=== PATIENT | female | born 1960 | race Caucasian/White ===

== ENCOUNTER 2016-11-16 11:22 | Emergency (ER) | payer BC ==
[~2016-11-16] VITALS: Ht 149.9 cm; Wt 87.2 kg
[~2016-11-16 11:22] MED LIST: ANT PO; EPP3/2 IM; LISI-461 PO; PRT40 PO
[2016-11-16 11:24] VITALS: TEMP 37; Ht 149.9 cm; Wt 87.2 kg
[2016-11-16] MEDS ORDERED: RANITIDINE HCL 150 MG TAB PO ONE (12:00)
--- NOTE | 2016-11-16 12:11 | EMERGENCY ROOM VISIT NOTE ---
ED Visit Note First contact with patient: 11:36 Chief Complaint: Rash History of Present Illness: Patient is a 56-year-old female who presents to the emergency department today for evaluation of diffuse rash. She reports that she developed mild swelling to the upper and lower lips 2 days ago. Yesterday, she noticed irritation and bumps between her fingers. She took one half of a 25 mg Benadryl last evening and then a second one half upon awakening at 2:30 when she noticed diffuse rash to her face, arms, and RIGHT hip area. She denies any significant itching. There is been no new environmental exposures. There is been no new detergents, colognes, perfumes, etc. She did make an appointment with her primary care provider this morning at 11 AM, however they contacted her and told her to come to the emergency department instead. She is taking no other [id number]-[id number] medications to this point. The patient reports his past medical history of multiple sclerosis. She reports that she cannot take steroids secondary to a previous reaction. She complains of some mild joint pain which is not new, but rates her discomfort as a 6/10. She denies any fevers, chills, recent illness, headaches, dizziness, lightheadedness , throat swelling, tongue swelling, shortness of breath, hemoptysis, nausea, vomiting, or abdominal pain. Medications: Reviewed and discussed with the patient. Allergies: Bee stings, naproxen, sulfa antibiotics PMH: MS MICHELx: Patient is a 56-year-old female who lives locally. ROS: All pertinent positive and negative review of systems are appropriately documented in the History of Present Illness. Physical Exam: VITAL SIGNS - Vital signs and nursing notes were reviewed. GENERAL - 56-year-old female appearing her stated age. Communicates well with provider and answers questions appropriately. SKIN - Gross examination of the entire body surface demonstrates a diffuse erythematous macular rash with several small urticaria noted throughout the face , neck, and upper extremity's. There is an isolated area to the RIGHT hip as well. Lesions are all blanchable. No petechiae or palpable purpura appreciated. Mild edema noted to the upper lip. HEAD - Normocephalic, Atraumatic. EYES - PERRL with EOMI bilaterally. Without periorbital edema. Without subconjunctival hemorrhage. Palpebral conjunctiva pink and moist with no injection. EARS - No deformities of external structures noted on gross examination bilaterally. No hemotympanum present. No tympanic perforation noted. Handle of malleus, umbo, cone of light, pars tensa/flaccid all easily visualized. NOSE - Midline and without cyanosis. No epistaxis or clear watery discharge noted. Septum midline without deviation. No septal hematoma noted. No overlying ecchymosis noted. MOUTH/OROPHARYNX - Without perioral cyanosis. Tongue midline with equal elevation of palate bilaterally. No blood noted in the oropharynx. No tonsillar hypertrophy, erythema, or exudates noted. Good dentition noted. NECK - Supple to palpation. LUNGS - Chest wall symmetric without accessory muscle use, intercostals retractions, or central cyanosis. Without stridor. No active wheezes. Normal vesicular breath sounds CTA B/L. No rales or rhonchi appreciated. CARDIAC - RRR with S1/S2. No murmur, rubs, or gallops appreciated. ABDOMEN - Abdominal contour obese without pulsations or visible masses. BS normoactive all four quadrants. No rebound tenderness or guarding noted. No tenderness, palpable masses, hepatosplenomegaly, or ascites noted. EXTREMITIES - No gross deformities noted of the extremities. NEUROLOGIC - Cranial nerves II through XII grossly intact. Sensory intact to light touch throughout. PSYCH - A&Ox3 and cooperates fully with examiner. Pt is very pleasant and interacts well with examiner. ED Course: Patient was seen and evaluate by myself. I had a lengthy discussion with patient regarding symptoms and management. I did offer intravenous medications for rapid result of symptoms, but the patient adamantly declines blood work at this point. She was offered oral medication, especially steroids. She declined steroids at this time secondary to extreme reaction. The patient admits that the only reason she is here is because the nurses refused to see her in office today based on her symptoms over the phone. They did not physically see the patient. The patient reports that her primary care provider is out of office at this point or she would have contacted him directly. I did suggest that intravenous medications would provide quicker relief of symptoms, yet she still declines. She was provided oral Benadryl as well as Zantac in the emergency department. She was encouraged to utilize these medications around the clock. She was educated if her symptoms were to worsen she should utilize her epinephrine injection and presented to the emergency Department immediately. Patient and her are comfortable with this plan and feel this is most appropriate at this point. They're educated on worrisome symptoms for return visit to the emergency department. Patient discharged home in good condition. In the evaluation and treatment of this patient, the following differential diagnoses were considered: Anaphylaxis, cellulitis, dermatitis, vasculitis, medication reaction, autoimmune disorder, amongst others. Impression: Urticarial Rash Discharge Instructions: You have been treated in the Emergency Department for an Urticarial Rash. You should take Benadryl (diphenhydramine) 25-50 mg orally every 4-6 hours for the next 5-7 days. This medication is [id number] and you will NOT need a prescription to purchase this at your local pharmacy. You should continue taking the Benadryl for the COMPLETION of the 5-7 days. This is to prevent a rebound allergic reaction in the event that allergens are still present in your system. You should take Zantac (ranitidine) 150 mg orally twice daily for the next 7 days. This medication is njig-cuy-hdechpx and you will NOT need a prescription to purchase this at your local pharmacy. You should continue taking the Zantac for the COMPLETION of the 7 days. This is to prevent a rebound allergic reaction in the event that allergens are still present in your system. Use your EpiPen if symptoms worsen. If you begin to experience the symptoms that brought you to the Emergency Department today, you should give yourself the injection and then report IMMEDIATELY to the Emergency Department for further evaluation and treatment. Follow-up with your primary care provider in 24-48 hours for recheck. Return to the Emergency Department if your current symptoms worsen despite treatment course outlined above, or if you develop any of the following symptoms : wheezing, tongue or face swelling, tightness in your throat, shortness of breath, or fainting. Current/Historical Medications Scheduled Epinephrine (Epipen), 0.3 MG IM UD Lisinopril (Lisinopril), 10 MG PO QAM Pantoprazole (Pantoprazole Sodium), 40 MG PO BID Scheduled PRN Antacid (Antacid), 2 TABS PO for Heartburn Allergies Coded Allergies: BEE STING (Verified Allergy, Severe, SHORTNESS OF BREATH, swelling, ) severity depends on area of sting Naproxen (Verified Allergy, Intermediate, HIVES, 07/23/16) Sulfa Antibiotics (Verified Allergy, Intermediate, HIVES, 07/23/16) Vital Signs Date Time Temp Pulse Resp B/P Pulse Ox O2 Delivery O2 Flow Rate FiO2 11/16/16 12:21 89 17 161/118 97 11/16/16 12:18 89 17 161/118 97 Room Air 11/16/16 11:24 37.0 96 18 162/107 96 Room Air Medications Administered Medications (Trade) Dose Ordered Sig/Orville Route Start Time Stop Time Status Last Admin Dose Admin Diphenhydramine HCl (Benadryl Cap) 25 mg NOW ONCE PO 11/16/16 12:00 11/16/16 12:02 DC 11/16/16 12:06 25 MG Ranitidine HCl (zANTac TAB) 150 mg NOW ONCE PO 11/16/16 12:00 11/16/16 12:02 DC 11/16/16 12:06 150 MG Departure Information Impression Primary Impression: Urticarial rash Dispostion Home / Self-Care Condition GOOD Referrals Shon Page M.D. (PCP) Patient Instructions [facility] Additional Instructions You have been treated in the Emergency Department for an Urticarial Rash. You should take Benadryl (diphenhydramine) 25-50 mg orally every 4-6 hours for the next 5-7 days. This medication is [id number]-uijdjqa and you will NOT need a prescription to purchase this at your local pharmacy. You should continue taking the Benadryl for the COMPLETION of the 5-7 days. This is to prevent a rebound allergic reaction in the event that allergens are still present in your system. You should take Zantac (ranitidine) 150 mg orally twice daily for the next 7 days. This medication is [id number] and you will NOT need a prescription to purchase this at your local pharmacy. You should continue taking the Zantac for the COMPLETION of the 7 days. This is to prevent a rebound allergic reaction in the event that allergens are still present in your system. Use your EpiPen if symptoms worsen. If you begin to experience the symptoms that brought you to the Emergency Department today, you should give yourself the injection and then report IMMEDIATELY to the Emergency Department for further evaluation and treatment. Follow-up with your primary care provider in 24-48 hours for recheck. Return to the Emergency Department if your current symptoms worsen despite treatment course outlined above, or if you develop any of the following symptoms : wheezing, tongue or face swelling, tightness in your throat, shortness of breath, or fainting.
[2016-11-16 12:21] VITALS: BP 161/118; PULSE 89; O2SAT 97
== END 2016-11-16 12:22 | disposition home or self-care (01) ==
LOC: C.EDB 11:25
DX: L50.9 Urticaria, unspecified (principal); G35 Multiple sclerosis

== ENCOUNTER 2020-07-15 | Inpatient (IN) ==
--- OUTSIDE RECORDS SUMMARY | 2020-07-15 00:03 | External Medical Summary | Continuity of Care Document ---
:1960 Author Name Laya Wood Address Unavailable Unavailable , Care Team Providers Name Role Phone Aiden MCMILLAN Unavailable [email or web address] Kavin CAMACHO Unavailable Unavailable Unavailable Unavailable Unavailable Assessments Assessed Problems:Cough Problems Polyarthritis (716.50) (M13.0) Polycythemia (238.4) (D75.1) Cough (786.2) (R05) Allergies and Adverse Reactions Gabapentin CAPS (Allergy) Naproxen TABS (Allergy) Bee sting (Allergy) Medications Pantoprazole Sodium 40 MG Oral Tablet Delayed Release Refills: 0 Fluticasone Propionate 50 MCG/ACT Nasal Suspension Refills: 0 Vitamin D3 125 MCG (5000 UT) Oral Tablet Refills: 0 Super B Complex TABS Refills: 0 Furosemide 20 MG Oral Tablet Refills: 0 Potassium Chloride ER 20 MEQ Oral Tablet Extended Release Refills: 0 LORazepam 1 MG Oral Tablet Refills: 0 Lisinopril-hydroCHLOROthiazide 10-12.5 MG Oral Tablet Refills: 0 raNITIdine HCl 150 MG CAPS Refills: 0 Desonide 0.05 % External Ointment Refills: 0 diphenhydrAMINE HCl - 25 MG Oral Capsule Refills: 0 Fluocinonide 0.05 % External Cream Refills: 0 prednisoLONE Acetate 1 % Ophthalmic Suspension Refills: 0 Procedures History of ear surgery Status: Completed Immunizations Immunizations not documented Social History - Smoking Status Never smoked tobacco Plan of Treatment Planned Observations Planned Goals not documented Results No Known Results Results not documented Encounters Appointment; Debra Wolfe PA-C 26-Aug-2017 11:30 Encounter Diagnosis: Problem not documented
--- OUTSIDE RECORDS SUMMARY | 2020-07-15 00:03 | External Medical Summary | Continuity of Care Document ---
:1960 Author Name Laya Wood Address Unavailable Unavailable , Care Team Providers Name Role Phone Aiden MCMILLAN Unavailable [email or web address] Kavin CAMACHO Unavailable Unavailable Unavailable Unavailable Unavailable Assessments Assessed Problems:Cough Problems Cough (786.2) (R05) Polycythemia (238.4) (D75.1) Polyarthritis (716.50) (M13.0) Allergies and Adverse Reactions Gabapentin CAPS (Allergy) Naproxen TABS (Allergy) Bee sting (Allergy) Medications prednisoLONE Acetate 1 % Ophthalmic Suspension Refills: 0 Fluocinonide 0.05 % External Cream Refills: 0 diphenhydrAMINE HCl - 25 MG Oral Capsule Refills: 0 Desonide 0.05 % External Ointment Refills: 0 LORazepam 1 MG Oral Tablet Refills: 0 Furosemide 20 MG Oral Tablet Refills: 0 Super B Complex TABS Refills: 0 raNITIdine HCl 150 MG CAPS Refills: 0 Lisinopril-hydroCHLOROthiazide 10-12.5 MG Oral Tablet Refills: 0 Potassium Chloride ER 20 MEQ Oral Tablet Extended Release Refills: 0 Vitamin D3 125 MCG (5000 UT) Oral Tablet Refills: 0 Fluticasone Propionate 50 MCG/ACT Nasal Suspension Refills: 0 Pantoprazole Sodium 40 MG Oral Tablet Delayed Release Refills: 0 Procedures History of ear surgery Status: Completed Immunizations Immunizations not documented Social History - Smoking Status Never smoked tobacco Plan of Treatment Planned Observations Planned Goals not documented Results No Known Results Results not documented Encounters Appointment; Debra Wolfe PA-C 26-Aug-2017 11:30 Encounter Diagnosis: Problem not documented
[2020-07-15] MEDS ORDERED: ONDANSETRON INJ 2 MG/ML 2 ML VIAL IV STA (00:19)
[2020-07-15 00:42] LABS: Appearance Urine Clear (Clear); Blood Urine Negative (Negative); Color Urine Dark Yellow; Glucose Urine UA Negative (Negative); Ketones Urine Negative (Negative); Leukocyte Esterase Urine 1+ (Negative); Nitrite Urine Positive (Negative); Protein Urine Negative (Negative); Specific Gravity Urine 1.005 (1.000-1.030); Urobilinogen Urine Negative (Negative)
[2020-07-15 00:58] LABS: Basophils # (auto) 0.01 K/uL (0-0.2); Basophils % (auto) 0.1 %; Eosinophils # (auto) 0.02 K/uL (0-0.5); Eosinophils % (auto) 0.2 %; Hematocrit (blood only) 39.4 % (37-47); Hemoglobin 13.7 g/dL (12.0-16.0); Immature Granulocytes # (auto) 0.04 K/uL (0.00-0.02); Immature Granulocytes % (auto) 0.4 %; Lymphocytes # (auto) 1.39 K/uL (1.2-3.4); Lymphocytes % (auto) 13.6 %; Mean Corpuscular Hgb Conc 34.8 g/dL (32-36); Mean Corpuscular Volume 106.5 fL (80-100); Mean Platelet Volume 10.1 fL (7.4-10.4); Monocytes % (auto) 13.7 %; Neutrophils # (auto) 7.33 K/uL (1.4-6.5); Platelet Count 134 K/uL (130-400); RDW Coefficient of Variation 14.5 % (11.5-14.5); RDW Standard Deviation 56.1 fL (36.4-46.3); White Blood Count 10.19 K/uL (4.8-10.8)
[2020-07-15 01:11] LABS: Bilirubin Urine Negative (Negative); Ictotest Urine Negative (Negative)
[2020-07-15 01:14] LABS: INR 1.3 (0.9-1.1); Partial Thromboplastin Time 27.1 Seconds (21.0-31.0); Prothrombin Time 13.1 Seconds (9.0-12.0)
[2020-07-15 01:14] LABS: Bacteria Urine Automated Negative (Negative); Cast Urine Automated 0 /lpf (0-5); Epithelial Cell Urine Auto 0-5 /lpf (0-5); RBC Urine Automated 0-4 /hpf (0-4); Renal Epithelial Cells Urine 0-5 /lpf (0-5)
[2020-07-15 01:26] LABS: Alanine Aminotransferase 129 U/L (12-78); Albumin Globulin Ratio 0.6 (0.9-2); Albumin Level 2.7 gm/dl (3.4-5.0); Aspartate Aminotransferase 294 U/L (15-37); BUN Creatinine Ratio 12.5 (10-20); Bilirubin,Total 6.2 mg/dl (0.2-1); Blood Urea Nitrogen 7 mg/dl (7-18); C Reactive Protein 7.07 mg/dl (0-0.29); Calcium 8.8 mg/dl (8.5-10.1); Carbon Dioxide 31 mmol/L (21-32); Chloride 92 mmol/L (98-107); Creatinine Clr Calc Pharmacy 97.7 ml/min; Est GFR (African American) 120.6; Globulin 4.3 gm/dl (2.5-4.0); Glucose 129 mg/dl (70-99); Lipase 158 U/L (73-393); Magnesium 1.6 mg/dl (1.8-2.4); Potassium 2.8 mmol/L (3.5-5.1); Sodium 132 mmol/L (136-145)
[2020-07-15 01:33] LABS: Alkaline Phosphatase 195 U/L (45-117); Troponin I < 0.015 ng/ml (0-0.045)
[2020-07-15] MEDS: POTASSIUM CHLORIDE / WTR 10 MEQ/100 ML PLCT IV SCH ×2 (01:41→02:39)
[2020-07-15 02:00] LABS: Lyme Ab IgG w/WB Rflx Negative (Negative)
[2020-07-15 02:01] LABS: Lyme Ab IgM w/WB Rflx Equivocal (Negative)
[2020-07-15 02:56] LABS: Hepatitis B Surface Antigen Neg (Neg); Hepatitis C IgG 13Yrs+Old_Rflx Neg (Neg)
[2020-07-15] MEDS ORDERED: IOVERSOL 100ml IV ONE (03:57)
[2020-07-15] MEDS ORDERED: POTASSIUM CHLORIDE 10 MEQ TABCR PO STA (04:52)
--- NOTE | 2020-07-15 05:11 | Emergency Department Note ---
History of Present Illness General Chief complaint: Abnormal Labs/Diagnostic Testing Stated complaint: ABNORMAL LABS Time Seen by Provider: 07/15/20 00:07 History of Present Illness Maximum Pain Intensity: 7 This is a 60-year-old female presenting to the emergency department for evaluation of abnormal outpatient labs. The patient history is somewhat disjointed. She evidently had a colonoscopy about 1 month ago and following the procedure had a period of persistent nausea and vomiting. She has had some generalized weakness as well. The patient followed up today with her primary are physician where blood work was drawn and urine was collected. The patient was felt to have a urinary tract infection and started on Cipro, and has only taken 1 dose of the antibiotic thus far. The patient was getting ready for bed and was laying in bed around 10:30 PM, when the on-call [facility] contacted her and informed her that her lab results had come back, and she had elevated LFTs. They recommend that she go straight to the emergency department for evaluation. On arrival the patient is without significant acute complaints. She has not had recent fever or chills. She had negative Covid testing before her colonoscopy and has not had any recent travel history. She is not having chest pain, chest tightness, or shortness of breath. She has had some intermittent abdominal discomfort since the colonoscopy but nothing new. 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 Her liver was measured at 20.4 cm on that image and was with steatosis. The patient rates her current discomfort a 7/10. She has not taken anything [id number] for her symptoms and feels like she has been eating and drinking as normal. Other than the 1 dose of Cipro she has not had any new medication changes. She does take vitamins but denies any herbal supplements. Home Medications Home Medications Medication Instructions Recorded Confirmed Type ciprofloxacin HCl 250 mg PO BID 07/15/20 07/15/20 History ergocalciferol (vitamin D2) 1,250 mcg PO MONTHLY 07/15/20 07/15/20 History ipratropium bromide 2 spray INTRANASAL Q12 07/15/20 07/15/20 History lisinopril-hydrochlorothiazide 1 tab PO DAILY 07/15/20 07/15/20 History tramadol 50 mg PO Q6 PRN 07/15/20 07/15/20 History Allergies Allergy/AdvReac Type Severity Reaction Status Date / Time bee venom protein (honey bee) Allergy Severe SHORTNESS Verified 07/15/20 01:43 OF BREATH, swelling naproxen Allergy Intermediate HIVES Verified 07/15/20 01:43 Sulfa (Sulfonamide Allergy Intermediate HIVES Verified 07/15/20 01:43 Antibiotics) Past Med/Surg History Medical History (Updated 07/15/20 @ 05:04 by Bc Deleon PA-C) HTN (hypertension) (07/12/14) Surgical History (Updated 07/15/20 @ 05:04 by Bc Deleon PA-C) H/O tubal ligation Social History Smoking Status: Never smoker Feels Safe at Home: Yes Review of Systems A total of 10 systems reviewed and were otherwise negative Physical Exam Vital Signs Vital Signs - 24 hr 07/15/20 00:04 07/15/20 00:30 07/15/20 00:32 Temperature 37.1 C Temperature Source Oral Pulse Rate 106 H 104 H Pulse Rate from SpO2 Sensor 105 H Respiratory Rate 18 24 Respiratory Effort / Characteristics Non-Labored Spontaneous Respiratory Depth Normal Blood Pressure 134/81 172/99 H Blood Pressure Mean 98 119 Pulse Oximetry 98 95 Oxygen Delivery Method Room Air Room Air Room Air Sepsis Recent Fever Within 48 Hours No Sepsis New/Unexplained Change in Mental Status N/A Sepsis Action Taken by Nursing No Action Required 07/15/20 01:18 07/15/20 01:30 07/15/20 02:00 Temperature Temperature Source Pulse Rate 97 H 93 H 92 H Pulse Rate from SpO2 Sensor 97 H 93 H 93 H Respiratory Rate 22 17 20 Respiratory Effort / Characteristics Respiratory Depth Blood Pressure 125/74 131/92 146/85 H Blood Pressure Mean 84 101 109 Pulse Oximetry 96 95 96 Oxygen Delivery Method Room Air Room Air Room Air Sepsis Recent Fever Within 48 Hours Sepsis New/Unexplained Change in Mental Status Sepsis Action Taken by Nursing 07/15/20 02:30 07/15/20 03:00 07/15/20 03:30 Temperature Temperature Source Pulse Rate 98 H 98 H 94 H Pulse Rate from SpO2 Sensor 98 H 98 H 94 H Respiratory Rate 18 22 18 Respiratory Effort / Characteristics Respiratory Depth Blood Pressure 118/68 127/82 116/73 Blood Pressure Mean 82 108 84 Pulse Oximetry 93 95 93 Oxygen Delivery Method Room Air Room Air Room Air Sepsis Recent Fever Within 48 Hours Sepsis New/Unexplained Change in Mental Status Sepsis Action Taken by Nursing 07/15/20 04:00 07/15/20 04:30 Temperature Temperature Source Pulse Rate 96 H 88 Pulse Rate from SpO2 Sensor 95 H 87 Respiratory Rate 24 13 Respiratory Effort / Characteristics Respiratory Depth Blood Pressure 118/74 113/71 Blood Pressure Mean 86 80 Pulse Oximetry 93 95 Oxygen Delivery Method Room Air Room Air Sepsis Recent Fever Within 48 Hours Sepsis New/Unexplained Change in Mental Status Sepsis Action Taken by Nursing VITALS: Vitals are noted on the nurse's note and reviewed by myself. Vital signs stable. GENERAL: White female who appears moderately ill on exam. She is jaundiced. HEAD: Normocephalic atraumatic. EYES: Pupils equal round and reactive to light and accommodation. Conjunctivae yellow. EOMI. NOSE: Patent, turbinates without inflammation or discharge. MOUTH: Mucous membranes moist. Tonsils are not enlarged. Pharynx without erythema, blood, or exudate. Uvula midline. Airway patent. NECK: Supple without nuchal rigidity. No lymphadenopathy. No thyromegaly. Cervical spine is nontender. HEART: Regular rate and rhythm without murmurs gallops or rubs. LUNGS: Clear to auscultation bilaterally without wheezes, rales or rhonchi. No retractions or accessory muscle use. ABDOMEN: Positive normal bowel sounds x 4. Soft with firmness across the upper abdomen concerning for hepatomegaly. No significant tenderness throughout. MUSCULOSKELETAL: No muscle atrophy, erythema, or edema noted. Full range of motion in all extremities. NEURO: Patient was alert and oriented to person place and time. CN II through XII grossly intact. Course Administered Medications Discontinued Medications Potassium Chloride (K Tony / Wtr) 10 meq in 100 mls @ 100 mls/hr IV Q1H AUGIE Stop: 07/15/20 03:29 Last Infusion: 07/15/20 03:37 Dose: 0 mls/hr Documented by: [id number] Admin: 07/15/20 02:39 Dose: 100 mls/hr Documented by: [id number] Infusion: 07/15/20 02:39 Dose: 0 mls/hr Documented by: [id number] Admin: 07/15/20 01:41 Dose: 100 mls/hr Documented by: [id number] Ioversol (Ioversol 100ml) 100 ml IV ONCE ONE Stop: 07/15/20 03:58 Last Admin: 07/15/20 03:57 Dose: 92 ml Documented by: [id number] Ondansetron HCl (Ondansetron Inj 2 Mg/Ml 2 Ml Vial) 4 mg IV NOW STA Stop: 07/15/20 00:20 Last Admin: 07/15/20 00:47 Dose: 4 mg Documented by: [id number] Medical Decision Making Differential Diagnosis Differential diagnosis: Etiologies such as biliary colic, cholecystitis, hepatitis, pancreatitis, cardiac disease, pancreatitis, gastritis, peptic ulcer disease, appendicitis, cystitis, diverticulitis, mesenteric ischemia, inflammatory bowel disease, ileus, bowel obstruction, testicular/adnexal torsion, aortic pathology, shingles, as well as others were considered Laboratory Data Result diagrams: 07/15/20 00:35 07/15/20 00:35 Lab Results 07/15/20 07/15/20 07/15/20 Range/Units 00:32 00:35 00:35 WBC 10.19 (4.8-10.8) K/uL RBC 3.70 L (4.2-5.4) M/uL Hgb 13.7 (12.0-16.0) g/dL Hct 39.4 (37-47) % MCV 106.5 H (80-100) fL MCH 37.0 H (25-34) pg MCHC 34.8 (32-36) g/dL RDW Std Deviation 56.1 H (36.4-46.3) fL RDW Coeff of Merna 14.5 (11.5-14.5) % Plt Count 134 (130-400) K/uL MPV 10.1 (7.4-10.4) fL Immature Gran % (Auto) 0.4 % Neut % (Auto) 72.0 % Lymph % (Auto) 13.6 % [place] % (Auto) 13.7 % Eos % (Auto) 0.2 % Baso % (Auto) 0.1 % Neut # (Auto) 7.33 H (1.4-6.5) K/uL Lymph # (Auto) 1.39 (1.2-3.4) K/uL [place] # (Auto) 1.40 H (0.11-0.59) K/uL Eos # (Auto) 0.02 (0-0.5) K/uL Baso # (Auto) 0.01 (0-0.2) K/uL Immature Gran # (Auto) 0.04 H (0.00-0.02) K/uL ESR (0-21) mm/hr PT (9.0-12.0) Seconds INR (0.9-1.1) APTT (21.0-31.0) Seconds PTT Ratio Sodium 132 L (136-145) mmol/L Potassium 2.8 L (3.5-5.1) mmol/L Chloride 92 L (98-107) mmol/L Carbon Dioxide 31 (21-32) mmol/L Anion Gap 9.0 (3-11) BUN 7 (7-18) mg/dl Creatinine 0.54 L (0.6-1.2) mg/dl Est Cr Clr Drug Dosing 97.7 ml/min Est GFR ( Amer) 120.6 Est GFR (Non-Af Amer) 104.0 BUN/Creatinine Ratio 12.5 (10-20) Glucose 129 H (70-99) mg/dl Lactate (0.4-2.0) mmol/L Calcium 8.8 (8.5-10.1) mg/dl Magnesium 1.6 L (1.8-2.4) mg/dl Total Bilirubin 6.2 H (0.2-1) mg/dl Direct Bilirubin 5.0 H (0-0.2) mg/dl AST 294 H (15-37) U/L ALT 129 H (12-78) U/L Alkaline Phosphatase 195 H (45-117) U/L Ammonia (11-32) umol/L Troponin I < 0.015 (0-0.045) ng/ml C-Reactive Protein 7.07 H (0-0.29) mg/dl Total Protein 7.0 (6.4-8.2) gm/dl Albumin 2.7 L (3.4-5.0) gm/dl Globulin 4.3 H (2.5-4.0) gm/dl Albumin/Globulin Ratio 0.6 L (0.9-2) Lipase 158 (73-393) U/L TSH 3.450 (0.300-4.500) uIu/ml Urine Color Dark Yellow Urine Appearance Clear (Clear) Urine pH 7.0 (4.5-7.5) Ur Specific [place] 1.005 (1.000-1.030) Urine Protein Negative (Negative) Urine Glucose (UA) Negative (Negative) Urine Ketones Negative (Negative) Urine Blood Negative (Negative) Urine Nitrite Positive A (Negative) Urine Bilirubin Negative (Negative) Urine Urobilinogen Negative (Negative) Ur Leukocyte Esterase 1+ H (Negative) Urine WBC (Auto) 1-5 (0-5) /hpf Urine RBC (Auto) 0-4 (0-4) /hpf U Hyaline Cast (Auto) 0 (0-5) /lpf U Epithel Cells (Auto) 0-5 (0-5) /lpf Urine Bacteria (Auto) Negative (Negative) Ur Renal Epithelial Cell 0-5 (0-5) /lpf Ethyl Alcohol mg/dL (0-3) mg/dl Lyme Disease IgG Ab (Negative) Lyme Disease IgM Ab (Negative) Hep Bs Antigen (Neg) Hepatitis C Antibody (Neg) 07/15/20 07/15/20 07/15/20 Range/Units 00:35 00:35 00:35 WBC (4.8-10.8) K/uL RBC (4.2-5.4) M/uL Hgb (12.0-16.0) g/dL Hct (37-47) % MCV (80-100) fL MCH (25-34) pg MCHC (32-36) g/dL RDW Std Deviation (36.4-46.3) fL RDW Coeff of Merna (11.5-14.5) % Plt Count (130-400) K/uL MPV (7.4-10.4) fL Immature Gran % (Auto) % Neut % (Auto) % Lymph % (Auto) % [place] % (Auto) % Eos % (Auto) % Baso % (Auto) % Neut # (Auto) (1.4-6.5) K/uL Lymph # (Auto) (1.2-3.4) K/uL [place] # (Auto) (0.11-0.59) K/uL Eos # (Auto) (0-0.5) K/uL Baso # (Auto) (0-0.2) K/uL Immature Gran # (Auto) (0.00-0.02) K/uL ESR (0-21) mm/hr PT 13.1 H (9.0-12.0) Seconds INR 1.3 H (0.9-1.1) APTT 27.1 (21.0-31.0) Seconds PTT Ratio 1.0 Sodium (136-145) mmol/L Potassium (3.5-5.1) mmol/L Chloride (98-107) mmol/L Carbon Dioxide (21-32) mmol/L Anion Gap (3-11) BUN (7-18) mg/dl Creatinine (0.6-1.2) mg/dl Est Cr Clr Drug Dosing ml/min Est GFR ( Amer) Est GFR (Non-Af Amer) BUN/Creatinine Ratio (10-20) Glucose (70-99) mg/dl Lactate (0.4-2.0) mmol/L Calcium (8.5-10.1) mg/dl Magnesium (1.8-2.4) mg/dl Total Bilirubin (0.2-1) mg/dl Direct Bilirubin (0-0.2) mg/dl AST (15-37) U/L ALT (12-78) U/L Alkaline Phosphatase (45-117) U/L Ammonia 31.0 (11-32) umol/L Troponin I (0-0.045) ng/ml C-Reactive Protein (0-0.29) mg/dl Total Protein (6.4-8.2) gm/dl Albumin (3.4-5.0) gm/dl Globulin (2.5-4.0) gm/dl Albumin/Globulin Ratio (0.9-2) Lipase (73-393) U/L TSH (0.300-4.500) uIu/ml Urine Color Urine Appearance (Clear) Urine pH (4.5-7.5) Ur Specific Basin (1.000-1.030) Urine Protein (Negative) Urine Glucose (UA) (Negative) Urine Ketones (Negative) Urine Blood (Negative) Urine Nitrite (Negative) Urine Bilirubin (Negative) Urine Urobilinogen (Negative) Ur Leukocyte Esterase (Negative) Urine WBC (Auto) (0-5) /hpf Urine RBC (Auto) (0-4) /hpf U Hyaline Cast (Auto) (0-5) /lpf U Epithel Cells (Auto) (0-5) /lpf Urine Bacteria (Auto) (Negative) Ur Renal Epithelial Cell (0-5) /lpf Ethyl Alcohol mg/dL (0-3) mg/dl Lyme Disease IgG Ab Negative (Negative) Lyme Disease IgM Ab Equivocal A (Negative) Hep Bs Antigen (Neg) Hepatitis C Antibody (Neg) 07/15/20 07/15/20 07/15/20 Range/Units 00:35 00:45 00:45 WBC (4.8-10.8) K/uL RBC (4.2-5.4) M/uL Hgb (12.0-16.0) g/dL Hct (37-47) % MCV (80-100) fL MCH (25-34) pg MCHC (32-36) g/dL RDW Std Deviation (36.4-46.3) fL RDW Coeff of Merna (11.5-14.5) % Plt Count (130-400) K/uL MPV (7.4-10.4) fL Immature Gran % (Auto) % Neut % (Auto) % Lymph % (Auto) % [place] % (Auto) % Eos % (Auto) % Baso % (Auto) % Neut # (Auto) (1.4-6.5) K/uL Lymph # (Auto) (1.2-3.4) K/uL [place] # (Auto) (0.11-0.59) K/uL Eos # (Auto) (0-0.5) K/uL Baso # (Auto) (0-0.2) K/uL Immature Gran # (Auto) (0.00-0.02) K/uL ESR 17 (0-21) mm/hr PT (9.0-12.0) Seconds INR (0.9-1.1) APTT (21.0-31.0) Seconds PTT Ratio Sodium (136-145) mmol/L Potassium (3.5-5.1) mmol/L Chloride (98-107) mmol/L Carbon Dioxide (21-32) mmol/L Anion Gap (3-11) BUN (7-18) mg/dl Creatinine (0.6-1.2) mg/dl Est Cr Clr Drug Dosing ml/min Est GFR ( Amer) Est GFR (Non-Af Amer) BUN/Creatinine Ratio (10-20) Glucose (70-99) mg/dl Lactate 1.7 (0.4-2.0) mmol/L Calcium (8.5-10.1) mg/dl Magnesium (1.8-2.4) mg/dl Total Bilirubin (0.2-1) mg/dl Direct Bilirubin (0-0.2) mg/dl AST (15-37) U/L ALT (12-78) U/L Alkaline Phosphatase (45-117) U/L Ammonia (11-32) umol/L Troponin I (0-0.045) ng/ml C-Reactive Protein (0-0.29) mg/dl Total Protein (6.4-8.2) gm/dl Albumin (3.4-5.0) gm/dl Globulin (2.5-4.0) gm/dl Albumin/Globulin Ratio (0.9-2) Lipase (73-393) U/L TSH (0.300-4.500) uIu/ml Urine Color Urine Appearance (Clear) Urine pH (4.5-7.5) Ur Specific [place] (1.000-1.030) Urine Protein (Negative) Urine Glucose (UA) (Negative) Urine Ketones (Negative) Urine Blood (Negative) Urine Nitrite (Negative) Urine Bilirubin (Negative) Urine Urobilinogen (Negative) Ur Leukocyte Esterase (Negative) Urine WBC (Auto) (0-5) /hpf Urine RBC (Auto) (0-4) /hpf U Hyaline Cast (Auto) (0-5) /lpf U Epithel Cells (Auto) (0-5) /lpf Urine Bacteria (Auto) (Negative) Ur Renal Epithelial Cell (0-5) /lpf Ethyl Alcohol mg/dL (0-3) mg/dl Lyme Disease IgG Ab (Negative) Lyme Disease IgM Ab (Negative) Hep Bs Antigen Neg (Neg) Hepatitis C Antibody Neg (Neg) 07/15/20 Range/Units 00:45 WBC (4.8-10.8) K/uL RBC (4.2-5.4) M/uL Hgb (12.0-16.0) g/dL Hct (37-47) % MCV (80-100) fL MCH (25-34) pg MCHC (32-36) g/dL RDW Std Deviation (36.4-46.3) fL RDW Coeff of Merna (11.5-14.5) % Plt Count (130-400) K/uL MPV (7.4-10.4) fL Immature Gran % (Auto) % Neut % (Auto) % Lymph % (Auto) % [place] % (Auto) % Eos % (Auto) % Baso % (Auto) % Neut # (Auto) (1.4-6.5) K/uL Lymph # (Auto) (1.2-3.4) K/uL [place] # (Auto) (0.11-0.59) K/uL Eos # (Auto) (0-0.5) K/uL Baso # (Auto) (0-0.2) K/uL Immature Gran # (Auto) (0.00-0.02) K/uL ESR (0-21) mm/hr PT (9.0-12.0) Seconds INR (0.9-1.1) APTT (21.0-31.0) Seconds PTT Ratio Sodium (136-145) mmol/L Potassium (3.5-5.1) mmol/L Chloride (98-107) mmol/L Carbon Dioxide (21-32) mmol/L Anion Gap (3-11) BUN (7-18) mg/dl Creatinine (0.6-1.2) mg/dl Est Cr Clr Drug Dosing ml/min Est GFR ( Amer) Est GFR (Non-Af Amer) BUN/Creatinine Ratio (10-20) Glucose (70-99) mg/dl Lactate (0.4-2.0) mmol/L Calcium (8.5-10.1) mg/dl Magnesium (1.8-2.4) mg/dl Total Bilirubin (0.2-1) mg/dl Direct Bilirubin (0-0.2) mg/dl AST (15-37) U/L ALT (12-78) U/L Alkaline Phosphatase (45-117) U/L Ammonia (11-32) umol/L Troponin I (0-0.045) ng/ml C-Reactive Protein (0-0.29) mg/dl Total Protein (6.4-8.2) gm/dl Albumin (3.4-5.0) gm/dl Globulin (2.5-4.0) gm/dl Albumin/Globulin Ratio (0.9-2) Lipase (73-393) U/L TSH (0.300-4.500) uIu/ml Urine Color Urine Appearance (Clear) Urine pH (4.5-7.5) Ur Specific [place] (1.000-1.030) Urine Protein (Negative) Urine Glucose (UA) (Negative) Urine Ketones (Negative) Urine Blood (Negative) Urine Nitrite (Negative) Urine Bilirubin (Negative) Urine Urobilinogen (Negative) Ur Leukocyte Esterase (Negative) Urine WBC (Auto) (0-5) /hpf Urine RBC (Auto) (0-4) /hpf U Hyaline Cast (Auto) (0-5) /lpf U Epithel Cells (Auto) (0-5) /lpf Urine Bacteria (Auto) (Negative) Ur Renal Epithelial Cell (0-5) /lpf Ethyl Alcohol mg/dL < 3.0 (0-3) mg/dl Lyme Disease IgG Ab (Negative) Lyme Disease IgM Ab (Negative) Hep Bs Antigen (Neg) Hepatitis C Antibody (Neg) Imaging Data Radiologist's Impression: Preliminary Findings Only See Final Report For Complete Findings US RUQ: Liver is echogenic and mildly enlarged measuring 21.4 cm in length. Gallbladder is mildly distended. There is gallbladder sludge and stones. Common bile duct is 5 mm which is within normal limits. Gallbladder wall measures 4 mm which is thickened. The photo technologist indicates the absence of a Avlia's sign. Impression: Cholelithiasis and gallbladder sludge with gallbladder wall thickening. Gallbladder wall thickening is nonspecific and may be related to cholecystitis, or edema. Fatty liver with hepatomegaly Preliminary Findings Only See Final Report For Complete Findings CT ABDOMEN & PELVIS With Contrast: Liver is heterogeneous with enlargement of the left liver and the caudate lobe of the liver. Findings suggest cirrhosis. Spleen is not enlarged. Pancreas appears normal. There is cholelithiasis. The gallbladder is mildly distended. Common bile duct appears normal. Stomach, small bowel, and colon appear normal. The appendix partially visualized and does not appear inflamed There is a 1.7 cm indeterminate left adrenal mass. There is no hydronephrosis or renal stone. The bladder appears normal. Uterus appears normal. Retroperitoneal vascular structures appear normal. There is pelvic fluid. Impression: Cholelithiasis with gallbladder distention. Hepatomegaly with heterogeneity and enlargement of the left liver possibly reflecting cirrhosis. Pelvic fluid is nonspecific possibly related to cholecystitis, or hepatic dysfunction or hepatic inflammation MDM Narrative Physical exam and history were performed. Nursing notes, EMR, and Medication List were personally reviewed. Patient appears to have elevated LFTs as an outpatient. On examination she is jaundiced and exam is consistent with hepatomegaly. She does not have significant tenderness and is not febrile. She is slightly tachycardic at 106. The patient was evidently at home in bed when she was contacted with results and otherwise would not be in the ER this evening. IV access was established and labs were obtained. She was hydrated with normal saline and was given IV Zofran for comfort. Right upper quadrant ultrasound as well as CT of the abdomen and pelvis was performed. Blood cultures were gathered. An order was placed for continuous cardiac monitoring. The monitor shows a rate of 88 with normal sinus rhythm. The patient's blood work is as above and was reviewed. She does not have a significantly elevated white blood cell count or gross anemia. Her sed rate is normal at 17, however her CRP is markedly elevated at greater than 7. INR is 1.3. Sodium is 132 and potassium is 2.8. Potassium was repleted through the IV. BUN is 7 and creatinine is 0.54. Lactic is negative with cultures pending. Her AST is 294, ALT 129, and alk phos is 195. Ammonia is normal at 31. Troponin x1 is negative. Lipase and TSH are normal. Her urine does show positive nitrates and esterase with culture pending. Alcohol is negative. Lyme screen is equivocal. Hepatitis panel is pending. Her bilirubin is notably elevated with a total bili of 6.2 and a direct bili of 5.0. Patient's ultrasound was reviewed by myself and radiology. She does have gallstones with mild thickening, however sonographic Avila sign is negative, a nd the patient has not received pain medication here. CT scan was also performed with IV and oral contrast, and was reviewed. CT scan is concerning for liver cirrhosis, and again reveals cholelithiasis. Common bile duct on both CT and ultrasound appears patent and normal. On reevaluation the patient was sleeping comfortably in her ER bed. I have considerable concern for the patient as she is with elevated LFTs and clinical jaundice. She does not have significant pain, and thankfully pancreatic imaging did not reveal evidence of pancreatic cancer. The patient certainly could have a biliary etiology for her symptoms, however if her symptoms are cirrhotic in nature her calculated meld score would be 20, and thus will be quite concerning. Overall she does not appear well for discharge home. The case was discussed with the on-call hospitalist who agreed to evaluate the patient here in the ER. Please see their dictation for further patient course, plan, and disposition. The chart was completed utilizing [employer] Voice Recognition Software. Grammatical errors, random word insertions, pronoun errors, and incomplete sentences are an occasional consequence of this system due to software limitations, ambient noise, and hardware issues. Any formal questions or concerns about the content, text, or information contained within the body of this dictation should be directly addressed to the provider for clarification. . Impression & Plan Elevated LFTs, Cholelithiases, Jaundice, Low blood potassium Discharge Plan Visit Data Chief Complaint: Abnormal Labs/Diagnostic Testing Stated Complaint: ABNORMAL LABS ED Provider: Janina Lemos ED Midlevel Provider: Bc Deleon Discharge Problem: Elevated LFTs, Cholelithiases, Jaundice, Low blood potassium Forms Stand Alone Forms: My [facility] Prescriptions Prescriptions: No Action ciprofloxacin HCl 250 mg tablet 250 mg PO BID RF: 0 ergocalciferol (vitamin D2) 1,250 mcg (50,000 unit) capsule 1,250 mcg PO MONTHLY RF: 0 lisinopril-hydrochlorothiazide 10-12.5 mg tablet 1 tab PO DAILY RF: 0 ipratropium bromide 0.03 % spray,non-aerosol 2 spray INTRANASAL Q12 RF: 0 tramadol 50 mg tablet 50 mg PO Q6 PRN (Reason: Pain) RF: 0 Referrals Referrals: Shon Page MD [Primary Care Provider] - Discharge Problem: Cholelithiases Qualifiers: Cholelithiasis location: gallbladder Cholecystitis presence: without cholecystitis Biliary obstruction: without biliary obstruction Qualified Code(s): K80.20 - Calculus of gallbladder without cholecystitis without obstruction
--- NOTE | 2020-07-15 05:39 | History & Physical Report ---
Date of Service July 15, 2020 Assessment & Plan (1) Abdominal pain: Multifactorial: Cholelithiasis, no sepsis for now Cystitis ongoing Cipro Rx Cirrhosis, new diagnosis, possible NAFLD hypertension, stable Hypokalemia secondary to emesis symptoms, home diuretic Rx prediabetes OHS on CPAP fibromyalgia as per records Loose stools rule out C. difficile given recent Cipro Rx OBS [facility] GI consult RE abnormal LFTs, abdominal pain, cirrhosis work-up N.p.o. until seen by GI in anticipation of procedure Replace potassium, hold home diuretic for now until patient euvolemic Complete Cipro course for cystitis Update hemoglobin A1c Stool C. difficile DVT prophylaxis. SCDs RE possible procedure Full code Patient's requesting updates for providers. Mr. Erickson Clifton, contact #[phone]. Text document was generated using [employer] voice recognition software. It may contain grammatical or spelling errors. Kindly contact undersigned for clarification of any documentation item in question. History of Present Illness Chief Complaint: Abnormal blood work Primary Care Provider: Shon Page MD History obtained from patient, family, and records. Medical history significant for hypertension, fatty liver as per records, prediabetes, OHS on CPAP, fibromyalgia as per records. Last confinement July 2014 for chest pain. ACS ruled out with negative exercise stress test. Patient had outpatient surveillance colonoscopy last week of May 2020. External and internal hemorrhoids found on examination. 5 mm polyp resected. Since procedure, patient noted bloating symptoms with episodic emesis. OTC medications taken for indigestion with minimal relief. Patient's eyes noted to be yellow last week by . 2 days ago patient noted achy upper abdominal discomfort going down with nausea and emesis. No diarrhea. Patient noted dysuria symptoms without fever, chills. 1 tablet of Tylenol taken made her very sick as per patient. No chest pain, no S OB. Poor appetite. Patient seen at PCPs office yesterday. 3-day Cipro course prescribed for cystitis. Outpatient LFTs noted to be abnormal. Albumin 3.5, AST 322, ALT 127, alk phos 194, total bilirubin 6.4, direct bilirubin 4.9. Acute hepatitis panel was negative. Patient sent to the ER for evaluation. Loose stools noted at the ER after oral contrast ingestion. Medical History as above Surgical History : Breast lesion excision, BTL, right shoulder surgery Family History : Breast cancer, heart disease Personal/Social history : Non-smoker, no EtOH intake, disabled Allergies Allergy/AdvReac Type Severity Reaction Status Date / Time bee venom protein (honey bee) Allergy Severe SHORTNESS Verified 07/15/20 01:43 OF BREATH, swelling naproxen Allergy Intermediate HIVES Verified 07/15/20 01:43 Sulfa (Sulfonamide Allergy Intermediate HIVES Verified 07/15/20 01:43 Antibiotics) Home Medications Home Medications Medication Instructions Recorded Confirmed Type ciprofloxacin HCl 250 mg PO BID 07/15/20 07/15/20 History ergocalciferol (vitamin D2) 1,250 mcg PO MONTHLY 07/15/20 07/15/20 History ipratropium bromide 2 spray INTRANASAL Q12 07/15/20 07/15/20 History lisinopril-hydrochlorothiazide 1 tab PO DAILY 07/15/20 07/15/20 History tramadol 50 mg PO Q6 PRN 07/15/20 07/15/20 History Past Med/Surg History Medical History (Updated 07/15/20 @ 10:45 by MITCHELL Schafer) HTN (hypertension) (07/12/14) Surgical History (Updated 07/15/20 @ 05:04 by Bc Deleon PA-C) H/O tubal ligation Social History Smoking Status: Never smoker Second Hand Exposure: No; Do You Dip or Chew Tobacco: No; Tobacco Cessation Education Requested by Patient: No Hx Alcohol Use: No Hx Substance Use: No Preferred Language: Occitan Communication Ability: Effective Beam Machine Operator Required: No Beliefs That Will Affect Care: None Current Living Situation: Spouse Other Information That Helps Us Care for You: No Feels Safe at Home: Yes Safety Concerns: Feels Safe At This Time Assistive Devices: None Review of Systems Review of Systems: As per HPI, all 10 systems reviewed, all other ROS negative Physical Exam Physical Exam: GENERAL: Slightly anxious, obese, looks younger than stated age, no respiratory distress SKIN: Normal color, warm HEENT: [place] palpebral conjunctivae, no ptosis, dry buccal mucosa NECK : Supple, short neck, no tenderness CHEST : CTA, no tenderness HEART : RRR, no obvious murmurs ABDOMEN: Some distention, minimal epigastric tenderness EXTREMITIES : No LE swelling/tenderness, no other conspicuous deformities noted NEUROLOGIC : Coherent, no facial asymmetry, no other gross focality Results & Data Results & Data ([facility]) Vital Signs (Past 12 Hours) Vital Signs Temp Pulse Resp BP Pulse Ox 07/15/20 04:30 88 13 113/71 95 07/15/20 04:00 96 H 24 118/74 93 07/15/20 03:30 94 H 18 116/73 93 07/15/20 03:00 98 H 22 127/82 95 07/15/20 02:30 98 H 18 118/68 93 07/15/20 02:00 92 H 20 146/85 H 96 07/15/20 01:30 93 H 17 131/92 95 07/15/20 01:18 97 H 22 125/74 96 07/15/20 00:30 104 H 24 172/99 H 95 07/15/20 00:04 37.1 C 106 H 18 134/81 98 Laboratory Results Laboratory Results WBC 10.19 K/uL (4.8-10.8) 07/15/20 00:35 RBC 3.70 M/uL (4.2-5.4) L 07/15/20 00:35 Hgb 13.7 g/dL (12.0-16.0) 07/15/20 00:35 Hct 39.4 % (37-47) 07/15/20 00:35 MCV 106.5 fL (80-100) H 07/15/20 00:35 MCH 37.0 pg (25-34) H 07/15/20 00:35 MCHC 34.8 g/dL (32-36) 07/15/20 00:35 RDW Std Deviation 56.1 fL (36.4-46.3) H 07/15/20 00:35 RDW Coeff of Merna 14.5 % (11.5-14.5) 07/15/20 00:35 Plt Count 134 K/uL (130-400) 07/15/20 00:35 MPV 10.1 fL (7.4-10.4) 07/15/20 00:35 Immature Gran % (Auto) 0.4 % 07/15/20 00:35 Neut % (Auto) 72.0 % 07/15/20 00:35 Lymph % (Auto) 13.6 % 07/15/20 00:35 Cole % (Auto) 13.7 % 07/15/20 00:35 Eos % (Auto) 0.2 % 07/15/20 00:35 Baso % (Auto) 0.1 % 07/15/20 00:35 Neut # (Auto) 7.33 K/uL (1.4-6.5) H 07/15/20 00:35 Lymph # (Auto) 1.39 K/uL (1.2-3.4) 07/15/20 00:35 Cole # (Auto) 1.40 K/uL (0.11-0.59) H 07/15/20 00:35 Eos # (Auto) 0.02 K/uL (0-0.5) 07/15/20 00:35 Baso # (Auto) 0.01 K/uL (0-0.2) 07/15/20 00:35 Immature Gran # (Auto) 0.04 K/uL (0.00-0.02) H 07/15/20 00:35 ESR 17 mm/hr (0-21) 07/15/20 00:35 PT 13.1 Seconds (9.0-12.0) H 07/15/20 00:35 INR 1.3 (0.9-1.1) H 07/15/20 00:35 APTT 27.1 Seconds (21.0-31.0) 07/15/20 00:35 PTT Ratio 1.0 07/15/20 00:35 Sodium 132 mmol/L (136-145) L 07/15/20 00:35 Potassium 2.8 mmol/L (3.5-5.1) L 07/15/20 00:35 Chloride 92 mmol/L (98-107) L 07/15/20 00:35 Carbon Dioxide 31 mmol/L (21-32) 07/15/20 00:35 Anion Gap 9.0 (3-11) 07/15/20 00:35 BUN 7 mg/dl (7-18) 07/15/20 00:35 Creatinine 0.54 mg/dl (0.6-1.2) L 07/15/20 00:35 Est Cr Clr Drug Dosing 97.7 ml/min 07/15/20 00:35 Est GFR ( Amer) 120.6 07/15/20 00:35 Est GFR (Non-Af Amer) 104.0 07/15/20 00:35 BUN/Creatinine Ratio 12.5 (10-20) 07/15/20 00:35 Glucose 129 mg/dl (70-99) H 07/15/20 00:35 Lactate 1.7 mmol/L (0.4-2.0) 07/15/20 00:45 Calcium 8.8 mg/dl (8.5-10.1) 07/15/20 00:35 Magnesium 1.6 mg/dl (1.8-2.4) L 07/15/20 00:35 Total Bilirubin 6.2 mg/dl (0.2-1) H 07/15/20 00:35 Direct Bilirubin 5.0 mg/dl (0-0.2) H 07/15/20 00:35 AST 294 U/L (15-37) H 07/15/20 00:35 ALT 129 U/L (12-78) H 07/15/20 00:35 Alkaline Phosphatase 195 U/L (45-117) H 07/15/20 00:35 Ammonia 31.0 umol/L (11-32) 07/15/20 00:35 Troponin I < 0.015 ng/ml (0-0.045) 07/15/20 00:35 C-Reactive Protein 7.07 mg/dl (0-0.29) H 07/15/20 00:35 Total Protein 7.0 gm/dl (6.4-8.2) 07/15/20 00:35 Albumin 2.7 gm/dl (3.4-5.0) L 07/15/20 00:35 Globulin 4.3 gm/dl (2.5-4.0) H 07/15/20 00:35 Albumin/Globulin Ratio 0.6 (0.9-2) L 07/15/20 00:35 Lipase 158 U/L (73-393) 07/15/20 00:35 TSH 3.450 uIu/ml (0.300-4.500) 07/15/20 00:35 Urine Color Dark Yellow 07/15/20 00:32 Urine Appearance Clear (Clear) 07/15/20 00:32 Urine pH 7.0 (4.5-7.5) 07/15/20 00:32 Ur Specific [place] 1.005 (1.000-1.030) 07/15/20 00:32 Urine Protein Negative (Negative) 07/15/20 00:32 Urine Glucose (UA) Negative (Negative) 07/15/20 00:32 Urine Ketones Negative (Negative) 07/15/20 00:32 Urine Blood Negative (Negative) 07/15/20 00:32 Urine Nitrite Positive (Negative) A 07/15/20 00:32 Urine Bilirubin Negative (Negative) 07/15/20 00:32 Urine Urobilinogen Negative (Negative) 07/15/20 00:32 Ur Leukocyte Esterase 1+ (Negative) H 07/15/20 00:32 Urine WBC (Auto) 1-5 /hpf (0-5) 07/15/20 00:32 Urine RBC (Auto) 0-4 /hpf (0-4) 07/15/20 00:32 U Hyaline Cast (Auto) 0 /lpf (0-5) 07/15/20 00:32 U Epithel Cells (Auto) 0-5 /lpf (0-5) 07/15/20 00:32 Urine Bacteria (Auto) Negative (Negative) 07/15/20 00:32 Ur Renal Epithelial Cell 0-5 /lpf (0-5) 07/15/20 00:32 Ethyl Alcohol mg/dL < 3.0 mg/dl (0-3) 07/15/20 00:45 Lyme Disease IgG Ab Negative (Negative) 07/15/20 00:35 Lyme Disease IgM Ab Equivocal (Negative) A 07/15/20 00:35 Hep Bs Antigen Neg (Neg) 07/15/20 00:45 Hepatitis C Antibody Neg (Neg) 07/15/20 00:45 Diagnostic Findings Ultrasound right upper quadrant initial read: Gallbladder is mildly distended. Cholelithiasis with gallbladder sludge with gallbladder wall thickening. Gallbladder wall thickening is nonspecific and may be related to cholecystitis or edema. Fatty liver with hepatomegaly. CT abdomen pelvis initial read: Cholelithiasis with gallbladder distention. Hepatomegaly with heterogeneity and enlargement of left liver possibly reflecting cirrhosis. Pelvic fluid is nonspecific.
[2020-07-15] MEDS ORDERED: POTASSIUM CHLORIDE 40 MEQ in SODIUM CHLORIDE 0.9% 1000ML 1,000 ML IV ONE (05:43)
[2020-07-15] MEDS ORDERED: POTASSIUM CHLORIDE PWD 20 MEQ PACK PO STA (06:08)
[2020-07-15 06:20] LABS: Estimated Average Glucose 88 mg/dl; Hemoglobin A1C 4.7 % (4.5-5.6)
[2020-07-15] MEDS ORDERED: ACETAMINOPHEN 325 MG TAB PO PRN (07:09)
[2020-07-15] MEDS ORDERED: PROMETHAZINE HCL 12.5 MG in SODIUM CHLORIDE 0.9% 50 ML IV PRN (07:09)
[2020-07-15] MEDS ORDERED: traMADol HCL 50 MG TABLET PO PRN (07:09)
--- NOTE | 2020-07-15 07:53 | CT Scan Report ---
CT SCAN OF THE ABDOMEN AND PELVIS WITH IV CONTRAST CLINICAL HISTORY: Pelvic pain. Jaundice. Elevated hepatic transaminases. COMPARISON STUDY: Abdominal ultrasound dated 07/15/2020. TECHNIQUE: Following the IV administration of 9 2 cc of Optiray 320, CT scan of the abdomen and pelv is is performed from the lung bases to the proximal femora. Images are reviewed in the axial, sagitta l, and coronal planes. IV contrast was administered without complication. Oral contrast was utilized. A dose lowering technique was utilized adhering to the principles of ALARA. CT DOSE: 585.35 mGy.cm FINDINGS: Lung bases: The heart is top normal in size and without pericardial effusion. The coronary arteries a re calcified. There is a small fat-containing Bochdalek hernia at the right lung base. The lung bases are otherwise clear noting bibasilar scarring/atelectasis. There is a small hiatal hernia. Liver: The contrast-enhanced liver is enlarged, measuring 22 cm in length. Hepatic attenuation is het erogeneously diminished consistent with severe hepatic steatosis. Nodularity of the hepatic surface c ontour suggests early change of cirrhosis. There is no intrahepatic biliary ductal dilatation. The he patic veins and portal veins are patent. Gallbladder: There are calcified gallstones with no CT evidence of acute cholecystitis. Mild gallblad elsy wall thickening is nonspecific and likely related to adjacent hepatocellular disease. Spleen: The spleen is mildly enlarged measuring 14.2 cm in length. Pancreas: Unremarkable. Adrenal glands: A 2 cm left adrenal nodule appears to contain macroscopic fat and likely represents a myelolipoma. The right adrenal gland is normal in appearance. Kidneys: The contrast enhanced kidneys are normal in size and without hydronephrosis. The kidneys enh ance symmetrically. Abdominal vasculature: The abdominal aorta is normal in course and caliber noting mild atheroscleroti c calcification. Bowel: There is no bowel obstruction. Enteric contrast reaches the left colon. Mild fecal retention i s noted. The appendix is well-visualized and normal. Peritoneum: There is a small volume of abdominopelvic ascites. No intraperitoneal free air is seen. Lymphadenopathy: None. Pelvic viscera: The bladder wall appears thickened and hyperemic, with pericystic inflammation. The e ndometrium appears thickened for age measuring up to 11 mm in diameter. No adnexal lesion is seen. Skeletal structures: The skeletal structures are osteopenic. Mild lumbosacral spondylosis is observed . No lytic or blastic lesions are seen. IMPRESSION: 1. The liver is enlarged, severely steatotic, and shows early changes of cirrhosis. 2. A small volume of abdominopelvic ascites and splenomegaly suggest portal hypertension. 3. Findings suggest cystitis. Correlation with clinical findings and urinalysis will be required. 4. Cholelithiasis without CT evidence of acute cholecystitis. 5. The endometrium appears thickened for age measuring up to 11 mm. This is not well evaluated by CT, and nonemergent follow-up with gynecology and pelvic ultrasound is recommended. 6. Additional findings as above. ACT 112: Negative or not required by law. Electronically signed by: Quinn Lopes M.D. 07/15/2020 7:51 AM
--- NOTE | 2020-07-15 07:55 | Ultrasound Report ---
Biliary ultrasound CLINICAL HISTORY: Abnormal liver function tests jaundice, right upper quadrant abdominal pain COMPARISON STUDY: July 2014 FINDINGS: Pancreas appears normal as visualized. The gallbladder contains calculi and sludge. There is mild gallbladder wall thickening measuring 4 mm . The technologist reports a negative sonographic Avila's sign. The liver is of increased echogenicity with a coarse and echotexture. The liver is mildly enlarged me asuring 21 cm. The serosal surface is nodular suggesting underlying cirrhosis. There is a small amoun t of perihepatic fluid present. The common bile duct is of normal caliber measuring 5 mm. There is no evidence of right-sided hydronephrosis IMPRESSION: 1. Cirrhotic hepatic morphology. Hepatomegaly. Perihepatic fluid. 2. Gallbladder calculi and sludge. Mild gallbladder wall thickening 3. No ductal dilatation. ACT 112: Negative or not required by law. Electronically signed by: Eddie Barrios M.D. 07/15/2020 7:54 AM
[2020-07-15] MEDS ORDERED: MAGNESIUM SULFATE / D5W 1 GM/100 ML BAG IV ONE (08:00)
[2020-07-15] MEDS: MoRPHine SULFATE 4 MG/ML 1 ML CARP\\VIAL IV PRN ×2 (08:03→19:42)
[2020-07-15] MEDS: lisinopril 10 MG TAB PO SCH (08:03)
--- NOTE | 2020-07-15 08:14 | Gastrointestinal Consultation ---
Date of Consultation July 15, 2020 Assessment & Plan (1) Elevated LFTs: Ms. Clifton has experienced biliary colic, hyperbilirubinemia and an acute increase in her chronically minimally elevated transaminases. Imaging is suggestive of small stones in the gallbladder and mild gallbladder wall thickening. Her presentation is very suggestive of microlithiasis in the bile duct. Plan for EUS +/- ERCP today in the OR by Dr. Jack. The procedures were described in detail to the pt and her as well as possible complications including pancreatitis and bile duct perforation. The pt and would like to go forward with the procedure. Present on Admission?: Yes (2) Cholelithiases: (3) Cirrhosis: Unsure if cirrhosis is present, but it is suggested as a new problem on CT today. I reviewed prior OP records and CT in 2019 did not mention though fatty liver has been present for years. Her normal platelet count and Hb argue against cirrhosis. Most recent EGD was 5 yrs and at that time there was no evidence of sequela of cirrhosis such as GAVE, PHG or EV. She denies heavy alcohol intake but is a pre-diabetic and has been overweight so is likely to have NAFLD. Will evaluate need for OP f/u for fatty liver and/or cirrhosis after EUS as that will give us another image of the liver. Present on Admission?: Yes Supervising Physician Co-Signing Physician Notes I saw and evaluated the patient. She presented yesterday evening with a history of nausea and abdominal pain. She was found to have a significant elevation of her liver associated enzymes in this and to her bilirubin. Imaging seems to show evidence of cholelithiasis although the bile duct is not well seen. Does not appear to be any evidence of a pancreatic head mass on imaging studies thus far. Physical examination Scleral icterus noted Mild right upper quadrant tenderness to palpation Impression: Patient presenting with elevated liver enzymes and cholelithiasis on imaging. Given the history I suspect the patient may have choledocholithiasis as the etiology to her presentation. We would recommend further evaluation with upper endoscopy and endoscopic ultrasound followed by ERCP treatment. We have discussed the risks and benefits of the procedures to include bleeding, infection, perforation, failed biliary cannulation, pancreatitis and infections. History of Present Illness Reason for Consultation: abd pain, abn lfts Requesting Physician: Dr. Santiago Attending Physician: Reji Santiago MD History of Present Illness Ms. Adela Clifton is a 60 yr old female pt of Dr. Lutz with a hx of HTN, fibromyalgia, depression, obesity, fatty liver, prediabetes who presented to the ED yesterday with various symptoms including a report of previously yellow eyes. She was placed on Cipro for a presumed UTI as she also had UTI symptoms. Labs were ordered and she was found to have a significant bump in all LFTs (prior to first Cipro dose): T Bili 6.4, D Bili 4.9, AST 322 (up from 44 in January), ALT 322, up from 61 in June and 44 in January), Alk Phos 194, previously normal. Bec ause of these labs, she was directed to present to the ED which she did early this morning. CT of the abd pelvis with IV contrast only suggested several issues including gallstones, possible cystitis, enlarged fatty liver, possibly with cirrhosis and suggestion of portal HTN. There was also a thickened endometrium. The pt is seen and examined while she is resting in bed, at the bedside. She is awake, alert, oriented. She tells me that she currently has a diffuse, burning abdominal pain and that, for the past 2 months, she has had intermittent abd pain typically after meals, nausea/vomiting (about once weekly) and suspected a gallbladder problem. Both of her parents have undergone cholecystectomy. On this Saturday morning, her eyes were noted to be yellow (3 days ago). She has felt a little warm but has checked her temp and has not had fevers. She denies any acholic stools. She had dark urine but had taken Azostat. Allergies Allergy/AdvReac Type Severity Reaction Status Date / Time bee venom protein (honey bee) Allergy Severe SHORTNESS Verified 07/15/20 01:43 OF BREATH, swelling naproxen Allergy Intermediate HIVES Verified 07/15/20 01:43 Sulfa (Sulfonamide Allergy Intermediate HIVES Verified 07/15/20 01:43 Antibiotics) Home Medications Home Medications Medication Instructions Recorded Confirmed Type ciprofloxacin HCl 250 mg PO BID 07/15/20 07/15/20 History ergocalciferol (vitamin D2) 1,250 mcg PO MONTHLY 07/15/20 07/15/20 History ipratropium bromide 2 spray INTRANASAL Q12 07/15/20 07/15/20 History lisinopril-hydrochlorothiazide 1 tab PO DAILY 07/15/20 07/15/20 History tramadol 50 mg PO Q6 PRN 07/15/20 07/15/20 History Patient History Medical History HTN (hypertension) (07/12/14) Surgical History H/O tubal ligation Social History Smoking Status: Never smoker Second Hand Exposure: No; Do You Dip or Chew Tobacco: No; Tobacco Cessation Education Requested by Patient: No Hx Alcohol Use: No Hx Substance Use: No Preferred Language: Icelandic Communication Ability: Effective Lumber Straightener Required: No Beliefs That Will Affect Care: None Current Living Situation: Spouse Other Information That Helps Us Care for You: No Feels Safe at Home: Yes Safety Concerns: Feels Safe At This Time Assistive Devices: None Review of Systems Review of Systems: ROS: Gen: Generalized weakness and "not feeling well" for a few months. No fevers or weight loss Eyes: + icterus; No eye redness, or pain, no recent vision changes Resp: No SOB, no cough Cardio: No palpitations/irregular beats, no chest pain GI: No abdominal pain, no nausea/vomiting : Denies pain on urination Skin: No jaundice, itching or new rashes Physical Exam Constitutional: WD/WN, vitals as above Eyes: PERRL mild bilat icterus ENMT: external ear and nose normal, oropharynx normal Neck: trachea midline, no thyromegaly Respiratory: normal respiratory effort, lungs clear to auscultation Cardiovascular: RRR, no murmur, no edema Gastrointestinal (Abdomen): Inspection/Auscultation: normal bowel sounds; abdomen not distended Percussion/Palpation: + abdomen tender (over entire upper and lower abdomen) and abdomen soft Skin: no rashes, warm and dry + jaundice (no noticible jaundice) Neurologic: PERRL, EOMI, accommodation nl, no face palsy, no dysarthria Psychiatric: A+Ox3, euthymic affect Lymphatic: no cervical or axillary lymphadenopathy Results & Data ([facility]) Vital Signs (Past 12 Hours) Vital Signs Temp Pulse Pulse Resp BP BP Pulse Ox 07/15/20 06:34 107 H 20 107/88 96 07/15/20 05:30 98 H 21 132/85 93 07/15/20 04:43 37.3 C 88 16 114/74 93 07/15/20 04:30 88 13 113/71 95 07/15/20 04:00 96 H 24 118/74 93 07/15/20 03:30 94 H 18 116/73 93 07/15/20 03:00 98 H 22 127/82 95 07/15/20 02:30 98 H 18 118/68 93 07/15/20 02:00 92 H 20 146/85 H 96 07/15/20 01:30 93 H 17 131/92 95 07/15/20 01:18 97 H 22 125/74 96 07/15/20 00:30 104 H 24 172/99 H 95 07/15/20 00:04 37.1 C 106 H 18 134/[address] abd/pelvis with IV, and oral contrast: 1. The liver is enlarged, severely steatotic, and shows early changes of cirrhosis. 2. A small volume of abdominopelvic ascites and splenomegaly suggest portal hypertension. 3. Findings suggest cystitis. Correlation with clinical findings and urinalysis will be required. 4. Cholelithiasis without CT evidence of acute cholecystitis. 5. The endometrium appears thickened for age measuring up to 11 mm. This is not well evaluated by CT, and nonemergent follow-up with gynecology and pelvic ultrasound is recommended. 6. Additional findings as above. Liver US 07/15/20: 1. Cirrhotic hepatic morphology. Hepatomegaly. Perihepatic fluid. 2. Gallbladder calculi and sludge. Mild gallbladder wall thickening 3. No ductal dilatation (1) Cholelithiases Biliary obstruction: without biliary obstruction Cholecystitis presence: without cholecystitis Cholelithiasis location: gallbladder Qualified Code(s): K80.20 - Calculus of gallbladder without cholecystitis without obstruction
[2020-07-15 08:32] LABS: Hematocrit (blood only) 38.5 % (37-47); Hemoglobin 13.1 g/dL (12.0-16.0); Mean Corpuscular Hemoglobin 36.6 pg (25-34); Mean Corpuscular Volume 107.5 fL (80-100); Mean Platelet Volume 9.6 fL (7.4-10.4); Platelet Count 120 K/uL (130-400); RDW Coefficient of Variation 14.7 % (11.5-14.5); Red Blood Count 3.58 M/uL (4.2-5.4); White Blood Count 7.33 K/uL (4.8-10.8)
[2020-07-15 08:55] LABS: Albumin Globulin Ratio 0.6 (0.9-2); Albumin Level 2.4 gm/dl (3.4-5.0); BUN Creatinine Ratio 9.9 (10-20); Bilirubin,Total 6.2 mg/dl (0.2-1); Calcium 8.8 mg/dl (8.5-10.1); Creatinine Clr Calc Pharmacy 92.5 ml/min; Est GFR (African American) 118.4; Est GFR (Non-African American) 102.2; Globulin 4.3 gm/dl (2.5-4.0); Total Protein 6.7 gm/dl (6.4-8.2)
[2020-07-15] MEDS ORDERED: CIPROFLOXACIN / D5W 400 MG/200 ML BAG IV SCH (09:00)
[2020-07-15] MEDS: metroNIDAZOLE 500 MG/100 ML BAG IV SCH ×2 (10:12→17:41)
[2020-07-15] MEDS ORDERED: CIPROFLOXACIN / D5W 200 MG/100 ML BAG IV ONE (11:30)
[2020-07-15] MEDS ORDERED: PROPOFOL IV EMULSION 10 MG/ML 20 ML VIAL IV ONE (12:24)
[2020-07-15] MEDS ORDERED: LIDOCAINE HCL 2% 2 ML VIAL/AMP(20MG/ML) INFIL ONE (12:24)
[2020-07-15] MEDS ORDERED: DEXAMETHASONE SOD INJ 4 MG/ML VIAL ONE (12:24)
[2020-07-15] MEDS ORDERED: ONDANSETRON INJ 2 MG/ML 2 ML VIAL ONE (12:24)
[2020-07-15] MEDS ORDERED: fentaNYL citrate 100 MCG/2 ML VIAL ONE ×2 (12:24→13:16)
--- NOTE | 2020-07-15 12:40 | Anesthesiology Consultation ---
Date of Service July 15, 2020 Covid 19 negative today. Assessment & Plan (1) Encounter for pre-operative examination: Chart Review Chart Review: Acceptable Risk for Surgery and Patient NOT seen in Pre Admission Testing Consults Requested none History Surgery Operation Date: 07/15/20 08:20 Proposed Procedures p Endoscopic Retrograde Cholangiopancreatogram - Jean-Pierre Jack DO s Upper Endoscopic Ultrasonography - Jean-Pierre Jack DO Height/Weight Height: 4 ft 11 in Weight: 71.4 kg Allergies Allergy/AdvReac Type Severity Reaction Status Date / Time bee venom protein (honey bee) Allergy Severe SHORTNESS Verified 07/15/20 01:43 OF BREATH, swelling naproxen Allergy Intermediate HIVES Verified 07/15/20 01:43 Sulfa (Sulfonamide Allergy Intermediate HIVES Verified 07/15/20 01:43 Antibiotics) Medications Home Medications Medication Instructions Recorded Confirmed Last Taken ciprofloxacin HCl 250 mg PO BID 07/15/20 07/15/20 Unknown ergocalciferol (vitamin D2) 1,250 mcg PO MONTHLY 07/15/20 07/15/20 Unknown ipratropium bromide 2 spray INTRANASAL Q12 07/15/20 07/15/20 Unknown lisinopril-hydrochlorothiazide 1 tab PO DAILY 07/15/20 07/15/20 Unknown tramadol 50 mg PO Q6 PRN 07/15/20 07/15/20 Unknown Active Medications Generic Name Dose Route Start Last Admin Trade Name Freq PRN Reason Stop Dose Admin Potassium Chloride 40 meq/ 1,020 mls @ 50 mls/hr 07/15/20 05:43 07/15/20 08:03 Sodium Chloride IV 07/16/20 02:06 50 mls/hr .[id number] ONE Administration Metronidazole 500 mg in 100 mls @ 100 mls/hr 07/15/20 09:00 07/15/20 11:24 Flagyl IV 07/25/20 08:59 Infused Q8H AUGIE Infusion Protocol Lisinopril 10 mg 07/15/20 09:00 07/15/20 08:03 Lisinopril 10 Mg Tab PO 08/14/20 08:59 Not Given QAM AUGIE Miscellaneous 1 ea 07/15/20 08:00 07/15/20 12:30 Atrovent 0.03% Nasal [place]: Order Awaiting Action N/A 08/14/20 07:59 Not Given QS AUGIE Morphine Sulfate 4 mg 07/15/20 07:09 07/15/20 08:03 Morphine Sulfate 4 Mg/Ml 1 Ml Carp\Vial IV 07/29/20 07:08 4 mg Q4H PRN Administration Pain Past Medical History Medical History HTN (hypertension) (07/12/14) Past Surgical History Surgical History H/O tubal ligation Social History Smoking Status: Never smoker Do You Dip or Chew Tobacco: No Hx Alcohol Use: No Hx Substance Use: No substance use type: does not use Physical Exam Vital Signs Last Vital Signs Temp 37.3 C 07/15/20 04:43 Pulse 107 H 07/15/20 06:34 Resp 20 07/15/20 06:34 BP 107/88 07/15/20 06:34 Pulse Ox 96 07/15/20 06:34 Testing Laboratory Results 07/15/20 08:19 07/15/20 08:19 PT 13.1 Seconds (9.0-12.0) H 07/15/20 00:35 INR 1.3 (0.9-1.1) H 07/15/20 00:35 APTT 27.1 Seconds (21.0-31.0) 07/15/20 00:35 Hemoglobin A1c 4.7 % (4.5-5.6) 07/15/20 00:35 Urine Color Dark Yellow 07/15/20 00:32 Urine Appearance Clear (Clear) 07/15/20 00:32 Urine pH 7.0 (4.5-7.5) 07/15/20 00:32 Ur Specific [place] 1.005 (1.000-1.030) 07/15/20 00:32 Urine Protein Negative (Negative) 07/15/20 00:32 Urine Glucose (UA) Negative (Negative) 07/15/20 00:32 Urine Ketones Negative (Negative) 07/15/20 00:32 Urine Nitrite Positive (Negative) A 07/15/20 00:32 Ur Leukocyte Esterase 1+ (Negative) H 07/15/20 00:32 Urine WBC (Auto) 1-5 /hpf (0-5) 07/15/20 00:32 Urine RBC (Auto) 0-4 /hpf (0-4) 07/15/20 00:32 U Hyaline Cast (Auto) 0 /lpf (0-5) 07/15/20 00:32 U Epithel Cells (Auto) 0-5 /lpf (0-5) 07/15/20 00:32 Urine Bacteria (Auto) Negative (Negative) 07/15/20 00:32 Electrocardiogram Date: 07/15/20 Findings: + ST @ (104) anterolateral infarct - old
[2020-07-15] MEDS ORDERED: IOVERSOL 50ml IV ONE (12:49)
[2020-07-15] MEDS ORDERED: ATROPINE SULFATE 0.1 MG/ML 10ML SYR IV PRN (12:50)
[2020-07-15] MEDS ORDERED: ePHEDrine sulfate 50 MG/ML AMP IV PRN (12:50)
[2020-07-15] MEDS ORDERED: ONDANSETRON INJ 2 MG/ML 2 ML VIAL IV PRN (12:50)
[2020-07-15] MEDS ORDERED: LABETALOL HCL IV 5 MG/ML 20ML IV PRN (12:50)
[2020-07-15] MEDS ORDERED: fentaNYL citrate 100 MCG/2 ML VIAL IV PRN (12:50)
[2020-07-15] MEDS ORDERED: PHENYLEPHRINE 100MCG/ML 5ML SYR IV PRN (12:50)
--- NOTE | 2020-07-15 12:50 | History & Physical Bridge Note ---
Date of Service July 15, 2020 History & Physical Bridge Note I have examined the patient, reviewed the History & Physical and in the interval since the performance of the History & Physical I have noted the following changes of clinical significance: no changes noted
[2020-07-15] MEDS ORDERED: INDOMETHACIN 50 MG SUPP PR ONE (13:00)
--- NOTE | 2020-07-15 13:10 | GI REPORT ---
Patient Name: Adela Clifton Procedure Date: 07/15/2020 1:02 PM Date of : 1960 Admit Type: Inpatient Age: 60 Gender: Female Attending MD: Jean-Pierre Jack DO Procedure: Upper GI endoscopy Providers: Jean-Pierre Jack DO Referring MD: Reji Willis Md Indications: Epigastric abdominal pain Medicines: General Anesthesia Complications: No immediate complications. Estimated blood loss: Minimal. Estimated Blood Loss: Estimated blood loss was minimal. Procedure: Pre-Anesthesia Assessment: - Prior to the procedure, a History and Physical was performed, and patient medications, allergies and sensitivities were reviewed. The patient's tolerance of previous anesthesia was reviewed. - The risks and benefits of the procedure and the sedation options and risks were discussed with the patient. All questions were answered and informed consent was obtained. - Patient identification and proposed procedure were verified prior to the procedure by the physician, the nurse and the network project manager. The procedure was verified in the procedure room. - Pre-procedure physical examination revealed no contraindications to sedation. - ASA Grade Assessment: III - A patient with severe systemic disease. - After reviewing the risks and benefits, the patient was deemed in satisfactory condition to undergo the procedure. - The anesthesia plan was to use general anesthesia. - Immediately prior to administration of medications, the patient was re-assessed for adequacy to receive sedatives. - The heart rate, respiratory rate, oxygen saturations, blood pressure, adequacy of pulmonary ventilation, and response to care were monitored throughout the procedure. - The physical status of the patient was re-assessed after the procedure. After obtaining informed consent, the endoscope was passed under direct vision. Throughout the procedure, the patient's blood pressure, pulse, and oxygen saturations were monitored continuously. The Endoscope was introduced through the mouth, and advanced to the third part of duodenum. The upper GI endoscopy was accomplished without difficulty. The patient tolerated the procedure well. Findings: The examined esophagus was normal. The Z-line was regular and was found 36 cm from the incisors. Diffuse mild inflammation characterized by congestion (edema), erythema and granularity was found in the entire examined stomach. Biopsies were taken with a cold forceps for histology. The pathology specimen was placed into Bottle B. Estimated blood loss was minimal. Diffuse mild inflammation characterized by erosions, erythema and granularity was found in the entire duodenum. Biopsies were taken with a cold forceps for histology. The pathology specimen was placed into Bottle A. Estimated blood loss was minimal. Impression: - Normal esophagus. - Z-line regular, 36 cm from the incisors. - Gastritis. Biopsied. - Duodenitis. Biopsied. Recommendation: - Perform an upper endoscopic ultrasound (UEUS) today. - Await pathology results. Jean-Pierre Jack D.O. Jean-Pierre Jack, 07/15/2020 1:09:32 PM This report has been signed electronically. Note Initiated On: 07/15/2020 1:02 PM Number of Addenda: 0 I attest to the content of the Intraoperative Record and orders documented therein, exceptions below {[id number]}
[2020-07-15] MEDS ORDERED: SUCCINYLCHOLINE CHLORIDE 20 MG/ML 10 ML VIAL IV ONE (13:12)
[2020-07-15] MEDS ORDERED: ROCURONIUM BROMIDE 10 MG/ML 5 ML VIAL IV ONE (13:12)
[2020-07-15] MEDS ORDERED: LARYING-O-JET KIT (LTA) ONE (13:12)
--- NOTE | 2020-07-15 13:58 | GI REPORT ---
Patient Name: Adela Clifton Procedure Date: 07/15/2020 1:09 PM Date of : 1960 Admit Type: Inpatient Age: 60 Gender: Female Attending MD: Jean-Pierre Jack DO Procedure: Upper EUS Providers: Jean-Pierre Jack DO Referring MD: Reji Willis Md Indications: Elevated liver enzymes, Suspected choledocholithiasis, Epigastric abdominal pain Medicines: General Anesthesia Complications: No immediate complications. Estimated blood loss: Minimal. Estimated Blood Loss: Estimated blood loss was minimal. Procedure: Pre-Anesthesia Assessment: - Prior to the procedure, a History and Physical was performed, and patient medications, allergies and sensitivities were reviewed. The patient's tolerance of previous anesthesia was reviewed. - The risks and benefits of the procedure and the sedation options and risks were discussed with the patient. All questions were answered and informed consent was obtained. - Patient identification and proposed procedure were verified prior to the procedure by the physician, the nurse and the copy messenger. The procedure was verified in the procedure room. - Pre-procedure physical examination revealed no contraindications to sedation. - ASA Grade Assessment: III - A patient with severe systemic disease. - After reviewing the risks and benefits, the patient was deemed in satisfactory condition to undergo the procedure. - The anesthesia plan was to use general anesthesia. - Immediately prior to administration of medications, the patient was re-assessed for adequacy to receive sedatives. - The heart rate, respiratory rate, oxygen saturations, blood pressure, adequacy of pulmonary ventilation, and response to care were monitored throughout the procedure. - The physical status of the patient was re-assessed after the procedure. After obtaining informed consent, the endoscope was passed under direct vision. Throughout the procedure, the patient's blood pressure, pulse, and oxygen saturations were monitored continuously. The Endosonoscope was introduced through the mouth, and advanced to the second part of duodenum. The upper EUS was accomplished without difficulty. The patient tolerated the procedure well. Findings: ENDOSONOGRAPHIC FINDING: : There was no sign of significant endosonographic abnormality in the ampulla. No masses were identified. Moderate hyperechoic material consistent with sludge was visualized endosonographically in the common bile duct. The CBD was 6 mm in diameter. Extensive hyperechoic material consistent with sludge and small stones was visualized endosonographically in the gallbladder. There was abnormal echogenicity in the visualized portion of the liver. This area was hyperechoic. No lymphadenopathy seen. There was no sign of significant endosonographic abnormality in the left adrenal gland. No adrenal gland enlargement was identified. There was no sign of significant endosonographic abnormality in the entire pancreas. The pancreatic duct measured up to 2 mm in diameter. No masses, no cysts, the pancreatic duct was thin in caliber. Impression: - Normal ampulla. - Hyperechoic material consistent with sludge was visualized endosonographically in the common bile duct. - Extensive hyperechoic material consistent with sludge and stone material was visualized endosonographically in the gallbladder. - There was abnormal echogenicity in the visualized portion of the liver. This was hyperechoic. Tissue has not been obtained. However, the endosonographic appearance is suggestive of fatty infiltration. - Endosonographic images of the left adrenal gland were unremarkable. - There was no sign of significant pathology in the entire pancreas. - No specimens collected. Recommendation: - Perform an ERCP today. Jean-Pierre Jack D.O. Jean-Pierre Jack, 07/15/2020 1:58:05 PM This report has been signed electronically. Note Initiated On: 07/15/2020 1:09 PM Number of Addenda: 0 I attest to the content of the Intraoperative Record and orders documented therein, exceptions below {[id number]}
--- NOTE | 2020-07-15 14:05 | Post Operative Brief Note ---
Immediate Post Op Note v1 Date of Surgery July 15, 2020 Pre & Post Diagnosis Operation Date: 07/15/20 08:20 Pre-Op Diagnosis: Jaundice Post-Op Diagnosis: Bile duct sludge, extensive sludge and gallstones within gallbladder I identified the patient and participated in the time-out.: Yes Procedure Operation Date: 07/15/20 08:20 Actual Procedures p Endoscopic Retrograde Cholangiopancreatogram(Not Applicable) - Jean-Pierre Jack DO s Upper Endoscopic Ultrasonography - Jean-Pierre Jack DO Surgeon Jean-Pierre Jack DO Concrete Analyst none Estimated Blood Loss 0 Findings Consistent with Post-Op Diagnosis
--- NOTE | 2020-07-15 14:05 | GI REPORT ---
Patient Name: Adela Clifton Procedure Date: 07/15/2020 1:22 PM Date of : 1960 Admit Type: Inpatient Age: 60 Gender: Female Attending MD: Jean-Pierre Jack DO Procedure: ERCP Providers: Jean-Pierre Jack DO Referring MD: Reji Willis Md Indications: Abdominal pain of suspected biliary origin, Jaundice, Elevated liver enzymes Medicines: General Anesthesia Complications: No immediate complications. Estimated blood loss: Minimal. Estimated Blood Loss: Estimated blood loss was minimal. Procedure: Pre-Anesthesia Assessment: - Prior to the procedure, a History and Physical was performed, and patient medications, allergies and sensitivities were reviewed. The patient's tolerance of previous anesthesia was reviewed. - The risks and benefits of the procedure and the sedation options and risks were discussed with the patient. All questions were answered and informed consent was obtained. - Patient identification and proposed procedure were verified prior to the procedure by the physician, the nurse and the manager primary care. The procedure was verified in the pre-procedure area in the procedure room. - Pre-procedure physical examination revealed no contraindications to sedation. - ASA Grade Assessment: III - A patient with severe systemic disease. - After reviewing the risks and benefits, the patient was deemed in satisfactory condition to undergo the procedure. - The anesthesia plan was to use general anesthesia. - Immediately prior to administration of medications, the patient was re-assessed for adequacy to receive sedatives. - The heart rate, respiratory rate, oxygen saturations, blood pressure, adequacy of pulmonary ventilation, and response to care were monitored throughout the procedure. - The physical status of the patient was re-assessed after the procedure. After obtaining informed consent, the scope was passed under direct vision. Throughout the procedure, the patient's blood pressure, pulse, and oxygen saturations were monitored continuously. The Scope was introduced through the mouth, and advanced to the duodenum and used to inject contrast into the bile duct and ventral pancreatic duct. The ERCP was accomplished without difficulty. The patient tolerated the procedure well. Findings: The heating and ventilating drafter film was normal. The esophagus was successfully intubated under direct vision. The scope was advanced to a normal major papilla in the descending duodenum without detailed examination of the pharynx, larynx and associated structures, and upper GI tract. The upper GI tract was grossly normal. The ventral pancreatic duct was inadvertently cannulated with the short-nosed traction sphincterotome and 0.035 in guidewire without any complications. The wire was left in place to aid in biliary cannulation with a double wire technique and later place a prophylactic pancreatic stent. The bile duct was deeply cannulated with the short-nosed traction sphincterotome and angled 0.035 in Acrobat 2 guidewire. Contrast was injected. I personally interpreted the bile duct images. Contrast extended to the entire biliary tree. The biliary orifice was stenotic. This appeared benign. The lower third of the main bile duct contained filling defect(s) thought to be sludge. Biliary sphincterotomy was made with a monofilament Fusion OMNI sphincterotome using ERBE electrocautery. There was no post-sphincterotomy bleeding. The biliary tree was swept with a 12 mm balloon starting at the bifurcation. Sludge was swept from the duct. One 10 Fr by 8 cm biliary stent with a single external flap and a single internal flap was placed 8 cm into the common bile duct. Bile flowed through the stent. The stent was in good position. One 5 Fr by 7 cm pancreatic stent with a full external pigtail and no internal flaps was placed 7 cm into the ventral pancreatic duct. Clear fluid flowed through the stent. The stent was in good position. The total fluoroscopy exposure time was 48 seconds. The endoscope was withdrawn from the patient. Indomethacin 100 mg was given via suppository to decrease the risk of post-ERCP pancreatitis (PEP). Impression: - Biliary papillary stenosis, benign. - The biliary tree was swept and sludge was found. - One biliary stent was placed into the common bile duct. - One prophylactic pancreatic stent was placed into the ventral pancreatic duct. - Indomethacin given to decrease risk of post-ERCP pancreatitis. Recommendation: - Avoid aspirin and nonsteroidal anti-inflammatory medicines for 1 week. - Clear liquid diet today. - Refer to a surgeon to discuss cholecystectomy. - Repeat ERCP in 6 weeks to remove stent. Jean-Pierre Jack D.O. Jean-Pierre Jack, 07/15/2020 2:04:25 PM This report has been signed electronically. Note Initiated On: 07/15/2020 1:22 PM Number of Addenda: 0 I attest to the content of the Intraoperative Record and orders documented therein, exceptions below {[id number]}
--- NOTE | 2020-07-15 14:08 | Fluoroscopy Report ---
[place] ERCP biliary ductal CLINICAL HISTORY: EXPLORE DUCTS COMPARISON STUDY: Abdomen and pelvis CT 07/15/2020. FLUOROSCOPY TIME: 47 seconds. FINDINGS: 15 fluoroscopic spot images of the right upper quadrant demonstrate cannulation of the ampu lla with contrast injected into the common bile duct. A balloon sweep was performed. This was followe d by placement of a common bile duct stent which appears in good position. IMPRESSION: Fluoroscopy provided for ERCP. ACT 112: Negative or not required by law. Electronically signed by: Rahat Barajas M.D. 07/15/2020 2:07 PM
--- NOTE | 2020-07-15 14:10 | Communication Note ---
Date of Service: July 15, 2020 The patient underwent upper endoscopy, endoscopic ultrasound and ERCP this afternoon Findings Mild gastritis Sludge within common bile duct Extensive sludge and stone material in gallbladder Sphincterotomy performed, common bile duct stent placed, prophylactic pancreatic stent placed Recommendations Continue with IV hydration Patient may have clear liquids today Continue with antibiotic coverage for total of 7 days General surgery consultation for cholecystectomy Repeat ERCP in 6 to 8 weeks for stent removal
--- NOTE | 2020-07-15 14:28 | Anesthesiology Progress Note ---
Date of Service July 15, 2020 Anesthesia Post Procedure Vital Signs Vital Signs: Temp Pulse Pulse Pulse Resp BP BP 07/15/20 14:23 80 14 07/15/20 14:15 81 14 07/15/20 14:05 76 14 07/15/20 13:56 36.1 C L 87 20 07/15/20 12:42 36.7 C 92 H 18 130/78 07/15/20 06:34 107 H 20 107/88 07/15/20 05:30 98 H 21 132/85 07/15/20 04:43 37.3 C 88 16 114/74 07/15/20 04:30 88 13 113/71 07/15/20 04:00 96 H 24 118/74 07/15/20 03:30 94 H 18 116/73 07/15/20 03:00 98 H 22 127/82 07/15/20 02:30 98 H 18 118/68 07/15/20 02:00 92 H 20 146/85 H 07/15/20 01:30 93 H 17 131/92 07/15/20 01:18 97 H 22 125/74 07/15/20 00:30 104 H 24 172/99 H 07/15/20 00:04 37.1 C 106 H 18 134/81 BP Pulse Ox 07/15/20 14:23 138/78 96 07/15/20 14:15 136/83 97 07/15/20 14:05 118/73 96 07/15/20 13:56 123/79 95 07/15/20 12:42 97 07/15/20 06:34 96 07/15/20 05:30 93 07/15/20 04:43 93 07/15/20 04:30 95 07/15/20 04:00 93 07/15/20 03:30 93 07/15/20 03:00 95 07/15/20 02:30 93 07/15/20 02:00 96 07/15/20 01:30 95 07/15/20 01:18 96 07/15/20 00:30 95 07/15/20 00:04 98 Pain Intensity Abdomen: Pain Intensity: 1 Transfer of Care Handoff Completed per policy Notes Mental Status: alert / awake / arousable Patient Amnestic to Procedure: Yes Nausea / Vomiting: adequately controlled Pain: adequately controlled Airway Patency, RR, SpO2: stable & adequate BP & HR: stable & adequate Hydration State: stable & adequate Anesthetic Complications: no major complications apparent and Pt Satisfied with anesthetic care
[2020-07-15 17:30] LABS: BUN Creatinine Ratio 10.8 (10-20); Calcium 8.4 mg/dl (8.5-10.1); Creatinine Clr Calc Pharmacy 94.2 ml/min; Est GFR (African American) 119.1; Est GFR (Non-African American) 102.8; Magnesium 1.8 mg/dl (1.8-2.4); Phosphorus 2.9 mg/dl (2.5-4.9); Potassium 3.6 mmol/L (3.5-5.1)
--- NOTE | 2020-07-15 18:13 | Electrocardiogram Report ---
Test Reason : Blood Pressure : / mmHG Vent. Rate : 104 BPM Atrial Rate : 104 BPM P-R Int : 150 ms QRS Dur : 088 ms QT Int : 360 ms P-R-T Axes : 010 -21 032 degrees QTc Int : 473 ms Sinus tachycardia Anterolateral infarct (cited on or before 12-JUL-2014) Abnormal ECG When compared with ECG of 13-JUL-2014 06:45, Nonspecific T wave abnormality now evident in Anterolateral leads Confirmed by Brian Lazaro ([id number]) on 07/15/2020 6:13:31 PM Referred By: Shon Page Confirmed By:Mark Lazaro
--- NOTE | 2020-07-15 19:05 | Hospitalist Progress Note ---
Date of Service July 15, 2020 Assessment & Plan Admission and Anticipated Discharge Date Admission Date: July 15, 2020 Subjective Patient seen examined in the room this morning. Patient is alert and oriented, answers appropriately, complaining of abdominal suprapubic discomfort. Seen by GI, due to elevated LFTs, plan for EGD, EUS, possible ERCP. She did undergo all these procedures above, sludge and stones found, stent placed. Recommended antibiotics for 7 days. And general surgery consult. Patient was significantly hypokalemic on admission. Potassium repleted and labs repeated. We will continue to closely monitor. MD Jack Results & Data Results & Data ([facility]) Vital Signs (Past 12 Hours) Vital Signs Temp Pulse Pulse Resp BP BP Pulse Ox 07/15/20 15:30 36.7 C 75 16 126/78 92 07/15/20 15:25 36.9 C 75 18 136/83 94 07/15/20 14:35 37.1 C 78 17 127/78 96 07/15/20 14:25 80 14 138/78 96 07/15/20 14:15 81 14 136/83 97 07/15/20 14:05 76 14 118/73 96 07/15/20 13:56 36.1 C L 87 20 123/79 95 07/15/20 12:42 36.7 C 92 H 18 130/78 97
[2020-07-15] MEDS: CIPROFLOXACIN / D5W 400 MG/200 ML BAG IV SCH (19:42)
[2020-07-15] MEDS ORDERED: CIPROFLOXACIN 250 MG TAB PO SCH (21:00)
[2020-07-16] MEDS: LORazepam 0.5 MG/1 ML VIAL IV PRN ×3 (00:53→22:42)
[2020-07-16] MEDS: metroNIDAZOLE 500 MG/100 ML BAG IV SCH ×3 (00:59→17:58)
[2020-07-16] MEDS: POTASSIUM CHLORIDE 40 MEQ in SODIUM CHLORIDE 0.9% 1000ML 1,000 ML IV SCH (03:04)
[2020-07-16] MEDS: LOPERAMIDE HCL 2 MG CAP PO PRN ×2 (05:47→09:15)
[2020-07-16 07:18] LABS: Hematocrit (blood only) 36.4 % (37-47); Hemoglobin 12.1 g/dL (12.0-16.0); Mean Corpuscular Hemoglobin 36.1 pg (25-34); Mean Corpuscular Hgb Conc 33.2 g/dL (32-36); Mean Corpuscular Volume 108.7 fL (80-100); Mean Platelet Volume 9.8 fL (7.4-10.4); Platelet Count 127 K/uL (130-400); RDW Coefficient of Variation 14.7 % (11.5-14.5); RDW Standard Deviation 58.2 fL (36.4-46.3); Red Blood Count 3.35 M/uL (4.2-5.4); White Blood Count 7.35 K/uL (4.8-10.8)
[2020-07-16 07:51] LABS: Albumin Globulin Ratio 0.6 (0.9-2); Albumin Level 2.3 gm/dl (3.4-5.0); BUN Creatinine Ratio 14.3 (10-20); Bilirubin,Total 5.7 mg/dl (0.2-1); Creatinine Clr Calc Pharmacy 94.2 ml/min; Est GFR (African American) 119.1; Est GFR (Non-African American) 102.8; Phosphorus 2.2 mg/dl (2.5-4.9); Potassium 3.7 mmol/L (3.5-5.1); Total Protein 6.3 gm/dl (6.4-8.2)
[2020-07-16] MEDS: CIPROFLOXACIN / D5W 400 MG/200 ML BAG IV SCH ×2 (09:10→21:39)
[2020-07-16] MEDS: lisinopril 10 MG TAB PO SCH (09:10)
--- NOTE | 2020-07-16 09:30 | Surgery Consultation ---
Date of Consultation July 16, 2020 Assessment & Plan (1) Cholelithiases: 60-year-old female presented with jaundice found to have cirrhosis and cholelithiasis. ERCP yesterday showed some sludge and debris in the bile ducts. Her bilirubin and LFTs have not shown significant improvement since the procedure. At this point, I would like to allow the LFTs to improve and determine whether this is truly related to choledocholithiasis prior to cholecystectomy. Continue to monitor LFTs and rule out other sources of jaundice N.p.o. after midnight, may continue diet today as tolerated Possible laparoscopic cholecystectomy if LFTs improve significantly over the next 24 to 48 hours Discussed the risk of surgery to include but not limited to bleeding, infection, retained stone, bile leak, damage to surrounding structures including common bile duct, conversion open, need for future more extensive surgery, failure to treat symptoms, and the risk of anesthesia She understands that she is at increased risk for abdominal surgery given her cirrhosis Appreciate medicine and GI input Surgery will follow, call questions or concerns (2) Jaundice: (3) Cirrhosis: (4) HTN (hypertension): History of Present Illness Attending Physician: Reji Santiago MD History of Present Illness 60-year-old female admitted with jaundice. She had a colonoscopy back in May for surveillance and a few days afterwards started having bloating and upper abdominal discomfort. She has had a decreased appetite along with dry heaves. Last week her noticed that her eyes were yellow. Outpatient labs showed elevated bilirubin and AST and ALT. CT scan showed cholelithiasis. She underwent ERCP yesterday with EUS and stent placements. Some sludge and debris were removed from the bile duct. No prior abdominal surgery. She is feeling better this morning, but still not much of an appetite. Allergies Allergy/AdvReac Type Severity Reaction Status Date / Time bee venom protein (honey bee) Allergy Severe SHORTNESS Verified 07/15/20 01:43 OF BREATH, swelling naproxen Allergy Intermediate HIVES Verified 07/15/20 01:43 Sulfa (Sulfonamide Allergy Intermediate HIVES Verified 07/15/20 01:43 Antibiotics) Home Medications Home Medications Medication Instructions Recorded Confirmed Type ciprofloxacin HCl 250 mg PO BID 07/15/20 07/15/20 History ergocalciferol (vitamin D2) 1,250 mcg PO MONTHLY 07/15/20 07/15/20 History ipratropium bromide 2 spray INTRANASAL Q12 07/15/20 07/15/20 History lisinopril-hydrochlorothiazide 1 tab PO DAILY 07/15/20 07/15/20 History tramadol 50 mg PO Q6 PRN 07/15/20 07/15/20 History Patient History Medical History HTN (hypertension) (07/12/14) Surgical History H/O tubal ligation Social History Smoking Status: Never smoker Second Hand Exposure: No; Do You Dip or Chew Tobacco: No; Tobacco Cessation Education Requested by Patient: No Hx Alcohol Use: No Hx Substance Use: No Preferred Language: Wolof Communication Ability: Effective Artificial Breeding Technician Required: No Beliefs That Will Affect Care: None Current Living Situation: Spouse Other Information That Helps Us Care for You: No Feels Safe at Home: Yes Safety Concerns: Feels Safe At This Time Assistive Devices: None Review of Systems Review of Systems: All systems reviewed & are unremarkable except as noted in HPI & below Physical Exam Constitutional: WD/WN, vitals as above Eyes: PERRL, conjunctivae normal, anicteric sclerae ENMT: external ear and nose normal, oropharynx normal Neck: trachea midline, no thyromegaly Respiratory: normal respiratory effort, lungs clear to auscultation Cardiovascular: RRR, no murmur, no edema Gastrointestinal (Abdomen): normal bowel sounds, soft, nontender, no hepatosplenomegaly Musculoskeletal: no cyanosis or clubbing, extremities motor strength 5/5 Skin: no rashes, warm and dry + jaundice Neurologic: PERRL, EOMI, accommodation nl, no face palsy, no dysarthria Psychiatric: A+Ox3, euthymic affect Lymphatic: no cervical or axillary lymphadenopathy Results & Data ([facility]) Vital Signs (Past 12 Hours) Vital Signs Temp Pulse Resp BP Pulse Ox 07/16/20 07:54 36.7 C 85 18 126/73 91 07/16/20 03:17 36.5 C 77 16 117/70 98 07/15/20 23:30 36.5 C 80 16 160/89 H 98 Laboratory Results Laboratory Results - last 24 hr 07/15/20 07/15/20 07/15/20 16:51 23:23 Unknown WBC RBC Hgb Hct MCV MCH MCHC RDW Std Deviation RDW Coeff of Merna Plt Count MPV Sodium 136 Potassium 3.6 D Chloride 96 L Carbon Dioxide 29 Anion Gap 10.0 BUN 6 L Creatinine 0.56 L Est Cr Clr Drug Dosing 94.2 Est GFR ( Amer) 119.1 Est GFR (Non-Af Amer) 102.8 BUN/Creatinine Ratio 10.8 Glucose 183 H Calcium 8.4 L Phosphorus 2.9 Magnesium 1.8 Total Bilirubin AST ALT Alkaline Phosphatase Total Protein Albumin Globulin Albumin/Globulin Ratio Specimen Hemolysis Stl C. diff Tox B Gene Negative Cdiff Gene COVID-19 Eval Order Covid19 IDNow [facility] SARS-CoV-2, RNA, NAAT 07/15/20 07/16/20 07/16/20 Unknown 06:26 06:26 WBC 7.35 RBC 3.35 L Hgb 12.1 Hct 36.4 L MCV 108.7 H MCH 36.1 H MCHC 33.2 RDW Std Deviation 58.2 H RDW Coeff of Merna 14.7 H Plt Count 127 L MPV 9.8 Sodium 136 Potassium 3.7 Chloride 100 Carbon Dioxide 30 Anion Gap 6.0 BUN 8 Creatinine 0.56 L Est Cr Clr Drug Dosing 94.2 Est GFR ( Amer) 119.1 Est GFR (Non-Af Amer) 102.8 BUN/Creatinine Ratio 14.3 Glucose 145 H Calcium 8.0 L Phosphorus 2.2 L Magnesium 2.0 Total Bilirubin 5.7 H AST 228 H ALT 132 H Alkaline Phosphatase 159 H Total Protein 6.3 L Albumin 2.3 L Globulin 4.0 Albumin/Globulin Ratio 0.6 L Specimen Hemolysis Stl C. diff Tox B Gene COVID-19 Eval Order SARS-CoV-2, RNA, NAAT NEGATIVE Diagnostic Findings [facility], [phone] Ultrasound Report Patient: Jose Martin PEACE Date: 07/15/20MR#: [id number]: Ilene Robersont ID:[id number]: [facility] Zip: [place], [place] [address]Cov: 60Location: 3WSex: FRoom/Bed: [address] Phy: Reji Santiago, MDDiagnosis: ABD PAINPri Phy: Shon Page MDService Date: 07/15/20Fa Phy:Interpreting Phy: Eddie Barrios [facility] Phy: Wiley Rock MD Ordering Phy: Bc Deleon PA-C cc: ~ Biliary ultrasound CLINICAL HISTORY: Abnormal liver function tests jaundice, right upper quadrant abdominal pain COMPARISON STUDY: July 2014 FINDINGS: Pancreas appears normal as visualized. The gallbladder contains calculi and sludge. There is mild gallbladder wall thickening measuring 4 mm. The technologist reports a negative sonographic Avila's sign. The liver is of increased echogenicity with a coarse and echotexture. The liver is mildly enlarged measuring 21 cm. The serosal surface is nodular suggesting underlying cirrhosis. There is a small amount of perihepatic fluid present. The common bile duct is of normal caliber measuring 5 mm. There is no evidence of right-sided hydronephrosis IMPRESSION: 1. Cirrhotic hepatic morphology. Hepatomegaly. Perihepatic fluid. 2. Gallbladder calculi and sludge. Mild gallbladder wall thickening 3. No ductal dilatation. CT SCAN OF THE ABDOMEN AND PELVIS WITH IV CONTRAST CLINICAL HISTORY: Pelvic pain. Jaundice. Elevated hepatic transaminases. COMPARISON STUDY: Abdominal ultrasound dated 07/15/2020. TECHNIQUE: Following the IV administration of 9 2 cc of Optiray 320, CT scan of the abdomen and pelvis is performed from the lung bases to the proximal femora. Images are reviewed in the axial, sagittal, and coronal planes. IV contrast was administered without complication. Oral contrast was utilized. A dose lowering technique was utilized adhering to the principles of ALARA. CT DOSE: 585.35 mGy.cm FINDINGS: Lung bases: The heart is top normal in size and without pericardial effusion. The coronary arteries are calcified. There is a small fat-containing Bochdalek hernia at the right lung base. The lung bases are otherwise clear noting bibasilar scarring/atelectasis. There is a small hiatal hernia. Liver: The contrast-enhanced liver is enlarged, measuring 22 cm in length. Hepatic attenuation is heterogeneously diminished consistent with severe hepatic steatosis. Nodularity of the hepatic surface contour suggests early change of cirrhosis. There is no intrahepatic biliary ductal dilatation. The hepatic veins and portal veins are patent. Gallbladder: There are calcified gallstones with no CT evidence of acute cholecystitis. Mild gallbladder wall thickening is nonspecific and likely related to adjacent hepatocellular disease. Spleen: The spleen is mildly enlarged measuring 14.2 cm in length. Pancreas: Unremarkable. Adrenal glands: A 2 cm left adrenal nodule appears to contain macroscopic fat and likely represents a myelolipoma. The right adrenal gland is normal in appearance. Kidneys: The contrast enhanced kidneys are normal in size and without hydronephrosis. The kidneys enhance symmetrically. Abdominal vasculature: The abdominal aorta is normal in course and caliber noting mild atherosclerotic calcification. Bowel: There is no bowel obstruction. Enteric contrast reaches the left colon. Mild fecal retention is noted. The appendix is well-visualized and normal. Peritoneum: There is a small volume of abdominopelvic ascites. No intraperitoneal free air is seen. Lymphadenopathy: None. Pelvic viscera: The bladder wall appears thickened and hyperemic, with pericystic inflammation. The endometrium appears thickened for age measuring up to 11 mm in diameter. No adnexal lesion is seen. Skeletal structures: The skeletal structures are osteopenic. Mild lumbosacral spondylosis is observed. No lytic or blastic lesions are seen. IMPRESSION: 1. The liver is enlarged, severely steatotic, and shows early changes of cirrhosis. 2. A small volume of abdominopelvic ascites and splenomegaly suggest portal hypertension. 3. Findings suggest cystitis. Correlation with clinical findings and urinalysis will be required. 4. Cholelithiasis without CT evidence of acute cholecystitis. 5. The endometrium appears thickened for age measuring up to 11 mm. This is not well evaluated by CT, and nonemergent follow-up with gynecology and pelvic ultrasound is recommended. 6. Additional findings as above. PG Care Time/CCT Total # of Minutes Spent Total Time Spent with Patient: Total time spent is greater than 50% in coor dination of care (as documented) at patient's floor/unit and/or counseling patient: Coding Level of Care Code 15559 Initial Inpt Care Lvl 2 Diagnoses Cholelithiases K80.20 Biliary obstruction: without biliary obstruction Cholecystitis presence: without cholecystitis Cholelithiasis location: gallbladder Jaundice R17 Cirrhosis K74.60 HTN (hypertension) I10 (1) Cholelithiases Biliary obstruction: without biliary obstruction Cholecystitis presence: without cholecystitis Cholelithiasis location: gallbladder Qualified Code(s): K80.20 - Calculus of gallbladder without cholecystitis without obstruction
[2020-07-16 10:36] LABS: Hepatitis A Antibody IgM NON-REACTIVE (NON-REACTIVE); Hepatitis B Core Antibody IgM NON-REACTIVE (NON-REACTIVE)
--- NOTE | 2020-07-16 10:36 | Hospitalist Progress Note ---
Date of Service July 16, 2020 Assessment & Plan (1) Abdominal pain: Multifactorial: Cholelithiasis, choledocholithiasis no sepsis for now Cystitis ongoing Cipro Rx Cirrhosis, new diagnosis, possible NAFLD GI consult RE abnormal LFTs, abdominal pain, cirrhosis work-up Patient underwent EGD, EUS, ERCP with GI on July 15, Dr. Jack Sludge and choledocholithiasis found, recommend antibiotics for 7 days, surgical consult recommended for cholecystectomy Mild gastritis Sludge within common bile duct Extensive sludge and stone material in gallbladder Sphincterotomy performed, common bile duct stent placed, prophylactic pancreatic stent placed Repeat ERCP in 6 to 8 weeks for stent removal Gen surg.consulted Patient seen by general surgery today, July 16, possible cholecystectomy if LFTs improve If LFTs do not improve, recommend further work-up for elevated LFTs Cystitis -Patient is already on ciprofloxacin, will finish Loose stools -Possibly to oral contrast patient had an 80 rule out C. difficile given recent Cipro Rx Stool C. difficile - negative Hypokalemia - secondary to emesis symptoms, home diuretic Rx Replace potassium, hold home diuretic for now until patient euvolemic Chest/epigastric discomfort -Likely related to problem 1 -To rule out any cardiac etiology, will obtain EKG and troponin -EKG normal sinus rhythm, unremarkable, troponin negative Prediabetes Update hemoglobin A1c OHS on CPAP fibromyalgia as per records hypertension, stable DVT prophylaxis. SCDs RE possible procedure Full code Patient's , Mr. Erickson Clifton, can be contacted at #[phone]. Admission and Anticipated Discharge Date Admission Date: July 15, 2020 Subjective Patient states overnight she was quite anxious, and so her came to see her at night. Currently she feels better however she also says that she still has epigastric/chest discomfort. Denies any shortness of breath. Continued to have loose stools overnight, C. difficile is negative. Denies fever chills. Review of Systems Review of Systems: All systems reviewed & are unremarkable except as noted in HPI & below Constitutional: no fever and no chills Respiratory: no cough and no dyspnea Cardiovascular: + chest pain (reports epigastric/ chest discomfort) Gastrointestinal: + abdominal pain (epigastric/chest discomfort) and + diarrhea/loose stools Physical Exam Physical Exam: GENERAL: Slightly anxious,obese female, in no respiratory distress HEENT: NC/AT, [place] palpebral conjunctivae, no ptosis, dry buccal mucosa NECK : Supple, short neck, no tenderness CHEST : CTA, no tenderness HEART : RRR, no obvious murmurs ABDOMEN: Some distention, +epigastric/chest tenderness, abdomen soft, + suprapubic tenderness EXTREMITIES : No LE swelling/tenderness, moves extremities spontaneously SKIN: Normal color, warm NEUROLOGIC : alert and oriented x3, no facial asymmetry, no other gross focality, moves extremities spontaneously Results & Data Results & Data ([facility]) Vital Signs (Past 12 Hours) Vital Signs Temp Pulse Resp BP Pulse Ox 07/16/20 07:54 36.7 C 85 18 126/73 91 07/16/20 03:17 36.5 C 77 16 117/70 98 07/15/20 23:30 36.5 C 80 16 160/89 H 98 Laboratory Results 07/16/20 07/16/20 07/15/20 Range/Units 06:26 06:26 Unknown WBC 7.35 (4.8-10.8) K/uL RBC 3.35 L (4.2-5.4) M/uL Hgb 12.1 (12.0-16.0) g/dL Hct 36.4 L (37-47) % MCV 108.7 H (80-100) fL MCH 36.1 H (25-34) pg MCHC 33.2 (32-36) g/dL RDW Std Deviation 58.2 H (36.4-46.3) fL RDW Coeff of Merna 14.7 H (11.5-14.5) % Plt Count 127 L (130-400) K/uL MPV 9.8 (7.4-10.4) fL Sodium 136 (136-145) mmol/L Potassium 3.7 (3.5-5.1) mmol/L Chloride 100 (98-107) mmol/L Carbon Dioxide 30 (21-32) mmol/L Anion Gap 6.0 (3-11) BUN 8 (7-18) mg/dl Creatinine 0.56 L (0.6-1.2) mg/dl Est Cr Clr Drug Dosing 94.2 ml/min Est GFR ( Amer) 119.1 Est GFR (Non-Af Amer) 102.8 BUN/Creatinine Ratio 14.3 (10-20) Glucose 145 H (70-99) mg/dl Calcium 8.0 L (8.5-10.1) mg/dl Phosphorus 2.2 L (2.5-4.9) mg/dl Magnesium 2.0 (1.8-2.4) mg/dl Total Bilirubin 5.7 H (0.2-1) mg/dl AST 228 H (15-37) U/L ALT 132 H (12-78) U/L Alkaline Phosphatase 159 H (45-117) U/L Total Protein 6.3 L (6.4-8.2) gm/dl Albumin 2.3 L (3.4-5.0) gm/dl Globulin 4.0 (2.5-4.0) gm/dl Albumin/Globulin Ratio 0.6 L (0.9-2) Specimen Hemolysis Stl C. diff Tox B Gene (Neg) COVID-19 Eval Order SARS-CoV-2, RNA, NAAT NEGATIVE (NEGATIVE) 07/15/20 07/15/20 07/15/20 Range/Units Unknown 23:23 16:51 WBC (4.8-10.8) K/uL RBC (4.2-5.4) M/uL Hgb (12.0-16.0) g/dL Hct (37-47) % MCV (80-100) fL MCH (25-34) pg MCHC (32-36) g/dL RDW Std Deviation (36.4-46.3) fL RDW Coeff of Merna (11.5-14.5) % Plt Count (130-400) K/uL MPV (7.4-10.4) fL Sodium 136 (136-145) mmol/L Potassium 3.6 D (3.5-5.1) mmol/L Chloride 96 L (98-107) mmol/L Carbon Dioxide 29 (21-32) mmol/L Anion Gap 10.0 (3-11) BUN 6 L (7-18) mg/dl Creatinine 0.56 L (0.6-1.2) mg/dl Est Cr Clr Drug Dosing 94.2 ml/min Est GFR ( Amer) 119.1 Est GFR (Non-Af Amer) 102.8 BUN/Creatinine Ratio 10.8 (10-20) Glucose 183 H (70-99) mg/dl Calcium 8.4 L (8.5-10.1) mg/dl Phosphorus 2.9 (2.5-4.9) mg/dl Magnesium 1.8 (1.8-2.4) mg/dl Total Bilirubin (0.2-1) mg/dl AST (15-37) U/L ALT (12-78) U/L Alkaline Phosphatase (45-117) U/L Total Protein (6.4-8.2) gm/dl Albumin (3.4-5.0) gm/dl Globulin (2.5-4.0) gm/dl Albumin/Globulin Ratio (0.9-2) Specimen Hemolysis Stl C. diff Tox B Gene Negative Cdiff Gene (Neg) COVID-19 [facility] SARS-CoV-2, RNA, NAAT (NEGATIVE) Medications Administered Current Inpatient Medications Acetaminophen (Acetaminophen 325 Mg Tab) 325 mg PO Q6H PRN PRN Reason: Mild Pain Stop: 08/14/20 07:08 Promethazine HCl 12.5 mg/ (Sodium Chloride) 50.5 mls @ 202 mls/hr IV Q6H PRN PRN Reason: Nausea And Vomiting Stop: 08/14/20 07:08 Lorazepam (Ativan) 0.5 mg in 1 mls @ 1 mls/min IV Q4H PRN PRN Reason: Anxiety/Agitation Stop: 08/14/20 07:08 Last Admin: 07/16/20 00:53 Dose: 1 mls/min Documented by: Potassium Chloride 40 meq/ (Sodium Chloride) 1,020 mls @ 40 mls/hr IV .Q24H AUGIE Stop: 08/15/20 02:29 Last Infusion: 07/16/20 05:53 Dose: 40 mls/hr Documented by: Metronidazole (Flagyl) 500 mg in 100 mls @ 100 mls/hr IV Q8H AUGIE; Protocol Stop: 07/25/20 08:59 Last Infusion: 07/16/20 08:48 Dose: Infused Documented by: Ciprofloxacin (Cipro / D5w) 400 mg in 200 mls @ 100 mls/hr IV Q12H AUGIE; Protocol Stop: 07/24/20 22:59 Last Admin: 07/16/20 09:10 Dose: 100 mls/hr Documented by: Lisinopril (Lisinopril 10 Mg Tab) 10 mg PO QAM [facility] Stop: 08/14/20 08:59 Last Admin: 07/16/20 09:10 Dose: 10 mg Documented by: Loperamide HCl (Loperamide Hcl 2 Mg Cap) 2 mg PO UD PRN PRN Reason: Diarrhea Stop: 08/15/20 05:13 Last Admin: 07/16/20 09:15 Dose: 2 mg Documented by: Miscellaneous (Atrovent 0.03% Nasal Etlan: Order Awaiting Action) 1 ea N/A QS [facility] Stop: 08/14/20 07:59 Last Admin: 07/16/20 07:50 Dose: Not Given Documented by: Morphine Sulfate (Morphine Sulfate 4 Mg/Ml 1 Ml Carp\Vial) 4 mg IV Q4H PRN PRN Reason: Pain Stop: 07/29/20 07:08 Last Admin: 07/15/20 19:42 Dose: 4 mg Documented by: Tramadol HCl (Tramadol Hcl 50 Mg Tablet) 50 mg PO Q6 PRN PRN Reason: Pain Stop: 08/14/20 07:08
--- NOTE | 2020-07-16 12:50 | Gastroenterology Progress Note ---
Date of Service July 16, 2020 Assessment & Plan (1) Cholelithiases: Patient is status post ERCP for complications related to biliary sludge and choledocholithiasis. She appears to be improving today with a mild drop in her liver enzymes and bilirubin. Note her gallbladder is filled with stones and sludge material and I suspect she will benefit from a cholecystectomy in the near future. Recommendations Antibiotic coverage for 7 days Appreciate general surgery input Repeat ERCP in 6 to 8 weeks Please call with any questions or concerns, GI to sign off Admission and Anticipated Discharge Date Admission Date: July 15, 2020 Subjective Patient notes that she does have some epigastric discomfort still but appears to be improving today. Was seen by general surgery who is considering doing a cholecystectomy during this admission. Review of Systems Eyes: no diplopia scleral icterus Respiratory: no change in sputum and no hemoptysis Cardiovascular: no chest pain with activity Gastrointestinal: + bloating; no nausea and no vomiting Physical Exam Constitutional: well developed and well nourished; no acute distress Neck: trachea midline, no thyromegaly Respiratory: normal respiratory effort Cardiovascular: Rate/Rhythm: regular rate Gastrointestinal (Abdomen): Percussion/Palpation: + abdomen tender and abdomen soft; no guarding Results & Data ([facility]) Vital Signs (Past 12 Hours) Vital Signs Temp Pulse Resp BP Pulse Ox 07/16/20 07:54 36.7 C 85 18 126/73 91 07/16/20 03:17 36.5 C 77 16 117/70 98 Laboratory Results Laboratory Results - last 24 hr 07/15/20 07/15/20 07/15/20 00:45 16:51 23:23 WBC RBC Hgb Hct MCV MCH MCHC RDW Std Deviation RDW Coeff of Merna Plt Count MPV Sodium 136 Potassium 3.6 D Chloride 96 L Carbon Dioxide 29 Anion Gap 10.0 BUN 6 L Creatinine 0.56 L Est Cr Clr Drug Dosing 94.2 Est GFR ( Amer) 119.1 Est GFR (Non-Af Amer) 102.8 BUN/Creatinine Ratio 10.8 Glucose 183 H Calcium 8.4 L Phosphorus 2.9 Magnesium 1.8 Total Bilirubin AST ALT Alkaline Phosphatase Troponin I Total Protein Albumin Globulin Albumin/Globulin Ratio Specimen Hemolysis Stl C. diff Tox B Gene Negative Cdiff Gene Hepatitis A IgM Ab NON-REACTIVE Hep B Core IgM Ab NON-REACTIVE 07/16/20 07/16/20 07/16/20 06:26 06:26 12:25 WBC 7.35 RBC 3.35 L Hgb 12.1 Hct 36.4 L MCV 108.7 H MCH 36.1 H MCHC 33.2 RDW Std Deviation 58.2 H RDW Coeff of Merna 14.7 H Plt Count 127 L MPV 9.8 Sodium 136 Pending Potassium 3.7 Pending Chloride 100 Pending Carbon Dioxide 30 Pending Anion Gap 6.0 Pending BUN 8 Pending Creatinine 0.56 L Pending Est Cr Clr Drug Dosing 94.2 Pending Est GFR ( Amer) 119.1 Pending Est GFR (Non-Af Amer) 102.8 Pending BUN/Creatinine Ratio 14.3 Pending Glucose 145 H Pending Calcium 8.0 L Pending Phosphorus 2.2 L Pending Magnesium 2.0 Pending Total Bilirubin 5.7 H AST 228 H ALT 132 H Alkaline Phosphatase 159 H Troponin I Pending Total Protein 6.3 L Albumin 2.3 L Globulin 4.0 Albumin/Globulin Ratio 0.6 L Specimen Hemolysis Stl C. diff Tox B Gene Hepatitis A IgM Ab Hep B Core IgM Ab 07/16/20 12:25 WBC RBC Hgb Hct MCV MCH MCHC RDW Std Deviation RDW Coeff of Merna Plt Count MPV Sodium Potassium Chloride Carbon Dioxide Anion Gap BUN Creatinine Est Cr Clr Drug Dosing Est GFR ( Amer) Est GFR (Non-Af Amer) BUN/Creatinine Ratio Glucose Calcium Phosphorus Magnesium Total Bilirubin AST ALT Alkaline Phosphatase Troponin I Cancelled Total Protein Albumin Globulin Albumin/Globulin Ratio Specimen Hemolysis Stl C. diff Tox B Gene Hepatitis A IgM Ab Hep B Core IgM Ab (1) Cholelithiases Biliary obstruction: without biliary obstruction Cholecystitis presence: without cholecystitis Cholelithiasis location: gallbladder Qualified Code(s): K80.20 - Calculus of gallbladder without cholecystitis without obstruction
[2020-07-16 13:26] LABS: BUN Creatinine Ratio 8.8 (10-20); Blood Urea Nitrogen 8 mg/dl (7-18); Calcium 8.2 mg/dl (8.5-10.1); Carbon Dioxide 27 mmol/L (21-32); Chloride 100 mmol/L (98-107); Creatinine Clr Calc Pharmacy 58.6 ml/min; Est GFR (African American) 81.7; Est GFR (Non-African American) 70.5; Glucose 131 mg/dl (70-99); Magnesium 1.9 mg/dl (1.8-2.4); Sodium 139 mmol/L (136-145)
[2020-07-16 13:30] LABS: Phosphorus 1.7 mg/dl (2.5-4.9); Troponin I < 0.015 ng/ml (0-0.045)
[2020-07-16] MEDS ORDERED: POTASSIUM CHLORIDE CRTAB 20 MEQ TABCR PO STA (14:19)
[2020-07-16] MEDS ORDERED: POTASSIUM PHOS 3 MMOL/1 ML INFUSION IV STA (14:19)
[2020-07-16] MEDS ORDERED: POTASSIUM PHOSPHATE 15 MMOL in SODIUM CHLORIDE 0.9% 250 ML IV ONE (14:45)
[2020-07-16] MEDS ORDERED: LOPERAMIDE HCL 2 MG CAP PO STA (21:28)
[2020-07-16] MEDS ORDERED: IOVERSOL 100ml IV ONE (22:03)
[2020-07-16 23:17] LABS: Albumin Globulin Ratio 0.5 (0.9-2); Albumin Level 2.3 gm/dl (3.4-5.0); BUN Creatinine Ratio 12.4 (10-20); Bilirubin,Total 5.4 mg/dl (0.2-1); Calcium 7.6 mg/dl (8.5-10.1); Creatinine Clr Calc Pharmacy 85.1 ml/min; Est GFR (African American) 115.2; Est GFR (Non-African American) 99.4; Globulin 4.2 gm/dl (2.5-4.0); Magnesium 1.8 mg/dl (1.8-2.4); Potassium 3.5 mmol/L (3.5-5.1); Total Protein 6.5 gm/dl (6.4-8.2)
[2020-07-16] MEDS ORDERED: MAGNESIUM SULFATE / D5W 1 GM/100 ML BAG IV ONE (23:58)
--- NOTE | 2020-07-16 23:59 | Communication Note ---
Date of Service: July 16, 2020 Patient and requesting to talk to hospitalist air quality consultant with following concerns. Bothersome diarrhea as per patient, Dark stools since afternoon. Worsening achy abdominal pain Stool Hemoccult noted to be negative. Stool C. difficile negative CT abdomen pelvis initial read: Heterogeneous hypodense and nodular liver. Cholelithiasis. New contrast in the gallbladder lumen presumably related to stent placement. Mildly dilated and fluid-filled small bowel with scattered air-fluid levels which may reflect ileus or enteritis though early or partial obstruction cannot be completely excluded. Unremarkable appendix. Scattered air-fluid levels in the colon which may also reflect ileus or diarrheal illness. Mild ascites. AP Antibiotic associated diarrhea Rule out partial obstruction as per initial CT abdomen pelvis report Imodium as needed Bowel rest Follow official CT results in a.m. Patient informed that she could ask for Imodium after every bowel movement (maximum of 8 tablets/day.) We relay to AM provider.
[2020-07-17] MEDS: metroNIDAZOLE 500 MG/100 ML BAG IV SCH (01:15)
[2020-07-17 06:33] LABS: Hematocrit (blood only) 37.6 % (37-47); Hemoglobin 12.2 g/dL (12.0-16.0); Mean Corpuscular Hemoglobin 36.1 pg (25-34); Mean Corpuscular Hgb Conc 32.4 g/dL (32-36); Mean Corpuscular Volume 111.2 fL (80-100); Mean Platelet Volume 9.4 fL (7.4-10.4); Platelet Count 172 K/uL (130-400); RDW Coefficient of Variation 15.6 % (11.5-14.5); Red Blood Count 3.38 M/uL (4.2-5.4); White Blood Count 8.74 K/uL (4.8-10.8)
[2020-07-17] MEDS: LORazepam 0.5 MG/1 ML VIAL IV PRN ×3 (06:52→22:37)
[2020-07-17 07:06] LABS: Albumin Level 2.2 gm/dl (3.4-5.0); BUN Creatinine Ratio 11.1 (10-20); Bilirubin Direct 3.8 mg/dl (0-0.2); Calcium 7.9 mg/dl (8.5-10.1); Creatinine Clr Calc Pharmacy 86.5 ml/min; Est GFR (African American) 115.8; Est GFR (Non-African American) 99.9; Potassium 3.7 mmol/L (3.5-5.1)
[2020-07-17 07:09] LABS: Bilirubin,Total 4.9 mg/dl (0.2-1)
--- NOTE | 2020-07-17 07:37 | CT Scan Report ---
CT abd pelvis IV con only CLINICAL HISTORY: worsening abd pain COMPARISON STUDY: 07/15/2020 TECHNIQUE: The patient was scanned in a dynamic helical fashion during intravenous administration of 94 cc of Optiray 320 A dose lowering technique was utilized adhering to the principles of ALARA. CT DOSE: 555.18 mGy.cm FINDINGS: Lower chest: There are subtle groundglass opacities within the left lower lobe, atelectatic versus in fectious/inflammatory. Liver: There is hepatic steatosis. The liver enhances in a heterogeneous fashion. The liver capsule a ppears somewhat nodular. Cirrhosis is suspected. There is trace perihepatic fluid. The liver is enlar ged. Gallbladder: Cholelithiasis. There is an indwelling biliary enteric stent. There is an indwelling dobson creatic stent. Spleen: No splenic masses identified. There is a stable splenic cleft. There is a small amount of per isplenic fluid. Pancreas: Unremarkable. Adrenal glands: There is mild nodular thickening of the left adrenal gland Kidneys: There is symmetric renal cortical enhancement. The kidneys are normal in size without hydron ephrosis. Bowel: There are no transition zones to indicate bowel obstruction. There is no evidence of acute div erticulitis. There is no evidence of acute appendicitis. There are fluid-filled small bowel 2 scatter ed air-fluid levels. These are not significantly distended, and may represent an ileus or enteritis. Peritoneum: There is low volume ascites. Vasculature: The abdominal aorta is normal in course and caliber. Adenopathy: None. Pelvic viscera: The bladder, and pelvic viscera are unremarkable. Skeletal structures: No destructive osseous lesions are seen. IMPRESSION: 1. No evidence of bowel obstruction. No evidence of free air 2. Suspected cirrhosis. Hepatic steatosis. Inhomogeneous hepatic enhancement without focal mass 3. Cholelithiasis. Indwelling biliary and pancreatic stents 4. Low volume ascites 5. Fluid-filled small bowel loops which could represent an ileus or mild enteritis ACT 112: Negative or not required by law. Electronically signed by: Eddie Barrios M.D. 07/17/2020 7:35 AM
--- NOTE | 2020-07-17 08:00 | Hospitalist Progress Note ---
Date of Service July 17, 2020 Assessment & Plan (1) Abdominal pain: Multifactorial: Cholelithiasis, choledocholithiasis no sepsis for now Cystitis ongoing Cipro Rx Cirrhosis, new diagnosis, possible NAFLD GI consult RE abnormal LFTs, abdominal pain, cirrhosis work-up Patient underwent EGD, EUS, ERCP with GI on July 15, Dr. Jack Sludge and choledocholithiasis found, recommend antibiotics for 7 days, surgical consult recommended for cholecystectomy Mild gastritis Sludge within common bile duct Extensive sludge and stone material in gallbladder Sphincterotomy performed, common bile duct stent placed, prophylactic pancreatic stent placed Repeat ERCP in 6 to 8 weeks for stent removal Gen surg.consulted Patient seen by general surgery -plan for cholecystectomy tomorrow, July 18 Cystitis -Patient is already on ciprofloxacin, will finish course Loose stools -Possibly to oral contrast patient had an 80 rule out C. difficile given recent Cipro Rx Stool C. difficile - negative Hypokalemia - secondary to emesis symptoms, home diuretic Rx Replace potassium, hold home diuretic for now until patient euvolemic Chest/epigastric discomfort -Likely related to problem 1 -To rule out any cardiac etiology, will obtain EKG and troponin -EKG normal sinus rhythm, unremarkable, troponin negative Prediabetes Update hemoglobin A1c OHS on CPAP fibromyalgia as per records hypertension, stable DVT prophylaxis. SCDs RE possible procedure Full code Patient's , Mr. Erickson Clifton, can be contacted at #[phone]. Admission and Anticipated Discharge Date Admission Date: July 15, 2020 Subjective Patient is laying in bed, in no acute distress. She continues to have some epigastric pain, but overall feeling better. No fevers or chills. She continues to have poor appetite. No shortness of breath. Review of Systems Review of Systems: All systems reviewed & are unremarkable except as noted in HPI & below Constitutional: no fever and no chills Respiratory: no cough and no dyspnea Cardiovascular: no chest pain Gastrointestinal: + abdominal pain (epigastric discomfort) and + diarrhea/loose stools Physical Exam Physical Exam: GENERAL: Slightly anxious,obese female, in no respiratory distress HEENT: NC/AT, [employer] palpebral conjunctivae, no ptosis NECK : Supple, short neck, no tenderness CHEST : CTA, no tenderness HEART : RRR, no obvious murmurs ABDOMEN: Some distention, +epigastric tenderness, abdomen soft, - no suprapubic tenderness (resolved) EXTREMITIES : No LE swelling/tenderness, moves extremities spontaneously SKIN: Normal color, warm NEUROLOGIC : alert and oriented x3, no facial asymmetry, no dysarthria, moves extremities spontaneously Results & Data Results & Data ([facility]) Vital Signs (Past 12 Hours) Vital Signs Temp Pulse Resp BP Pulse Ox 07/17/20 00:00 36.8 C 81 16 103/71 98 Laboratory Results 07/17/20 07/17/20 07/16/20 Range/Units 06:15 06:15 22:44 WBC 8.74 (4.8-10.8) K/uL RBC 3.38 L (4.2-5.4) M/uL Hgb 12.2 (12.0-16.0) g/dL Hct 37.6 (37-47) % MCV 111.2 H (80-100) fL MCH 36.1 H (25-34) pg MCHC 32.4 (32-36) g/dL RDW Std Deviation 63.0 H (36.4-46.3) fL RDW Coeff of Merna 15.6 H (11.5-14.5) % Plt Count 172 (130-400) K/uL MPV 9.4 (7.4-10.4) fL Sodium 139 (136-145) mmol/L Potassium 3.7 (3.5-5.1) mmol/L Chloride 106 (98-107) mmol/L Carbon Dioxide 27 (21-32) mmol/L Anion Gap 6.0 (3-11) BUN 7 (7-18) mg/dl Creatinine 0.61 (0.6-1.2) mg/dl Est Cr Clr Drug Dosing 86.5 ml/min Est GFR ( Amer) 115.8 Est GFR (Non-Af Amer) 99.9 BUN/Creatinine Ratio 11.1 (10-20) Glucose 105 H (70-99) mg/dl Lactate 1.9 (0.4-2.0) mmol/L Calcium 7.9 L (8.5-10.1) mg/dl Phosphorus (2.5-4.9) mg/dl Magnesium (1.8-2.4) mg/dl Total Bilirubin 4.9 H (0.2-1) mg/dl Direct Bilirubin 3.8 H (0-0.2) mg/dl AST 218 H (15-37) U/L ALT 137 H (12-78) U/L Alkaline Phosphatase 165 H (45-117) U/L Troponin I (0-0.045) ng/ml Total Protein 6.0 L (6.4-8.2) gm/dl Albumin 2.2 L (3.4-5.0) gm/dl Globulin (2.5-4.0) gm/dl Albumin/Globulin Ratio (0.9-2) Lipase (73-393) U/L Hepatitis A IgM Ab (NON-REACTIVE) Hep B Core IgM Ab (NON-REACTIVE) 07/16/20 07/16/20 07/16/20 Range/Units 22:44 12:25 12:25 WBC (4.8-10.8) K/uL RBC (4.2-5.4) M/uL Hgb (12.0-16.0) g/dL Hct (37-47) % MCV (80-100) fL MCH (25-34) pg MCHC (32-36) g/dL RDW Std Deviation (36.4-46.3) fL RDW Coeff of Merna (11.5-14.5) % Plt Count (130-400) K/uL MPV (7.4-10.4) fL Sodium 138 139 (136-145) mmol/L Potassium 3.5 D 3.0 L D (3.5-5.1) mmol/L Chloride 103 100 (98-107) mmol/L Carbon Dioxide 29 27 (21-32) mmol/L Anion Gap 6.0 12.0 H (3-11) BUN 8 8 (7-18) mg/dl Creatinine 0.62 0.90 D (0.6-1.2) mg/dl Est Cr Clr Drug Dosing 85.1 58.6 ml/min Est GFR ( Amer) 115.2 81.7 Est GFR (Non-Af Amer) 99.4 70.5 BUN/Creatinine Ratio 12.4 8.8 L (10-20) Glucose 119 H 131 H (70-99) mg/dl Lactate (0.4-2.0) mmol/L Calcium 7.6 L 8.2 L (8.5-10.1) mg/dl Phosphorus 1.7 L (2.5-4.9) mg/dl Magnesium 1.8 1.9 (1.8-2.4) mg/dl Total Bilirubin 5.4 H (0.2-1) mg/dl Direct Bilirubin (0-0.2) mg/dl AST 229 H (15-37) U/L ALT 148 H (12-78) U/L Alkaline Phosphatase 172 H (45-117) U/L Troponin I Cancelled < 0.015 (0-0.045) ng/ml Total Protein 6.5 (6.4-8.2) gm/dl Albumin 2.3 L (3.4-5.0) gm/dl Globulin 4.2 H (2.5-4.0) gm/dl Albumin/Globulin Ratio 0.5 L (0.9-2) Lipase 300 (73-393) U/L Hepatitis A IgM Ab (NON-REACTIVE) Hep B Core IgM Ab (NON-REACTIVE) 07/15/20 Range/Units 00:45 WBC (4.8-10.8) K/uL RBC (4.2-5.4) M/uL Hgb (12.0-16.0) g/dL Hct (37-47) % MCV (80-100) fL MCH (25-34) pg MCHC (32-36) g/dL RDW Std Deviation (36.4-46.3) fL RDW Coeff of Merna (11.5-14.5) % Plt Count (130-400) K/uL MPV (7.4-10.4) fL Sodium (136-145) mmol/L Potassium (3.5-5.1) mmol/L Chloride (98-107) mmol/L Carbon Dioxide (21-32) mmol/L Anion Gap (3-11) BUN (7-18) mg/dl Creatinine (0.6-1.2) mg/dl Est Cr Clr Drug Dosing ml/min Est GFR ( Amer) Est GFR (Non-Af Amer) BUN/Creatinine Ratio (10-20) Glucose (70-99) mg/dl Lactate (0.4-2.0) mmol/L Calcium (8.5-10.1) mg/dl Phosphorus (2.5-4.9) mg/dl Magnesium (1.8-2.4) mg/dl Total Bilirubin (0.2-1) mg/dl Direct Bilirubin (0-0.2) mg/dl AST (15-37) U/L ALT (12-78) U/L Alkaline Phosphatase (45-117) U/L Troponin I (0-0.045) ng/ml Total Protein (6.4-8.2) gm/dl Albumin (3.4-5.0) gm/dl Globulin (2.5-4.0) gm/dl Albumin/Globulin Ratio (0.9-2) Lipase (73-393) U/L Hepatitis A IgM Ab NON-REACTIVE (NON-REACTIVE) Hep B Core IgM Ab NON-REACTIVE (NON-REACTIVE) Medications Administered Current Inpatient Medications Acetaminophen (Acetaminophen 325 Mg Tab) 325 mg PO Q6H PRN PRN Reason: Mild Pain Stop: 08/14/20 07:08 Clotrimazole (Clotrimazole 10 Mg Sanchez) 10 mg BUCCAL [id number] AUGIE Stop: 07/27/20 06:59 Promethazine HCl 12.5 mg/ (Sodium Chloride) 50.5 mls @ 202 mls/hr IV Q6H PRN PRN Reason: Nausea And Vomiting Stop: 08/14/20 07:08 Lorazepam (Ativan) 0.5 mg in 1 mls @ 1 mls/min IV Q4H PRN PRN Reason: Anxiety/Agitation Stop: 08/14/20 07:08 Last Admin: 07/17/20 06:52 Dose: 1 mls/min Documented by: Potassium Chloride 40 meq/ (Sodium Chloride) 1,020 mls @ 40 mls/hr IV .Q24H AUGIE Stop: 08/15/20 02:29 Last Infusion: 07/16/20 05:53 Dose: 40 mls/hr Documented by: Metronidazole (Flagyl) 500 mg in 100 mls @ 100 mls/hr IV Q8H AUGIE; Protocol Stop: 07/25/20 08:59 Last Infusion: 07/17/20 02:17 Dose: Infused Documented by: Ciprofloxacin (Cipro / D5w) 400 mg in 200 mls @ 100 mls/hr IV Q12H AUGIE; Protocol Stop: 07/24/20 22:59 Last Infusion: 07/16/20 23:40 Dose: Infused Documented by: Lisinopril (Lisinopril 10 Mg Tab) 10 mg PO QAM [facility] Stop: 08/14/20 08:59 Last Admin: 07/16/20 09:10 Dose: 10 mg Documented by: Loperamide HCl (Loperamide Hcl 2 Mg Cap) 2 mg PO UD PRN PRN Reason: Diarrhea Stop: 08/15/20 05:13 Last Admin: 07/16/20 09:15 Dose: 2 mg Documented by: Miscellaneous (Atrovent 0.03% Nasal [place]: Order Awaiting Action) 1 ea N/A QS [facility] Stop: 08/14/20 07:59 Last Admin: 07/17/20 01:21 Dose: Not Given Documented by: Morphine Sulfate (Morphine Sulfate 4 Mg/Ml 1 Ml Carp\Vial) 4 mg IV Q4H PRN PRN Reason: Pain Stop: 07/29/20 07:08 Last Admin: 07/15/20 19:42 Dose: 4 mg Documented by: Tramadol HCl (Tramadol Hcl 50 Mg Tablet) 50 mg PO Q6 PRN PRN Reason: Pain Stop: 08/14/20 07:08
--- NOTE | 2020-07-17 08:06 | Gastroenterology Progress Note ---
Date of Service July 17, 2020 Assessment & Plan (1) Cholelithiases: Patient status post ERCP for choledocholithiasis. She does have persistent discomfort with a negative lipase and negative CT scan. Her symptoms could be related to one of her medications, perhaps Flagyl or perhaps related to the sludge-filled gallbladder. Her bilirubin is slowly improving, this likely really lacks the fact that she may have underlying liver disease. Recommendations Continue Cipro, discontinue metronidazole Patient will need outpatient work-up for suspected underlying liver disease Await surgical input with regard to cholecystectomy timing (2) Cirrhosis: (3) Abdominal pain: Admission and Anticipated Discharge Date Admission Date: July 15, 2020 Subjective The patient reports having persistent epigastric discomfort this morning. She underwent a CT scan yesterday evening in addition to having labs which included a lipase. The lipase was only 300 and not suggestive of post ERCP pancreatitis Review of Systems Constitutional: + malaise; no fever and no sweats Respiratory: no change in sputum and no hemoptysis Cardiovascular: no chest pain with activity and no dyspnea at rest Gastrointestinal: + abdominal pain; no early satiety and no nausea Physical Exam Constitutional: WD/WN, vitals as above Eyes: Scleral icterus still present Neck: trachea midline, no thyromegaly Cardiovascular: Rate/Rhythm: regular rate Gastrointestinal (Abdomen): Inspection/Auscultation: abdomen not distended Percussion/Palpation: + abdomen tender and abdomen soft Results & Data ([facility]) Vital Signs (Past 12 Hours) Vital Signs Temp Pulse Resp BP Pulse Ox 07/17/20 00:00 36.8 C 81 16 103/71 98 Laboratory Results Laboratory Results - last 24 hr 07/15/20 07/16/20 07/16/20 00:45 12:25 12:25 WBC RBC Hgb Hct MCV MCH MCHC RDW Std Deviation RDW Coeff of Merna Plt Count MPV Sodium 139 Potassium 3.0 L D Chloride 100 Carbon Dioxide 27 Anion Gap 12.0 H BUN 8 Creatinine 0.90 D Est Cr Clr Drug Dosing 58.6 Est GFR ( Amer) 81.7 Est GFR (Non-Af Amer) 70.5 BUN/Creatinine Ratio 8.8 L Glucose 131 H Lactate Calcium 8.2 L Phosphorus 1.7 L Magnesium 1.9 Total Bilirubin Direct Bilirubin AST ALT Alkaline Phosphatase Troponin I < 0.015 Cancelled Total Protein Albumin Globulin Albumin/Globulin Ratio Lipase Hepatitis A IgM Ab NON-REACTIVE Hep B Core IgM Ab NON-REACTIVE 07/16/20 07/16/20 07/17/20 22:44 22:44 06:15 WBC 8.74 RBC 3.38 L Hgb 12.2 Hct 37.6 MCV 111.2 H MCH 36.1 H MCHC 32.4 RDW Std Deviation 63.0 H RDW Coeff of Merna 15.6 H Plt Count 172 MPV 9.4 Sodium 138 Potassium 3.5 D Chloride 103 Carbon Dioxide 29 Anion Gap 6.0 BUN 8 Creatinine 0.62 Est Cr Clr Drug Dosing 85.1 Est GFR ( Amer) 115.2 Est GFR (Non-Af Amer) 99.4 BUN/Creatinine Ratio 12.4 Glucose 119 H Lactate 1.9 Calcium 7.6 L Phosphorus Magnesium 1.8 Total Bilirubin 5.4 H Direct Bilirubin AST 229 H ALT 148 H Alkaline Phosphatase 172 H Troponin I Total Protein 6.5 Albumin 2.3 L Globulin 4.2 H Albumin/Globulin Ratio 0.5 L Lipase 300 Hepatitis A IgM Ab Hep B Core IgM Ab 07/17/20 06:15 WBC RBC Hgb Hct MCV MCH MCHC RDW Std Deviation RDW Coeff of Merna Plt Count MPV Sodium 139 Potassium 3.7 Chloride 106 Carbon Dioxide 27 Anion Gap 6.0 BUN 7 Creatinine 0.61 Est Cr Clr Drug Dosing 86.5 Est GFR ( Amer) 115.8 Est GFR (Non-Af Amer) 99.9 BUN/Creatinine Ratio 11.1 Glucose 105 H Lactate Calcium 7.9 L Phosphorus Magnesium Total Bilirubin 4.9 H Direct Bilirubin 3.8 H AST 218 H ALT 137 H Alkaline Phosphatase 165 H Troponin I Total Protein 6.0 L Albumin 2.2 L Globulin Albumin/Globulin Ratio Lipase Hepatitis A IgM Ab Hep B Core IgM Ab Diagnostic Findings CT abd pelvis IV con only CLINICAL HISTORY: worsening abd pain COMPARISON STUDY: 07/15/2020 TECHNIQUE: The patient was scanned in a dynamic helical fashion during intravenous administration of 94 cc of Optiray 320 A dose lowering technique was utilized adhering to the principles of ALARA. CT DOSE: 555.18 mGy.cm FINDINGS: Lower chest: There are subtle groundglass opacities within the left lower lobe, atelectatic versus infectious/inflammatory. Liver: There is hepatic steatosis. The liver enhances in a heterogeneous fashion. The liver capsule appears somewhat nodular. Cirrhosis is suspected. There is trace perihepatic fluid. The liver is enlarged. Gallbladder: Cholelithiasis. There is an indwelling biliary enteric stent. There is an indwelling pancreatic stent. Spleen: No splenic masses identified. There is a stable splenic cleft. There is a small amount of perisplenic fluid. Pancreas: Unremarkable. Adrenal glands: There is mild nodular thickening of the left adrenal gland Kidneys: There is symmetric renal cortical enhancement. The kidneys are normal in size without hydronephrosis. Bowel: There are no transition zones to indicate bowel obstruction. There is no evidence of acute diverticulitis. There is no evidence of acute appendicitis. There are fluid-filled small bowel 2 scattered air-fluid levels. These are not significantly distended, and may represent an ileus or enteritis. Peritoneum: There is low volume ascites. Vasculature: The abdominal aorta is normal in course and caliber. Adenopathy: None. Pelvic viscera: The bladder, and pelvic viscera are unremarkable. Skeletal structures: No destructive osseous lesions are seen. IMPRESSION: 1. No evidence of bowel obstruction. No evidence of free air 2. Suspected cirrhosis. Hepatic steatosis. Inhomogeneous hepatic enhancement without focal mass 3. Cholelithiasis. Indwelling biliary and pancreatic stents 4. Low volume ascites 5. Fluid-filled small bowel loops which could represent an ileus or mild enteritis (1) Cholelithiases Biliary obstruction: without biliary obstruction Cholecystitis presence: without cholecystitis Cholelithiasis location: gallbladder Qualified Code(s): K80.20 - Calculus of gallbladder without cholecystitis without obstruction
[2020-07-17] MEDS: POTASSIUM CHLORIDE 40 MEQ in SODIUM CHLORIDE 0.9% 1000ML 1,000 ML IV SCH (08:47)
[2020-07-17] MEDS: CIPROFLOXACIN / D5W 400 MG/200 ML BAG IV SCH ×2 (08:48→20:28)
[2020-07-17] MEDS: lisinopril 10 MG TAB PO SCH ×2 (08:48→08:50)
[2020-07-17] MEDS: CLOTRIMAZOLE 10 MG TROCHE BUCCAL SCH ×5 (09:00→22:37)
[2020-07-17 09:01] LABS: Magnesium 2.4 mg/dl (1.8-2.4); Phosphorus 2.2 mg/dl (2.5-4.9)
--- NOTE | 2020-07-17 10:04 | Surgery Progress Note ---
Date of Service July 17, 2020 Assessment & Plan (1) Cholelithiases: Patient s/p ERCP on 07/15/20; biliary sludge/debris found Pt continues with abdominal/epigastric pain, although improving LFT's remain elevated but are downtrending, Tbili: 4.9 (5.4), AST: 218 (229), ALT: 137 (148), AlkP: 165 (172) Discussed operative management with laparoscopic cholecystectomy with patient, pt wishes to proceed. We will add her on to the OR schedule for tomorrow. Okay for diet as tolerates today and make NPO at midnight Pt seen and examined with Dr. Berrios Admission and Anticipated Discharge Date Admission Date: July 15, 2020 Supervising Physician Co-Signing Physician Notes Patient seen and examined, agree with above. Patient admitted with jaundice and noted to have signs of cirrhosis as well as cholelithiasis and choledocholithiasis. Underwent ERCP. Feeling a little bit better, still not much of an appetite. On exam she is afebrile stable vitals, abdomen is soft, slightly tender to palpation epigastrium. Still jaundiced. Bilirubin and LFTs slowly downtrending. Due to multiple OR cases today, will plan for laparoscopic cholecystectomy tomorrow. N.p.o. after midnight. Again the risks were reviewed, and patient agrees to proceed with surgery as planned. Subjective Patient continues with some epigastric pain, but overall feeling better. Physical Exam Physical Exam: awake/alert Results & Data ([facility]) Vital Signs (Past 12 Hours) Vital Signs Temp Pulse Resp BP BP Pulse Ox 07/17/20 08:50 98/54 L 07/17/20 00:00 36.8 C 81 16 103/71 98 PG Care Time/CCT Total # of Minutes Spent Total Time Spent with Patient: Total time spent is greater than 50% in coordination of care (as documented) at patient's floor/unit and/or counseling patient: Coding Level of Care Code 71093 Subseq Hosp Care Lvl 1 Diagnoses Cholelithiases K80.20 Biliary obstruction: without biliary obstruction Cholecystitis presence: without cholecystitis Cholelithiasis location: gallbladder (1) Cholelithiases Biliary obstruction: without biliary obstruction Cholecystitis presence: without cholecystitis Cholelithiasis location: gallbladder Qualified Code(s): K80.20 - Calculus of gallbladder without cholecystitis without obstruction
--- NOTE | 2020-07-17 12:25 | Electrocardiogram Report ---
Test Reason : Blood Pressure : / mmHG Vent. Rate : 094 BPM Atrial Rate : 094 BPM P-R Int : 148 ms QRS Dur : 084 ms QT Int : 394 ms P-R-T Axes : 018 -19 010 degrees QTc Int : 492 ms Normal sinus rhythm Nonspecific T wave abnormality When compared with ECG of 15-JUL-2020 00:28, Criteria for Anterolateral infarct are no longer Present Confirmed by Jb Chaudhari ([id number] on 07/17/2020 12:25:22 PM Referred By: Shon Page Confirmed By:Jb Chaudhari
[2020-07-17] MEDS: HYDROmorphone INJ 0.5 MG/0.5 ML SYR IV PRN ×2 (15:44→22:21)
[2020-07-18] MEDS: LORazepam 0.5 MG/1 ML VIAL IV PRN (03:46)
[2020-07-18] MEDS: POTASSIUM CHLORIDE 40 MEQ in SODIUM CHLORIDE 0.9% 1000ML 1,000 ML IV SCH (04:04)
[2020-07-18] MEDS: CLOTRIMAZOLE 10 MG TROCHE BUCCAL SCH ×6 (05:32→22:23)
[2020-07-18 07:45] LABS: Hematocrit (blood only) 36.7 % (37-47); Mean Corpuscular Hemoglobin 36.5 pg (25-34); Mean Corpuscular Hgb Conc 32.7 g/dL (32-36); Mean Corpuscular Volume 111.6 fL (80-100); Mean Platelet Volume 9.4 fL (7.4-10.4); Platelet Count 168 K/uL (130-400); RDW Coefficient of Variation 15.3 % (11.5-14.5); RDW Standard Deviation 62.5 fL (36.4-46.3); Red Blood Count 3.29 M/uL (4.2-5.4)
--- NOTE | 2020-07-18 07:48 | Hospitalist Progress Note ---
Date of Service July 18, 2020 Assessment & Plan (1) Abdominal pain: Multifactorial: Cholelithiasis, choledocholithiasis no sepsis for now Cystitis ongoing Cipro Rx Cirrhosis, new diagnosis, possible NAFLD GI consult RE abnormal LFTs, abdominal pain, cirrhosis work-up Patient underwent EGD, EUS, ERCP with GI on July 15, Dr. Jack Sludge and choledocholithiasis found, recommend antibiotics for 7 days, surgical consult recommended for cholecystectomy Mild gastritis Sludge within common bile duct Extensive sludge and stone material in gallbladder Sphincterotomy performed, common bile duct stent placed, prophylactic pancreatic stent placed Repeat ERCP in 6 to 8 weeks for stent removal Gen surg.consulted Patient seen by general surgery -now s/p cholecystectomy and liver biopsy, July 18 Tolerated procedure well Cystitis -Patient is already on ciprofloxacin, will finish course Loose stools -Possibly to oral contrast patient had rule out C. difficile given recent Cipro Rx Stool C. difficile - negative Hypokalemia - secondary to emesis symptoms, home diuretic Rx Replace potassium, hold home diuretic for now until patient euvolemic Chest/epigastric discomfort -Likely related to problem 1 -To rule out any cardiac etiology, will obtain EKG and troponin -EKG normal sinus rhythm, unremarkable, troponin negative Prediabetes Current hemoglobin A1c 4.7% OHS on CPAP fibromyalgia as per records hypertension, stable DVT prophylaxis. SCDs RE possible procedure Full code Patient's , Mr. Erickson Clifton, can be contacted at #[phone]. Admission and Anticipated Discharge Date Admission Date: July 15, 2020 Subjective Patient is lying in bed, in no acute distress. She underwent cholecystectomy and liver biopsy today. Has some abdominal discomfort, and poor appetite. Denies any fevers or chills, shortness of breath. Review of Systems Review of Systems: All systems reviewed & are unremarkable except as noted in HPI & below Constitutional: no fever and no chills Respiratory: no cough and no dyspnea Cardiovascular: no chest pain Gastrointestinal: + abdominal pain (epigastric discomfort) and + diarrhea/loose stools Genitourinary: no dysuria Physical Exam Physical Exam: GENERAL: Slightly anxious,obese female, in no respiratory distress HEENT: NC/AT, [place] palpebral conjunctivae, no ptosis NECK : Supple, short neck, no tenderness CHEST : CTA, no tenderness HEART : RRR, no obvious murmurs ABDOMEN: Some distention, +epigastric tenderness, abdomen soft, - no suprapubic tenderness (resolved) EXTREMITIES : No LE swelling/tenderness, moves extremities spontaneously SKIN: Normal color, warm NEUROLOGIC : alert and oriented x3, no facial asymmetry, no dysarthria, moves extremities spontaneously Results & Data Results & Data ([facility]) Vital Signs (Past 12 Hours) Vital Signs Temp Pulse Resp BP Pulse Ox 07/17/20 23:06 37.1 C 90 18 112/71 94 Laboratory Results 07/18/20 07/18/20 Range/Units 06:55 06:55 WBC 8.10 (4.8-10.8) K/uL RBC 3.29 L (4.2-5.4) M/uL Hgb 12.0 (12.0-16.0) g/dL Hct 36.7 L (37-47) % MCV 111.6 H (80-100) fL MCH 36.5 H (25-34) pg MCHC 32.7 (32-36) g/dL RDW Std Deviation 62.5 H (36.4-46.3) fL RDW Coeff of Merna 15.3 H (11.5-14.5) % Plt Count 168 (130-400) K/uL MPV 9.4 (7.4-10.4) fL Sodium 134 L (136-145) mmol/L Potassium 4.1 (3.5-5.1) mmol/L Chloride 103 (98-107) mmol/L Carbon Dioxide 26 (21-32) mmol/L Anion Gap 5.0 (3-11) BUN 6 L (7-18) mg/dl Creatinine 0.51 L (0.6-1.2) mg/dl Est Cr Clr Drug Dosing 103.4 ml/min Est GFR ( Amer) 122.8 Est GFR (Non-Af Amer) 106.0 BUN/Creatinine Ratio 11.3 (10-20) Glucose 106 H (70-99) mg/dl Calcium 7.9 L (8.5-10.1) mg/dl Phosphorus 2.1 L (2.5-4.9) mg/dl Magnesium 2.0 (1.8-2.4) mg/dl Total Bilirubin 5.6 H (0.2-1) mg/dl AST 217 H (15-37) U/L ALT 136 H (12-78) U/L Alkaline Phosphatase 165 H (45-117) U/L Total Protein 5.5 L (6.4-8.2) gm/dl Albumin 2.0 L (3.4-5.0) gm/dl Globulin 3.5 (2.5-4.0) gm/dl Albumin/Globulin Ratio 0.6 L (0.9-2) Medications Administered Current Inpatient Medications Acetaminophen (Acetaminophen 325 Mg Tab) 325 mg PO Q6H PRN PRN Reason: Mild Pain Stop: 08/14/20 07:08 Clotrimazole (Clotrimazole 10 Mg Sanchez) 10 mg BUCCAL [id number] AUGIE Stop: 07/27/20 06:59 Last Admin: 07/18/20 06:03 Dose: 10 mg Documented by: Hydromorphone HCl (Hydromorphone Inj 0.5 Mg/0.5 Ml Syr) 0.25 mg IV Q2H PRN PRN Reason: Pain Stop: 07/31/20 15:23 Last Admin: 07/17/20 22:21 Dose: 0.25 mg Documented by: Promethazine HCl 12.5 mg/ (Sodium Chloride) 50.5 mls @ 202 mls/hr IV Q6H PRN PRN Reason: Nausea And Vomiting Stop: 08/14/20 07:08 Lorazepam (Ativan) 0.5 mg in 1 mls @ 1 mls/min IV Q4H PRN PRN Reason: Anxiety/Agitation Stop: 08/14/20 07:08 Last Admin: 07/18/20 03:46 Dose: 1 mls/min Documented by: Potassium Chloride 40 meq/ (Sodium Chloride) 1,020 mls @ 40 mls/hr IV .Q24H [facility] Stop: 08/15/20 02:29 Last Admin: 07/18/20 04:04 Dose: Not Given Documented by: Ciprofloxacin (Cipro / D5w) 400 mg in 200 mls @ 100 mls/hr IV Q12H [facility]; Protocol Stop: 07/24/20 22:59 Last Infusion: 07/17/20 23:11 Dose: Infused Documented by: Lisinopril (Lisinopril 10 Mg Tab) 10 mg PO QAM [facility] Stop: 08/14/20 08:59 Last Admin: 07/17/20 08:50 Dose: Not Given Documented by: Loperamide HCl (Loperamide Hcl 2 Mg Cap) 2 mg PO UD PRN PRN Reason: Diarrhea Stop: 08/15/20 05:13 Last Admin: 07/16/20 09:15 Dose: 2 mg Documented by: Miscellaneous (Atrovent 0.03% Nasal [place]: Order Awaiting Action) 1 ea N/A QS AUGIE Stop: 08/14/20 07:59 Last Admin: 07/18/20 07:23 Dose: Not Given Documented by: Morphine Sulfate (Morphine Sulfate 4 Mg/Ml 1 Ml Carp\Vial) 4 mg IV Q4H PRN PRN Reason: Pain Stop: 07/29/20 07:08 Last Admin: 07/15/20 19:42 Dose: 4 mg Documented by: Tramadol HCl (Tramadol Hcl 50 Mg Tablet) 50 mg PO Q6 PRN PRN Reason: Pain Stop: 08/14/20 07:08
[2020-07-18] MEDS: HYDROmorphone INJ 0.5 MG/0.5 ML SYR IV PRN ×3 (08:17→18:59)
[2020-07-18 08:25] LABS: Albumin Globulin Ratio 0.6 (0.9-2); BUN Creatinine Ratio 11.3 (10-20); Bilirubin,Total 5.6 mg/dl (0.2-1); Calcium 7.9 mg/dl (8.5-10.1); Creatinine Clr Calc Pharmacy 103.4 ml/min; Est GFR (African American) 122.8; Globulin 3.5 gm/dl (2.5-4.0); Phosphorus 2.1 mg/dl (2.5-4.9); Potassium 4.1 mmol/L (3.5-5.1); Total Protein 5.5 gm/dl (6.4-8.2)
[2020-07-18] MEDS: lisinopril 10 MG TAB PO SCH (09:36)
[2020-07-18] MEDS: CIPROFLOXACIN / D5W 400 MG/200 ML BAG IV SCH ×2 (09:36→21:24)
--- NOTE | 2020-07-18 09:39 | Gastroenterology Progress Note ---
Date of Service July 18, 2020 Assessment & Plan (1) Elevated LFTs: Pt is a 60 y/o female followed for abd pain, elevated LFTs. CT abd/pelvis w findings suggestive for fatty liver ? cirrhosis. Gallbladder stones, sludge. She underwent EGD/EUS/ERCP on 07/15 - benign biliary papillary stenosis note, sludge swept , sphincterectomy done. Stents x 2 (biliary and pancreatic) placed - NPO for possible lap pierre per Surgery today - Trend LFTs - Will help set up f/u in GI clinic upon DC for cirrhosis workup and management - Recall GI prn Attg add: I reviewed chart and labs. Agree with plans as above. Admission and Anticipated Discharge Date Admission Date: July 15, 2020 Subjective Pt reports having nausea, persistent generalized abd pain but mainly across upp er abd areas. NPO currently, surgery planning for possible cholecystectomy this AM LFTs showed mild increase in Tbili to 5, transaminases similar to yesterday Review of Systems Review of Systems: All systems reviewed & are unremarkable except as noted in HPI & below Physical Exam Constitutional: WD/WN, vitals as above well groomed, cooperative and comfortable Eyes: + scleral abnormality (icteric) and EOM intact bilaterally ENMT: external ear and nose normal, oropharynx normal Respiratory: normal respiratory effort, lungs clear to auscultation Cardiovascular: RRR, no murmur, no edema Gastrointestinal (Abdomen): Inspection/Auscultation: + hypoactive bowel sounds Percussion/Palpation: + abdomen tender (generalized) and abdomen soft Skin: no rashes, warm and dry + jaundice Psychiatric: A+Ox3, euthymic affect Lymphatic: no lymphedema Results & Data ([facility]) Vital Signs (Past 12 Hours) Vital Signs Temp Pulse Resp BP Pulse Ox 07/18/20 08:06 36.9 C 91 H 18 107/71 92 07/17/20 23:06 37.1 C 90 18 112/71 94
[2020-07-18] MEDS ORDERED: ePHEDrine sulfate 50 MG/ML AMP ONE (10:07)
[2020-07-18] MEDS ORDERED: SUCCINYLCHOLINE CHLORIDE 20 MG/ML 10 ML VIAL IV ONE (10:07)
[2020-07-18] MEDS ORDERED: GLYCOPYRROLATE 0.2 MG/ML VIAL ONE (10:07)
[2020-07-18] MEDS ORDERED: PHENYLEPHRINE HCL 10 MG/ML VIAL ONE (10:07)
[2020-07-18] MEDS ORDERED: ONDANSETRON INJ 2 MG/ML 2 ML VIAL ONE (10:07)
[2020-07-18] MEDS ORDERED: NEOSTIGMINE METHYLSULFATE 5 MG/5 ML SYR ONE (10:07)
[2020-07-18] MEDS ORDERED: LIDOCAINE HCL 2% 2 ML VIAL/AMP(20MG/ML) INFIL ONE (10:07)
[2020-07-18] MEDS ORDERED: PROPOFOL IV EMULSION 10 MG/ML 20 ML VIAL IV ONE (10:07)
[2020-07-18] MEDS ORDERED: DEXAMETHASONE SOD INJ 4 MG/ML VIAL ONE (10:07)
[2020-07-18] MEDS ORDERED: MIDAZOLAM HCL 1 MG/ML 2ML VIAL ONE (10:08)
[2020-07-18] MEDS ORDERED: fentaNYL citrate 100 MCG/2 ML VIAL ONE (10:08)
--- NOTE | 2020-07-18 11:07 | Surgery Progress Note ---
Date of Service July 18, 2020 Assessment & Plan (1) Cholelithiases: 60-year-old female with cholelithiasis, choledocholithiasis status post ERCP and stent placement, new diagnosis of cirrhosis, and jaundice. Her bilirubin is slightly up from yesterday but otherwise LFTs are stable. We d iscussed the case with GI and they are recommending to proceed with cholecystectomy as well as possible cholangiogram, and possible liver biopsy. Plan for laparoscopic cholecystectomy, possible cholangiogram, possible liver biopsy The risk the procedure were again reviewed to include but not limited to bleeding, infection, retained stone, bile leak, damage surrounding structures including common bile duct, conversion open, failure to treat symptoms, need for future more extensive surgery, and the risk of anesthesia The diagnosis, details of the procedure and recovery, and plan of care discussed with the patient, all questions were answered, the patient expressed understanding agrees with plan of care as stated (2) Jaundice: (3) Cirrhosis: Admission and Anticipated Discharge Date Admission Date: July 15, 2020 Subjective 60-year-old female here for jaundice found to have cholelithiasis and choledocholithiasis. No changes since yesterday. Physical Exam Constitutional: WD/WN, vitals as above Eyes: Jaundice sclera Gastrointestinal (Abdomen): normal bowel sounds, soft, nontender, no hepatosplenomegaly Skin: + jaundice Results & Data ([facility]) Vital Signs (Past 12 Hours) Vital Signs Temp Pulse Resp BP BP Pulse Ox 07/18/20 10:18 36.9 C 93 H 18 120/77 95 07/18/20 08:06 36.9 C 91 H 18 107/71 92 07/17/20 23:06 37.1 C 90 18 112/71 94 Laboratory Results Laboratory Results - last 24 hr 07/18/20 07/18/20 06:55 06:55 WBC 8.10 RBC 3.29 L Hgb 12.0 Hct 36.7 L MCV 111.6 H MCH 36.5 H MCHC 32.7 RDW Std Deviation 62.5 H RDW Coeff of Merna 15.3 H Plt Count 168 MPV 9.4 Sodium 134 L Potassium 4.1 Chloride 103 Carbon Dioxide 26 Anion Gap 5.0 BUN 6 L Creatinine 0.51 L Est Cr Clr Drug Dosing 103.4 Est GFR ( Amer) 122.8 Est GFR (Non-Af Amer) 106.0 BUN/Creatinine Ratio 11.3 Glucose 106 H Calcium 7.9 L Phosphorus 2.1 L Magnesium 2.0 Total Bilirubin 5.6 H AST 217 H ALT 136 H Alkaline Phosphatase 165 H Total Protein 5.5 L Albumin 2.0 L Globulin 3.5 Albumin/Globulin Ratio 0.6 L PG Care Time/CCT Total # of Minutes Spent Total Time Spent with Patient: Total time spent is greater than 50% in coordination of care (as documented) at patient's floor/unit and/or counseling patient: Coding Level of Care Code 88776 Inpt Consult Level 3 Diagnoses Cholelithiases K80.20 Biliary obstruction: without biliary obstruction Cholecystitis presence: without cholecystitis Cholelithiasis location: gallbladder Jaundice R17 Cirrhosis K74.60 (1) Cholelithiases Biliary obstruction: without biliary obstruction Cholecystitis presence: without cholecystitis Cholelithiasis location: gallbladder Qualified Code(s): K80.20 - Calculus of gallbladder without cholecystitis without obstruction
--- NOTE | 2020-07-18 11:25 | Anesthesiology Consultation ---
Date of Service July 18, 2020 Assessment & Plan Chart Review Chart Review: Acceptable Risk for Surgery and Patient NOT seen in Pre Admission Testing Consults Requested none ASA ASA3 Proposed Anesthesia Anesthesia Type: General Risk / Benefits Reviewed With: PT / POA / Parent / Guardian, Accepts Plan and Informed Consent Obtained Additional Comments: covid test negative History Surgery Operation Date: 07/15/20 08:20 Proposed Procedures p Endoscopic Retrograde Cholangiopancreatogram - Jean-Pierre Jack DO s Upper Endoscopic Ultrasonography - Jean-Pierre Jack DO Operation Date: 07/18/20 07:00 Proposed Procedures p Laparoscopic Cholecystectomy - Geronimo Berrios DO, FACS Height/Weight Height: 4 ft 11 in Weight: 71.4 kg Allergies Allergy/AdvReac Type Severity Reaction Status Date / Time bee venom protein (honey bee) Allergy Severe SHORTNESS Verified 07/15/20 01:43 OF BREATH, swelling naproxen Allergy Intermediate HIVES Verified 07/15/20 01:43 Sulfa (Sulfonamide Allergy Intermediate HIVES Verified 07/15/20 01:43 Antibiotics) Medications Home Medications Medication Instructions Recorded Confirmed Last Taken ciprofloxacin HCl 250 mg PO BID 07/15/20 07/15/20 Unknown ergocalciferol (vitamin D2) 1,250 mcg PO MONTHLY 07/15/20 07/15/20 Unknown ipratropium bromide 2 spray INTRANASAL Q12 07/15/20 07/15/20 Unknown lisinopril-hydrochlorothiazide 1 tab PO DAILY 07/15/20 07/15/20 Unknown tramadol 50 mg PO Q6 PRN 07/15/20 07/15/20 Unknown Active Medications Generic Name Dose Route Start Last Admin Trade Name Freq PRN Reason Stop Dose Admin Clotrimazole 10 mg 07/17/20 07:00 07/18/20 06:03 Clotrimazole 10 Mg Sanchez BUCCAL 07/27/20 06:59 10 mg [id number] AUGIE Administration Hydromorphone HCl 0.25 mg 07/17/20 15:24 07/18/20 08:17 Hydromorphone Inj 0.5 Mg/0.5 Ml Syr IV 07/31/20 15:23 0.25 mg Q2H PRN Administration Pain Lorazepam 0.5 mg in 1 mls @ 1 mls/min 07/15/20 07:09 07/18/20 03:46 Ativan IV 08/14/20 07:08 1 mls/min Q4H PRN Administration Anxiety/Agitation Potassium Chloride 40 meq/ 1,020 mls @ 40 mls/hr 07/16/20 02:30 07/18/20 04:04 Sodium Chloride IV 08/15/20 02:29 Not Given .Q24H AUGIE Ciprofloxacin 400 mg in 200 mls @ 100 mls/hr 07/15/20 21:00 07/18/20 09:36 Cipro / D5w IV 07/24/20 22:59 100 mls/hr Q12H AUGIE Administration Protocol Lisinopril 10 mg 07/15/20 09:00 07/18/20 09:36 Lisinopril 10 Mg Tab PO 08/14/20 08:59 Not Given QAM AUGIE Loperamide HCl 2 mg 07/16/20 05:14 07/16/20 09:15 Loperamide Hcl 2 Mg Cap PO 08/15/20 05:13 2 mg UD PRN Administration Diarrhea Miscellaneous 1 ea 07/15/20 08:00 07/18/20 07:23 Atrovent 0.03% Nasal [place]: Order Awaiting Action N/A 08/14/20 07:59 Not Given QS AUGIE Morphine Sulfate 4 mg 07/15/20 07:09 07/15/20 19:42 Morphine Sulfate 4 Mg/Ml 1 Ml Carp\Vial IV 07/29/20 07:08 4 mg Q4H PRN Administration Pain NPO Date Last Intake of Fluids: 07/17/20 Time Last Intake of Fluids: 23:30 Date Last Intake of Solids: 07/17/20 Time Last Intake of Solids: 17:00 Past Medical History Medical History HTN (hypertension) (07/12/14) Exercise / Class Metabolic Activity II 4-5 Yardwork/Stairs/Walk up hill Past Surgical History Surgical History H/O tubal ligation Past Anesthesia History No Hx of Anesthesia Complications and No Family Hx of Anesthesia Complications History of PONV No Hx of PONV and No Hx of Motion Sickness Social History Smoking Status: Never smoker Do You Dip or Chew Tobacco: No Hx Alcohol Use: No Hx Substance Use: No substance use type: does not use Physical Exam Vital Signs Last Vital Signs Temp 36.9 C 07/18/20 10:18 Pulse 93 H 07/18/20 10:18 Resp 18 07/18/20 10:18 BP 120/77 07/18/20 10:18 Pulse Ox 95 07/18/20 10:18 Constitutional not obese ENMT Mouth: no dentition abnormality Thyromental Distance: < 3.5 Finger Breadths Mallampati Class: II Neck normal visual inspection and trachea midline; neck extension not limited Respiratory normal respiratory effort Auscultation: lungs clear to auscultation bilaterally Cardiovascular Rate/Rhythm: regular rate and regular rhythm Heart Sounds: no murmur Vessels: no carotid bruit Musculoskeletal Spine: normal cervical ROM Extremities: extremities normal to inspection Neurologic moves all extremities Motor/Sensory: no sensory deficit Psychiatric Orientation: alert and oriented x 3 Testing Laboratory Results 07/18/20 06:55 07/18/20 06:55 PT 13.1 Seconds (9.0-12.0) H 07/15/20 00:35 INR 1.3 (0.9-1.1) H 07/15/20 00:35 APTT 27.1 Seconds (21.0-31.0) 07/15/20 00:35 Hemoglobin A1c 4.7 % (4.5-5.6) 07/15/20 00:35 Urine Color Dark Yellow 07/15/20 00:32 Urine Appearance Clear (Clear) 07/15/20 00:32 Urine pH 7.0 (4.5-7.5) 07/15/20 00:32 Ur Specific [place] 1.005 (1.000-1.030) 07/15/20 00:32 Urine Protein Negative (Negative) 07/15/20 00:32 Urine Glucose (UA) Negative (Negative) 07/15/20 00:32 Urine Ketones Negative (Negative) 07/15/20 00:32 Urine Nitrite Positive (Negative) A 07/15/20 00:32 Ur Leukocyte Esterase 1+ (Negative) H 07/15/20 00:32 Urine WBC (Auto) 1-5 /hpf (0-5) 07/15/20 00:32 Urine RBC (Auto) 0-4 /hpf (0-4) 07/15/20 00:32 U Hyaline Cast (Auto) 0 /lpf (0-5) 07/15/20 00:32 U Epithel Cells (Auto) 0-5 /lpf (0-5) 07/15/20 00:32 Urine Bacteria (Auto) Negative (Negative) 07/15/20 00:32 07/15/20 00:32 Urine Culture - Final Urine,Clean Catch No growth - less than 1,000 colonies/mL. 07/15/20 00:45 Aerobic Blood Culture - Preliminary Blood No growth in Aerobic bottle after 48 hours. Anaerobic Blood Culture - Preliminary No growth in Anaerobic bottle after 48 hours. 07/15/20 00:35 Aerobic Blood Culture - Preliminary Blood No growth in Aerobic bottle after 48 hours. Anaerobic Blood Culture - Preliminary No growth in Anaerobic bottle after 48 hours.
[2020-07-18] MEDS ORDERED: NALOXONE HCL 0.4 MG/1 ML VIAL/CARP IV PRN (11:27)
[2020-07-18] MEDS ORDERED: ePHEDrine sulfate 50 MG/ML AMP IV PRN (11:27)
[2020-07-18] MEDS ORDERED: fentaNYL citrate 100 MCG/2 ML VIAL IV PRN (11:27)
[2020-07-18] MEDS ORDERED: ATROPINE SULFATE 0.1 MG/ML 10ML SYR IV PRN (11:27)
[2020-07-18] MEDS ORDERED: LABETALOL HCL IV 5 MG/ML 20ML IV PRN (11:27)
[2020-07-18] MEDS ORDERED: PROMETHAZINE HCL 12.5 MG in SODIUM CHLORIDE 0.9% 50 ML IV PRN (11:27)
[2020-07-18] MEDS ORDERED: ONDANSETRON INJ 2 MG/ML 2 ML VIAL IV PRN (11:27)
[2020-07-18] MEDS ORDERED: FLUMAZENIL 0.1 MG/1 ML 10 ML VIAL IV PRN (11:27)
[2020-07-18 11:30] LABS: INR 1.4 (0.9-1.1); Partial Thromboplastin Time 28.4 Seconds (21.0-31.0); Prothrombin Time 14.1 Seconds (9.0-12.0)
[2020-07-18] MEDS ORDERED: BUPIVACAINE 0.5 % 5 MG/1 ML MPF 30ML VIAL ONE (11:34)
[2020-07-18] MEDS ORDERED: PHENYLEPHRINE 100MCG/ML 5ML SYR ONE (12:37)
--- NOTE | 2020-07-18 13:04 | Operative Report ---
PG Post Operative Report Pre & Post Diagnosis Operation Date: 07/18/20 07:00 Pre-Op Diagnosis: Cholelithiases Post-Op Diagnosis: Cholelithiases I identified the patient and participated in the time-out.: Yes Procedure Operation Date: 07/18/20 07:00 Actual Procedures p Laparoscopic Cholecystectomy with liver biopsy(Not Applicable) - Geronimo Berrios DO, JEY Surgeon Geronimo Berrios DO, JEY First Officer Urvashi Richard Estimated Blood Loss 30 Findings Consistent with Post-Op Diagnosis Ascites present. Cirrhotic appearance to the liver. Cystic duct and artery circumferentially dissected, critical view of safety obtained, duct and artery doubly clipped and divided. Wedge biopsy of the liver taken using harmonic scalpel. Good hemostasis, Surgicel placed in liver bed Specimens Gallbladder and contents Liver biopsy Anesthesia Type General Complications none Disposition Accompanied Patient To Recovery: No Disposition: Recovery Room Indications 60-year-old female presented with jaundice, imaging showed cholelithiasis and new appearance of cirrhosis of the liver. Patient underwent ERCP with GI and had some sludge and choledocholithiasis present, stents placed in common bile duct and pancreatic duct. After discussion with gastroenterology, plan for laparoscopic cholecystectomy with possible cholangiogram possible liver biopsy. The risks of the procedure were discussed, all questions were answered, and the patient agreed to proceed with surgery as planned. Description of Procedure The patient was properly identified, consented, and taken to the operating room where she was placed in the supine position. General endotracheal anesthesia was induced. SCDs and a safety belt were placed. Preoperative antibiotics were administered. The patient's abdomen was prepped and draped in the standard sterile fashion. A surgical timeout was performed and all parties were in agreement that this was the correct patient and procedure to be performed and we continued as planned. An incision was made superior and to the left of the umbilicus overlying the rectus muscle and the Veress needle was inserted. Saline drop test confirmed entry into the peritoneum. The abdomen was insufflated with carbon dioxide which the patient tolerated without incident. The abdomen was then entered using the Optiview technique and a 5 mm trocar. The laparoscope was inserted and no damage from initial trocar or Veress needle placement was noted. There was some bile tinged ascites overlying the liver. The liver appeared to be cirrhotic. The gallbladder showed some mild inflammation. There was also evidence of recannulation of the falciform ligament. An 11 mm port was placed in the subxiphoid position and two 5 mm ports were then placed in the right subcostal position. The patient was placed in reverse Trendelenburg position and rotated towards the left. The dome of the gallbladder was retracted towards the left upper quadrant and the infundibulum was retracted toward the right lower quadrant revealing Calot's triangle. Peritoneal attachments were taken down with electrocautery and blunt dissection. The cystic duct and artery were circumferentially dissected. A window of safety was obtained showing the cystic duct entering the gallbladder with no aberrant structures noted. The cystic duct and artery were doubly clipped and divided. The gallbladder was then lifted off the gallbladder fossa with electrocautery. There was some additional bleeding from the liver bed which was controlled with the harmonic scalpel. The harmonic scalpel was used to perform a wedge biopsy of the liver as discussed with GI. Hemostasis appeared excellent. The liver biopsy was removed and passed off the table sp ecimen. The gallbladder was placed in an Endo Catch bag and removed through the subxiphoid port site. The right upper quadrant was irrigated. Electrocautery was used to control bleeding from the liver bed. There was still slight amount of bleeding so a piece of Surgicel was placed in the gallbladder fossa. The area was again irrigated and hemostasis was found to be good. 5 mm trochars were removed under direct visualization and the abdomen was allowed to collapse. The subxiphoid port site fascia was closed with 0 Vicryl suture utilizing the Aleksandr-Loan closure device prior to removal of the other ports. The wound was irrigated, and the skin of all ports was closed with 4-0 Monocryl subcuticular sutures. Dermabond was placed over the wounds. The patient was extubated in the operating room and taken to the PACU where she recovered without apparent incident. All sponge, instrument and needle counts were correct at the conclusion of the procedure. The patient tolerated the procedure well. The physician's clinical lab assistant was present and scrubbed for the entirety of the case and was essential in positioning the patient, prepping and draping, retraction and exposure, driving the laparoscope, removal of the gallbladder, closure the incisions, and placement of the dressings. I attest to the content of the Intraoperative Record and any orders documented t herein. Any exceptions are noted below.
--- NOTE | 2020-07-18 13:57 | Anesthesiology Progress Note ---
Date of Service July 18, 2020 Anesthesia Post Procedure Vital Signs Vital Signs: Temp Pulse Pulse Resp BP BP Pulse Ox 07/18/20 13:45 36.4 C L 89 16 104/66 99 07/18/20 13:35 83 16 100/63 100 07/18/20 13:25 84 16 102/63 100 07/18/20 13:19 36.4 C L 88 18 101/61 100 07/18/20 10:18 36.9 C 93 H 18 120/77 95 07/18/20 08:06 36.9 C 91 H 18 107/71 92 07/17/20 23:06 37.1 C 90 18 112/71 94 07/17/20 16:07 37.4 C 95 H 18 104/66 94 Pain Intensity Abdomen: Pain Intensity: 7 Transfer of Care Handoff Completed per policy Notes Mental Status: alert / awake / arousable Patient Amnestic to Procedure: Yes Nausea / Vomiting: adequately controlled Pain: adequately controlled Airway Patency, RR, SpO2: stable & adequate BP & HR: stable & adequate Hydration State: stable & adequate Anesthetic Complications: no major complications apparent
[2020-07-18] MEDS ORDERED: oxyCODONE HCL IR 5 MG TAB (IMMEDIATE RELEASE) PO PRN (14:19)
[2020-07-18] MEDS: LACTATED RINGER'S 1,000 ML IV SCH (14:26)
[2020-07-19] MEDS: oxyCODONE HCL IR 5 MG TAB (IMMEDIATE RELEASE) PO PRN ×3 (00:59→23:09)
[2020-07-19 01:45] LABS: 18KDIGG Band NON-REACTIVE; 23KDIGG Band NON-REACTIVE; 23KDIGM Band NON-REACTIVE; 28KDIGG Band NON-REACTIVE; 30KDIGG Band NON-REACTIVE; 39KDIGG Band NON-REACTIVE; 39KDIGM Band NON-REACTIVE; 41KDIGG Band NON-REACTIVE; 41KDIGM Band NON-REACTIVE; 45KDIGG Band NON-REACTIVE; 58KDIGG Band NON-REACTIVE; 66KDIGG Band NON-REACTIVE; 93KDIGG Band NON-REACTIVE; Lyme Antibodies, WB IgG NEGATIVE (NEGATIVE); Lyme Antibodies, WB IgM NEGATIVE (NEGATIVE)
[2020-07-19] MEDS: MoRPHine SULFATE 2 MG/ML CARP IV PRN (04:18)
[2020-07-19] MEDS: LACTATED RINGER'S 1,000 ML IV SCH ×2 (04:40→18:50)
[2020-07-19] MEDS: CLOTRIMAZOLE 10 MG TROCHE BUCCAL SCH ×5 (06:39→23:10)
--- NOTE | 2020-07-19 08:28 | Hospitalist Progress Note ---
Date of Service July 19, 2020 Assessment & Plan (1) Abdominal pain: Multifactorial: Cholelithiasis, choledocholithiasis no sepsis for now Cystitis ongoing Cipro Rx Cirrhosis, new diagnosis, possible NAFLD GI consult RE abnormal LFTs, abdominal pain, cirrhosis work-up Patient underwent EGD, EUS, ERCP with GI on July 15, Dr. Jack Sludge and choledocholithiasis found, recommend antibiotics for 7 days, surgical consult recommended for cholecystectomy Mild gastritis Sludge within common bile duct Extensive sludge and stone material in gallbladder Sphincterotomy performed, common bile duct stent placed, prophylactic pancreatic stent placed Repeat ERCP in 6 to 8 weeks for stent removal Gen surg.consulted Patient seen by general surgery -now s/p cholecystectomy and liver biopsy, July 18 Tolerated procedure well LFTs and Tbili persistently elevated, outpt GI follow up discussed Cystitis -Patient is already on ciprofloxacin, will finish course Loose stools -Possibly to oral contrast patient had rule out C. difficile given recent Cipro Rx Stool C. difficile - negative Hypokalemia - secondary to emesis symptoms, home diuretic Rx Replace potassium, hold home diuretic for now until patient euvolemic Chest/epigastric discomfort -Likely related to problem 1 -To rule out any cardiac etiology, will obtain EKG and troponin -EKG normal sinus rhythm, unremarkable, troponin negative Prediabetes Current hemoglobin A1c 4.7% OHS on CPAP fibromyalgia as per records hypertension, stable DVT prophylaxis. SCDs RE possible procedure Full code Patient's , Mr. Erickson Clifton, can be contacted at #[phone]. Admission and Anticipated Discharge Date Admission Date: July 15, 2020 Subjective Patient is lying in bed, in no acute distress. She continues to have some epigastric discomfort. Tolerated surgery well however her LFTs are persistently elevated, T bili increased. Patient continues to have very poor appetite. Discussed with GI outpatient follow-up. Review of Systems Review of Systems: All systems reviewed & are unremarkable except as noted in HPI & below Constitutional: no fever and no chills Respiratory: no cough and no dyspnea Cardiovascular: no chest pain and no palpitations Gastrointestinal: no abdominal pain, no nausea and no vomiting Physical Exam Physical Exam: GENERAL: Slightly anxious,obese female, in no respiratory distress HEENT: NC/AT, [place] palpebral conjunctivae, no ptosis NECK : Supple, short neck, no tenderness CHEST : CTA, no tenderness HEART : RRR, no obvious murmurs ABDOMEN: Some distention, +epigastric tenderness, abdomen soft, - no suprapubic tenderness (resolved) EXTREMITIES : No LE swelling/tenderness, moves extremities spontaneously SKIN: Normal color, warm NEUROLOGIC : alert and oriented x3, no facial asymmetry, no dysarthria, moves extremities spontaneously Results & Data Results & Data ([facility]) Vital Signs (Past 12 Hours) Vital Signs Temp Pulse Resp BP Pulse Ox 07/19/20 07:47 36.8 C 88 18 124/79 90 07/19/20 03:55 36.6 C 92 H 18 111/73 96 07/18/20 23:10 36.6 C 87 18 109/73 92 Laboratory Results 07/19/20 07/19/20 07/15/20 Range/Units 07:56 07:56 00:35 WBC 17.51 H (4.8-10.8) K/uL RBC 3.55 L (4.2-5.4) M/uL Hgb 13.1 (12.0-16.0) g/dL Hct 39.3 (37-47) % MCV 110.7 H (80-100) fL MCH 36.9 H (25-34) pg MCHC 33.3 (32-36) g/dL RDW Std Deviation 59.0 H (36.4-46.3) fL RDW Coeff of Merna 14.6 H (11.5-14.5) % Plt Count 275 D (130-400) K/uL MPV 9.6 (7.4-10.4) fL Immature Gran % (Auto) 0.6 % Neut % (Auto) 84.4 % Lymph % (Auto) 8.7 % Lane % (Auto) 6.2 % Eos % (Auto) 0.1 % Baso % (Auto) 0.0 % Neut # (Auto) 14.78 H (1.4-6.5) K/uL Lymph # (Auto) 1.53 (1.2-3.4) K/uL Lane # (Auto) 1.08 H (0.11-0.59) K/uL Eos # (Auto) 0.01 (0-0.5) K/uL Baso # (Auto) 0.00 (0-0.2) K/uL Immature Gran # (Auto) 0.11 H (0.00-0.02) K/uL Macrocytosis Present Sodium 130 L (136-145) mmol/L Potassium 4.3 (3.5-5.1) mmol/L Chloride 99 (98-107) mmol/L Carbon Dioxide 25 (21-32) mmol/L Anion Gap 6.0 (3-11) BUN 7 (7-18) mg/dl Creatinine 0.63 (0.6-1.2) mg/dl Est Cr Clr Drug Dosing 83.7 ml/min Est GFR ( Amer) 114.6 Est GFR (Non-Af Amer) 98.9 BUN/Creatinine Ratio 11.7 (10-20) Glucose 130 H (70-99) mg/dl Calcium 8.1 L (8.5-10.1) mg/dl Phosphorus 2.5 (2.5-4.9) mg/dl Magnesium 2.0 (1.8-2.4) mg/dl Total Bilirubin 5.9 H (0.2-1) mg/dl AST 353 H (15-37) U/L ALT 189 H (12-78) U/L Alkaline Phosphatase 200 H (45-117) U/L Total Protein 6.4 (6.4-8.2) gm/dl Albumin 2.3 L (3.4-5.0) gm/dl Globulin 4.1 H (2.5-4.0) gm/dl Albumin/Globulin Ratio 0.6 L (0.9-2) Lyme IgG (Western Blot) NEGATIVE (NEGATIVE) Lyme IgG 18 kDa Band NON-REACTIVE Lyme IgG 23 kDa Band NON-REACTIVE Lyme IgG 28 kDa Band NON-REACTIVE Lyme IgG 30 kDa Band NON-REACTIVE Lyme IgG 39 kDa Band NON-REACTIVE Lyme IgG 41 kDa Band NON-REACTIVE Lyme IgG 45 kDa Band NON-REACTIVE Lyme IgG 58 kDa Band NON-REACTIVE Lyme IgG 66 kDa Band NON-REACTIVE Lyme IgG 93 kDa Band NON-REACTIVE Lyme IgM Ab (WB) NEGATIVE (NEGATIVE) Lyme IgM 23 kDa Band NON-REACTIVE Lyme IgM 39 kDa Band NON-REACTIVE Lyme IgM 41 kDa Band NON-REACTIVE Medications Administered Current Inpatient Medications Clotrimazole (Clotrimazole 10 Mg Sanchez) 10 mg BUCCAL 5XDQ4H [facility]UGIE Stop: 07/27/20 06:59 Last Admin: 07/19/20 06:39 Dose: 10 mg Documented by: Hydromorphone HCl (Hydromorphone Inj 0.5 Mg/0.5 Ml Syr) 0.25 mg IV Q2H PRN PRN Reason: Pain Stop: 08/01/20 15:49 Last Admin: 07/18/20 18:59 Dose: 0.25 mg Documented by: Promethazine HCl 12.5 mg/ (Sodium Chloride) 50.5 mls @ 202 mls/hr IV Q6H PRN PRN Reason: Nausea And Vomiting Stop: 08/14/20 07:08 Lorazepam (Ativan) 0.5 mg in 1 mls @ 1 mls/min IV Q4H PRN PRN Reason: Anxiety/Agitation Stop: 08/14/20 07:08 Last Admin: 07/18/20 03:46 Dose: 1 mls/min Documented by: Ciprofloxacin (Cipro / D5w) 400 mg in 200 mls @ 100 mls/hr IV Q12H AUGIE; Protocol Stop: 07/24/20 22:59 Last Infusion: 07/19/20 00:21 Dose: Infused Documented by: Lactated Ringer's (Lr) 1,000 mls @ 80 mls/hr IV .[id number] [facility] Stop: 08/17/20 14:59 Last Admin: 07/19/20 04:40 Dose: 80 mls/hr Documented by: Lisinopril (Lisinopril 10 Mg Tab) 10 mg PO QAM [facility] Stop: 08/14/20 08:59 Last Admin: 07/18/20 09:36 Dose: Not Given Documented by: Loperamide HCl (Loperamide Hcl 2 Mg Cap) 2 mg PO UD PRN PRN Reason: Diarrhea Stop: 08/15/20 05:13 Last Admin: 07/16/20 09:15 Dose: 2 mg Documented by: Miscellaneous (Atrovent 0.03% Nasal [place]: Order Awaiting Action) 1 ea N/A QS [facility] Stop: 08/14/20 07:59 Last Admin: 07/19/20 08:09 Dose: Not Given Documented by: Morphine Sulfate (Morphine Sulfate 4 Mg/Ml 1 Ml Carp\Vial) 4 mg IV Q4H PRN PRN Reason: Pain Stop: 07/29/20 07:08 Last Admin: 07/15/20 19:42 Dose: 4 mg Documented by: Morphine Sulfate (Morphine Sulfate 2 Mg/Ml Carp) 2 mg IV Q4H PRN PRN Reason: Pain Stop: 08/01/20 14:18 Last Admin: 07/19/20 04:18 Dose: 2 mg Documented by: Ondansetron HCl (Ondansetron Inj 2 Mg/Ml 2 Ml Vial) 2 mg IV Q4H PRN PRN Reason: Nausea Stop: 08/17/20 15:49 Oxycodone HCl (Oxycodone Hcl Ir 5 Mg Tab (Immediate Release)) 5 mg PO Q4H PRN PRN Reason: Pain Stop: 08/01/20 14:18 Oxycodone HCl (Oxycodone Hcl Ir 5 Mg Tab (Immediate Release)) 10 mg PO Q4H PRN PRN Reason: Pain Stop: 08/01/20 14:18 Last Admin: 07/19/20 06:44 Dose: 10 mg Documented by:
[2020-07-19 08:31] LABS: Hematocrit (blood only) 39.3 % (37-47); Hemoglobin 13.1 g/dL (12.0-16.0); Mean Corpuscular Hemoglobin 36.9 pg (25-34); Mean Corpuscular Hgb Conc 33.3 g/dL (32-36); Mean Corpuscular Volume 110.7 fL (80-100); Mean Platelet Volume 9.6 fL (7.4-10.4); Platelet Count 275 K/uL (130-400); RDW Coefficient of Variation 14.6 % (11.5-14.5); Red Blood Count 3.55 M/uL (4.2-5.4); White Blood Count 17.51 K/uL (4.8-10.8)
[2020-07-19 08:40] LABS: Eosinophils # (auto) 0.01 K/uL (0-0.5); Eosinophils % (auto) 0.1 %; Immature Granulocytes # (auto) 0.11 K/uL (0.00-0.02); Immature Granulocytes % (auto) 0.6 %; Lymphocytes # (auto) 1.53 K/uL (1.2-3.4); Lymphocytes % (auto) 8.7 %; Macrocytosis Present; Monocytes # (auto) 1.08 K/uL (0.11-0.59); Monocytes % (auto) 6.2 %; Neutrophils # (auto) 14.78 K/uL (1.4-6.5); Neutrophils % (auto) 84.4 %
[2020-07-19 08:49] LABS: Albumin Globulin Ratio 0.6 (0.9-2); Albumin Level 2.3 gm/dl (3.4-5.0); BUN Creatinine Ratio 11.7 (10-20); Bilirubin,Total 5.9 mg/dl (0.2-1); Calcium 8.1 mg/dl (8.5-10.1); Creatinine Clr Calc Pharmacy 83.7 ml/min; Est GFR (African American) 114.6; Est GFR (Non-African American) 98.9; Globulin 4.1 gm/dl (2.5-4.0); Phosphorus 2.5 mg/dl (2.5-4.9); Potassium 4.3 mmol/L (3.5-5.1); Total Protein 6.4 gm/dl (6.4-8.2)
[2020-07-19] MEDS: lisinopril 10 MG TAB PO SCH (09:18)
[2020-07-19] MEDS: CIPROFLOXACIN / D5W 400 MG/200 ML BAG IV SCH ×2 (09:18→20:52)
--- NOTE | 2020-07-19 09:21 | Surgery Progress Note ---
Date of Service July 19, 2020 Assessment & Plan (1) Elevated LFTs: POD 1 lap pierre/liver biopsy stable post op LFTs remain elevated Admission and Anticipated Discharge Date Admission Date: July 15, 2020 Supervising Physician Co-Signing Physician Notes Patient seen and examined, labs reviewed, agree with above. 60-year-old female admitted with jaundice and suspected choledocholithiasis status post ERCP with stent placement, now POD #1 laparoscopic cholecystectomy and liver biopsy for new diagnosis of cirrhosis. Overall d still not much of an appetite. Many of the symptoms she had prior to surgery are still present. Pain is well controlled. On exam she is jaundiced, afebrile with stable vitals. Incisions healing well with no evidence of infection. Labs show persistent hyperbilirubinemia and a increasing transaminitis. Also some hyponatremia and a persistent macrocytic anemia. POD #1 laparoscopic cholecystectomy, doing well from surgery standpoint. Of concern is her persistent hyperbilirubinemia and rising LFTs. Diet as tolerated, repeat labs in a.m., if still increasing will touch base with GI again. Overall from a surgical standpoint she would be ready for discharge when she is tolerating her diet a little better. Subjective no nausea but not much appetite, pain control good Physical Exam Gastrointestinal (Abdomen): Percussion/Palpation: abdomen soft Results & Data ([facility]) Vital Signs (Past 12 Hours) Vital Signs Temp Pulse Resp BP Pulse Ox 07/19/20 07:47 36.8 C 88 18 124/79 90 07/19/20 03:55 36.6 C 92 H 18 111/73 96 07/18/20 23:10 36.6 C 87 18 109/73 92 PG Care Time/CCT Total # of Minutes Spent Total Time Spent with Patient: Total time spent is greater than 50% in coordination of care (as documented) at patient's floor/unit and/or counseling patient: Coding Level of Care Code None Diagnoses Elevated LFTs R79.89
[2020-07-19] MEDS ORDERED: diphenhydrAMINE Capsule 25 MG CAP PO ONE (10:44)
[2020-07-19] MEDS: HYDROmorphone INJ 0.5 MG/0.5 ML SYR IV PRN (15:02)
[2020-07-20 07:42] LABS: Hematocrit (blood only) 35.9 % (37-47); Hemoglobin 12.2 g/dL (12.0-16.0); Mean Corpuscular Hemoglobin 37.4 pg (25-34); Mean Corpuscular Volume 110.1 fL (80-100); Mean Platelet Volume 9.3 fL (7.4-10.4); Platelet Count 225 K/uL (130-400); RDW Coefficient of Variation 14.8 % (11.5-14.5); RDW Standard Deviation 59.3 fL (36.4-46.3); Red Blood Count 3.26 M/uL (4.2-5.4); White Blood Count 16.16 K/uL (4.8-10.8)
[2020-07-20 08:12] LABS: Albumin Globulin Ratio 0.5 (0.9-2); BUN Creatinine Ratio 16.8 (10-20); Bilirubin,Total 5.8 mg/dl (0.2-1); Calcium 8.2 mg/dl (8.5-10.1); Creatinine Clr Calc Pharmacy 92.5 ml/min; Est GFR (African American) 118.4; Est GFR (Non-African American) 102.2; Globulin 3.9 gm/dl (2.5-4.0); Potassium 4.3 mmol/L (3.5-5.1); Total Protein 5.9 gm/dl (6.4-8.2)
[2020-07-20] MEDS: HYDROmorphone INJ 0.5 MG/0.5 ML SYR IV PRN ×3 (08:22→21:12)
[2020-07-20] MEDS: lisinopril 10 MG TAB PO SCH (08:23)
[2020-07-20] MEDS: CIPROFLOXACIN / D5W 400 MG/200 ML BAG IV SCH ×2 (08:23→21:34)
[2020-07-20] MEDS: CLOTRIMAZOLE 10 MG TROCHE BUCCAL SCH ×4 (08:23→21:09)
--- NOTE | 2020-07-20 10:33 | Surgery Progress Note ---
Date of Service July 20, 2020 Assessment & Plan (1) Cholelithiases: POD #2 laparoscopic cholecystectomy and liver biopsy, doing well. Her bilirubin is relatively stable but remains elevated over the past 48 hours, but AST and ALT are slightly down. Pathology showed cirrhosis secondary to steatohepatosis, and chronic cholelithiasis. Diet as tolerated Okay for discharge from general surgery standpoint, however given patient's labs may consider 1-2 more days in the hospital If persistent LFT elevation may consider reengaging GI for their opinion Follow-up with GI for outpatient care regarding cirrhosis Activity restrictions and wound care instructions reviewed Follow-up with general surgery in 2 weeks Surgery will follow while in house (2) Jaundice: (3) Cirrhosis: (4) Abdominal pain: Admission and Anticipated Discharge Date Admission Date: July 15, 2020 Subjective 60-year-old female admitted with jaundice and abdominal pain status post ERCP for suspected choledocholithiasis, now POD #2 laparoscopic cholecystectomy with liver biopsy. She feels a little better today, though however she is still sore in her upper abdomen. She did have a bowel movement yesterday afternoon. She tolerated more breakfast this morning. Physical Exam Constitutional: WD/WN, vitals as above Gastrointestinal (Abdomen): Inspection/Auscultation: + abdominal surgical incision (Incisions healing well) Percussion/Palpation: + abdomen tender (Appropriately tender to palpation) and abdomen soft; no guarding, abdomen not rigid and no hepatosplenomegaly Skin: + jaundice Results & Data ([facility]) Vital Signs (Past 12 Hours) Vital Signs Temp Pulse Resp BP Pulse Ox 07/20/20 07:29 37.2 C 93 H 16 104/66 93 07/20/20 02:00 37.1 C 07/19/20 23:15 36.7 C 94 H 16 101/66 95 Laboratory Results Laboratory Results - last 24 hr 07/20/20 07/20/20 07:17 07:17 WBC 16.16 H RBC 3.26 L Hgb 12.2 Hct 35.9 L MCV 110.1 H MCH 37.4 H MCHC 34.0 RDW Std Deviation 59.3 H RDW Coeff of Merna 14.8 H Plt Count 225 MPV 9.3 Sodium 127 L Potassium 4.3 Chloride 96 L Carbon Dioxide 26 Anion Gap 5.0 BUN 10 Creatinine 0.57 L Est Cr Clr Drug Dosing 92.5 Est GFR ( Amer) 118.4 Est GFR (Non-Af Amer) 102.2 BUN/Creatinine Ratio 16.8 Glucose 108 H Calcium 8.2 L Total Bilirubin 5.8 H AST 290 H ALT 164 H Alkaline Phosphatase 188 H Total Protein 5.9 L Albumin 2.0 L Globulin 3.9 Albumin/Globulin Ratio 0.5 L Diagnostic Findings FINAL DIAGNOSIS A. Gallbladder, cholecystectomy: - Chronic cholecystitis - Cholelithiasis - Negative for dysplasia and malignancy B. Liver, biopsy: - Steatohepatitis with cirrhosis Comment: The liver biopsy is adequate for interpretation and shows steatohepatitis with about 50% steatosis. There is frequent ballooned hepatocytes with intracytoplasmic Yina-hyaline. Virtually no lobular inflammation is seen. The trichrome stain shows advanced fibrosis with bridging and nodule formation consistent with cirrhosis. Iron staining shows some mild siderosis of periportal hepatocytes which might be suggestive of dysmetabolic iron overload syndrome, which can be seen in up to 1/3 of patients with NAFLD. The DARIA grade and stage are provided in the microscopic description. at 0993. Clinical History Cholelithiasis. Procedure performed: Laparoscopic cholecystectomy and liver biopsy. Gross Description A. GALLBLADDER The specimen is received in a container labeled gallbladder with the patient name. The specimen consists of a partially collapsed gallbladder which measures 6.5 cm in length and 3 x 2 cm at the fundus. The portion of cystic duct measures 0.6 cm in length and 0.2 cm in diameter. The serosal surface is pink to talley with abundant fatty infiltration. The lumen contains a thick, extremely viscous, dark green bile. Scattered calculi are noted and range up to 0.8 cm. The mucosal surface is hyperemic and edematous. The wall ranges from 0.2 to 0.7 cm in thickness. Securities Counselor sections are submitted in a single cassette as A. B. LIVER BIOPSY The specimen is received in a container labeled liver biopsy with the patient name. The specimen consists of a roughly wedge-shaped fragment of phillips and yellow, rubbery tissue which measures 1.8 x 1.8 x 0.8 cm. The capsular surface has a vague nodularity. Sectioning reveals a coronel to yellowish, rubbery cut surface, with a fine nodularity. The specimen is sectioned and entirely submitted in a single cassette as Amanda MICHEL Microscopic Description Special Stains on part B: Iron: mild siderosis of periportal hepatocytes PAS: positive in the hepatocytes (glycogen) PAS-D: highlights the bile duct basement membranes which are not significantly thickened; no evidence of [id number] globules Reticulin: focal increased reticulin fibrosis with mild disruption of the parenchymal architecture Trichrome: demonstrates cirrhosis with fibrosis surrounding multiple nodules Histological Scoring System for Nonalcoholic Fatty Liver Disease: Steatosis: 33-66% (score 2) Lobular inflammation: No foci (score 0) Hepatocyte ballooning: Many cells (score 2) TOTAL DARIA SCORE: 4 Fibrosis: Cirrhosis (stage 4) PG Care Time/CCT Total # of Minutes Spent Total Time Spent with Patient: Total time spent is greater than 50% in coordination of care (as documented) at patient's floor/unit and/or counseling patient: Coding Level of Care Code None Diagnoses Cholelithiases K80.20 Biliary obstruction: without biliary obstruction Cholecystitis presence: without cholecystitis Cholelithiasis location: gallbladder Jaundice R17 Cirrhosis K74.60 Abdominal pain R10.9 (1) Cholelithiases Biliary obstruction: without biliary obstruction Cholecystitis presence: without cholecystitis Cholelithiasis location: gallbladder Qualified Code(s): K80.20 - Calculus of gallbladder without cholecystitis without obstruction
[2020-07-20] MEDS: MoRPHine SULFATE 2 MG/ML CARP IV PRN (12:49)
[2020-07-20] MEDS ORDERED: CALCIUM CARBONATE 500 MG CHEWABLE TAB PO PRN (13:05)
--- NOTE | 2020-07-20 16:44 | Hospitalist Progress Note ---
Date of Service July 20, 2020 Assessment & Plan (1) Abdominal pain: Cholelithiasis, choledocholithiasis No sepsis at presentation Patient underwent EGD, EUS, ERCP with GI on 07/15/2020, Dr. Jack Sphincterotomy performed, common bile duct stent placed, prophylactic pancreatic stent placed Repeat ERCP in 6 to 8 weeks for stent removal Appreciate GI input and recommendation Status post laparoscopic cholecystectomy and liver biopsy, POD #2 on 07/20/2020 Appreciate surgery input and recommendation Has been on intravenous ciprofloxacin Clinically better and tolerating clears orally Cirrhosis, new diagnosis, possible NAFLD GI consult RE abnormal LFTs, abdominal pain, cirrhosis work-up Will need to have GI appointment as an outpatient Cystitis -Patient is already on ciprofloxacin, will finish course Loose stools -Possibly to oral contrast patient had rule out C. difficile given recent Cipro Rx Stool C. difficile - negative Hypokalemia - secondary to emesis symptoms, home diuretic Rx Replace potassium, hold home diuretic for now until patient euvolemic Prediabetes Current hemoglobin A1c 4.7% OHS on CPAP fibromyalgia as per records hypertension, stable DVT prophylaxis. SCDs RE possible procedure Full code Patient's , Mr. Erickson Clifton, can be contacted at #[phone]. Admission and Anticipated Discharge Date Admission Date: July 15, 2020 Subjective The patient was seen and examined in medical floor She has been feeling a little bit better today Has been tolerating clears orally and abdominal pain seems to be improving Denies any nausea and/or vomiting, no fever and/or chills Review of Systems Review of Systems: All systems reviewed and are unremarkable except as noted below Gastrointestinal: + abdominal pain; no bloating, no nausea and no vomiting Neurologic: + generalized weakness Physical Exam Physical Exam: Lying in bed comfortably Constitutional: well developed, well nourished and + ill appearing; no acute distress (No acute distress at rest) Eyes: PERRL, conjunctivae normal, anicteric sclerae ENMT: external ear and nose normal, oropharynx normal Neck: trachea midline, no thyromegaly Respiratory: no respiratory distress Auscultation: lungs clear to auscultation bilaterally Cardiovascular: Rate/Rhythm: regular rate and regular rhythm Heart Sounds: no murmur Gastrointestinal (Abdomen): Inspection/Auscultation: + abdomen distended; + abnormal bowel sounds (Sluggish bowel sounds) Percussion/Palpation: + abdomen tender and abdomen soft Musculoskeletal: No acute arthritis involving any joints Neurologic: Alert, awake and oriented x3. No focal sensory and motor deficit appreciated but generally very weak and lethargic Psychiatric: A+Ox3, euthymic affect Results & Data Results & Data ([facility]) Vital Signs (Past 12 Hours) Vital Signs Temp Pulse Resp BP Pulse Ox 07/20/20 15:15 36.8 C 91 H 16 100/67 91 07/20/20 07:29 37.2 C 93 H 16 104/66 93 Laboratory Results Short CBC 07/20/20 Range/Units 07:17 WBC 16.16 H (4.8-10.8) K/uL Hgb 12.2 (12.0-16.0) g/dL Hct 35.9 L (37-47) % Plt Count 225 (130-400) K/uL BMP 07/20/20 07:17 Sodium 127 L Potassium 4.3 Chloride 96 L Carbon Dioxide 26 BUN 10 Creatinine 0.57 L Glucose 108 H Calcium 8.2 L Liver Function 07/20/20 Range/Units 07:17 Total Bilirubin 5.8 H (0.2-1) mg/dl AST 290 H (15-37) U/L ALT 164 H (12-78) U/L Alkaline Phosphatase 188 H (45-117) U/L Albumin 2.0 L (3.4-5.0) gm/dl Medications Administered Current Inpatient Medications Calcium Carbonate (Calcium Carbonate 500 Mg Chewable Tab) 500 mg PO Q6 PRN PRN Reason: Indigestion Stop: 08/19/20 13:04 Last Admin: 07/20/20 13:25 Dose: 500 mg Documented by: Clotrimazole (Clotrimazole 10 Mg Sanchez) 10 mg BUCCAL 5XDQ4H [facility] Stop: 07/27/20 06:59 Last Admin: 07/20/20 15:26 Dose: 10 mg Documented by: Hydromorphone HCl (Hydromorphone Inj 0.5 Mg/0.5 Ml Syr) 0.25 mg IV Q2H PRN PRN Reason: Pain Stop: 08/01/20 15:49 Last Admin: 07/20/20 15:26 Dose: 0.25 mg Documented by: Promethazine HCl 12.5 mg/ (Sodium Chloride) 50.5 mls @ 202 mls/hr IV Q6H PRN PRN Reason: Nausea And Vomiting Stop: 08/14/20 07:08 Lorazepam (Ativan) 0.5 mg in 1 mls @ 1 mls/min IV Q4H PRN PRN Reason: Anxiety/Agitation Stop: 08/14/20 07:08 Last Admin: 07/18/20 03:46 Dose: 1 mls/min Documented by: Ciprofloxacin (Cipro / D5w) 400 mg in 200 mls @ 100 mls/hr IV Q12H [facility]; Protocol Stop: 07/24/20 22:59 Last Infusion: 07/20/20 10:35 Dose: Infused Documented by: Lisinopril (Lisinopril 10 Mg Tab) 10 mg PO QAM [facility] Stop: 08/14/20 08:59 Last Admin: 07/20/20 08:23 Dose: 10 mg Documented by: Loperamide HCl (Loperamide Hcl 2 Mg Cap) 2 mg PO UD PRN PRN Reason: Diarrhea Stop: 08/15/20 05:13 Last Admin: 07/16/20 09:15 Dose: 2 mg Documented by: Miscellaneous (Atrovent 0.03% Nasal [place]: Order Awaiting Action) 1 ea N/A QS [facility] Stop: 08/14/20 07:59 Last Admin: 07/20/20 16:33 Dose: Not Given Documented by: Morphine Sulfate (Morphine Sulfate 4 Mg/Ml 1 Ml Carp\Vial) 4 mg IV Q4H PRN PRN Reason: Pain Stop: 07/29/20 07:08 Last Admin: 07/15/20 19:42 Dose: 4 mg Documented by: Morphine Sulfate (Morphine Sulfate 2 Mg/Ml Carp) 2 mg IV Q4H PRN PRN Reason: Pain Stop: 08/01/20 14:18 Last Admin: 07/20/20 12:49 Dose: 2 mg Documented by: Ondansetron HCl (Ondansetron Inj 2 Mg/Ml 2 Ml Vial) 2 mg IV Q4H PRN PRN Reason: Nausea Stop: 08/17/20 15:49 Oxycodone HCl (Oxycodone Hcl Ir 5 Mg Tab (Immediate Release)) 5 mg PO Q4H PRN PRN Reason: Pain Stop: 08/01/20 14:18 Oxycodone HCl (Oxycodone Hcl Ir 5 Mg Tab (Immediate Release)) 10 mg PO Q4H PRN PRN Reason: Pain Stop: 08/01/20 14:18 Last Admin: 07/19/20 23:09 Dose: 10 mg Documented by:
[2020-07-20] MEDS: ONDANSETRON INJ 2 MG/ML 2 ML VIAL IV PRN (21:24)
[2020-07-20] MEDS: LORazepam 0.5 MG/1 ML VIAL IV PRN (23:46)
[2020-07-21] MEDS: CLOTRIMAZOLE 10 MG TROCHE BUCCAL SCH ×5 (01:41→20:16)
[2020-07-21] MEDS: HYDROmorphone INJ 0.5 MG/0.5 ML SYR IV PRN ×6 (01:48→22:25)
[2020-07-21] MEDS: LORazepam 0.5 MG/1 ML VIAL IV PRN ×2 (05:31→19:59)
[2020-07-21 08:15] LABS: Basophils # (auto) 0.01 K/uL (0-0.2); Basophils % (auto) 0.1 %; Eosinophils # (auto) 0.03 K/uL (0-0.5); Eosinophils % (auto) 0.2 %; Hematocrit (blood only) 33.7 % (37-47); Hemoglobin 11.3 g/dL (12.0-16.0); Immature Granulocytes # (auto) 0.08 K/uL (0.00-0.02); Immature Granulocytes % (auto) 0.5 %; Lymphocytes # (auto) 1.31 K/uL (1.2-3.4); Lymphocytes % (auto) 8.8 %; Mean Corpuscular Hemoglobin 36.5 pg (25-34); Mean Corpuscular Hgb Conc 33.5 g/dL (32-36); Mean Corpuscular Volume 108.7 fL (80-100); Mean Platelet Volume 9.4 fL (7.4-10.4); Monocytes # (auto) 1.27 K/uL (0.11-0.59); Monocytes % (auto) 8.5 %; Neutrophils % (auto) 81.9 %; Platelet Count 220 K/uL (130-400); RDW Coefficient of Variation 14.4 % (11.5-14.5)
[2020-07-21] MEDS: ONDANSETRON INJ 2 MG/ML 2 ML VIAL IV PRN ×2 (08:16→20:15)
[2020-07-21] MEDS: CIPROFLOXACIN / D5W 400 MG/200 ML BAG IV SCH ×2 (08:17→20:16)
[2020-07-21] MEDS: lisinopril 10 MG TAB PO SCH (08:17)
[2020-07-21 08:43] LABS: Albumin Level 1.8 gm/dl (3.4-5.0); BUN Creatinine Ratio 20.2 (10-20); Calcium 8.2 mg/dl (8.5-10.1); Creatinine Clr Calc Pharmacy 119.9 ml/min; Est GFR (Non-African American) 111.3; Magnesium 1.8 mg/dl (1.8-2.4); Potassium 4.1 mmol/L (3.5-5.1)
[2020-07-21 08:47] LABS: Albumin Globulin Ratio 0.5 (0.9-2); Bilirubin,Total 5.9 mg/dl (0.2-1); Globulin 3.5 gm/dl (2.5-4.0); Phosphorus 3.2 mg/dl (2.5-4.9); Total Protein 5.3 gm/dl (6.4-8.2)
[2020-07-21] MEDS: SODIUM CHLORIDE 0.9% 1000ML 1,000 ML IV SCH (10:22)
--- NOTE | 2020-07-21 13:15 | Surgery Progress Note ---
Date of Service July 21, 2020 Assessment & Plan (1) Cholelithiases: POD #3 laparoscopic cholecystectomy and liver biopsy, doing well. Her bilirubin remains elevated and her AST and ALT are slowly downtrending. WBC downtrending. Since none of her symptoms that were present prior to surgery have resolved, we will reengage GI. Pathology showed cirrhosis secondary to steatohepatosis, and chronic cholelithiasis. Diet as tolerated GIreconsult, appreciate their opinion Follow-up with GI for outpatient care regarding cirrhosis Activity restrictions and wound care instructions reviewed Follow-up with general surgery in 2 weeks Surgery will follow (2) Jaundice: (3) Cirrhosis: (4) Abdominal pain: Admission and Anticipated Discharge Date Admission Date: July 15, 2020 Subjective 60-year-old female admitted with jaundice and abdominal pain status post ERCP for suspected choledocholithiasis, now POD #3 laparoscopic cholecystectomy with liver biopsy. Watch improvement since yesterday, in fact she has a little bit less of an appetite. Symptoms she had prior to surgery or not resolved. She does not have any significant pain at her incision sites. Physical Exam Constitutional: WD/WN, vitals as above Gastrointestinal (Abdomen): Inspection/Auscultation: + abdominal surgical incision (Incisions healing well) Percussion/Palpation: + abdomen tender (Appropriately tender to palpation) and abdomen soft; no guarding, abdomen not rigid and no hepatosplenomegaly Skin: + jaundice Results & Data ([facility]) Vital Signs (Past 12 Hours) Vital Signs Temp Pulse Resp BP Pulse Ox 07/21/20 07:37 36.6 C 94 H 18 109/71 92 Diagnostic Findings Laboratory Results - last 24 hr 07/21/20 07/21/20 07:46 07:46 WBC 14.90 H RBC 3.10 L Hgb 11.3 L Hct 33.7 L MCV 108.7 H MCH 36.5 H MCHC 33.5 RDW Std Deviation 57.0 H RDW Coeff of Merna 14.4 Plt Count 220 MPV 9.4 Immature Gran % (Auto) 0.5 Neut % (Auto) 81.9 Lymph % (Auto) 8.8 [place] % (Auto) 8.5 Eos % (Auto) 0.2 Baso % (Auto) 0.1 Neut # (Auto) 12.20 H Lymph # (Auto) 1.31 Harrison # (Auto) 1.27 H Eos # (Auto) 0.03 Baso # (Auto) 0.01 Immature Gran # (Auto) 0.08 H Sodium 126 L Potassium 4.1 Chloride 94 L Carbon Dioxide 26 Anion Gap 6.0 BUN 9 Creatinine 0.44 L Est Cr Clr Drug Dosing 119.9 Est GFR ( Amer) 129.0 Est GFR (Non-Af Amer) 111.3 BUN/Creatinine Ratio 20.2 H Glucose 105 H Calcium 8.2 L Phosphorus 3.2 Magnesium 1.8 Total Bilirubin 5.9 H AST 201 H ALT 133 H Alkaline Phosphatase 187 H Total Protein 5.3 L Albumin 1.8 L Globulin 3.5 Albumin/Globulin Ratio 0.5 L PG Care Time/CCT Total # of Minutes Spent Total Time Spent with Patient: Total time spent is greater than 50% in coordination of care (as documented) at patient's floor/unit and/or counseling patient: Coding Level of Care Code None Diagnoses Cholelithiases K80.20 Biliary obstruction: without biliary obstruction Cholecystitis presence: without cholecystitis Cholelithiasis location: gallbladder Jaundice R17 Cirrhosis K74.60 Abdominal pain R10.9 (1) Cholelithiases Biliary obstruction: without biliary obstruction Cholecystitis presence: without cholecystitis Cholelithiasis location: gallbladder Qualified Code(s): K80.20 - Calculus of gallbladder without cholecystitis without obstruction
[2020-07-21] MEDS ORDERED: METOCLOPRAMIDE HCL INJ 5 MG/ML 2 ML VIAL IV ONE (13:28)
[2020-07-21] MEDS ORDERED: IOVERSOL 100ml IV ONE (13:58)
--- NOTE | 2020-07-21 14:08 | Gastroenterology Progress Note ---
Date of Service July 21, 2020 Assessment & Plan (1) Elevated LFTs: Pt is a 60 y/o female followed for abd pain, elevated LFTs. CT abd/pelvis w findings suggestive for fatty liver ? cirrhosis. Gallbladder stones, sludge. She underwent EGD/EUS/ERCP on 07/15 - benign biliary papillary stenosis note, sludge swept , sphincterectomy done. Stents x 2 (biliary and pancreatic) placed She underwent lap pierre on 07/18 w wedge liver bx which showed hepatic steatosis w cirrhosis. LFTs not much improved since lap pierre. On exam today she is having abd distension, TTP. - Repeat CT abd/pelvis to r/o hematoma at surgical area, stents patency, ileus - Trial Reglan to help w GI motility - Unsure etiology of persistently elevated LFTs, ? related to underlying cirrhosis - Will help set up f/u in GI clinic upon DC for cirrhosis workup and management Admission and Anticipated Discharge Date Admission Date: July 15, 2020 Subjective GI asked to re-evaluated pt by Surgery as pt's LFTs remain elevated especially her Tbili She is c/o burning, numbness from check to pelvic area. + nausea, abd pain, passing little flatus. Review of Systems Review of Systems: All systems reviewed & are unremarkable except as noted in HPI & below Physical Exam 2 Constitutional: WD/WN, vitals as above well groomed, cooperative and comfortable Eyes: + scleral abnormality (icteric) and EOM intact bilaterally ENMT: external ear and nose normal, oropharynx normal Respiratory: no respiratory distress and does not use accessory muscles Gastrointestinal (Abdomen): Inspection/Auscultation: + abdomen distended and normal bowel sounds Percussion/Palpation: + abdomen tender (generalized) Skin: no rashes, warm and dry + jaundice Psychiatric: A+Ox3, euthymic affect Lymphatic: no lymphedema Results & Data ([facility]) Vital Signs (Past 12 Hours) Vital Signs Temp Pulse Resp BP Pulse Ox 07/21/20 07:37 36.6 C 94 H 18 109/71 92
--- NOTE | 2020-07-21 14:16 | CT Scan Report ---
CT abd pelvis IV con only CLINICAL HISTORY: abd pain, distension COMPARISON STUDY: 07/16/2020 TECHNIQUE: The patient was scanned in a dynamic helical fashion during intravenous administration of 94 cc of Optiray 320 A dose lowering technique was utilized adhering to the principles of ALARA. CT DOSE: 979.39 mGy.cm FINDINGS: Lower chest: Since the prior study, the patient has developed small bilateral pleural effusions. Ther e are bibasilar atelectatic changes. Liver: The liver has a cirrhotic morphology. There is hepatic steatosis. There is a right hepatic lob e contusion/laceration adjacent to the cholecystectomy bed. There is a small amount of fluid within t he cholecystectomy bed. Gallbladder: Interval cholecystectomy. There is fluid in the cholecystectomy bed. There is hepatic co ntusion/laceration involving the right lobe marginating the cholecystectomy bed. There is an indwelli ng biliary enteric stent. There is a pancreatic enteric stent. Spleen: Normal in size and attenuation. Pancreas: Unremarkable. Adrenal glands: There is a 14 mm left adrenal nodule. Kidneys: There is a 2 mm nonobstructing left renal calculus Bowel: There are no transition zones to indicate bowel obstruction. There is no acute diverticulitis. There are no findings to indicate acute appendicitis. Peritoneum: Since the prior study, the patient has developed mild ascites. Vasculature: The abdominal aorta is normal in course and caliber. Adenopathy: None. Pelvic viscera: The bladder, and pelvic viscera are unremarkable. Skeletal structures: No destructive osseous lesions are seen. IMPRESSION: 1. Interval cholecystectomy. 2. Interval placement of a biliary enteric stent pancreatic enteric stent 3. Interval involvement of a hepatic contusion/laceration involving the right lobe adjacent to the ch olecystectomy bed 4. Interval development of ascites 5. Hepatic cirrhosis and hepatic steatosis 6. Interval development of small bilateral pleural effusions with basilar atelectasis. 7. Nonobstructing 2 mm left renal calculus 3. 14 mm left adrenal nodule ACT 112: Negative or not required by law. Electronically signed by: Eddie Barrios M.D. 07/21/2020 2:15 PM
--- NOTE | 2020-07-21 18:54 | Hospitalist Progress Note ---
Date of Service July 21, 2020 Assessment & Plan (1) Abdominal pain: Cholelithiasis, choledocholithiasis No sepsis at presentation Patient underwent EGD, EUS, ERCP with GI on 07/15/2020, Dr. Jack Sphincterotomy performed, common bile duct stent placed, prophylactic pancreatic stent placed Repeat ERCP in 6 to 8 weeks for stent removal Appreciate GI input and recommendation Status post laparoscopic cholecystectomy and liver biopsy, POD #2 on 07/20/2020 Appreciate surgery input and recommendation Has been on intravenous ciprofloxacin Clinically better and tolerating clears orally Postoperative ileus Developed abdominal pain with distention since this morning Has had a reasonable breakfast with pancakes this morning CAT scan did show abdominal distention without any obstruction, ascites Advised to be n.p.o. for now and may need NG tube insertion for suction Hyponatremia Sodium level has been around 126 Has intravascular dehydration Try small amount of normal saline infusion Cirrhosis, new diagnosis, possible NAFLD GI consult RE abnormal LFTs, abdominal pain, cirrhosis work-up Will need to have GI appointment as an outpatient Liver biopsy showed cirrhosis Cystitis -Patient is already on ciprofloxacin, will finish course Loose stools -Possibly to oral contrast patient had rule out C. difficile given recent Cipro Rx Stool C. difficile - negative Hypokalemia - secondary to emesis symptoms, home diuretic Rx Replace potassium, hold home diuretic for now until patient euvolemic Well supplement electrolytes as needed Prediabetes Current hemoglobin A1c 4.7% OHS on CPAP fibromyalgia as per records hypertension, stable DVT prophylaxis. SCDs RE possible procedure Full code Patient's , Mr. Erickson Clifton, can be contacted at #[phone]. Discussed with the in detail and answered all of his questions Admission and Anticipated Discharge Date Admission Date: July 15, 2020 Subjective The patient was seen and examined in medical floor She has been feeling a little bit better today Has been tolerating clears orally and abdominal pain seems to be improving Denies any nausea and/or vomiting, no fever and/or chills 07/21/2020 The patient was seen and examined in medical floor She has been feeling worse today with increasing abdominal distention and discomfort without any nausea and or vomiting She has been passing gas and has had a reasonable breakfast Review of Systems Review of Systems: All systems reviewed and are unremarkable except as noted below Gastrointestinal: + abdominal pain; no bloating, no nausea and no vomiting Neurologic: + generalized weakness Physical Exam Physical Exam: Lying in bed with acute distress due to abdominal distention and discomfort Constitutional: well developed, well nourished and + ill appearing; no acute distress (No acute distress at rest) Eyes: PERRL, conjunctivae normal, anicteric sclerae ENMT: external ear and nose normal, oropharynx normal Neck: trachea midline, no thyromegaly Respiratory: no respiratory distress Auscultation: lungs clear to auscultation bilaterally Cardiovascular: Rate/Rhythm: regular rate and regular rhythm Heart Sounds: no murmur Gastrointestinal (Abdomen): Inspection/Auscultation: + abdomen distended; + abnormal bowel sounds (Sluggish bowel sounds) Percussion/Palpation: + abdomen tender and abdomen soft Psychiatric: A+Ox3, euthymic affect Results & Data Results & Data ([facility]) Vital Signs (Past 12 Hours) Vital Signs Temp Pulse Resp BP Pulse Ox 07/21/20 17:07 37.0 C 90 16 95/59 L 93 07/21/20 07:37 36.6 C 94 H 18 109/71 92 Laboratory Results Short CBC 07/21/20 Range/Units 07:46 WBC 14.90 H (4.8-10.8) K/uL Hgb 11.3 L (12.0-16.0) g/dL Hct 33.7 L (37-47) % Plt Count 220 (130-400) K/uL BMP 07/21/20 07:46 Sodium 126 L Potassium 4.1 Chloride 94 L Carbon Dioxide 26 BUN 9 Creatinine 0.44 L Glucose 105 H Calcium 8.2 L Liver Function 07/21/20 Range/Units 07:46 Total Bilirubin 5.9 H (0.2-1) mg/dl AST 201 H (15-37) U/L ALT 133 H (12-78) U/L Alkaline Phosphatase 187 H (45-117) U/L Albumin 1.8 L (3.4-5.0) gm/dl Medications Administered Current Inpatient Medications Calcium Carbonate (Calcium Carbonate 500 Mg Chewable Tab) 500 mg PO Q6 PRN PRN Reason: Indigestion Stop: 08/19/20 13:04 Last Admin: 07/20/20 13:25 Dose: 500 mg Documented by: Clotrimazole (Clotrimazole 10 Mg Sanchez) 10 mg BUCCAL [id number] [facility] Stop: 07/27/20 06:59 Last Admin: 07/21/20 14:44 Dose: 10 mg Documented by: Hydromorphone HCl (Hydromorphone Inj 0.5 Mg/0.5 Ml Syr) 0.25 mg IV Q2H PRN PRN Reason: Pain Stop: 08/01/20 15:49 Last Admin: 07/21/20 16:14 Dose: 0.25 mg Documented by: Promethazine HCl 12.5 mg/ (Sodium Chloride) 50.5 mls @ 202 mls/hr IV Q6H PRN PRN Reason: Nausea And Vomiting Stop: 08/14/20 07:08 Lorazepam (Ativan) 0.5 mg in 1 mls @ 1 mls/min IV Q4H PRN PRN Reason: Anxiety/Agitation Stop: 08/14/20 07:08 Last Admin: 07/21/20 05:31 Dose: 1 mls/min Documented by: Ciprofloxacin (Cipro / D5w) 400 mg in 200 mls @ 100 mls/hr IV Q12H [facility]; Protocol Stop: 07/24/20 22:59 Last Infusion: 07/21/20 10:23 Dose: Infused Documented by: Sodium Chloride (Nss 1000ml) 1,000 mls @ 80 mls/hr IV .[id number] [facility] Stop: 07/22/20 10:14 Last Admin: 07/21/20 10:22 Dose: 80 mls/hr Documented by: Lisinopril (Lisinopril 10 Mg Tab) 10 mg PO QAM [facility] Stop: 08/14/20 08:59 Last Admin: 07/21/20 08:17 Dose: 10 mg Documented by: Loperamide HCl (Loperamide Hcl 2 Mg Cap) 2 mg PO UD PRN PRN Reason: Diarrhea Stop: 08/15/20 05:13 Last Admin: 07/16/20 09:15 Dose: 2 mg Documented by: Miscellaneous (Atrovent 0.03% Nasal [place]: Order Awaiting Action) 1 ea N/A QS [facility] Stop: 08/14/20 07:59 Last Admin: 07/21/20 14:44 Dose: Not Given Documented by: Morphine Sulfate (Morphine Sulfate 4 Mg/Ml 1 Ml Carp\Vial) 4 mg IV Q4H PRN PRN Reason: Pain Stop: 07/29/20 07:08 Last Admin: 07/15/20 19:42 Dose: 4 mg Documented by: Morphine Sulfate (Morphine Sulfate 2 Mg/Ml Carp) 2 mg IV Q4H PRN PRN Reason: Pain Stop: 08/01/20 14:18 Last Admin: 07/20/20 12:49 Dose: 2 mg Documented by: Ondansetron HCl (Ondansetron Inj 2 Mg/Ml 2 Ml Vial) 2 mg IV Q4H PRN PRN Reason: Nausea Stop: 08/17/20 15:49 Last Admin: 07/21/20 08:16 Dose: 2 mg Documented by: Oxycodone HCl (Oxycodone Hcl Ir 5 Mg Tab (Immediate Release)) 5 mg PO Q4H PRN PRN Reason: Pain Stop: 08/01/20 14:18 Oxycodone HCl (Oxycodone Hcl Ir 5 Mg Tab (Immediate Release)) 10 mg PO Q4H PRN PRN Reason: Pain Stop: 08/01/20 14:18 Last Admin: 07/19/20 23:09 Dose: 10 mg Documented by:
[2020-07-21] MEDS: oxyCODONE HCL IR 5 MG TAB (IMMEDIATE RELEASE) PO PRN (22:30)
[2020-07-22] MEDS: CLOTRIMAZOLE 10 MG TROCHE BUCCAL SCH ×6 (00:26→19:59)
[2020-07-22] MEDS: SODIUM CHLORIDE 0.9% 1000ML 1,000 ML IV SCH (01:09)
[2020-07-22] MEDS: oxyCODONE HCL IR 5 MG TAB (IMMEDIATE RELEASE) PO PRN ×4 (03:42→22:21)
[2020-07-22 07:46] LABS: Basophils # (auto) 0.01 K/uL (0-0.2); Basophils % (auto) 0.1 %; Eosinophils # (auto) 0.08 K/uL (0-0.5); Eosinophils % (auto) 0.5 %; Hematocrit (blood only) 31.6 % (37-47); Hemoglobin 10.7 g/dL (12.0-16.0); Immature Granulocytes # (auto) 0.14 K/uL (0.00-0.02); Immature Granulocytes % (auto) 0.9 %; Lymphocytes # (auto) 1.77 K/uL (1.2-3.4); Lymphocytes % (auto) 10.8 %; Mean Corpuscular Hemoglobin 36.8 pg (25-34); Mean Corpuscular Hgb Conc 33.9 g/dL (32-36); Mean Corpuscular Volume 108.6 fL (80-100); Mean Platelet Volume 9.2 fL (7.4-10.4); Monocytes # (auto) 1.61 K/uL (0.11-0.59); Monocytes % (auto) 9.8 %; Neutrophils # (auto) 12.82 K/uL (1.4-6.5); Neutrophils % (auto) 77.9 %; Platelet Count 245 K/uL (130-400); RDW Coefficient of Variation 14.4 % (11.5-14.5); RDW Standard Deviation 56.9 fL (36.4-46.3); Red Blood Count 2.91 M/uL (4.2-5.4); White Blood Count 16.43 K/uL (4.8-10.8)
[2020-07-22 08:26] LABS: Albumin Globulin Ratio 0.5 (0.9-2); Albumin Level 1.7 gm/dl (3.4-5.0); BUN Creatinine Ratio 15.7 (10-20); Bilirubin,Total 5.4 mg/dl (0.2-1); Calcium 8.2 mg/dl (8.5-10.1); Creatinine Clr Calc Pharmacy 122.6 ml/min; Est GFR (African American) 129.9; Est GFR (Non-African American) 112.1; Globulin 3.5 gm/dl (2.5-4.0); Magnesium 1.8 mg/dl (1.8-2.4); Phosphorus 3.2 mg/dl (2.5-4.9); Potassium 4.1 mmol/L (3.5-5.1); Total Protein 5.2 gm/dl (6.4-8.2)
[2020-07-22] MEDS: lisinopril 10 MG TAB PO SCH (08:47)
[2020-07-22] MEDS: CIPROFLOXACIN / D5W 400 MG/200 ML BAG IV SCH ×2 (08:47→20:12)
[2020-07-22] MEDS: LORazepam 0.5 MG/1 ML VIAL IV PRN ×2 (09:32→23:02)
[2020-07-22] MEDS ORDERED: METOCLOPRAMIDE HCL INJ 5 MG/ML 2 ML VIAL IV ONE (10:07)
--- NOTE | 2020-07-22 10:10 | Communication Note ---
Date of Service: July 22, [address] abd/pelvis results from 07/21 with pt and her . Explained changes seen are mostly related to s/p lap pierre and also wedge liver bx. LFTs trending down. She is symptomatically improved w less abd distension/pain. Is feeling weak still. Recs: - Correct hyponatremia - Trend LFTs, though may not completely normalize given her underlying cirrhosis - Monitor blood ct, if dropping severely consider possible internal bleeding s/p wedge liver bx - Pls recall GI prn. We will arrange her f/u in GI clinic for cirrhosis management upon her DC I have discussed the patient's management with the advanced practitioner. Please refer to the nurse practitioner's note for the documented findings and plan of care. If labs worsen then recall us again.
--- NOTE | 2020-07-22 10:14 | Surgery Progress Note ---
Date of Service July 22, 2020 Assessment & Plan (1) Cholelithiases: POD #4 laparoscopic cholecystectomy and liver biopsy, doing well. Her bilirubin remains elevated and her AST and ALT are slowly downtrending. WBC up slightly today. CT with some ascites but no evidence of complication from surgery or stents. Diet as tolerated Follow-up with GI for outpatient care regarding cirrhosis Activity restrictions and wound care instructions reviewed Follow-up with general surgery in 2 weeks Surgery will follow peripherally, Dr. Chawla covering over the weekend and will be available with questions or concerns. (2) Jaundice: (3) Cirrhosis: (4) Abdominal pain: Admission and Anticipated Discharge Date Admission Date: July 15, 2020 Subjective 60-year-old female admitted with jaundice and abdominal pain status post ERCP for suspected choledocholithiasis, now POD #4 laparoscopic cholecystectomy with liver biopsy. Feels a little better than yesterday. Symptoms she had prior to surgery are not fully resolved. She does not have any significant pain at her incision sites. Physical Exam Constitutional: WD/WN, vitals as above Gastrointestinal (Abdomen): Inspection/Auscultation: + abdominal surgical incision (Incisions healing well) Percussion/Palpation: + abdomen tender (Appropriately tender to palpation) and abdomen soft; no guarding, abdomen not rigid and no hepatosplenomegaly Skin: + jaundice Results & Data ([facility]) Vital Signs (Past 12 Hours) Vital Signs Temp Pulse Resp BP Pulse Ox 07/22/20 07:16 36.7 C 87 16 106/68 92 07/21/20 23:14 36.8 C 88 18 104/67 93 Laboratory Results Laboratory Results - last 24 hr 07/22/20 07/22/20 07/22/20 07:24 07:24 07:24 WBC 16.43 H RBC 2.91 L Hgb 10.7 L Hct 31.6 L MCV 108.6 H MCH 36.8 H MCHC 33.9 RDW Std Deviation 56.9 H RDW Coeff of Merna 14.4 Plt Count 245 MPV 9.2 Immature Gran % (Auto) 0.9 Neut % (Auto) 77.9 Lymph % (Auto) 10.8 [place] % (Auto) 9.8 Eos % (Auto) 0.5 Baso % (Auto) 0.1 Neut # (Auto) 12.82 H Lymph # (Auto) 1.77 [place] # (Auto) 1.61 H Eos # (Auto) 0.08 Baso # (Auto) 0.01 Immature Gran # (Auto) 0.14 H Sodium 128 L Potassium 4.1 Chloride 96 L Carbon Dioxide 26 Anion Gap 6.0 BUN 7 Creatinine 0.43 L Est Cr Clr Drug Dosing 122.6 Est GFR ( Amer) 129.9 Est GFR (Non-Af Amer) 112.1 BUN/Creatinine Ratio 15.7 Glucose 103 H Calcium 8.2 L Phosphorus 3.2 Magnesium 1.8 Total Bilirubin 5.4 H Direct Bilirubin 4.3 H AST 153 H ALT 109 H Alkaline Phosphatase 180 H Total Protein 5.2 L Albumin 1.7 L Globulin 3.5 Albumin/Globulin Ratio 0.[address] abd pelvis IV con only CLINICAL HISTORY: abd pain, distension COMPARISON STUDY: 07/16/2020 TECHNIQUE: The patient was scanned in a dynamic helical fashion during intravenous administration of 94 cc of Optiray 320 A dose lowering technique was utilized adhering to the principles of ALARA. CT DOSE: 979.39 mGy.cm FINDINGS: Lower chest: Since the prior study, the patient has developed small bilateral pleural effusions. There are bibasilar atelectatic changes. Liver: The liver has a cirrhotic morphology. There is hepatic steatosis. There is a right hepatic lobe contusion/laceration adjacent to the cholecystectomy bed. There is a small amount of fluid within the cholecystectomy bed. Gallbladder: Interval cholecystectomy. There is fluid in the cholecystectomy bed. There is hepatic contusion/laceration involving the right lobe marginating the cholecystectomy bed. There is an indwelling biliary enteric stent. There is a pancreatic enteric stent. Spleen: Normal in size and attenuation. Pancreas: Unremarkable. Adrenal glands: There is a 14 mm left adrenal nodule. Kidneys: There is a 2 mm nonobstructing left renal calculus Bowel: There are no transition zones to indicate bowel obstruction. There is no acute diverticulitis. There are no findings to indicate acute appendicitis. Peritoneum: Since the prior study, the patient has developed mild ascites. Vasculature: The abdominal aorta is normal in course and caliber. Adenopathy: None. Pelvic viscera: The bladder, and pelvic viscera are unremarkable. Skeletal structures: No destructive osseous lesions are seen. IMPRESSION: 1. Interval cholecystectomy. 2. Interval placement of a biliary enteric stent pancreatic enteric stent 3. Interval involvement of a hepatic contusion/laceration involving the right lobe adjacent to the cholecystectomy bed 4. Interval development of ascites 5. Hepatic cirrhosis and hepatic steatosis 6. Interval development of small bilateral pleural effusions with basilar atelectasis. 7. Nonobstructing 2 mm left renal calculus 3. 14 mm left adrenal nodule PG Care Time/CCT Total # of Minutes Spent Total Time Spent with Patient: Total time spent is greater than 50% in coordination of care (as documented) at patient's floor/unit and/or counseling patient: Coding Level of Care Code None Diagnoses Cholelithiases K80.20 Biliary obstruction: without biliary obstruction Cholecystitis presence: without cholecystitis Cholelithiasis location: gallbladder Jaundice R17 Cirrhosis K74.60 Abdominal pain R10.9 (1) Cholelithiases Biliary obstruction: without biliary obstruction Cholecystitis presence: without cholecystitis Cholelithiasis location: gallbladder Qualified Code(s): K80.20 - Calculus of gallbladder without cholecystitis without obstruction
[2020-07-22] MEDS: metroNIDAZOLE 500 MG/100 ML BAG IV SCH ×2 (10:58→18:05)
--- NOTE | 2020-07-22 13:48 | Hospitalist Progress Note ---
Date of Service July 22, 2020 Assessment & Plan (1) Abdominal pain: Cholelithiasis, choledocholithiasis No sepsis at presentation Patient underwent EGD, EUS, ERCP with GI on 07/15/2020, Dr. Jack Sphincterotomy performed, common bile duct stent placed, prophylactic pancreatic stent placed Repeat ERCP in 6 to 8 weeks for stent removal Appreciate GI input and recommendation Status post laparoscopic cholecystectomy and liver biopsy on 07/20/2020 Appreciate surgery input and recommendation Has been on intravenous ciprofloxacin Abdominal discomfort/pain has improved a little bit compared with yesterday White count remains elevated and intravenous Flagyl was added on top of ciprofloxacin Postoperative ileus Developed abdominal pain with distention since this morning Has had a reasonable breakfast with pancakes this morning CAT scan did show abdominal distention without any obstruction, ascites Advised to be n.p.o. for now and may need NG tube insertion for suction Has been passing gas and tolerating clears orally Hyponatremia Sodium level has been around 126 Has intravascular dehydration Try small amount of normal saline infusion Sodium level is 128 on 07/22/2020 Cirrhosis, new diagnosis, possible NAFLD GI consult RE abnormal LFTs, abdominal pain, cirrhosis work-up Will need to have GI appointment as an outpatient Liver biopsy showed cirrhosis Cystitis -Patient is already on ciprofloxacin, will finish course Loose stools -Possibly to oral contrast patient had rule out C. difficile given recent Cipro Rx Stool C. difficile - negative Hypokalemia - secondary to emesis symptoms, home diuretic Rx Replace potassium, hold home diuretic for now until patient euvolemic Well supplement electrolytes as needed Prediabetes Current hemoglobin A1c 4.7% OHS on CPAP fibromyalgia as per records hypertension, stable DVT prophylaxis. SCDs RE possible procedure Full code Patient's , Mr. Erickson Clifton, can be contacted at #[phone]. Discussed with the in detail and answered all of his questions Admission and Anticipated Discharge Date Admission Date: July 15, 2020 Subjective The patient was seen and examined in medical floor She has been feeling a little bit better today Has been tolerating clears orally and abdominal pain seems to be improving Denies any nausea and/or vomiting, no fever and/or chills 07/21/2020 The patient was seen and examined in medical floor She has been feeling worse today with increasing abdominal distention and discomfort without any nausea and or vomiting She has been passing gas and has had a reasonable breakfast 07/22/2020 The patient was seen and examined in medical floor in presence of the She has been feeling a little better today Decreasing abdominal distention and discomfort Bowel has not moved yet but passing gas No fever and/or chills Review of Systems Review of Systems: All systems reviewed and are unremarkable except as noted below Gastrointestinal: + abdominal pain; no bloating, no nausea and no vomiting Neurologic: + generalized weakness Physical Exam Physical Exam: Lying in bed with minimal abdominal discomfort Constitutional: well developed, well nourished and + ill appearing; no acute distress (No acute distress at rest) Eyes: PERRL, conjunctivae normal, anicteric sclerae ENMT: external ear and nose normal, oropharynx normal Neck: trachea midline, no thyromegaly Respiratory: no respiratory distress Auscultation: lungs clear to auscultation bilaterally Cardiovascular: Rate/Rhythm: regular rate and regular rhythm Heart Sounds: no murmur Gastrointestinal (Abdomen): Inspection/Auscultation: + abdomen distended; + abnormal bowel sounds (Sluggish bowel sounds) Percussion/Palpation: + abdomen tender and abdomen soft Musculoskeletal: No acute arthritis in any joint Neurologic: Alert, awake and oriented x3. Very weak Psychiatric: A+Ox3, euthymic affect Results & Data Results & Data ([facility]) Vital Signs (Past 12 Hours) Vital Signs Temp Pulse Resp BP Pulse Ox 07/22/20 07:16 36.7 C 87 16 106/68 92 Laboratory Results Short CBC 07/22/20 Range/Units 07:24 WBC 16.43 H (4.8-10.8) K/uL Hgb 10.7 L (12.0-16.0) g/dL Hct 31.6 L (37-47) % Plt Count 245 (130-400) K/uL BMP 07/22/20 07:24 Sodium 128 L Potassium 4.1 Chloride 96 L Carbon Dioxide 26 BUN 7 Creatinine 0.43 L Glucose 103 H Calcium 8.2 L Liver Function 07/22/20 07/22/20 Range/Units 07:24 07:24 Total Bilirubin 5.4 H (0.2-1) mg/dl Direct Bilirubin 4.3 H (0-0.2) mg/dl AST 153 H (15-37) U/L ALT 109 H (12-78) U/L Alkaline Phosphatase 180 H (45-117) U/L Albumin 1.7 L (3.4-5.0) gm/dl Medications Administered Current Inpatient Medications Calcium Carbonate (Calcium Carbonate 500 Mg Chewable Tab) 500 mg PO Q6 PRN PRN Reason: Indigestion Stop: 08/19/20 13:04 Last Admin: 07/20/20 13:25 Dose: 500 mg Documented by: Clotrimazole (Clotrimazole 10 Mg Sanchez) 10 mg BUCCAL [id number] [facility] Stop: 07/27/20 06:59 Last Admin: 07/22/20 11:26 Dose: Not Given Documented by: Hydromorphone HCl (Hydromorphone Inj 0.5 Mg/0.5 Ml Syr) 0.25 mg IV Q2H PRN PRN Reason: Pain Stop: 08/01/20 15:49 Last Admin: 07/21/20 22:25 Dose: 0.25 mg Documented by: Promethazine HCl 12.5 mg/ (Sodium Chloride) 50.5 mls @ 202 mls/hr IV Q6H PRN PRN Reason: Nausea And Vomiting Stop: 08/14/20 07:08 Lorazepam (Ativan) 0.5 mg in 1 mls @ 1 mls/min IV Q4H PRN PRN Reason: Anxiety/Agitation Stop: 08/14/20 07:08 Last Admin: 07/22/20 09:32 Dose: 1 mls/min Documented by: Ciprofloxacin (Cipro / D5w) 400 mg in 200 mls @ 100 mls/hr IV Q12H [facility]; Protocol Stop: 07/24/20 22:59 Last Infusion: 07/22/20 10:51 Dose: Infused Documented by: Metronidazole (Flagyl) 500 mg in 100 mls @ 100 mls/hr IV Q8H [facility] Stop: 08/01/20 09:59 Last Infusion: 07/22/20 12:09 Dose: Infused Documented by: Lisinopril (Lisinopril 10 Mg Tab) 10 mg PO QAM [facility] Stop: 08/14/20 08:59 Last Admin: 07/22/20 08:47 Dose: Not Given Documented by: Loperamide HCl (Loperamide Hcl 2 Mg Cap) 2 mg PO UD PRN PRN Reason: Diarrhea Stop: 08/15/20 05:13 Last Admin: 07/16/20 09:15 Dose: 2 mg Documented by: Miscellaneous (Atrovent 0.03% Nasal [place]: Order Awaiting Action) 1 ea N/A QS [facility] Stop: 08/14/20 07:59 Last Admin: 07/22/20 08:02 Dose: Not Given Documented by: Morphine Sulfate (Morphine Sulfate 4 Mg/Ml 1 Ml Carp\Vial) 4 mg IV Q4H PRN PRN Reason: Pain Stop: 07/29/20 07:08 Last Admin: 07/15/20 19:42 Dose: 4 mg Documented by: Morphine Sulfate (Morphine Sulfate 2 Mg/Ml Carp) 2 mg IV Q4H PRN PRN Reason: Pain Stop: 08/01/20 14:18 Last Admin: 07/20/20 12:49 Dose: 2 mg Documented by: Ondansetron HCl (Ondansetron Inj 2 Mg/Ml 2 Ml Vial) 2 mg IV Q4H PRN PRN Reason: Nausea Stop: 08/17/20 15:49 Last Admin: 07/21/20 20:15 Dose: 2 mg Documented by: Oxycodone HCl (Oxycodone Hcl Ir 5 Mg Tab (Immediate Release)) 5 mg PO Q4H PRN PRN Reason: Pain Stop: 08/01/20 14:18 Oxycodone HCl (Oxycodone Hcl Ir 5 Mg Tab (Immediate Release)) 10 mg PO Q4H PRN PRN Reason: Pain Stop: 08/01/20 14:18 Last Admin: 07/22/20 08:48 Dose: 10 mg Documented by:
[2020-07-23] MEDS: oxyCODONE HCL IR 5 MG TAB (IMMEDIATE RELEASE) PO PRN ×4 (02:18→23:06)
[2020-07-23] MEDS: metroNIDAZOLE 500 MG/100 ML BAG IV SCH ×3 (02:18→17:33)
[2020-07-23] MEDS: CLOTRIMAZOLE 10 MG TROCHE BUCCAL SCH ×5 (04:13→20:51)
[2020-07-23 06:09] LABS: Basophils # (auto) 0.01 K/uL (0-0.2); Basophils % (auto) 0.1 %; Eosinophils # (auto) 0.07 K/uL (0-0.5); Eosinophils % (auto) 0.4 %; Hematocrit (blood only) 32.6 % (37-47); Hemoglobin 10.9 g/dL (12.0-16.0); Immature Granulocytes # (auto) 0.17 K/uL (0.00-0.02); Lymphocytes # (auto) 1.69 K/uL (1.2-3.4); Lymphocytes % (auto) 9.5 %; Mean Corpuscular Hemoglobin 36.7 pg (25-34); Mean Corpuscular Hgb Conc 33.4 g/dL (32-36); Mean Corpuscular Volume 109.8 fL (80-100); Mean Platelet Volume 9.3 fL (7.4-10.4); Monocytes # (auto) 1.59 K/uL (0.11-0.59); Monocytes % (auto) 8.9 %; Neutrophils # (auto) 14.26 K/uL (1.4-6.5); Neutrophils % (auto) 80.1 %; Platelet Count 261 K/uL (130-400); RDW Coefficient of Variation 14.4 % (11.5-14.5); RDW Standard Deviation 57.6 fL (36.4-46.3); Red Blood Count 2.97 M/uL (4.2-5.4); White Blood Count 17.79 K/uL (4.8-10.8)
[2020-07-23 06:54] LABS: Albumin Globulin Ratio 0.5 (0.9-2); Albumin Level 1.7 gm/dl (3.4-5.0); BUN Creatinine Ratio 14.8 (10-20); Bilirubin,Total 5.6 mg/dl (0.2-1); Calcium 7.8 mg/dl (8.5-10.1); Creatinine Clr Calc Pharmacy 112.2 ml/min; Est GFR (African American) 126.2; Est GFR (Non-African American) 108.9; Globulin 3.7 gm/dl (2.5-4.0); Magnesium 1.8 mg/dl (1.8-2.4); Phosphorus 2.8 mg/dl (2.5-4.9); Potassium 4.2 mmol/L (3.5-5.1); Total Protein 5.4 gm/dl (6.4-8.2)
[2020-07-23] MEDS: ONDANSETRON INJ 2 MG/ML 2 ML VIAL IV PRN (08:42)
[2020-07-23] MEDS: LORazepam 0.5 MG/1 ML VIAL IV PRN ×3 (08:43→23:58)
[2020-07-23] MEDS: CIPROFLOXACIN / D5W 400 MG/200 ML BAG IV SCH ×2 (08:43→20:51)
[2020-07-23] MEDS: lisinopril 10 MG TAB PO SCH (08:44)
--- NOTE | 2020-07-23 15:17 | Hospitalist Progress Note ---
Date of Service July 23, 2020 Assessment & Plan (1) Abdominal pain: Cholelithiasis, choledocholithiasis No sepsis at presentation Patient underwent EGD, EUS, ERCP with GI on 07/15/2020, Dr. Jack Sphincterotomy performed, common bile duct stent placed, prophylactic pancreatic stent placed Repeat ERCP in 6 to 8 weeks for stent removal Appreciate GI input and recommendation Status post laparoscopic cholecystectomy and liver biopsy on 07/20/2020 Appreciate surgery input and recommendation Has been on intravenous ciprofloxacin Abdominal discomfort/pain has improved a little bit compared with yesterday White count remains elevated and intravenous Flagyl was added on top of ciprofloxacin White count remains elevated, no fever and/or chills Clinically a little bit better and will continue current medications Postoperative ileus Developed abdominal pain with distention since this morning Has had a reasonable breakfast with pancakes this morning CAT scan did show abdominal distention without any obstruction, ascites Advised to be n.p.o. for now and may need NG tube insertion for suction Has been passing gas and tolerating clears orally Bowel movement Advance diet as tolerated Hyponatremia Sodium level has been around 126 Has intravascular dehydration Try small amount of normal saline infusion Sodium level is 128 on 07/22/2020 Cirrhosis, new diagnosis, possible NAFLD GI consult RE abnormal LFTs, abdominal pain, cirrhosis work-up Will need to have GI appointment as an outpatient Liver biopsy showed cirrhosis Remains formally jaundiced with bilirubin of 5.6 Liver function seems to be stable Cystitis -Patient is already on ciprofloxacin, will finish course Loose stools -Possibly to oral contrast patient had rule out C. difficile given recent Cipro Rx Stool C. difficile - negative Hypokalemia - secondary to emesis symptoms, home diuretic Rx Replace potassium, hold home diuretic for now until patient euvolemic Well supplement electrolytes as needed Prediabetes Current hemoglobin A1c 4.7% OHS on CPAP fibromyalgia as per records hypertension, stable DVT prophylaxis. SCDs RE possible procedure Full code Patient's , Mr. Erickson Clifton, can be contacted at #[phone]. Discussed with the in detail and answered all of his questions Admission and Anticipated Discharge Date Admission Date: July 15, 2020 Subjective The patient was seen and examined in medical floor She has been feeling a little bit better today Has been tolerating clears orally and abdominal pain seems to be improving Denies any nausea and/or vomiting, no fever and/or chills 07/21/2020 The patient was seen and examined in medical floor She has been feeling worse today with increasing abdominal distention and discomfort without any nausea and or vomiting She has been passing gas and has had a reasonable breakfast 07/22/2020 The patient was seen and examined in medical floor in presence of the She has been feeling a little better today Decreasing abdominal distention and discomfort Bowel has not moved yet but passing gas No fever and/or chills 07/23/2020 The patient was seen and examined in medical floor She has been feeling a little bit better today Has been ambulating as much as she can He has moved her bowel Review of Systems Review of Systems: All systems reviewed and are unremarkable except as noted below Eyes: Remains jaundiced Gastrointestinal: + abdominal pain; no bloating, no nausea and no vomiting Neurologic: + generalized weakness Physical Exam Physical Exam: Lying in bed with minimal abdominal discomfort Constitutional: well developed, well nourished and + ill appearing; no acute distress (No acute distress at rest) Eyes: sclerae not anicteric (Has jaundice) ENMT: external ear and nose normal, oropharynx normal Neck: trachea midline, no thyromegaly Respiratory: no respiratory distress Auscultation: lungs clear to auscultation bilaterally Cardiovascular: Rate/Rhythm: regular rate and regular rhythm Heart Sounds: no murmur Gastrointestinal (Abdomen): Inspection/Auscultation: + abdomen distended and normal bowel sounds (Improving) Percussion/Palpation: + abdomen tender and abdomen soft Musculoskeletal: No acute arthritis in any joint Psychiatric: A+Ox3, euthymic affect Lymphatic: no cervical or axillary lymphadenopathy Results & Data Results & Data ([facility]) Vital Signs (Past 12 Hours) Vital Signs Temp Pulse Pulse Resp BP Pulse Ox 07/23/20 15:08 37 C 90 16 103/69 93 07/23/20 07:12 37.0 C 91 H 16 114/71 96 Laboratory Results Short CBC 07/23/20 Range/Units 05:28 WBC 17.79 H (4.8-10.8) K/uL Hgb 10.9 L (12.0-16.0) g/dL Hct 32.6 L (37-47) % Plt Count 261 (130-400) K/uL BMP 07/23/20 05:28 Sodium 128 L Potassium 4.2 Chloride 96 L Carbon Dioxide 27 BUN 7 Creatinine 0.47 L Glucose 97 Calcium 7.8 L Liver Function 11/14/20 Range/Units 05:28 Total Bilirubin 5.6 H (0.2-1) mg/dl AST 159 H (15-37) U/L ALT 106 H (12-78) U/L Alkaline Phosphatase 205 H (45-117) U/L Albumin 1.7 L (3.4-5.0) gm/dl Medications Administered Current Inpatient Medications Calcium Carbonate (Calcium Carbonate 500 Mg Chewable Tab) 500 mg PO Q6 PRN PRN Reason: Indigestion Stop: 08/19/20 13:04 Last Admin: 07/20/20 13:25 Dose: 500 mg Documented by: Clotrimazole (Clotrimazole 10 Mg Sanchez) 10 mg BUCCAL 5XDQ4H AUGIE Stop: 07/27/20 06:59 Last Admin: 07/23/20 14:54 Dose: Not Given Documented by: Hydromorphone HCl (Hydromorphone Inj 0.5 Mg/0.5 Ml Syr) 0.25 mg IV Q2H PRN PRN Reason: Pain Stop: 08/01/20 15:49 Last Admin: 07/21/20 22:25 Dose: 0.25 mg Documented by: Promethazine HCl 12.5 mg/ (Sodium Chloride) 50.5 mls @ 202 mls/hr IV Q6H PRN PRN Reason: Nausea And Vomiting Stop: 08/14/20 07:08 Lorazepam (Ativan) 0.5 mg in 1 mls @ 1 mls/min IV Q4H PRN PRN Reason: Anxiety/Agitation Stop: 08/14/20 07:08 Last Admin: 07/23/20 08:43 Dose: 1 mls/min Documented by: Ciprofloxacin (Cipro / D5w) 400 mg in 200 mls @ 100 mls/hr IV Q12H AUGIE; Protocol Stop: 07/24/20 22:59 Last Infusion: 07/23/20 10:40 Dose: Infused Documented by: Metronidazole (Flagyl) 500 mg in 100 mls @ 100 mls/hr IV Q8H AUGIE Stop: 08/01/20 09:59 Last Infusion: 07/23/20 11:43 Dose: Infused Documented by: Lisinopril (Lisinopril 10 Mg Tab) 10 mg PO QAM [facility] Stop: 08/14/20 08:59 Last Admin: 07/23/20 08:44 Dose: 10 mg Documented by: Loperamide HCl (Loperamide Hcl 2 Mg Cap) 2 mg PO UD PRN PRN Reason: Diarrhea Stop: 08/15/20 05:13 Last Admin: 07/16/20 09:15 Dose: 2 mg Documented by: Miscellaneous (Atrovent 0.03% Nasal [place]: Order Awaiting Action) 1 ea N/A QS AUGIE Stop: 08/14/20 07:59 Last Admin: 07/23/20 07:58 Dose: Not Given Documented by: Morphine Sulfate (Morphine Sulfate 4 Mg/Ml 1 Ml Carp\Vial) 4 mg IV Q4H PRN PRN Reason: Pain Stop: 07/29/20 07:08 Last Admin: 07/15/20 19:42 Dose: 4 mg Documented by: Morphine Sulfate (Morphine Sulfate 2 Mg/Ml Carp) 2 mg IV Q4H PRN PRN Reason: Pain Stop: 08/01/20 14:18 Last Admin: 07/20/20 12:49 Dose: 2 mg Documented by: Ondansetron HCl (Ondansetron Inj 2 Mg/Ml 2 Ml Vial) 2 mg IV Q4H PRN PRN Reason: Nausea Stop: 08/17/20 15:49 Last Admin: 07/23/20 08:42 Dose: 2 mg Documented by: Oxycodone HCl (Oxycodone Hcl Ir 5 Mg Tab (Immediate Release)) 5 mg PO Q4H PRN PRN Reason: Pain Stop: 08/01/20 14:18 Oxycodone HCl (Oxycodone Hcl Ir 5 Mg Tab (Immediate Release)) 10 mg PO Q4H PRN PRN Reason: Pain Stop: 08/01/20 14:18 Last Admin: 07/23/20 08:43 Dose: 10 mg Documented by:
[2020-07-24] MEDS: metroNIDAZOLE 500 MG/100 ML BAG IV SCH ×3 (02:54→18:46)
[2020-07-24] MEDS: oxyCODONE HCL IR 5 MG TAB (IMMEDIATE RELEASE) PO PRN ×4 (02:54→23:26)
[2020-07-24] MEDS: CLOTRIMAZOLE 10 MG TROCHE BUCCAL SCH ×5 (04:16→20:08)
[2020-07-24 06:03] LABS: Basophils # (auto) 0.02 K/uL (0-0.2); Basophils % (auto) 0.1 %; Eosinophils # (auto) 0.09 K/uL (0-0.5); Eosinophils % (auto) 0.5 %; Hematocrit (blood only) 32.7 % (37-47); Hemoglobin 10.9 g/dL (12.0-16.0); Immature Granulocytes # (auto) 0.19 K/uL (0.00-0.02); Immature Granulocytes % (auto) 1.1 %; Lymphocytes # (auto) 1.32 K/uL (1.2-3.4); Lymphocytes % (auto) 7.9 %; Mean Corpuscular Hemoglobin 36.9 pg (25-34); Mean Corpuscular Hgb Conc 33.3 g/dL (32-36); Mean Corpuscular Volume 110.8 fL (80-100); Mean Platelet Volume 9.2 fL (7.4-10.4); Monocytes # (auto) 1.56 K/uL (0.11-0.59); Monocytes % (auto) 9.4 %; Neutrophils # (auto) 13.48 K/uL (1.4-6.5); Platelet Count 255 K/uL (130-400); RDW Coefficient of Variation 14.4 % (11.5-14.5); RDW Standard Deviation 58.1 fL (36.4-46.3); Red Blood Count 2.95 M/uL (4.2-5.4); White Blood Count 16.66 K/uL (4.8-10.8)
[2020-07-24 06:31] LABS: Macrocytosis Present
[2020-07-24 06:42] LABS: Albumin Globulin Ratio 0.5 (0.9-2); Albumin Level 1.8 gm/dl (3.4-5.0); BUN Creatinine Ratio 15.2 (10-20); Calcium 8.1 mg/dl (8.5-10.1); Creatinine Clr Calc Pharmacy 119.9 ml/min; Est GFR (Non-African American) 111.3; Globulin 3.7 gm/dl (2.5-4.0); Potassium 4.9 mmol/L (3.5-5.1); Total Protein 5.5 gm/dl (6.4-8.2)
[2020-07-24] MEDS: CIPROFLOXACIN / D5W 400 MG/200 ML BAG IV SCH ×2 (08:48→20:08)
[2020-07-24] MEDS: lisinopril 10 MG TAB PO SCH ×2 (08:49→10:19)
[2020-07-24] MEDS ORDERED: DICLOFENAC SOD 1% GEL 100 GM TUBE EXT SCH (09:45)
--- NOTE | 2020-07-24 10:17 | Ultrasound Report ---
US venous doppler UE RT HISTORY: 60 years-old Female rt arm swollen. dvt? Acute pain and swelling of the right upper extremi ty COMPARISON: None TECHNIQUE: Multiple real-time sonographic images of the right upper extremity deep venous structures were obtained assessing grayscale appearance, color and spectral flow FINDINGS: Flow, compressibility, phasicity and augmentation of the right upper extremity deep venous structures . Long segment occlusive superficial venous thrombus involves the basilic vein within the forearm. IMPRESSION: 1. No sonographic evidence of deep venous thrombosis. 2. Long segment superficial venous thrombus of the basilic vein. ACT 112: Negative or not required by law. The above report was generated using voice recognition software. It may contain grammatical, syntax o r spelling errors. Electronically signed by: Lm Rosales M.D. 07/24/2020 10:15 AM
[2020-07-24] MEDS: LORazepam 0.5 MG/1 ML VIAL IV PRN (10:22)
[2020-07-24] MEDS: DICLOFENAC SOD 1% GEL 100 GM TUBE EXT SCH ×3 (10:53→23:26)
--- NOTE | 2020-07-24 11:30 | Hospitalist Progress Note ---
Date of Service July 24, 2020 Assessment & Plan (1) Abdominal pain: Cholelithiasis, choledocholithiasis No sepsis at presentation Patient underwent EGD, EUS, ERCP with GI on 07/15/2020, Dr. Jack Sphincterotomy performed, common bile duct stent placed, prophylactic pancreatic stent placed Repeat ERCP in 6 to 8 weeks for stent removal Appreciate GI input and recommendation Status post laparoscopic cholecystectomy and liver biopsy on 07/20/2020 Appreciate surgery input and recommendation Has been on intravenous ciprofloxacin Abdominal discomfort/pain has improved a little bit compared with yesterday White count remains elevated and intravenous Flagyl was added on top of ciprofloxacin White count remains elevated, no fever and/or chills Gradual improvement Advised increased ambulation Right forearm superficial phlebitis No evidence of DVT on ultrasound Will apply local diclofenac sodium Postoperative ileus Developed abdominal pain with distention since this morning Has had a reasonable breakfast with pancakes this morning CAT scan did show abdominal distention without any obstruction, ascites Advised to be n.p.o. for now and may need NG tube insertion for suction Has been passing gas and tolerating clears orally Bowel movement Advance diet as tolerated Hyponatremia Sodium level has been around 126 Has intravascular dehydration Try small amount of normal saline infusion Sodium level is 128 on 07/22/2020 Monitor PRP Cirrhosis, new diagnosis, possible NAFLD GI consult RE abnormal LFTs, abdominal pain, cirrhosis work-up Will need to have GI appointment as an outpatient Liver biopsy showed cirrhosis Remains formally jaundiced with bilirubin of 5.6 Liver function seems to be stable-bilirubin is down to 5.0 as of 07/24/2020 Cystitis -Patient is already on ciprofloxacin, will finish course Loose stools -Possibly to oral contrast patient had rule out C. difficile given recent Cipro Rx Stool C. difficile - negative Hypokalemia - secondary to emesis symptoms, home diuretic Rx Replace potassium, hold home diuretic for now until patient euvolemic Well supplement electrolytes as needed Prediabetes Current hemoglobin A1c 4.7% OHS on CPAP fibromyalgia as per records hypertension, stable DVT prophylaxis. SCDs RE possible procedure Full code Patient's , Mr. Erickson Clifton, can be contacted at #[phone]. Discussed with the in detail and answered all of his questions Admission and Anticipated Discharge Date Admission Date: July 15, 2020 Subjective The patient was seen and examined in medical floor She has been feeling a little bit better today Has been tolerating clears orally and abdominal pain seems to be improving Denies any nausea and/or vomiting, no fever and/or chills 07/21/2020 The patient was seen and examined in medical floor She has been feeling worse today with increasing abdominal distention and discomfort without any nausea and or vomiting She has been passing gas and has had a reasonable breakfast 07/22/2020 The patient was seen and examined in medical floor in presence of the She has been feeling a little better today Decreasing abdominal distention and discomfort Bowel has not moved yet but passing gas No fever and/or chills 07/23/2020 The patient was seen and examined in medical floor She has been feeling a little bit better today Has been ambulating as much as she can He has moved her bowel 07/24/2020 The patient was seen and examined in medical floor She has been feeling a little bit better compared with yesterday Complains to have pain and redness involving right forearm at the site of peripheral line Has been moving gas and bowel Review of Systems Review of Systems: All systems reviewed and are unremarkable except as noted below Eyes: Remains jaundiced Gastrointestinal: + abdominal pain; no bloating, no nausea and no vomiting Neurologic: + generalized weakness Physical Exam Physical Exam: Lying in bed with minimal abdominal discomfort Constitutional: well developed, well nourished and + ill appearing; no acute distress (No acute distress at rest) Eyes: PERRL, conjunctivae normal, anicteric sclerae sclerae not anicteric (Has jaundice) ENMT: external ear and nose normal, oropharynx normal Neck: trachea midline, no thyromegaly Respiratory: no respiratory distress Auscultation: lungs clear to auscultation bilaterally Cardiovascular: Rate/Rhythm: regular rate and regular rhythm Heart Sounds: no murmur Gastrointestinal (Abdomen): Inspection/Auscultation: + abdomen distended and normal bowel sounds (Improving) Percussion/Palpation: + abdomen tender and abdomen soft Musculoskeletal: No acute arthritis involving any joint Neurologic: Alert, awake and oriented x3. Generally weak but no focal sensory and motor deficit appreciated Psychiatric: A+Ox3, euthymic affect Lymphatic: no cervical or axillary lymphadenopathy Results & Data Results & Data ([facility]) Vital Signs (Past 12 Hours) Vital Signs Temp Pulse Resp BP Pulse Ox 07/24/20 07:18 36.6 C 86 16 119/73 98 Laboratory Results Short CBC 07/24/20 Range/Units 05:13 WBC 16.66 H (4.8-10.8) K/uL Hgb 10.9 L (12.0-16.0) g/dL Hct 32.7 L (37-47) % Plt Count 255 (130-400) K/uL BMP 07/24/20 05:13 Sodium 126 L Potassium 4.9 D Chloride 95 L Carbon Dioxide 27 BUN 7 Creatinine 0.44 L Glucose 108 H Calcium 8.1 L Liver Function 07/24/20 Range/Units 05:13 Total Bilirubin 5.0 H (0.2-1) mg/dl AST 152 H (15-37) U/L ALT 99 H (12-78) U/L Alkaline Phosphatase 205 H (45-117) U/L Albumin 1.8 L (3.4-5.0) gm/dl Medications Administered Current Inpatient Medications Calcium Carbonate (Calcium Carbonate 500 Mg Chewable Tab) 500 mg PO Q6 PRN PRN Reason: Indigestion Stop: 08/19/20 13:04 Last Admin: 07/20/20 13:25 Dose: 500 mg Documented by: Clotrimazole (Clotrimazole 10 Mg Sanchez) 10 mg BUCCAL 5XDQ4H AUGIE Stop: 07/27/20 06:59 Last Admin: 07/24/20 10:54 Dose: 10 mg Documented by: Diclofenac Sodium (Diclofenac Sod 1% Gel 100 Gm Tube) 2 gm EXT BID [facility] Stop: 08/23/20 09:44 Last Admin: 07/24/20 10:53 Dose: 2 gm Documented by: Hydromorphone HCl (Hydromorphone Inj 0.5 Mg/0.5 Ml Syr) 0.25 mg IV Q2H PRN PRN Reason: Pain Stop: 08/01/20 15:49 Last Admin: 07/21/20 22:25 Dose: 0.25 mg Documented by: Promethazine HCl 12.5 mg/ (Sodium Chloride) 50.5 mls @ 202 mls/hr IV Q6H PRN PRN Reason: Nausea And Vomiting Stop: 08/14/20 07:08 Lorazepam (Ativan) 0.5 mg in 1 mls @ 1 mls/min IV Q4H PRN PRN Reason: Anxiety/Agitation Stop: 08/14/20 07:08 Last Admin: 07/24/20 10:22 Dose: 1 mls/min Documented by: Ciprofloxacin (Cipro / D5w) 400 mg in 200 mls @ 100 mls/hr IV Q12H [facility]; Protocol Stop: 07/24/20 22:59 Last Infusion: 07/24/20 10:47 Dose: Infused Documented by: Metronidazole (Flagyl) 500 mg in 100 mls @ 100 mls/hr IV Q8H [facility] Stop: 08/01/20 09:59 Last Admin: 07/24/20 10:21 Dose: 100 mls/hr Documented by: Lisinopril (Lisinopril 10 Mg Tab) 10 mg PO QAM [facility] Stop: 08/14/20 08:59 Last Admin: 07/24/20 10:19 Dose: Not Given Documented by: Loperamide HCl (Loperamide Hcl 2 Mg Cap) 2 mg PO UD PRN PRN Reason: Diarrhea Stop: 08/15/20 05:13 Last Admin: 07/16/20 09:15 Dose: 2 mg Documented by: Miscellaneous (Atrovent 0.03% Nasal [place]: Order Awaiting Action) 1 ea N/A QS [facility] Stop: 08/14/20 07:59 Last Admin: 07/24/20 08:50 Dose: Not Given Documented by: Morphine Sulfate (Morphine Sulfate 4 Mg/Ml 1 Ml Carp\Vial) 4 mg IV Q4H PRN PRN Reason: Pain Stop: 07/29/20 07:08 Last Admin: 07/15/20 19:42 Dose: 4 mg Documented by: Morphine Sulfate (Morphine Sulfate 2 Mg/Ml Carp) 2 mg IV Q4H PRN PRN Reason: Pain Stop: 08/01/20 14:18 Last Admin: 07/20/20 12:49 Dose: 2 mg Documented by: Ondansetron HCl (Ondansetron Inj 2 Mg/Ml 2 Ml Vial) 2 mg IV Q4H PRN PRN Reason: Nausea Stop: 08/17/20 15:49 Last Admin: 07/23/20 08:42 Dose: 2 mg Documented by: Oxycodone HCl (Oxycodone Hcl Ir 5 Mg Tab (Immediate Release)) 5 mg PO Q4H PRN PRN Reason: Pain Stop: 08/01/20 14:18 Oxycodone HCl (Oxycodone Hcl Ir 5 Mg Tab (Immediate Release)) 10 mg PO Q4H PRN PRN Reason: Pain Stop: 08/01/20 14:18 Last Admin: 07/24/20 10:21 Dose: 10 mg Documented by:
[2020-07-25] MEDS: oxyCODONE HCL IR 5 MG TAB (IMMEDIATE RELEASE) PO PRN ×3 (02:50→22:51)
[2020-07-25] MEDS: metroNIDAZOLE 500 MG/100 ML BAG IV SCH ×3 (02:51→18:03)
[2020-07-25] MEDS: LORazepam 0.5 MG/1 ML VIAL IV PRN ×2 (02:52→16:29)
[2020-07-25] MEDS: CLOTRIMAZOLE 10 MG TROCHE BUCCAL SCH ×5 (03:28→22:34)
[2020-07-25 06:17] LABS: Basophils # (auto) 0.02 K/uL (0-0.2); Basophils % (auto) 0.1 %; Eosinophils # (auto) 0.07 K/uL (0-0.5); Eosinophils % (auto) 0.4 %; Hematocrit (blood only) 30.6 % (37-47); Hemoglobin 10.3 g/dL (12.0-16.0); Immature Granulocytes # (auto) 0.19 K/uL (0.00-0.02); Immature Granulocytes % (auto) 1.2 %; Lymphocytes # (auto) 1.34 K/uL (1.2-3.4); Lymphocytes % (auto) 8.2 %; Mean Corpuscular Hemoglobin 36.8 pg (25-34); Mean Corpuscular Hgb Conc 33.7 g/dL (32-36); Mean Corpuscular Volume 109.3 fL (80-100); Monocytes # (auto) 1.31 K/uL (0.11-0.59); Neutrophils # (auto) 13.47 K/uL (1.4-6.5); Neutrophils % (auto) 82.1 %; Platelet Count 215 K/uL (130-400); RDW Coefficient of Variation 14.2 % (11.5-14.5); RDW Standard Deviation 56.6 fL (36.4-46.3)
[2020-07-25 06:46] LABS: Albumin Level 1.8 gm/dl (3.4-5.0); Calcium 7.9 mg/dl (8.5-10.1); Creatinine Clr Calc Pharmacy 105.5 ml/min; Est GFR (African American) 123.7; Est GFR (Non-African American) 106.7; Magnesium 1.8 mg/dl (1.8-2.4); Potassium 4.2 mmol/L (3.5-5.1)
[2020-07-25 06:48] LABS: Albumin Globulin Ratio 0.5 (0.9-2); Bilirubin,Total 4.6 mg/dl (0.2-1); Globulin 3.7 gm/dl (2.5-4.0); Phosphorus 2.8 mg/dl (2.5-4.9); Total Protein 5.5 gm/dl (6.4-8.2)
[2020-07-25] MEDS: lisinopril 10 MG TAB PO SCH ×2 (08:40→08:42)
[2020-07-25] MEDS: DICLOFENAC SOD 1% GEL 100 GM TUBE EXT SCH ×2 (08:40→20:08)
--- NOTE | 2020-07-25 12:26 | Hospitalist Progress Note ---
Date of Service July 25, 2020 Assessment & Plan (1) Abdominal pain: Cholelithiasis, choledocholithiasis No sepsis at presentation Patient underwent EGD, EUS, ERCP with GI on 07/15/2020, Dr. Jack Sphincterotomy performed, common bile duct stent placed, prophylactic pancreatic stent placed Repeat ERCP in 6 to 8 weeks for stent removal Appreciate GI input and recommendation Status post laparoscopic cholecystectomy and liver biopsy on 07/20/2020 Appreciate surgery input and recommendation Has been on intravenous ciprofloxacin Abdominal discomfort/pain has improved a little bit compared with yesterday White count remains elevated and intravenous Flagyl was added on top of ciprofloxacin White count remains elevated, no fever and/or chills Gradual improvement Advised increased ambulation Right forearm superficial phlebitis No evidence of DVT on ultrasound Will apply local diclofenac sodium Right forearm redness and tenderness have been improving Postoperative ileus Developed abdominal pain with distention since this morning Has had a reasonable breakfast with pancakes this morning CAT scan did show abdominal distention without any obstruction, ascites Advised to be n.p.o. for now and may need NG tube insertion for suction Has been passing gas and tolerating clears orally Bowel movement Advance diet as tolerated Advised to have increased movement Hyponatremia Sodium level has been around 126 Has intravascular dehydration Try small amount of normal saline infusion Sodium level is 128 on 07/22/2020 Monitor PRP-sodium level is 127 as of 07/25/2020 Cirrhosis, new diagnosis, possible NAFLD GI consult RE abnormal LFTs, abdominal pain, cirrhosis work-up Will need to have GI appointment as an outpatient Liver biopsy showed cirrhosis Remains formally jaundiced with bilirubin of 5.6 Liver function seems to be stable- Bilirubin is down to 5.0 as of 07/24/2020 Billirubin is 4.6 as of 07/25/2020 Cystitis -Patient is already on ciprofloxacin, will finish course Loose stools -Possibly to oral contrast patient had rule out C. difficile given recent Cipro Rx Stool C. difficile - negative Hypokalemia - secondary to emesis symptoms, home diuretic Rx Replace potassium, hold home diuretic for now until patient euvolemic Well supplement electrolytes as needed Prediabetes Current hemoglobin A1c 4.7% OHS on CPAP fibromyalgia as per records hypertension, stable DVT prophylaxis. SCDs RE possible procedure Full code Patient's , Mr. Erickson Clifton, can be contacted at #[phone]. Discussed with the in detail and answered all of his questions Admission and Anticipated Discharge Date Admission Date: July 15, 2020 Subjective The patient was seen and examined in medical floor She has been feeling a little bit better today Has been tolerating clears orally and abdominal pain seems to be improving Denies any nausea and/or vomiting, no fever and/or chills 07/21/2020 The patient was seen and examined in medical floor She has been feeling worse today with increasing abdominal distention and discomfort without any nausea and or vomiting She has been passing gas and has had a reasonable breakfast 07/22/2020 The patient was seen and examined in medical floor in presence of the She has been feeling a little better today Decreasing abdominal distention and discomfort Bowel has not moved yet but passing gas No fever and/or chills 07/23/2020 The patient was seen and examined in medical floor She has been feeling a little bit better today Has been ambulating as much as she can He has moved her bowel 07/24/2020 The patient was seen and examined in medical floor She has been feeling a little bit better compared with yesterday Complains to have pain and redness involving right forearm at the site of peripheral line Has been moving gas and bowel 07/25/2020 The patient was seen and examined in medical floor He has been feeling a little better than yesterday Complains of upper abdominal discomfort and right upper quadrant discomfort Has been moving bowels and passing gas No fever and/or chills Review of Systems Review of Systems: All systems reviewed and are unremarkable except as noted below Eyes: Remains jaundiced Gastrointestinal: + abdominal pain; no bloating, no nausea and no vomiting Neurologic: + generalized weakness Physical Exam Physical Exam: Lying in bed with minimal abdominal discomfort Constitutional: well developed, well nourished and + ill appearing; no acute distress (No acute distress at rest) Eyes: PERRL, conjunctivae normal, anicteric sclerae sclerae not anicteric (Has jaundice) ENMT: external ear and nose normal, oropharynx normal Neck: trachea midline, no thyromegaly Respiratory: no respiratory distress Auscultation: lungs clear to auscultation bilaterally Cardiovascular: Rate/Rhythm: regular rate and regular rhythm Heart Sounds: no murmur Extremities: + edema Gastrointestinal (Abdomen): Inspection/Auscultation: + abdomen distended and normal bowel sounds (Improving) Percussion/Palpation: + abdomen tender and abdomen soft; no guarding Neurologic: Alert, awake and oriented x3. Really very weak and lethargic Psychiatric: A+Ox3, euthymic affect Lymphatic: no cervical or axillary lymphadenopathy Results & Data Results & Data ([facility]) Vital Signs (Past 12 Hours) Vital Signs Temp Pulse Resp BP Pulse Ox 07/25/20 07:20 36.6 C 96 H 16 123/79 97 Laboratory Results Short CBC 07/25/20 Range/Units 05:58 WBC 16.40 H (4.8-10.8) K/uL Hgb 10.3 L (12.0-16.0) g/dL Hct 30.6 L (37-47) % Plt Count 215 (130-400) K/uL BMP 07/25/20 05:58 Sodium 127 L Potassium 4.2 Chloride 96 L Carbon Dioxide 27 BUN 6 L Creatinine 0.50 L Glucose 119 H Calcium 7.9 L Liver Function 07/25/20 Range/Units 05:58 Total Bilirubin 4.6 H (0.2-1) mg/dl AST 146 H (15-37) U/L ALT 87 H (12-78) U/L Alkaline Phosphatase 199 H (45-117) U/L Albumin 1.8 L (3.4-5.0) gm/dl Medications Administered Current Inpatient Medications Calcium Carbonate (Calcium Carbonate 500 Mg Chewable Tab) 500 mg PO Q6 PRN PRN Reason: Indigestion Stop: 08/19/20 13:04 Last Admin: 07/20/20 13:25 Dose: 500 mg Documented by: Clotrimazole (Clotrimazole 10 Mg Sanchez) 10 mg BUCCAL [id number] AUGIE Stop: 07/27/20 06:59 Last Admin: 07/25/20 10:24 Dose: 10 mg Documented by: Diclofenac Sodium (Diclofenac Sod 1% Gel 100 Gm Tube) 2 gm EXT BID AUGIE Stop: 08/23/20 09:44 Last Admin: 07/25/20 08:40 Dose: 2 gm Documented by: Hydromorphone HCl (Hydromorphone Inj 0.5 Mg/0.5 Ml Syr) 0.25 mg IV Q2H PRN PRN Reason: Pain Stop: 08/01/20 15:49 Last Admin: 07/21/20 22:25 Dose: 0.25 mg Documented by: Promethazine HCl 12.5 mg/ (Sodium Chloride) 50.5 mls @ 202 mls/hr IV Q6H PRN PRN Reason: Nausea And Vomiting Stop: 08/14/20 07:08 Lorazepam (Ativan) 0.5 mg in 1 mls @ 1 mls/min IV Q4H PRN PRN Reason: Anxiety/Agitation Stop: 08/14/20 07:08 Last Admin: 07/25/20 02:52 Dose: 1 mls/min Documented by: Metronidazole (Flagyl) 500 mg in 100 mls @ 100 mls/hr IV Q8H [facility] Stop: 08/01/20 09:59 Last Infusion: 07/25/20 11:24 Dose: Infused Documented by: Lisinopril (Lisinopril 10 Mg Tab) 10 mg PO QAM [facility] Stop: 08/14/20 08:59 Last Admin: 07/25/20 08:42 Dose: Not Given Documented by: Loperamide HCl (Loperamide Hcl 2 Mg Cap) 2 mg PO UD PRN PRN Reason: Diarrhea Stop: 08/15/20 05:13 Last Admin: 07/16/20 09:15 Dose: 2 mg Documented by: Miscellaneous (Atrovent 0.03% Nasal Mchenry: Order Awaiting Action) 1 ea N/A QS [facility] Stop: 08/14/20 07:59 Last Admin: 07/25/20 08:39 Dose: Not Given Documented by: Morphine Sulfate (Morphine Sulfate 4 Mg/Ml 1 Ml Carp\Vial) 4 mg IV Q4H PRN PRN Reason: Pain Stop: 07/29/20 07:08 Last Admin: 07/15/20 19:42 Dose: 4 mg Documented by: Morphine Sulfate (Morphine Sulfate 2 Mg/Ml Carp) 2 mg IV Q4H PRN PRN Reason: Pain Stop: 08/01/20 14:18 Last Admin: 07/20/20 12:49 Dose: 2 mg Documented by: Ondansetron HCl (Ondansetron Inj 2 Mg/Ml 2 Ml Vial) 2 mg IV Q4H PRN PRN Reason: Nausea Stop: 08/17/20 15:49 Last Admin: 07/23/20 08:42 Dose: 2 mg Documented by: Oxycodone HCl (Oxycodone Hcl Ir 5 Mg Tab (Immediate Release)) 5 mg PO Q4H PRN PRN Reason: Pain Stop: 08/01/20 14:18 Oxycodone HCl (Oxycodone Hcl Ir 5 Mg Tab (Immediate Release)) 10 mg PO Q4H PRN PRN Reason: Pain Stop: 08/01/20 14:18 Last Admin: 07/25/20 02:50 Dose: 10 mg Documented by:
[2020-07-26] MEDS: LORazepam 0.5 MG/1 ML VIAL IV PRN (00:08)
[2020-07-26] MEDS: metroNIDAZOLE 500 MG/100 ML BAG IV SCH ×2 (02:32→09:19)
[2020-07-26] MEDS: CLOTRIMAZOLE 10 MG TROCHE BUCCAL SCH ×5 (06:40→22:11)
[2020-07-26 07:28] LABS: Basophils # (auto) 0.02 K/uL (0-0.2); Basophils % (auto) 0.1 %; Eosinophils # (auto) 0.09 K/uL (0-0.5); Eosinophils % (auto) 0.5 %; Hematocrit (blood only) 34.4 % (37-47); Hemoglobin 11.5 g/dL (12.0-16.0); Immature Granulocytes # (auto) 0.22 K/uL (0.00-0.02); Immature Granulocytes % (auto) 1.3 %; Lymphocytes # (auto) 1.63 K/uL (1.2-3.4); Lymphocytes % (auto) 9.3 %; Mean Corpuscular Hemoglobin 36.6 pg (25-34); Mean Corpuscular Hgb Conc 33.4 g/dL (32-36); Mean Corpuscular Volume 109.6 fL (80-100); Mean Platelet Volume 9.4 fL (7.4-10.4); Monocytes # (auto) 1.12 K/uL (0.11-0.59); Monocytes % (auto) 6.4 %; Neutrophils # (auto) 14.49 K/uL (1.4-6.5); Neutrophils % (auto) 82.4 %; Platelet Count 304 K/uL (130-400); RDW Coefficient of Variation 14.3 % (11.5-14.5); RDW Standard Deviation 57.5 fL (36.4-46.3); Red Blood Count 3.14 M/uL (4.2-5.4); White Blood Count 17.57 K/uL (4.8-10.8)
[2020-07-26 08:24] LABS: Albumin Globulin Ratio 0.5 (0.9-2); BUN Creatinine Ratio 11.7 (10-20); Bilirubin,Total 4.6 mg/dl (0.2-1); Calcium 8.9 mg/dl (8.5-10.1); Creatinine Clr Calc Pharmacy 97.7 ml/min; Est GFR (African American) 120.6; Globulin 4.1 gm/dl (2.5-4.0); Potassium 4.1 mmol/L (3.5-5.1); Total Protein 6.1 gm/dl (6.4-8.2)
[2020-07-26 08:31] LABS: INR 1.3 (0.9-1.1); Partial Thromboplastin Ratio 1.1; Partial Thromboplastin Time 30.8 Seconds (21.0-31.0); Prothrombin Time 13.9 Seconds (9.0-12.0)
[2020-07-26] MEDS: DICLOFENAC SOD 1% GEL 100 GM TUBE EXT SCH ×2 (09:18→21:30)
[2020-07-26] MEDS: lisinopril 10 MG TAB PO SCH (09:19)
[2020-07-26] MEDS ORDERED: LORazepam 0.25 MG/0.5 ML VIAL IV PRN (09:40)
[2020-07-26] MEDS ORDERED: FUROSEMIDE 20 MG in SYRINGE 0 ML IV ONE (10:00)
[2020-07-26] MEDS: SPIRONOLACTONE 25 MG TAB PO SCH (10:32)
[2020-07-26] MEDS: HEPARIN SOD 5,000 UNIT/0.5 ML VIAL SQ SCH ×2 (10:32→21:40)
[2020-07-26] MEDS: oxyCODONE HCL IR 5 MG TAB (IMMEDIATE RELEASE) PO PRN ×2 (15:31→21:40)
[2020-07-27] MEDS: oxyCODONE HCL IR 5 MG TAB (IMMEDIATE RELEASE) PO PRN ×2 (06:33→15:37)
[2020-07-27] MEDS: HEPARIN SOD 5,000 UNIT/0.5 ML VIAL SQ SCH ×2 (07:59→20:48)
[2020-07-27] MEDS: SPIRONOLACTONE 25 MG TAB PO SCH (08:00)
[2020-07-27] MEDS: FUROSEMIDE 20 MG TAB PO SCH (08:00)
[2020-07-27] MEDS: lisinopril 10 MG TAB PO SCH (08:01)
[2020-07-27] MEDS: DICLOFENAC SOD 1% GEL 100 GM TUBE EXT SCH (08:01)
[2020-07-27 08:45] LABS: Basophils # (auto) 0.02 K/uL (0-0.2); Basophils % (auto) 0.1 %; Eosinophils # (auto) 0.07 K/uL (0-0.5); Eosinophils % (auto) 0.4 %; Hematocrit (blood only) 34.5 % (37-47); Hemoglobin 11.5 g/dL (12.0-16.0); Immature Granulocytes # (auto) 0.23 K/uL (0.00-0.02); Immature Granulocytes % (auto) 1.3 %; Lymphocytes # (auto) 1.68 K/uL (1.2-3.4); Lymphocytes % (auto) 9.4 %; Mean Corpuscular Hemoglobin 36.3 pg (25-34); Mean Corpuscular Hgb Conc 33.3 g/dL (32-36); Mean Corpuscular Volume 108.8 fL (80-100); Mean Platelet Volume 9.6 fL (7.4-10.4); Monocytes # (auto) 1.25 K/uL (0.11-0.59); Neutrophils % (auto) 81.8 %; Platelet Count 295 K/uL (130-400); RDW Coefficient of Variation 14.5 % (11.5-14.5); RDW Standard Deviation 57.7 fL (36.4-46.3); Red Blood Count 3.17 M/uL (4.2-5.4); White Blood Count 17.95 K/uL (4.8-10.8)
[2020-07-27 09:16] LABS: Albumin Globulin Ratio 0.5 (0.9-2); Albumin Level 1.9 gm/dl (3.4-5.0); BUN Creatinine Ratio 13.6 (10-20); Bilirubin,Total 3.8 mg/dl (0.2-1); Calcium 8.6 mg/dl (8.5-10.1); Creatinine Clr Calc Pharmacy 109.9 ml/min; Est GFR (African American) 125.3; Est GFR (Non-African American) 108.1; Globulin 3.9 gm/dl (2.5-4.0); Potassium 3.9 mmol/L (3.5-5.1); Total Protein 5.8 gm/dl (6.4-8.2)
--- NOTE | 2020-07-27 10:48 | Surgery Progress Note ---
Date of Service July 27, 2020 Assessment & Plan (1) History of laparoscopic cholecystectomy: Status post laparoscopic cholecystectomy and liver biopsy. Overall she appears to be doing well from a surgery standpoint. Many of the symptoms she had prior to admission are still present. She does have an elevated white count which may or may not be explained by her superficial thrombophlebitis. She does not appear to have an ileus, her abdominal distention is likely related to ascites which was present prior to and after surgery. Diet as tolerated, patient may shower Surgery will continue to follow peripherally, call with questions or concerns (2) Cirrhosis: (3) Jaundice: (4) Electrolyte abnormality: Admission and Anticipated Discharge Date Admission Date: July 15, 2020 Subjective 60-year-old female admitted with jaundice status post ERCP for choledocholithiasis, status post laparoscopic cholecystectomy and liver biopsy on 18 July 2020. Patient remains in the hospital. Her LFTs and total bilirubin are slowly downtrending. She still feels many of the same symptoms she had prior to admission, and her abdomen feels tight. She is tolerating small amounts of food and liquids. She is passing gas regularly, and has few small bowel movements. Denies any fevers. Physical Exam Constitutional: WD/WN, vitals as above Gastrointestinal (Abdomen): Inspection/Auscultation: + abdomen distended (Stable moderate distention) Percussion/Palpation: abdomen soft; abdomen nontender, no guarding, abdomen not rigid and no hepatosplenomegaly Results & Data ([facility]) Vital Signs (Past 12 Hours) Vital Signs Temp Pulse Pulse Resp BP Pulse Ox 07/27/20 08:00 36.4 C L 90 18 112/71 90 07/26/20 23:26 36.7 C 91 H 16 107/67 94 Laboratory Results Laboratory Results - last 24 hr 07/27/20 07/27/20 08:26 08:26 WBC 17.95 H RBC 3.17 L Hgb 11.5 L Hct 34.5 L MCV 108.8 H MCH 36.3 H MCHC 33.3 RDW Std Deviation 57.7 H RDW Coeff of Merna 14.5 Plt Count 295 MPV 9.6 Immature Gran % (Auto) 1.3 Neut % (Auto) 81.8 Lymph % (Auto) 9.4 [place] % (Auto) 7.0 Eos % (Auto) 0.4 Baso % (Auto) 0.1 Neut # (Auto) 14.70 H Lymph # (Auto) 1.68 [place] # (Auto) 1.25 H Eos # (Auto) 0.07 Baso # (Auto) 0.02 Immature Gran # (Auto) 0.23 H Sodium 127 L Potassium 3.9 Chloride 93 L Carbon Dioxide 26 Anion Gap 8.0 BUN 7 Creatinine 0.48 L Est Cr Clr Drug Dosing 109.9 Est GFR ( Amer) 125.3 Est GFR (Non-Af Amer) 108.1 BUN/Creatinine Ratio 13.6 Glucose 122 H Calcium 8.6 Total Bilirubin 3.8 H AST 151 H ALT 77 Alkaline Phosphatase 224 H Total Protein 5.8 L Albumin 1.9 L Globulin 3.9 Albumin/Globulin Ratio 0.5 L PG Care Time/CCT Total # of Minutes Spent Total Time Spent with Patient: Total time spent is greater than 50% in coordination of care (as documented) at patient's floor/unit and/or counseling patient: Coding Level of Care Code None Diagnoses History of laparoscopic cholecystectomy Z90.49 Cirrhosis K74.60 Jaundice R17 Electrolyte abnormality E87.8
--- NOTE | 2020-07-27 11:51 | Ultrasound Report ---
BILATERAL LOWER EXTREMITY VENOUS DOPPLER CLINICAL HISTORY: Bilateral lower extremity swelling. Evaluate for deep venous thrombus. COMPARISON STUDY: No previous studies for comparison. TECHNIQUE: Sonography of the deep venous system of the bilateral lower extremities was performed. Co mpression and augmentation were evaluated. FINDINGS: The bilateral common femoral, superficial femoral and popliteal veins were compressible. A ugmentation was normal. Flow was shown within the deep calf vessels. Bilateral lower extremity edema is noted. IMPRESSION: No evidence of deep venous thrombus within the bilateral lower extremities. ACT 112: Negative or not required by law. Electronically signed by: Jones Mejias M.D. 07/27/2020 11:49 AM
--- NOTE | 2020-07-27 15:06 | Ultrasound Report ---
US duplex portal hepatic veins CLINICAL HISTORY: rule out portal spring DVT, +cirrhosis, +numb in LEs COMPARISON STUDY: Abdomen and pelvis CT 07/21/2020. FINDINGS: The portal and hepatic veins are patent and demonstrate normal direction of flow. Small ct unt of perihepatic ascites remains unchanged. Nodular contour to the liver consistent with cirrhosis. IMPRESSION: The portal and hepatic veins appear patent. ACT 112: Negative or not required by law. Electronically signed by: Rahat Barajas M.D. 07/27/2020 3:05 PM
--- NOTE | 2020-07-27 15:16 | Hospitalist Progress Note ---
Date of Service July 27, 2020 Delayed Entry for 07/26/2020 Assessment & Plan (1) Abdominal pain: Cholelithiasis, choledocholithiasis No sepsis at presentation Patient underwent EGD, EUS, ERCP with GI on 07/15/2020, Dr. Jack Sphincterotomy performed, common bile duct stent placed, prophylactic pancreatic stent placed Repeat ERCP in 6 to 8 weeks for stent removal Appreciate GI input and recommendation Status post laparoscopic cholecystectomy and liver biopsy on 07/20/2020 Appreciate surgery input and recommendation Has been on intravenous ciprofloxacin Abdominal discomfort/pain has improved a little bit compared with yesterday White count remains elevated and intravenous Flagyl was added on top of ciprofloxacin White count remains elevated, no fever and/or chills Gradual improvement Does not look like has intestinal obstruction Continue current management Leukocytosis Finished the course of antibiotic Could be secondary to Inflammation. No cough and or SOB and chest reasonably clear-May repeat CXR and UA and C/S Monitor CBC Right forearm superficial phlebitis No evidence of DVT on ultrasound Will apply local diclofenac sodium Right forearm redness and tenderness have been improving Postoperative ileus Developed abdominal pain with distention since this morning Has had a reasonable breakfast with pancakes this morning CAT scan did show abdominal distention without any obstruction, ascites Advised to be n.p.o. for now and may need NG tube insertion for suction Has been passing gas and tolerating clears orally Bowel movement Advance diet as tolerated Advised to have increased movement Hyponatremia Sodium level has been around 126 Has intravascular dehydration Try small amount of normal saline infusion Sodium level is 128 on 07/22/2020 Monitor PRP-sodium level is 127 as of 07/25/2020 and on 07/26/2020 Cirrhosis, new diagnosis, possible NAFLD GI consult RE abnormal LFTs, abdominal pain, cirrhosis work-up Will need to have GI appointment as an outpatient Liver biopsy showed cirrhosis Remains formally jaundiced with bilirubin of 5.6 Liver function seems to be stable- Bilirubin is down to 5.0 as of 07/24/2020 Billirubin is 4.6 as of 07/25/2020 Cystitis -Patient is already on ciprofloxacin, will finish course Loose stools -Possibly to oral contrast patient had rule out C. difficile given recent Cipro Rx Stool C. difficile - negative Hypokalemia - secondary to emesis symptoms, home diuretic Rx Replace potassium, hold home diuretic for now until patient euvolemic Well supplement electrolytes as needed Prediabetes Current hemoglobin A1c 4.7% OHS on CPAP fibromyalgia as per records hypertension, stable DVT prophylaxis. SCDs RE possible procedure Full code Patient's , Mr. Erickson Clifton, can be contacted at #[phone]. Discussed with the in detail and answered all of his questions Admission and Anticipated Discharge Date Admission Date: July 15, 2020 Subjective The patient was seen and examined in medical floor She has been feeling a little bit better today Has been tolerating clears orally and abdominal pain seems to be improving Denies any nausea and/or vomiting, no fever and/or chills 07/21/2020 The patient was seen and examined in medical floor She has been feeling worse today with increasing abdominal distention and discomfort without any nausea and or vomiting She has been passing gas and has had a reasonable breakfast 07/22/2020 The patient was seen and examined in medical floor in presence of the She has been feeling a little better today Decreasing abdominal distention and discomfort Bowel has not moved yet but passing gas No fever and/or chills 07/23/2020 The patient was seen and examined in medical floor She has been feeling a little bit better today Has been ambulating as much as she can He has moved her bowel 07/24/2020 The patient was seen and examined in medical floor She has been feeling a little bit better compared with yesterday Complains to have pain and redness involving right forearm at the site of peripheral line Has been moving gas and bowel 07/25/2020 The patient was seen and examined in medical floor He has been feeling a little better than yesterday Complains of upper abdominal discomfort and right upper quadrant discomfort Has been moving bowels and passing gas No fever and/or chills 07/26/2020 The patient was seen and examined in medical floor She complains to have mild discomfort without any nausea and or vomiting Has been moving gas and bowel Complains of bilateral legs swelling and redness in right UE is improving Review of Systems Review of Systems: All systems reviewed and are unremarkable except as noted below Eyes: Remains jaundiced Gastrointestinal: + abdominal pain; no bloating, no nausea and no vomiting Neurologic: + generalized weakness Physical Exam Physical Exam: Lying in bed with minimal abdominal discomfort Constitutional: well developed, well nourished and + ill appearing; no acute distress (No acute distress at rest) Eyes: PERRL, conjunctivae normal, anicteric sclerae sclerae not anicteric (Has jaundice) ENMT: external ear and nose normal, oropharynx normal Neck: trachea midline, no thyromegaly Respiratory: no respiratory distress Auscultation: lungs clear to auscultation bilaterally Cardiovascular: Rate/Rhythm: regular rate and regular rhythm Heart Sounds: no murmur Extremities: + edema (2+ edema bilaterally) Gastrointestinal (Abdomen): Inspection/Auscultation: + abdomen distended and normal bowel sounds (Improving) Percussion/Palpation: + abdomen tender and abdomen soft; no guarding Musculoskeletal: no acute arthritis in any joint Psychiatric: A+Ox3, euthymic affect Lymphatic: no cervical or axillary lymphadenopathy Results & Data Results & Data ([facility]) Vital Signs (Past 12 Hours) Vital Signs Temp Pulse Resp BP Pulse Ox 07/27/20 08:00 36.4 C L 90 18 112/71 90
--- NOTE | 2020-07-27 16:06 | Hospitalist Progress Note ---
Date of Service July 27, 2020 Assessment & Plan (1) Post-operative state: (2) Abdominal pain: s/p cholesdocholithiasis with biliary stent placement on 07/15. Sphincterotomy was performed with CBD stent and prophylactic pancreatic stent placed. She underwent a lap pierre on 07/18 with liver bx showing evidence of cirrhosis (new diagnosis). Ascites noted on imaging studies. She did well and bilirubin and LFTs were slowly trending down. She continued to use oxycodone 10mg regularly and has not had a BM for the past 7-9 days at this point. Abdomen is distended with differential including but not limited to opiate- induced constipation, ileus, decompensated cirrhosis 2/2 worsening ascites vs SBP. Portal vein us ruled out DVT there today and bilateral doppler of her legs was negative today. She has been able to tolerate food including dinner this evening and has reported no nausea. She has had no vomiting. Abdomen is distended but not tender focally. She is more generally uncomfortable. She is not exhibiting signs of hepatic encephalopathy at this point. She was educated on the benefits of lactulose and will start this tonight. The plan will be to get her moving and reduce or eliminate the use of opiates. An obstacle to this until now has been a self reported reaction to both Tylenol and NSAIDs. Then, in the morning we will reassess the abdomen for ascites and address this further. She continues to have an elevated WBC count but is afebrile, supporting any of these diagnoses. UTI symptoms have resolved after antibiotic therapy. Of note, patient had a severe diarrheal response to PO contrast given earlier in admission and is very concerned about having excessive diarrhea from too much laxative. (3) Decompensation of cirrhosis of liver: New diagnosis with ascites. She appears decompensated because of the ?worsening ascites. Rule out SBP with paracentesis likely in am. Discussed this with patient who is in agreement. Patient was just started on spironolactone and furosemide diuretic therapy in the last couple of days. Will cont to monitor electrolytes. (4) Elevated LFTs: related to recent surgery and decompensated cirrhosis. Patient denies alcohol use. (5) Constipation due to opioid therapy: Encouraged patient to reduce and preferably stop opiate therapy. (6) Choledocholithiasis: s/p ERCP with stent placement on 07/15. (7) Hyponatremia: 2/2 cirrhosis with decompensation and ?intravascular depletion. Consider albumin infusion, but will attempt to get her to move bowels first as she is very uncomfortable. Hold diuretics. (8) Superficial phlebitis: superficial clot formation in right extensor forearm area related to a recent peripheral IV site. Warm compresses, stop Diclofenac as patient has a reaction to NSAIDs and this area appears red and irritated, and patient reports gel is not helping her much. Will readdress this after dealing with abdominal pain and distension which is more acute. May consider short term blood thinners, however, not at this time with her abdomen in its current state. (9) HTN (hypertension): chronic, at goal. Cont current medications as tolerated. (10) DVT prophylaxis: Heparin Full Code Dispo-cont hospitalization Marisela Waller DO [facility] Hospitalist Admission and Anticipated Discharge Date Admission Date: July 15, 2020 Subjective 60 yo F admitted for choledocholithiasis s/p ERCP with stent placement 07/15 and lap pierre 07/18. Liver biopsy performed 07/18 revealed cirrhosis, which is a new diagnosis. Abdomen is distended and she reports is full of fluid, but she is also constipated. She has been receiving consistent oxycodone for post-op pain and has not had a BM in approximately 7-9 days. She reports occasional smears of stool but no formed BM. She also reports numbness in her abdomen from just under her breasts down to her pubic bone that has been there since before the operation. She denies any further UTI symptoms, which have resolved. She is afebrile. She has been tolerating food without issues, and denies nausea or vomiting. Labwork reveals slowly resolving bilirubin which is still >3 and elevated LFTs, and she has clear scleral icterus on exam. Review of Systems Review of Systems: All systems reviewed & are unremarkable except as noted in Subjective Physical Exam Physical Exam: CONSTITUTIONAL: WNWD, vitals as above, generally appears uncomfortable EYES: normal conjunctivae, +scleral icterus ENT: external ear and nose normal, MMM RESPIRATORY: clear to auscultation bilaterally, no crackles, rales or wheezes, normal respiratory effort CARDIOVASCULAR: regular rate and rhythm, S1 and 2 heard without murmurs, gallops or rubs, no JVD, no peripheral edema GASTROINTESTINAL: distended, soft, nontender but appears uncomfortable during exam, laparoscopic sites are closed and appear to be healing well. MUSCULOSKELETAL: strength 5/5 throughout, head is normocephalic and atraumatic SKIN: warm and dry, abdominal incision sites as above. NEUROLOGIC: No facial palsy, no dysarthria. CN 2-12 grossly intact, decreased sensation on abdomen, normal cognition, normal speech, no tremor PSYCHIATRIC: alert cooperative and oriented to person, place and time. Results & Data Results & Data ([facility]) Vital Signs (Past 12 Hours) Vital Signs Temp Pulse Resp BP Pulse Ox 07/27/20 15:21 36.8 C 90 16 98/60 L 91 07/27/20 08:00 36.4 C L 90 18 112/71 90 Laboratory Results Short CBC 07/27/20 Range/Units 08:26 WBC 17.95 H (4.8-10.8) K/uL Hgb 11.5 L (12.0-16.0) g/dL Hct 34.5 L (37-47) % Plt Count 295 (130-400) K/uL [facility] 07/27/20 08:26 Sodium 127 L Potassium 3.9 Chloride 93 L Carbon Dioxide 26 BUN 7 Creatinine 0.48 L Glucose 122 H Calcium 8.6 Liver Function 07/27/20 Range/Units 08:26 Total Bilirubin 3.8 H (0.2-1) mg/dl AST 151 H (15-37) U/L ALT 77 (12-78) U/L Alkaline Phosphatase 224 H (45-117) U/L Albumin 1.9 L (3.4-5.0) gm/dl Diagnostic Findings [facility], [id number] Ultrasound Report Patient: Jose Martin PEACE Date: 07/15/20#: [id number]: [address] [facility] ID:[id number]: [facility]: [facility] Zip: [place], [place] [address]Tki: 60Location: 3WSex: FRoom/Bed: [address] Phy: Marisela Waller, DODiagnosis: ABD PAINPri Phy: Shon Page MDService Date: 07/27/20Fa Phy:Interpreting Phy: Rahat Barajas [facility] Phy: Reji Santiago MD Ordering Phy: Marisela Waller DO cc: ~ US duplex portal hepatic veins CLINICAL HISTORY: rule out portal spring DVT, +cirrhosis, +numb in LEs COMPARISON STUDY: Abdomen and pelvis CT 07/21/2020. FINDINGS: The portal and hepatic veins are patent and demonstrate normal direc tion of flow. Small amount of perihepatic ascites remains unchanged. Nodular contour to the liver consistent with cirrhosis. IMPRESSION: The portal and hepatic veins appear patent. ACT 112: Negative or not required by law. Electronically signed by: Rahat Barajas M.D. 07/27/2020 3:05 PM Dictated: 07/27/20 1504Transcribed: 07/27/20 1504 [facility], [id number] Ultrasound Report Patient: Jose Martin PEACE Date: 07/15/20#: [id number]: [address] ID:[id number]: Date: [address] [place] [address] Zip: [place], [place] [address]Ldc: 60Location: 3WSex: FRoom/Bed: [address] Phy: Marisela Waller DODiagnosis: ABD PAINPri Phy: Shon Page MDService Date: 07/10 04/28Fam Phy:Interpreting Phy: Jones Mejias [facility] Phy: Reji Santiago MD Ordering Phy: Marisela Waller DO cc: ~ BILATERAL LOWER EXTREMITY VENOUS DOPPLER CLINICAL HISTORY: Bilateral lower extremity swelling. Evaluate for deep venous thrombus. COMPARISON STUDY: No previous studies for comparison. TECHNIQUE: Sonography of the deep venous system of the bilateral lower extremities was performed. Compression and augmentation were evaluated. FINDINGS: The bilateral common femoral, superficial femoral and popliteal veins were compressible. Augmentation was normal. Flow was shown within the deep calf vessels. Bilateral lower extremity edema is noted. IMPRESSION: No evidence of deep venous thrombus within the bilateral lower extremities. ACT 112: Negative or not required by law. Electronically signed by: Jones Mejias M.D. 07/27/2020 11:49 AM Dictated: 07/27/20 1149Transcribed: 07/27/20 1149 Medications Administered Current Inpatient Medications Calcium Carbonate (Calcium Carbonate 500 Mg Chewable Tab) 500 mg PO Q6 PRN PRN Reason: Indigestion Stop: 08/19/20 13:04 Last Admin: 07/20/20 13:25 Dose: 500 mg Documented by: Diclofenac Sodium (Diclofenac Sod 1% Gel 100 Gm Tube) 2 gm EXT BID [facility] Stop: 08/23/20 09:44 Last Admin: 07/27/20 08:01 Dose: 2 gm Documented by: Furosemide (Furosemide 20 Mg Tab) 20 mg PO QAM [facility] Stop: 08/26/20 08:59 Last Admin: 07/27/20 08:00 Dose: 20 mg Documented by: Heparin Sodium (Porcine) (Heparin Sod 5,000 Unit/0.5 Ml Vial) 5,000 units SQ Q12 AUGIE Stop: 08/25/20 08:59 Last Admin: 07/27/20 07:59 Dose: 5,000 units Documented by: Hydromorphone HCl (Hydromorphone Inj 0.5 Mg/0.5 Ml Syr) 0.25 mg IV Q2H PRN PRN Reason: Pain Stop: 08/01/20 15:49 Last Admin: 07/21/20 22:25 Dose: 0.25 mg Documented by: Promethazine HCl 12.5 mg/ (Sodium Chloride) 50.5 mls @ 202 mls/hr IV Q6H PRN PRN Reason: Nausea And Vomiting Stop: 08/14/20 07:08 Lorazepam (Ativan) 0.25 mg in 0.5 mls @ 0.5 mls/min IV Q8H PRN PRN Reason: Anxiety Stop: 08/25/20 09:39 Last Admin: 07/26/20 10:32 Dose: 0.5 mls/min Documented by: Lisinopril (Lisinopril 10 Mg Tab) 10 mg PO QAM [facility] Stop: 08/14/20 08:59 Last Admin: 07/27/20 08:01 Dose: 10 mg Documented by: Loperamide HCl (Loperamide Hcl 2 Mg Cap) 2 mg PO UD PRN PRN Reason: Diarrhea Stop: 08/15/20 05:13 Last Admin: 07/16/20 09:15 Dose: 2 mg Documented by: Miscellaneous (Atrovent 0.03% Nasal [place]: Order Awaiting Action) 1 ea N/A QS [facility] Stop: 08/14/20 07:59 Last Admin: 07/27/20 08:02 Dose: Not Given Documented by: Morphine Sulfate (Morphine Sulfate 4 Mg/Ml 1 Ml Carp\Vial) 4 mg IV Q4H PRN PRN Reason: Pain Stop: 07/29/20 07:08 Last Admin: 07/15/20 19:42 Dose: 4 mg Documented by: Morphine Sulfate (Morphine Sulfate 2 Mg/Ml Carp) 2 mg IV Q4H PRN PRN Reason: Pain Stop: 08/01/20 14:18 Last Admin: 07/20/20 12:49 Dose: 2 mg Documented by: Ondansetron HCl (Ondansetron Inj 2 Mg/Ml 2 Ml Vial) 2 mg IV Q4H PRN PRN Reason: Nausea Stop: 08/17/20 15:49 Last Admin: 07/23/20 08:42 Dose: 2 mg Documented by: Oxycodone HCl (Oxycodone Hcl Ir 5 Mg Tab (Immediate Release)) 5 mg PO Q4H PRN PRN Reason: Pain Stop: 08/01/20 14:18 Oxycodone HCl (Oxycodone Hcl Ir 5 Mg Tab (Immediate Release)) 10 mg PO Q4H PRN PRN Reason: Pain Stop: 08/01/20 14:18 Last Admin: 07/27/20 15:37 Dose: 10 mg Documented by: Spironolactone (Spironolactone 25 Mg Tab) [address] [facility] Stop: 08/25/20 09:44 Last Admin: 07/27/20 08:00 Dose: 50 mg Documented by:
[2020-07-27] MEDS ORDERED: LACTULOSE SYRUP 20 GM/30 ML UDC PO PRN (17:49)
[2020-07-27] MEDS ORDERED: LACTULOSE SYRUP 10 GM/15 ML BTL 960 ML PO STA (17:56)
[2020-07-27] MEDS ORDERED: oxyCODONE HCL IR 5 MG TAB (IMMEDIATE RELEASE) PO PRN (21:00)
[2020-07-28] MEDS: ONDANSETRON INJ 2 MG/ML 2 ML VIAL IV PRN (01:14)
[2020-07-28] MEDS ORDERED: IOVERSOL 100ml IV ONE (03:27)
--- NOTE | 2020-07-28 04:23 | Communication Note ---
Date of Service: July 28, 2020 Made aware by RN of worsening abdominal pain. Patient felt something "pop" on her right side as per RN. Recurrent bilious emesis episodes. No bowel movement for [address] patient. [address] abdomen pelvis initial read: Increasing moderate ascites. Cirrhosis. Cholecystectomy. Persistent fluid at the gallbladder bed. Biliary and pancreatic duct stents unchanged. New diffusely dilated and fluid-filled small bowel which may be ileus or small bowel obstruction. Unremarkable appendix. Anasarca. New foci of left abdominal subcutaneous air which could be related to previous medication injections. AP Worsening abdominal pain Multifactorial : Increasing ascites, possible SBP, possible sepsis Ileus versus small bowel obstruction Cultures, check lactic acid Follow official CT abdominal pelvis read Ceftriaxone, IV albumin for possible SBP for now Diagnostic and therapeutic ultrasound-guided paracentesis if AM provider agreeable. Bowel rest NGT decompression if with recurrence (patient refusing intervention for now without sedation given history of hyperactive gag reflex as per patient) Patient requests for her to be updated over the phone once official CT results in and corresponding plan of care in AM.
[2020-07-28] MEDS ORDERED: POLYETHYLENE (MIRALAX) 17 GM PACK PO PRN (04:30)
[2020-07-28] MEDS ORDERED: POLYETHYLENE (MIRALAX) 17 GM PACK PO STA (04:30)
[2020-07-28] MEDS ORDERED: LACTULOSE SYRUP 30 GM/45 ML UDP PO STA (04:38)
[2020-07-28 04:55] LABS: Basophils # (auto) 0.02 K/uL (0-0.2); Basophils % (auto) 0.1 %; Eosinophils # (auto) 0.04 K/uL (0-0.5); Eosinophils % (auto) 0.2 %; Hematocrit (blood only) 34.1 % (37-47); Hemoglobin 11.4 g/dL (12.0-16.0); Immature Granulocytes # (auto) 0.21 K/uL (0.00-0.02); Immature Granulocytes % (auto) 1.1 %; Lymphocytes # (auto) 1.59 K/uL (1.2-3.4); Lymphocytes % (auto) 8.6 %; Mean Corpuscular Hemoglobin 36.2 pg (25-34); Mean Corpuscular Hgb Conc 33.4 g/dL (32-36); Mean Corpuscular Volume 108.3 fL (80-100); Mean Platelet Volume 9.3 fL (7.4-10.4); Monocytes # (auto) 1.41 K/uL (0.11-0.59); Monocytes % (auto) 7.6 %; Neutrophils # (auto) 15.29 K/uL (1.4-6.5); Neutrophils % (auto) 82.4 %; Platelet Count 302 K/uL (130-400); RDW Coefficient of Variation 14.6 % (11.5-14.5); RDW Standard Deviation 57.6 fL (36.4-46.3); Red Blood Count 3.15 M/uL (4.2-5.4); White Blood Count 18.56 K/uL (4.8-10.8)
[2020-07-28 05:12] LABS: BUN Creatinine Ratio 13.4 (10-20); Calcium 8.4 mg/dl (8.5-10.1); Creatinine Clr Calc Pharmacy 92.5 ml/min; Est GFR (African American) 118.4; Est GFR (Non-African American) 102.2; Magnesium 1.9 mg/dl (1.8-2.4)
[2020-07-28 05:15] LABS: Albumin Globulin Ratio 0.5 (0.9-2)
[2020-07-28] MEDS: DOCUSATE SODIUM/SENNA 50/8.6MG TAB PO SCH ×2 (05:15→07:52)
[2020-07-28] MEDS: ALBUMIN 25% 12.5 GM/50 ML VIAL IV SCH ×3 (05:20→16:31)
[2020-07-28] MEDS ORDERED: MAGNESIUM SULFATE / D5W 1 GM/100 ML BAG IV ONE (05:21)
[2020-07-28] MEDS ORDERED: bisacodyL 10 MG SUPP PR STA (06:38)
[2020-07-28 06:46] LABS: INR 1.3 (0.9-1.1); Prothrombin Time 13.2 Seconds (9.0-12.0)
--- NOTE | 2020-07-28 07:45 | CT Scan Report ---
ABDOMEN AND PELVIS CT WITH IV CONTRAST CT DOSE: 1020.08 mGy.cm HISTORY: Acute right-sided abdominal pain worsening R abd pain TECHNIQUE: Multiaxial CT images of the abdomen and pelvis were performed following the IV administrat ion of 94 cc of Optiray 320, A dose lowering technique was utilized adhering to the principles of AL YANCY. COMPARISON STUDY: CT abdomen and pelvis 07/21/2020 FINDINGS: Small pleural effusions with dependent bibasilar consolidation suggestive of compressive at electasis. There is no pneumatosis or pneumoperitoneum. The imaged inferior cardiac chambers are upper limits of normal in size. Trace pericardial effusion. Ill-defined decreased subtle enhancement of the superior spleen is noted on image 57 series 3. Spleni c artery and vein appear patent. Unremarkable right adrenal gland. Unchanged 1.6 cm left adrenal glan d lesion appears to contain macroscopic fat suggestive of an adrenal myolipoma. Heterogeneous liver w ith marginal nodularity suggestive of cirrhosis. Patency of the portal vein. Ill-defined 2.0 x 1.7 cm hypodensity of the inferior right hepatic lobe adjacent to the jyoti hepatis previously measured 2.8 x 2.1 cm. Cholecystectomy. Mild pneumobilia with unchanged positioning of the common bile duct and p ancreatic stents, distal tip terminating within the duodenum. There is mild tenting of the lateral wa ll duodenum secondary to the common bile duct stent. Unremarkable kidneys, urinary bladder, uterus and adnexa. No aortic aneurysm or adenopathy. Unremarka ble IVC. Increased abdominal pelvic ascites, now [id number]. Anasarca. Interval development of numerous air and fluid-filled dilated small bowel measuring up to 3.6 cm without discrete transition point identified. Fecal retention of the right hemicolon with stool-filled loops of terminal ileum. I t decompressed loops of small bowel is noted on image 25 series 3 within the right midabdomen. No sig nificant bowel wall thickening. The visualized appendix is noninflamed. Bones appear intact. IMPRESSION: 1. Interval development of numerous mildly dilated air and fluid-filled loops of small bowel with sto ol-filled distal ileum. Findings are suggestive of ileus versus low-grade small bowel obstruction. Fo llow-up recommended. 2. No pneumatosis or pneumoperitoneum. 3. Moderate fecal retention of the right hemicolon. 4. Satisfactory positioning of the common bile duct and pancreatic stents. 5. 2.0 x 1.7 cm ill-defined hypodensity of the inferior right hepatic lobe adjacent to the jyoti hepa tis is unchanged from most recent comparison and is new from the preoperative 07/15/2020 exam. This is likely postoperative and may reflect a small hepatic contusion or laceration. This appears stable to slightly decreased in size from 07/21/2020. 6. Increased amount of mild to moderate abdominopelvic ascites. Small pleural effusions with anasarca . 7. Suggested cirrhotic liver disease. 8. Additional findings as above. ACT 112: Negative or not required by law. The above report was generated using voice recognition software. It may contain grammatical, syntax o r spelling errors. Electronically signed by: Lm Rosales M.D. 07/28/2020 7:44 AM
[2020-07-28] MEDS: cefTRIAXone SODIUM 1,000 MG in DEXTROSE 5% 50 ML IV SCH (07:47)
[2020-07-28] MEDS: HEPARIN SOD 5,000 UNIT/0.5 ML VIAL SQ SCH ×2 (07:51→20:02)
[2020-07-28] MEDS: SPIRONOLACTONE 25 MG TAB PO SCH (07:51)
[2020-07-28] MEDS: FUROSEMIDE 20 MG TAB PO SCH (07:52)
[2020-07-28] MEDS: lisinopril 10 MG TAB PO SCH (07:52)
[2020-07-28] MEDS ORDERED: ONDANSETRON INJ 2 MG/ML 2 ML VIAL IV STA (10:32)
--- NOTE | 2020-07-28 11:03 | XRay Report ---
KUB HISTORY: Status post placement of an enteric tube KUB placement COMPARISON: CT abdomen and pelvis of same day FINDINGS: Status post placement of an enteric tube, distal tip terminating in expected location of th e mid gastric body. The lower abdomen is excluded from the [id number]. Partially imaged fecal rete ntion of the right hemicolon. Air-filled dilated loops of small bowel measure up to 3.4 cm. No pneuma tosis or pneumoperitoneum. No urolith. Cholecystectomy. Common bile duct stent. Pancreatic stent is b bam seen on comparison CT. No acute fracture. Bilateral pleural effusions. Cardiomegaly. IMPRESSION: 1. Status post placement of an enteric tube, distal tip projected over the mid gastric body. 2. Persistent dilated loops of small bowel suggestive of ileus versus obstruction. ACT 112: Negative or not required by law. The above report was generated using voice recognition software. It may contain grammatical, syntax o r spelling errors. Electronically signed by: Lm Rosales M.D. 07/28/2020 11:02 AM
--- NOTE | 2020-07-28 11:17 | Gastroenterology Progress Note ---
Date of Service July 28, 2020 Assessment & Plan (1) Elevated LFTs: Pt is a 60 y/o female who is post EGD/EUS/ERCP on 07/15 with sphincterotomy and sweeping of stones/sludge from the bile duct, then lap pierre on 07/18 w wedge liver bx which showed hepatic steatosis w cirrhosis. LFTs slowly improving as would be expected with cirrhosis that is decompensated from undergoing surgery. (2) Leukocytosis: Will r/o out bacterial peritonitis with US paracentesis and fluid analysis later today. If pt has been drinking alcohol, then a plausible cause would be alcoholic hepatitis, but pt denies any recent intake of alcohol. Appreciate primary services ruling out infection (urine, blood culture, CXR). (3) SBO (small bowel obstruction): Appreciate surgical services management of post op SBO vs. severe narcotic induced ileus. Present on Admission?: Yes Admission and Anticipated Discharge Date Admission Date: July 15, 2020 Subjective 60 yo F admitted for choledocholithiasis s/p ERCP with stent placement 07/15 and lap pierre 07/18. Liver biopsy performed 07/18 revealed cirrhosis, which is a new diagnosis. Bili and transaminases very slowly improving. Developed a SBO on imaging today. At the time of exam, pt had abd pain, nausea, distended/taunt abdomen and NG was being placed. Review of Systems Review of Systems: ROS: Gen: Generalized weakness and "not feeling well" for a few months. No fevers or weight loss Eyes: + icterus (improving); No eye redness, or pain, no recent vision changes Resp: No SOB, no cough Cardio: No palpitations/irregular beats, no chest pain : Denies pain on urination Skin: + jaundice (improving), itching or new rashes Constitutional: + malaise; no fever and no sweats Gastrointestinal: + abdominal pain, + bloating and + nausea Physical Exam Constitutional: WD/WN, vitals as above Eyes: PERRL ENMT: external ear and nose normal, oropharynx normal Neck: trachea midline, no thyromegaly Respiratory: normal respiratory effort, lungs clear to auscultation Cardiovascular: RRR, no murmur, no edema Gastrointestinal (Abdomen): Inspection/Auscultation: + abdomen distended and + hypoactive bowel sounds Percussion/Palpation: + abdomen tender (over entire abdomen) and + abdomen firm Skin: no rashes, warm and dry + jaundice (no noticible jaundice) Neurologic: PERRL, EOMI, accommodation nl, no face palsy, no dysarthria Psychiatric: A+Ox3, euthymic affect Lymphatic: no cervical or axillary lymphadenopathy Results & Data ([facility]) Vital Signs (Past 12 Hours) Vital Signs Temp Pulse Resp BP Pulse Ox 07/28/20 07:54 37.0 C 101 H 16 110/72 90 07/27/20 23:41 36.7 C 103 H 16 113/73 93 Laboratory Results WBC 18, Hb 11, Hct 34, Plts 302, INR 1.3, T Bili 4.0, AST 139, ALT 71, Alk Phos 209. Diagnostic Findings CT abd/pelvis today: 1. Interval development of numerous mildly dilated air and fluid-filled loops of small bowel with stool-filled distal ileum. Findings are suggestive of ileus versus low-grade small bowel obstruction. Follow-up recommended. 2. No pneumatosis or pneumoperitoneum. 3. Moderate fecal retention of the right hemicolon. 4. Satisfactory positioning of the common bile duct and pancreatic stents. 5. 2.0 x 1.7 cm ill-defined hypodensity of the inferior right hepatic lobe adjacent to the jyoti hepatis is unchanged from most recent comparison and is new from the preoperative 07/15/2020 exam. This is likely postoperative and may reflect a small hepatic contusion or laceration. This appears stable to slightly decreased in size from 07/21/2020. 6. Increased amount of mild to moderate abdominopelvic ascites. Small pleural effusions with anasarca. 7. Suggested cirrhotic liver disease. 8. Additional findings as above.
--- NOTE | 2020-07-28 11:51 | Surgery Progress Note ---
Date of Service July 28, 2020 Assessment & Plan (1) History of laparoscopic cholecystectomy: Patient is s/p ERCP on 07/15 & laparoscopic cholecystectomy and liver biopsy on 07/18/20 Liver enzymes remain elevated, but are downtrending slowly Tbili: 4 (3.8), AST: 139 (151), ALT: 71 (77), AlkP: 209 (224) WBC elevated at 18.5, patient is afebrile. Currently on Ceftriaxone Surgical incisions c/d/i without sign of infection We were asked to evaluate patient today as she developed nausea/vomiting and CT scan reports findings of ileus vs low grade SBO. Due to symptoms and multiple bouts of emesis an NGT was placed and patient is feeling slightly better. Patient is 10 days out from surgery. This is likely multifactorial as she is dealing with newly diagnosed cirrhosis and has evidence of ascites on her imaging. Overall patient reports not much improvement in her presenting symptoms since undergoing cholecystectomy. - For now continue with NGT for ileus/SBO seen on imaging as patient nauseated with multiple bouts of emesis - We will order a HIDA scan to rule out bile leak contributing to symptoms - GI also continues to follow along and contemplating US paracentesis later today - We will continue to follow along Admission and Anticipated Discharge Date Admission Date: July 15, 2020 Supervising Physician Co-Signing Physician Notes Attempted to see patient, however she was down in radiology for paracentesis. discussed case with Urvashi CULVER, and agree with above. I saw the patient yesterday, and over the evening she developed nausea and vomiting. She had a CT scan performed which showed some mildly dilated loops of bowel concerning for developing ileus versus partial small bowel obstruction. She did have stool with right colon as well as air in portions of her colon. Increased ascites as well. She had an NG tube placed and apparently her nausea vomiting is better. GI has seen her and they are planning on ultrasound-guided paracentesis over concern for SBP. We will perform a HIDA to rule out bile leak, the patient already has biliary stents in place. An ileus related to her surgery as well as a small bowel obstruction from a laparoscopic cholecystectomy to be unlikely at this time, but we will continue to follow. Subjective Patient states she does not feel too well this AM. Started feeling sick and nauseated yesterday afternoon and has had multiple bouts of emesis. Reports she is passing less flatus & says no BM since a few days after surgery. Physical Exam Physical Exam: awake/alert Constitutional: + ill appearing; no acute distress Respiratory: normal respiratory effort Gastrointestinal (Abdomen): Inspection/Auscultation: + abdomen distended and + abdominal surgical incision (c/d/i no signs of infection, dermabond overtop) Percussion/Palpation: + abdomen tender (reports most ttp in R abdomen) NGT draining bilious output Results & Data ([facility]) Vital Signs (Past 12 Hours) Vital Signs Temp Pulse Resp BP Pulse Ox 07/28/20 07:54 37.0 C 101 H 16 110/72 90 PG Care Time/CCT Total # of Minutes Spent Total Time Spent with Patient: Total time spent is greater than 50% in coordination of care (as documented) at patient's floor/unit and/or counseling patient: Coding Level of Care Code None Diagnoses History of laparoscopic cholecystectomy Z90.49
--- NOTE | 2020-07-28 14:52 | Nuclear Medicine Report ---
NUCLEAR HEPATOBILIARY SCAN WITH EJECTION FRACTION IMAGING CLINICAL HISTORY: Assess for bile leak. Status post cholecystectomy. COMPARISON STUDY: Abdominal CT dated 07/28/2020. TECHNIQUE: Dynamic images of the liver and anterior abdomen were obtained every 5 minutes for a total of 35 minutes following the IV administration of 5 mCi of technetium 99m Choletec. An additional sta tic image was obtained at 55 minutes in the left lateral decubitus position. FINDINGS: The hepatobiliary scan shows prompt and heterogeneous hepatic uptake. There is visualized a ctivity within the intra and extrahepatic biliary tree at 10 minutes. There is normal biliary to bow el transit, with small bowel visualized by 20 minutes. There is no jorge of tracer identified in the gallbladder fossa to suggest bile leak. IMPRESSION: There is no scintigraphic evidence of bile leak at the time of examination. ACT 112: Negative or not required by law. Electronically signed by: Quinn Lopes M.D. 07/28/2020 2:50 PM
--- NOTE | 2020-07-28 15:54 | Ultrasound Report ---
PARACENTESIS UNDER ULTRASOUND GUIDANCE CLINICAL HISTORY: Abdominal ascites. COMPARISON STUDY: Abdominal CT dated 07/28/2020. PROCEDURE: The risks, benefits, and alternatives to the procedure were discussed with the patient who voiced understanding. Written informed consent was obtained. Following real-time ultrasound localiza tion of a suitable pocket of fluid in the right lower quadrant, the abdomen was prepped and draped in the usual sterile fashion. The skin and soft tissues were anesthetized with 1% lidocaine. The sheath ed paracentesis needle was inserted and approximately 2.4 liters of dark yellow ascitic fluid was rem tarun by vacuum suction. This was sent for laboratory analysis. The procedure was well tolerated and w ithout immediate complication. The patient left the department in satisfactory condition. IMPRESSION: Successful ultrasound-guided paracentesis with removal of approximately 2.4 liters of asc itic fluid. ACT 112: Negative or not required by law. Electronically signed by: Quinn Lopes M.D. 07/28/2020 3:53 PM
[2020-07-28 16:15] LABS: Albumin Peritoneal Fluid 0.8 g/dl; Total Protein Peritoneal Fluid 1.8 g/dl
[2020-07-28] MEDS ORDERED: LORazepam 0.25 MG/0.5 ML VIAL IV STA (16:54)
[2020-07-28] MEDS ORDERED: ONDANSETRON INJ 2 MG/ML 2 ML VIAL IV ONE (16:56)
--- NOTE | 2020-07-28 16:58 | Hospitalist Progress Note ---
Date of Service July 28, 2020 Assessment & Plan (1) Ileus: Ileus vs partial SBO on CT scan this morning after patient began vomiting overnight. She has recently vomited 6 times and NG tube was placed. She still required antiemetics but then was able to be more comfortable. Greenish bile coming up into suction cannister. She is feeling better. No narcotics. Bowel rest. (2) Post-operative state: (3) Abdominal pain: s/p cholesdocholithiasis with biliary stent placement on 07/15. Sphincterotomy was performed with CBD stent and prophylactic pancreatic stent placed. She underwent a lap pierre on 07/18 with liver bx showing evidence of ci rrhosis (new diagnosis). Ascites noted on imaging studies. She did well and bilirubin and LFTs have been slowly trending down. She continued to use oxycodone 10mg regularly and has not had a BM for the past 7-9 days at this point. Abdomen is distended with differential including but not limited to opiate-induced constipation, ileus, decompensated cirrhosis 2/2 worsening ascites vs SBP. Portal vein us ruled out DVT and bilateral doppler of her legs was negative 07/27. Overnight she became more nauseous and began vomiting with increased pain. Rocephin was started out of concern for SBP. Albumin infusions were given periprocedurally for paracentesis ordered today. This was performed later this afternoon when things had calmed down somewhat with her and 2.4L of ascitic fluid was removed. There was no evidence of infection present. The patient has also received at least 10 days of cipro and flagyl prior to this which may be skewing this outcome somewhat. She was evaluated after the procedure and had some nausea but was otherwise doing well with the NG tube. Cont bowel rest and IV hydration while NPO. Holding diuretics while NPO. (4) Decompensation of cirrhosis of liver: New diagnosis with ascites. She appears decompensated because of the recent surgery. Cont supprtive care post paracentesis, and will restart diuretics soon. For now she is on bowel rest 2/2 opiate induced ileus, however, will need to push the BM goal as soon as able to rid the body of ammonia. (5) Elevated LFTs: related to recent surgery and decompensated cirrhosis. Patient denies alcohol use. Trending down. (6) Constipation due to opioid therapy: Severe, Encouraged patient to reduce and preferably stop opiate therapy. (7) Choledocholithiasis: s/p ERCP with stent placement on 07/15. (8) Hyponatremia: 2/2 cirrhosis with decompensation and ?intravascular depletion. Albumin was given miguel-procedurally today. For now hold diuretics. (9) Superficial phlebitis: warm compresses PRN (10) HTN (hypertension): chronic, at goal. Cont current medications as tolerated. (11) DVT prophylaxis: Heparin Full Code Dispo-cont hospitalization, transferred to telemetry for closer monitoring; also this patient is requiring more intense nursing attention currently unavailable on the floor. I called nad spoke with her at length for 30 minutes regarding her assessment and the plan including upcoming risks/benefits of procedures. He verbalized understanding and all questions were answered. Marisela Waller DO [facility] and Anticipated Discharge Date Admission Date: July 15, 2020 Subjective cc: abdominal pain The patient developed and ileus /SBO overnight She is vomiting multiple times until an NGT was in and still required some antiemetic. GI evaluated her and Surgery re-evaluated her. Pt reports improvement with NG tube in place. She generally feels unwell. Review of Systems Review of Systems: All systems reviewed & are unremarkable except as noted in Subjective Physical Exam Physical Exam: CONSTITUTIONAL: WNWD, vitals as above, generally appears uncomfortable EYES: normal conjunctivae, +scleral icterus ENT: external ear and nose normal, MMM RESPIRATORY: clear to auscultation bilaterally, no crackles, rales or wheezes, normal respiratory effort CARDIOVASCULAR: regular rate and rhythm, S1 and 2 heard without murmurs, gallops or rubs, no JVD, no peripheral edema GASTROINTESTINAL: distended, soft, nontender but appears uncomfortable during exam, laparoscopic sites are closed and appear to be healing well. MUSCULOSKELETAL: strength 5/5 throughout, head is normocephalic and atraumatic SKIN: warm and dry, abdominal incision sites as above. NEUROLOGIC: No facial palsy, no dysarthria. CN 2-12 grossly intact, decreased sensation on abdomen, normal cognition, normal speech, no tremor PSYCHIATRIC: alert cooperative and oriented to person, place and time. Results & Data Results & Data ([facility]) Vital Signs (Past 12 Hours) Vital Signs Temp Pulse Pulse Resp BP Pulse Ox 07/28/20 16:48 36.5 C 98 H 16 113/70 96 07/28/20 16:02 99 H 07/28/20 15:44 36.6 C 94 H 14 114/75 92 07/28/20 07:54 37.0 C 101 H 16 110/72 90 Laboratory Results Short CBC 07/28/20 Range/Units 04:38 WBC 18.56 H (4.8-10.8) K/uL Hgb 11.4 L (12.0-16.0) g/dL Hct 34.1 L (37-47) % Plt Count 302 (130-400) K/uL BMP 07/28/20 04:38 Sodium 126 L Potassium 4.0 Chloride 93 L Carbon Dioxide 28 BUN 8 Creatinine 0.57 L Glucose 118 H Calcium 8.4 L Liver Function 07/28/20 Range/Units 04:38 Total Bilirubin 4.0 H (0.2-1) mg/dl AST 139 H (15-37) U/L ALT 71 (12-78) U/L Alkaline Phosphatase 209 H (45-117) U/L Albumin 2.0 L (3.4-5.0) gm/dl Medications Administered Current Inpatient Medications Furosemide (Furosemide 20 Mg Tab) 20 mg PO QAM [facility] Stop: 08/26/20 08:59 Last Admin: 07/28/20 07:52 Dose: Not Given Documented by: Heparin Sodium (Porcine) (Heparin Sod 5,000 Unit/0.5 Ml Vial) 5,000 units SQ Q12 [facility] Stop: 08/25/20 08:59 Last Admin: 07/28/20 07:51 Dose: Not Given Documented by: Promethazine HCl 12.5 mg/ (Sodium Chloride) 50.5 mls @ 202 mls/hr IV Q6H PRN PRN Reason: Nausea And Vomiting Stop: 08/14/20 07:08 Last Infusion: 07/28/20 05:08 Dose: Infused Documented by: Ceftriaxone Sodium 1,000 mg/ (Dextrose) 50 mls @ 100 mls/hr IV Q24H [facility]; Prot ocol Stop: 08/07/20 05:59 Last Infusion: 07/28/20 08:16 Dose: Infused Documented by: Lorazepam (Ativan) 0.25 mg in 0.5 mls @ 0.5 mls/min IV Q6H PRN PRN Reason: anxiety Stop: 08/27/20 16:53 Lisinopril (Lisinopril 10 Mg Tab) 10 mg PO QAM [facility] Stop: 08/14/20 08:59 Last Admin: 07/28/20 07:52 Dose: Not Given Documented by: Ondansetron HCl (Ondansetron Inj 2 Mg/Ml 2 Ml Vial) 2 mg IV Q4H PRN PRN Reason: Nausea Stop: 08/17/20 15:49 Last Admin: 07/28/20 01:14 Dose: 2 mg Documented by: Ondansetron HCl (Ondansetron Inj 2 Mg/Ml 2 Ml Vial) 4 mg IV Q8H PRN PRN Reason: Nausea And Vomiting Stop: 08/27/20 10:31 Ondansetron HCl (Ondansetron Inj 2 Mg/Ml 2 Ml Vial) 4 mg IV ONE ONE Stop: 07/28/20 16:57
[2020-07-28 18:31] LABS: Appearance Peritoneal Fluid CLOUDY; Basophils, Fluid 0 %; Color Peritoneal Fluid STRAW; Eosinophils, Fluid 0 %; Lymphocytes, Fluid 40 %; Mono,Macrophage,Mesothelial 51 %; Neutrophils, Fluid 9 %; RBC Peritoneal Fluid (A) 3000 /uL; WBC Peritoneal Fluid (A) 168 /ul (0-300)
[2020-07-28 19:57] LABS: Appearance Urine Cloudy (Clear); Bacteria Urine Automated Negative (Negative); Blood Urine Negative (Negative); Color Urine Dark Yellow; Epithelial Cell Urine Auto >30 /lpf (0-5); Glucose Urine UA Negative (Negative); Ketones Urine Trace (Negative); Leukocyte Esterase Urine 1+ (Negative); Nitrite Urine Positive (Negative); Protein Urine Negative (Negative); Specific Gravity Urine 1.042 (1.000-1.030); Urobilinogen Urine Negative (Negative)
[2020-07-28 20:30] LABS: Bilirubin Urine 1+ (Negative)
[2020-07-28 20:31] LABS: Ictotest Urine Positive (Negative)
[2020-07-28] MEDS: SODIUM CHLORIDE 0.9% 1000ML 1,000 ML IV SCH (22:10)
[2020-07-28 22:31] LABS: Hematocrit (blood only) 31.4 % (37-47); Hemoglobin 10.8 g/dL (12.0-16.0); Mean Corpuscular Hemoglobin 37.2 pg (25-34); Mean Corpuscular Hgb Conc 34.4 g/dL (32-36); Mean Corpuscular Volume 108.3 fL (80-100); Platelet Count 232 K/uL (130-400); RDW Coefficient of Variation 14.7 % (11.5-14.5); RDW Standard Deviation 58.2 fL (36.4-46.3); White Blood Count 15.11 K/uL (4.8-10.8)
[2020-07-28 22:50] LABS: BUN Creatinine Ratio 15.1 (10-20); Calcium 8.5 mg/dl (8.5-10.1); Creatinine Clr Calc Pharmacy 105.5 ml/min; Est GFR (African American) 123.7; Est GFR (Non-African American) 106.7; Potassium 3.9 mmol/L (3.5-5.1)
[2020-07-29] MEDS: ONDANSETRON INJ 2 MG/ML 2 ML VIAL IV PRN ×3 (02:22→19:43)
[2020-07-29] MEDS: LORazepam 0.25 MG/0.5 ML VIAL IV PRN ×3 (02:26→19:51)
[2020-07-29] MEDS: cefTRIAXone SODIUM 1,000 MG in DEXTROSE 5% 50 ML IV SCH (05:41)
--- NOTE | 2020-07-29 07:35 | Surgery Progress Note ---
Date of Service July 29, 2020 Assessment & Plan (1) History of laparoscopic cholecystectomy: Patient is s/p ERCP on 07/15 & laparoscopic cholecystectomy with liver biopsy on 07/18/20 WBC down to 15.1 today from 18, patient afebrile, on ceftriaxone LFT's pending Pt had an NGT placed yesterday for ileus vs sbo seen on imaging; 1.1L documented since placement. She did have a bout of nausea/emesis that she reports overnight, but is feeling better this AM. She tells me that she is passing a small amount of flatus, no BM yet. She also underwent paracentesis where 2.4L of ascitic looking fluid was removed. This morning her abdomen continues to be distended, but is much improved and softer than yesterday. HIDA scan was obtained yesterday as well that revealed no evidence of bile leak - For now continue NGT until continued improvement in symptoms and more meaningful return of bowel function - Encourage ambulation as tolerated Admission and Anticipated Discharge Date Admission Date: July 15, 2020 Supervising Physician Co-Signing Physician Notes Patient seen and examined, labs and imaging reviewed, agree with above. 60-year-old female admitted with jaundice status post ERCP with stent placement, status post laparoscopic cholecystectomy with liver biopsy on 18 July. HIDA scan yesterday showed no evidence of bile leak or bile duct injury. Paracentesis yesterday with approximately 2.5 liters removed, no evidence of bacterial peritonitis at this time. She is passing gas and feels less distended since the procedure. She did have an episode of nausea yesterday but this may have been due to the NG tube irritating the back of her throat. NG with approximately 1 L output. On exam afebrile with stable vitals. Abdomen distended but less so than yesterday, somewhat tympanitic, nontender. Labs with downtrending white count, slowly downtrending bilirubin and enzymes. Continue NG tube until patient with more meaningful return of bowel function and decrease in output. Continue antibiotics. Surgery will continue to follow, Dr. Moralez covering over the weekend. Subjective Patient says she is feeling okay. Reports she did have a bout of nausea/emesis last night, but feels better from that standpoint this AM. Reports she is passing some flatus, no BM yet. Feels less abdominal distention and pain after paracentesis yesterday. Physical Exam Physical Exam: awake/alert Respiratory: normal respiratory effort Gastrointestinal (Abdomen): Inspection/Auscultation: + abdomen distended (improved from yesterday) and + abdominal surgical incision (c/d/i) Percussion/Palpation: abdomen soft NGT with bilious drainage Results & Data ([facility]) Vital Signs (Past 12 Hours) Vital Signs Temp Pulse Pulse Pulse Pulse Resp BP 07/29/20 07:09 36.4 C L 94 H 16 117/83 07/29/20 03:00 36.5 C 101 H 20 112/75 07/29/20 00:28 90 07/28/20 23:00 36.9 C 93 H 18 116/75 Pulse Ox 07/29/20 07:09 93 07/29/20 03:00 92 07/29/20 00:28 07/28/20 23:00 95 PG Care Time/CCT Total # of Minutes Spent Total Time Spent with Patient: Total time spent is greater than 50% in coordination of care (as documented) at patient's floor/unit and/or counseling patient: Coding Level of Care Code None Diagnoses History of laparoscopic cholecystectomy Z90.49
[2020-07-29 08:12] LABS: Hematocrit (blood only) 33.8 % (37-47); Hemoglobin 11.2 g/dL (12.0-16.0); Mean Corpuscular Hemoglobin 36.1 pg (25-34); Mean Corpuscular Hgb Conc 33.1 g/dL (32-36); Mean Platelet Volume 9.3 fL (7.4-10.4); Platelet Count 266 K/uL (130-400); RDW Coefficient of Variation 14.6 % (11.5-14.5); RDW Standard Deviation 58.1 fL (36.4-46.3); White Blood Count 15.25 K/uL (4.8-10.8)
[2020-07-29 08:49] LABS: Albumin Globulin Ratio 0.6 (0.9-2); Albumin Level 2.3 gm/dl (3.4-5.0); BUN Creatinine Ratio 15.7 (10-20); Bilirubin Direct 2.6 mg/dl (0-0.2); Bilirubin,Total 3.6 mg/dl (0.2-1); Calcium 8.6 mg/dl (8.5-10.1); Creatinine Clr Calc Pharmacy 109.9 ml/min; Est GFR (African American) 125.3; Est GFR (Non-African American) 108.1; Globulin 3.5 gm/dl (2.5-4.0); Magnesium 1.9 mg/dl (1.8-2.4); Potassium 3.8 mmol/L (3.5-5.1); Total Protein 5.8 gm/dl (6.4-8.2)
[2020-07-29] MEDS: HEPARIN SOD 5,000 UNIT/0.5 ML VIAL SQ SCH ×2 (09:26→21:17)
[2020-07-29] MEDS: lisinopril 10 MG TAB PO SCH (10:28)
--- NOTE | 2020-07-29 10:39 | Gastroenterology Progress Note ---
Date of Service July 29, 2020 Assessment & Plan (1) Elevated LFTs: Pt is a 60 y/o female who is post EGD/EUS/ERCP on 07/15 with sphincterotomy and sweeping of stones/sludge from the bile duct, then lap pierre on 07/18 w wedge liver bx which showed hepatic steatosis w cirrhosis (Pt denies increased alcohol intake, so likely NAFLD as hx of obesity). LFTs slowly improving as would be expected with cirrhosis that is decompensated from undergoing surgery. Will need OP f/u for cirrhosis with Q 6m US for screening for HCC Management of diuretics for peripheral edema (2) Leukocytosis: No evidence of peritonitis (3) SBO (small bowel obstruction): Appreciate surgical services management of post op SBO vs. severe narcotic induced ileus. Admission and Anticipated Discharge Date Admission Date: July 15, 2020 Supervising Physician Co-Signing Physician Notes I saw and evaluated the patient. She had an ERCP approximately 2 weeks ago and seems to be recovering slowly as result of her cirrhosis. She does have an NG tube in place due to small bowel obstruction after her recent cholecystectomy. At the present time we do not see an indication for repeat ERCP with therefore hold on any of her interventions for the present time Please call with any questions or concerns Subjective Admitted 07/15. ERCP for choledocholithiasis with stent placement 07/15 and lap pierre 07/18. Liver biopsy performed 07/18 revealed cirrhosis, which is a new diagnosis. WBC, Bili and transaminases all very slowly improving. Paracentesis w/o evidence of bacterial peritonitis. Doppler US w/o evidence of PVT. Being tx for post op ileus vs. obstruction. Abd with less pain today. No nausea. Pt tired. Resting with eyes closed but awakens easily and is alert, oriented. NG still in place and draining mod amts of bilious fluid. Abd still distended but improved compared to yesterday. Review of Systems Review of Systems: ROS: Gen: No weakness, No fevers or weight loss Eyes: + icterus, improving. No eye redness, or pain, no recent vision changes Resp: No SOB, no cough Cardio: No palpitations/irregular beats, no chest pain GI: See HPI, otherwise (-). : Denies pain on urination Skin: + juandice. No itching or new rashes Physical Exam Constitutional: WD/WN, vitals as above Eyes: PERRL ENMT: external ear and nose normal, oropharynx normal Neck: trachea midline, no thyromegaly Respiratory: normal respiratory effort, lungs clear to auscultation Cardiovascular: RRR, no murmur, no edema Gastrointestinal (Abdomen): Inspection/Auscultation: + abdomen distended and + hypoactive bowel sounds Percussion/Palpation: + abdomen tender (over entire abdomen) and + abdomen firm (mildy) no obvious ascites Skin: no rashes, warm and dry + jaundice (minimal) Neurologic: PERRL, EOMI, accommodation nl, no face palsy, no dysarthria Psychiatric: A+Ox3, euthymic affect Lymphatic: no cervical or axillary lymphadenopathy Results & Data ([facility]) Vital Signs (Past 12 Hours) Vital Signs Temp Pulse Pulse Pulse Pulse Resp BP 07/29/20 08:00 93 H 07/29/20 07:09 36.4 C L 94 H 16 117/83 07/29/20 03:00 36.5 C 101 H 20 112/75 07/29/20 00:28 90 07/28/20 23:00 36.9 C 93 H 18 116/75 Pulse Ox 07/29/20 08:00 07/29/20 07:09 93 07/29/20 03:00 92 07/29/20 00:28 07/28/20 23:00 95 Laboratory Results WBC 15, Hb 11.2, Hct 33.8, Plts 266, INR 1.3, Na 132, K 3.8, BUN 8, Cr 0.48 glucose 95 Ascitic fluid: 168 WBC, 9% neutrophils Diagnostic Findings US: Successful ultrasound-guided paracentesis with removal of approximately 2.4 liters of ascitic fluid.
[2020-07-29] MEDS: SODIUM CHLORIDE 0.9% 1000ML 1,000 ML IV SCH (10:58)
--- NOTE | 2020-07-29 17:40 | Hospitalist Progress Note ---
Date of Service July 29, 2020 Assessment & Plan (1) Ileus: Ileus vs partial SBO on CT scan. She is feeling better after 24 hours of NG tube placement to LIS. No narcotics. Bowel rest. (2) Post-operative state: (3) Abdominal pain: s/p cholesdocholithiasis with biliary stent placement on 07/15. Sphincterotomy was performed with CBD stent and prophylactic pancreatic stent placed. She underwent a lap pierre on 07/18 with liver bx showing evidence of cirrhosis (new diagnosis). Ascites noted on imaging studies. She did well and bilirubin and LFTs have been slowly trending down. She continued to use oxycodone 10mg regularly and has not had a BM for the past 7-9 days at this point. Abdomen is distended with differential including but not limited to opiate-induced constipation, ileus, decompensated cirrhosis 2/2 worsening ascites vs SBP. Portal vein us ruled out DVT and bilateral doppler of her legs was negative 07/27. Overnight she became more nauseous and began vomiting with increased pain. Rocephin was started out of concern for SBP. Albumin infusions were given periprocedurally for paracentesis ordered today. This was performed later this afternoon when things had calmed down somewhat with her and 2.4L of ascitic fluid was removed. There was no evidence of infection present. The patient has also received at least 10 days of cipro and flagyl prior to this which may be skewing this outcome somewhat. She was evaluated after the procedure and had some nausea but was otherwise doing well with the NG tube. Cont bowel rest . Cont holding diuretics. IVF held for now to avoid third spacing of fluids. (4) Decompensation of cirrhosis of liver: New diagnosis with ascites. She appears decompensated because of the recent surgery. Cont supportive care post paracentesis, and will restart diuretics soon. For now she is on bowel rest 2/2 opiate induced ileus, however, will need to push the BM goal as soon as able to rid the body of ammonia. For now she is on bowel rest. Will check ammonia levels in am. Liver labs trending in positive direction. (5) Elevated LFTs: related to recent surgery and decompensated cirrhosis. Patient denies alcohol use. Trending down. (6) Constipation due to opioid therapy: Severe, Encouraged patient to reduce and preferably stop opiate therapy. (7) Choledocholithiasis: s/p ERCP with stent placement on 07/15. (8) Hyponatremia: 2/2 cirrhosis with decompensation and ?intravascular depletion. Albumin was given miguel-procedurally. For now hold diuretics. (9) Superficial phlebitis: warm compresses PRN (10) HTN (hypertension): chronic, at goal. Cont current medications as tolerated. (11) DVT prophylaxis: Heparin Full Code Dispo-cont hospitalization, spoke with for updates as above. Marisela Waller DO [facility] Hospitalist Admission and Anticipated Discharge Date Admission Date: July 15, 2020 Subjective Admitted 07/15. ERCP for choledocholithiasis with stent placement 07/15 and lap pierre 07/18. Liver biopsy performed 07/18 revealed cirrhosis, which is a new diagnosis. Developed opioid induced ileus and NG tube was placed on 07/28. s/p paracentesis on 07/28 for 2.4L ascitic fluid without evidence of SBP. Abdominal pain improved but still uncomfortable-softer on exam. She is very fatigued but not confused or encephalopathic. Oriented. She reports not having much sleep in 48 hours. Some flatus overnight and bowel sounds present on exam today. NG tube is making her gag-using Ativan. She has some nausea. She asked about water and directed her to ice chips instead. I contacted her and spoke with him by phone. I explained everything regarding her assessment today and answered all his questions including review of specific lab values, and trends, etc. I informed him that her prognosis was good and she was progressing in a positive direction. Review of Systems Review of Systems: All systems reviewed & are unremarkable except as noted in Subjective Physical Exam Physical Exam: CONSTITUTIONAL: WNWD, vitals as above, generally appears uncomfortable EYES: normal conjunctivae, +scleral icterus ENT: external ear and nose normal, MMM, NG tube in place draining bilious material. RESPIRATORY: clear to auscultation bilaterally, no crackles, rales or wheezes, normal respiratory effort CARDIOVASCULAR: regular rate and rhythm, S1 and 2 heard without murmurs, gallops or rubs, no JVD, no peripheral edema GASTROINTESTINAL: soft, nondistended, nontender, appears more comfortable today. laparoscopic sites are closed and appear to be healing well. MUSCULOSKELETAL: strength 5/5 throughout, head is normocephalic and atraumatic SKIN: warm and dry, abdominal incision sites as above. NEUROLOGIC: No facial palsy, no dysarthria. CN 2-12 grossly intact, decreased sensation on abdomen, normal cognition, normal speech, no tremor PSYCHIATRIC: alert cooperative and oriented to person, place and time. Results & Data Results & Data ([facility]) Vital Signs (Past 12 Hours) Vital Signs Temp Pulse Pulse Pulse Resp BP Pulse Ox 07/29/20 16:00 98 H 07/29/20 15:54 37.0 C 103 H 18 123/80 93 07/29/20 11:15 37 C 102 H 16 116/76 93 07/29/20 08:00 93 H 07/29/20 07:09 36.4 C L 94 H 16 117/83 93 Laboratory Results Short CBC 07/28/20 07/29/20 Range/Units 22:17 07:46 WBC 15.11 H 15.25 H (4.8-10.8) K/uL Hgb 10.8 L 11.2 L (12.0-16.0) g/dL Hct 31.4 L 33.8 L (37-47) % Plt Count 232 266 (130-400) K/uL BMP 07/28/20 07/29/20 22:17 07:46 Sodium 130 L 132 L Potassium 3.9 3.8 Chloride 94 L 95 L Carbon Dioxide 30 29 BUN 8 8 Creatinine 0.50 L 0.48 L Glucose 98 95 Calcium 8.5 8.6 Liver Function 07/29/20 07/29/20 Range/Units 07:46 07:46 Total Bilirubin 3.6 H Cancelled (0.2-1) mg/dl Direct Bilirubin 2.6 H Cancelled (0-0.2) mg/dl AST 126 H Cancelled (15-37) U/L ALT 59 Cancelled (12-78) U/L Alkaline Phosphatase 168 H Cancelled (45-117) U/L Albumin 2.3 L Cancelled (3.4-5.0) gm/dl Urine 07/28/20 Range/Units 19:20 Urine Color Dark Yellow Urine Appearance Cloudy A (Clear) Urine pH 5.0 (4.5-7.5) Ur Specific Burns 1.042 H (1.000-1.030) Urine Protein Negative (Negative) Urine Glucose (UA) Negative (Negative) Medications Administered Current Inpatient Medications Furosemide (Furosemide 20 Mg Tab) [facility] Stop: 08/26/20 08:59 Last Admin: 07/28/20 07:52 Dose: Not Given Documented by: Heparin Sodium (Porcine) (Heparin Sod 5,000 Unit/0.5 Ml Vial) 5,000 units SQ Q12 [facility] Stop: 08/25/20 08:59 Last Admin: 07/29/20 09:26 Dose: 5,000 units Documented by: Promethazine HCl 12.5 mg/ (Sodium Chloride) 50.5 mls @ 202 mls/hr IV Q6H PRN PRN Reason: Nausea And Vomiting Stop: 08/14/20 07:08 Last Infusion: 07/28/20 05:08 Dose: Infused Documented by: Ceftriaxone Sodium 1,000 mg/ (Dextrose) 50 mls @ 100 mls/hr IV Q24H [facility]; Protocol Stop: 08/07/20 05:59 Last Infusion: 07/29/20 06:15 Dose: Infused Documented by: Lorazepam (Ativan) 0.25 mg in 0.5 mls @ 0.5 mls/min IV Q6H PRN PRN Reason: anxiety Stop: 08/27/20 16:53 Last Admin: 07/29/20 12:46 Dose: 0.5 mls/min Documented by: Lisinopril (Lisinopril 10 Mg Tab) 10 mg PO [facility] Stop: 08/14/20 08:59 Last Admin: 07/29/20 10:28 Dose: Not Given Documented by: Ondansetron HCl (Ondansetron Inj 2 Mg/Ml 2 Ml Vial) 2 mg IV Q4H PRN PRN Reason: Nausea Stop: 08/17/20 15:49 Last Admin: 07/28/20 01:14 Dose: 2 mg Documented by: Ondansetron HCl (Ondansetron Inj 2 Mg/Ml 2 Ml Vial) 4 mg IV Q8H PRN PRN Reason: Nausea And Vomiting Stop: 08/27/20 10:31 Last Admin: 07/29/20 12:47 Dose: 4 mg Documented by:
[2020-07-30] MEDS ORDERED: traMADol HCL 50 MG TABLET PO STA (00:31)
[2020-07-30] MEDS: ONDANSETRON INJ 2 MG/ML 2 ML VIAL IV PRN (00:42)
[2020-07-30] MEDS: ALBUMIN 25% 12.5 GM/50 ML VIAL IV SCH ×2 (00:49→01:44)
[2020-07-30] MEDS ORDERED: FUROSEMIDE 20 MG in SYRINGE 0 ML IV ONE (01:00)
--- NOTE | 2020-07-30 06:45 | Surgery Progress Note ---
Date of Service July 30, 2020 Assessment & Plan (1) History of laparoscopic cholecystectomy: -s/p ERCP on 07/15/20, & lap pierre and liver bx. on 07/18/20 -due to underlying liver disease paracentesis performed on 07/28 for 2.4 liters of fluid -post-op HIDA scan on 07/28/20 was (-) for bile leak -pt. now has post-op ileus; NGT with 425 cc recorded output yesterday: -may consider removing NGT as bowel function is slowly returning Admission and Anticipated Discharge Date Admission Date: July 15, 2020 Supervising Physician Co-Signing Physician Notes I personally saw and evaluated the patient with Josué Villa PA-C and agree with the assessement and plan 60 yo female s/p lap pierre, ileus, cirrhosis -States she has had some flatus and small BM -Will keep NGT today as she is still very distended -If continues to have low output from NGT and increasing return of bowel function, will consider d/c NGT tomorrow Subjective Pt. notes she passed some flatus ND had small BM Lat night. She feels bloated and notes the NGT is uncomfortable. Physical Exam Constitutional: well developed and well nourished; no acute distress Neck: trachea midline Respiratory: normal respiratory effort; no respiratory distress and no labored breathing Gastrointestinal (Abdomen): mild distention noted; BS are present ; palpation does not elicit much pain Results & Data ([facility]) Vital Signs (Past 12 Hours) Vital Signs Temp Pulse Pulse Pulse Resp BP Pulse Ox 07/30/20 04:00 37.2 C 100 H 20 120/78 95 07/30/20 01:25 36.7 C 99 H 18 117/76 97 07/30/20 00:50 36.4 C L 102 H 20 119/74 97 07/30/20 00:00 36.8 C 104 H 20 121/80 97 07/29/20 23:44 90 07/29/20 19:56 37.2 C 108 H 18 118/78 91 PG Care Time/CCT Total # of Minutes Spent Total Time Spent with Patient: Total time spent is greater than 50% in coordination of care (as documented) at patient's floor/unit and/or counseling patient: Coding Level of Care Code None Diagnoses History of laparoscopic cholecystectomy Z90.49
[2020-07-30] MEDS: LORazepam 0.25 MG/0.5 ML VIAL IV PRN ×3 (07:54→22:09)
[2020-07-30] MEDS: ENOXAPARIN INJ 40 MG/0.4 ML SYR SQ SCH (07:54)
[2020-07-30 08:51] LABS: Hematocrit (blood only) 32.8 % (37-47); Hemoglobin 10.9 g/dL (12.0-16.0); Mean Corpuscular Hemoglobin 36.2 pg (25-34); Mean Corpuscular Hgb Conc 33.2 g/dL (32-36); Mean Platelet Volume 9.1 fL (7.4-10.4); Platelet Count 227 K/uL (130-400); RDW Coefficient of Variation 14.7 % (11.5-14.5); Red Blood Count 3.01 M/uL (4.2-5.4); White Blood Count 14.39 K/uL (4.8-10.8)
[2020-07-30 09:01] LABS: INR 1.4 (0.9-1.1); Prothrombin Time 14.2 Seconds (9.0-12.0)
[2020-07-30 09:09] LABS: BUN Creatinine Ratio 13.9 (10-20); Calcium 8.7 mg/dl (8.5-10.1); Est GFR (Non-African American) 98.4; Magnesium 1.9 mg/dl (1.8-2.4); Potassium 3.6 mmol/L (3.5-5.1)
[2020-07-30 09:10] LABS: Phosphorus 3.1 mg/dl (2.5-4.9)
--- NOTE | 2020-07-30 09:28 | XRay Report ---
RIGHT KNEE 3 VIEWS HISTORY: R knee pain COMPARISON: None. FINDINGS: No fracture or dislocation. Cartilage spaces are maintained for age. Small knee effusion. M ild soft tissue swelling. No radiopaque foreign bodies. IMPRESSION: Small knee effusion and mild soft tissue swelling. No fractures. ACT 112: Negative or not required by law. Electronically signed by: Rahat Barajas M.D. 07/30/2020 9:27 AM
[2020-07-30] MEDS ORDERED: LORazepam 0.25 MG/0.5 ML VIAL IV STA (12:34)
[2020-07-30] MEDS ORDERED: ONDANSETRON INJ 2 MG/ML 2 ML VIAL IV ONE (12:34)
[2020-07-30] MEDS ORDERED: SODIUM CHLORIDE 0.9% 1000ML 1,000 ML IV SCH (12:45)
[2020-07-30] MEDS: lisinopril 10 MG TAB PO SCH (13:27)
--- NOTE | 2020-07-30 16:40 | Hospitalist Progress Note ---
Date of Service July 30, 2020 Assessment & Plan (1) Ileus: small BM overnight and she is feeling better. +BS heard on exam and nausea is only from the presence of the NG tube. Per my discussion with surgical PA she needs to keep the NG tube in place because she has a persistent ileus. Min output overnight so will clamp the tube now and see how she does through the day. (2) Post-operative state: (3) Abdominal pain: s/p cholesdocholithiasis with biliary stent placement on 07/15. Sphincterotomy was performed with CBD stent and prophylactic pancreatic stent placed. She underwent a lap pierre on 07/18 with liver bx showing evidence of cirrhosis (new diagnosis). Ascites noted on imaging studies. She did well and bilirubin and LFTs have been slowly trending down. She She developed opioid- indiced constipation and subsequent ileus post-operatively requiring NG tube placement and bowel rest. Paracentesis also performed which was negative for infection and 2.5 L taken off. Cont bowel rest . Cont holding diuretics. IVF held for now to avoid third spacing of fluids, but give intermittently to avoid dehydration. She received some albumin with lasix overnight and reports feeling better today. (4) Decompensation of cirrhosis of liver: New diagnosis with ascites. She appears decompensated because of the recent surgery. Cont supportive care post paracentesis, and will restart diuretics soon. For now she is on bowel rest 2/2 opiate induced ileus. For now she is on bowel rest. No elevation in ammonia. She is mentally clear. Liver labs trending in positive direction. (5) Elevated LFTs: related to recent surgery and decompensated cirrhosis. Patient denies alcohol use. Trending down. (6) Constipation due to opioid therapy: Severe, Encouraged patient to reduce and preferably stop opiate therapy. (7) Choledocholithiasis: s/p ERCP with stent placement on 07/15. (8) Hyponatremia: 2/2 cirrhosis with decompensation and ?intravascular depletion. resolved off diuretics and with recent treatments. (9) Superficial phlebitis: warm compresses PRN (10) HTN (hypertension): chronic, at goal. Cont current medications as tolerated. (11) DVT prophylaxis: Lovenox. Full Code Dispo-clamp NG tube today and re-evaluate later to see if her symptoms have returned. If not will consider DC NG tube, and conservatively start a diet of clears in the morning. DC to home pending her level of weakness. Pending PT/OT eval/recs. was updated by phone. DO Butch Hutchison Hospitalist Admission and Anticipated Discharge Date Admission Date: July 15, 2020 Subjective cc: ileus and decomensated cirrhosis, post-op state feeling tired but improved from yesterday abdomen is less of an issues today and she is passing flatus with a small BM o vernight 25cc NG tube output at this point she has some nausea and irritation from the tube requiring medication. The nause is from the tube not the ileus per her report. Review of Systems Review of Systems: All systems reviewed & are unremarkable except as noted in Subjective Physical Exam Physical Exam: CONSTITUTIONAL: WNWD, vitals as above, NAD EYES: normal conjunctivae, +scleral icterus ENT: external ear and nose normal, MMM, NG tube in place draining bilious material. RESPIRATORY: clear to auscultation bilaterally, no crackles, rales or wheezes, normal respiratory effort CARDIOVASCULAR: regular rate and rhythm, S1 and 2 heard without murmurs, gallops or rubs, no JVD, no peripheral edema GASTROINTESTINAL: soft, nondistended, nontender, laparoscopic sites are closed and appear to be healing well. MUSCULOSKELETAL: strength 5/5 throughout, head is normocephalic and atraumatic SKIN: warm and dry, abdominal incision sites as above. NEUROLOGIC: No facial palsy, no dysarthria. CN 2-12 grossly intact, decreased sensation on abdomen, normal cognition, normal speech, no tremor PSYCHIATRIC: alert cooperative and oriented to person, place and time. Results & Data Results & Data ([facility]) Vital Signs (Past 12 Hours) Vital Signs Temp Pulse Pulse Pulse Resp BP Pulse Ox 07/30/20 15:46 37.1 C 95 H 20 113/70 91 07/30/20 11:25 36.7 C 101 H 20 110/73 97 07/30/20 08:00 98/68 L 07/30/20 07:26 36.7 C 98 H 20 102/68 93 07/30/20 07:00 99 H Laboratory Results Short CBC 07/30/20 Range/Units 08:42 WBC 14.39 H (4.8-10.8) K/uL Hgb 10.9 L (12.0-16.0) g/dL Hct 32.8 L (37-47) % Plt Count 227 (130-400) K/uL BMP 07/30/20 08:42 Sodium 133 L Potassium 3.6 Chloride 95 L Carbon Dioxide 30 BUN 9 Creatinine 0.64 Glucose 91 Calcium 8.7 Medications Administered Current Inpatient Medications Enoxaparin Sodium (Enoxaparin Inj 40 Mg/0.4 Ml Syr) 40 mg SQ [facility] Stop: 08/29/20 08:59 Last Admin: 07/30/20 07:54 Dose: 40 mg Documented by: Furosemide (Furosemide 20 Mg Tab) 20 mg PO [facility] Stop: 08/26/20 08:59 Last Admin: 07/28/20 07:52 Dose: Not Given Documented by: Lorazepam (Ativan) 0.25 mg in 0.5 mls @ 0.5 mls/min IV Q6H PRN PRN Reason: anxiety Stop: 08/27/20 16:53 Last Admin: 07/30/20 07:54 Dose: 0.5 mls/min Documented by: Sodium Chloride (Nss 1000ml) 1,000 mls @ 80 mls/hr IV .[id number] [facility] Stop: 07/31/20 01:14 Last Admin: 07/30/20 14:06 Dose: 80 mls/hr Documented by: Lisinopril (Lisinopril 10 Mg Tab) 10 mg PO [facility] Stop: 08/14/20 08:59 Last Admin: 07/30/20 13:27 Dose: Not Given Documented by: Ondansetron HCl (Ondansetron Inj 2 Mg/Ml 2 Ml Vial) 4 mg IV Q8H PRN PRN Reason: Nausea And Vomiting Stop: 08/27/20 10:31 Last Admin: 07/30/20 00:42 Dose: 4 mg Documented by:
[2020-07-31] MEDS ORDERED: ALUMINUM/MAGNESIUM SUSP 30 ML UDC PO PRN (03:41)
[2020-07-31] MEDS ORDERED: FAMOTIDINE 20 MG in SYRINGE 3 ML IV ONE (04:00)
--- NOTE | 2020-07-31 05:10 | Surgery Progress Note ---
Date of Service July 31, 2020 Assessment & Plan (1) History of laparoscopic cholecystectomy: -s/p ERCP on 07/15/20, & lap pierre and liver bx. on 07/18/20 -due to underlying liver disease paracentesis performed on 07/28 for 2.4 liters of fluid -post-op HIDA scan on 07/28/20 was (-) for bile leak -NGT removed yesterday: -will consider clears later this morning Admission and Anticipated Discharge Date Admission Date: July 15, 2020 Supervising Physician Co-Signing Physician Notes I personally saw and evaluated the patient with Josué Villa PA-C and agree with the assessement and plan 60 yo female s/p lap pierre, ileus, cirrhosis -Has begun to have bowel function -Advance diet as tolerated Subjective Pt. notes she is more comfortable without NGT. No abdominal pain or N/V reported. Physical Exam Constitutional: well developed and well nourished; no acute distress Respiratory: normal respiratory effort; no respiratory distress and no labored breathing Gastrointestinal (Abdomen): Percussion/Palpation: abdomen soft; abdomen nontender less distended than yesterday's exam Results & Data ([facility]) Vital Signs (Past 12 Hours) Vital Signs Temp Pulse Pulse Resp BP Pulse Ox 07/31/20 04:00 36.6 C 101 H 18 120/78 92 07/30/20 23:39 36.9 C 100 H 18 127/79 93 07/30/20 22:20 100 H 07/30/20 19:00 37.2 C 101 H 18 127/80 95 PG Care Time/CCT Total # of Minutes Spent Total Time Spent with Patient: Total time spent is greater than 50% in coordination of care (as documented) at patient's floor/unit and/or counseling patient: Coding Level of Care Code None Diagnoses History of laparoscopic cholecystectomy Z90.49
[2020-07-31] MEDS: lisinopril 10 MG TAB PO SCH (08:06)
[2020-07-31] MEDS: ENOXAPARIN INJ 40 MG/0.4 ML SYR SQ SCH (08:06)
[2020-07-31] MEDS: LORazepam 0.25 MG/0.5 ML VIAL IV PRN ×2 (09:04→09:45)
--- NOTE | 2020-07-31 10:54 | Hospitalist Progress Note ---
Date of Service July 31, 2020 Assessment & Plan (1) Ileus: resolving. NG tube removed last night after min output and doing clinically well wtih clamping most of day yesterday. Clears tolerated this morning. No dairy products. Having multiple loose BMs. continues to avoid narcotics. (2) Post-operative state: Lap sites closed and healing well. (3) Abdominal pain: s/p cholesdocholithiasis with biliary stent placement on 07/15. Sphincterotomy was performed with CBD stent and prophylactic pancreatic stent placed. She underwent a lap pierre on 07/18 with liver bx showing evidence of cirrhosis (new diagnosis). Ascites noted on imaging studies. She did well and bilirubin and LFTs have been slowly trending down. She She developed opioid- indiced constipation and subsequent ileus post-operatively requiring NG tube placement and bowel rest. Paracentesis also performed which was negative for infection and 2.5 L taken off 07/28. NG tube removed last night and she is tolerating clears now. Nutrition and hydration is very important with her wound healing in post op state. Avoid dairy products; multiple loose BMs. Allow body to reset. Cont to ambulate as tolerated to mobilize fluid naturally. Ascitic fluid building up again. Out of concern for dehydration will hold on starting diuretics today and will start tomorrow to allow one day to rehydrate orally. Cont to avoid IVF. Low salt diet. Avoid ACEI in cirrhosis, which should be discontinued at this point. Tachycardic mildly but this is physiologic. Will not start propranolol at this time as this has risk to cause more harm than good. Avoid IV Lasix to treat ascites...preferably use oral diuretics, again to start tomorrow. (4) Decompensation of cirrhosis of liver: Plan as above. Diuretics (Lasix 40 QAM, spironolactone 100 QAM) to start in am. (5) Elevated LFTs: related to recent surgery and decompensated cirrhosis. Patient denies alcohol use. Trending down. (6) Constipation due to opioid therapy: ileus resolving and avoid bowel medications at this point. (7) Choledocholithiasis: s/p ERCP with stent placement on 07/15. (8) Hyponatremia: 2/2 cirrhosis with decompensation and ?intravascular depletion. resolved with recent therapies. (9) Superficial phlebitis: warm compresses PRN (10) HTN (hypertension): chronic, at goal. ACEI not recommended moving forward. Start Lasix 40 daily, aldactone 100 daily to start in am. All other diuretics and antihypertensives should be discontinued at discharge moving forward. Cirrhosis is a cure for hypertension. Current diuretic therapy is being given to manage ascites. also ensure low salt diet. (11) DVT prophylaxis: Lovenox. Full Code Dispo-transfer to med/surg. Work on ambulation and ADAT today. Marisela Waller DO [facility] Hospitalist Admission and Anticipated Discharge Date Admission Date: July 15, 2020 Subjective cc: ileus, opioid induced -NG tube removed last night -tolerated clears this morning -multiple loose BMs -no nausea -denies abdominal pain Review of Systems Review of Systems: All systems reviewed & are unremarkable except as noted in Subjective Physical Exam Physical Exam: CONSTITUTIONAL: WNWD, vitals as above, NAD EYES: normal conjunctivae, +scleral icterus-improving ENT: external ear and nose normal, MMM RESPIRATORY: clear to auscultation bilaterally, no crackles, rales or wheezes, normal respiratory effort CARDIOVASCULAR: regular rate and rhythm, S1 and 2 heard without murmurs, gallops or rubs, no JVD, no peripheral edema GASTROINTESTINAL: soft, nondistended, nontender, laparoscopic sites are closed and appear to be healing well. fluid wave MUSCULOSKELETAL: strength 5/5 throughout, head is normocephalic and atraumatic SKIN: warm and dry, abdominal incision sites as above. NEUROLOGIC: No facial palsy, no dysarthria. CN 2-12 grossly intact, decreased sensation on abdomen, normal cognition, normal speech, no tremor PSYCHIATRIC: alert cooperative and oriented to person, place and time. Results & Data Results & Data ([facility]) Vital Signs (Past 12 Hours) Vital Signs Temp Pulse Pulse Pulse Resp BP Pulse Ox 07/31/20 08:15 103 H 07/31/20 07:48 36.8 C 107 H 20 118/83 96 07/31/20 04:00 36.6 C 101 H 18 120/78 92 07/30/20 23:39 36.9 C 100 H 18 127/79 93 Medications Administered Current Inpatient Medications Al Hydrox/Mg Hydrox/Simethicone (Aluminum/Magnesium Susp 30 Ml Udc) 15 ml PO Q6H PRN PRN Reason: Heartburn Stop: 08/30/20 03:40 Last Admin: 07/31/20 04:03 Dose: 15 ml Documented by: Enoxaparin Sodium (Enoxaparin Inj 40 Mg/0.4 Ml Syr) 40 mg SQ [facility] Stop: 08/29/20 08:59 Last Admin: 07/31/20 08:06 Dose: 40 mg Documented by: Furosemide (Furosemide 40 Mg Tab) 40 mg PO [facility] Stop: 08/31/20 08:59 Ondansetron HCl (Ondansetron Inj 2 Mg/Ml 2 Ml Vial) 4 mg IV Q8H PRN PRN Reason: Nausea And Vomiting Stop: 08/27/20 10:31 Last Admin: 07/30/20 00:42 Dose: 4 mg Documented by: Spironolactone (Spironolactone 100 Mg Tab) 100 mg PO [facility] Stop: 08/31/20 08:59
[2020-07-31] MEDS ORDERED: MELATONIN 3 MG TAB PO PRN (21:17)
[2020-07-31] MEDS ORDERED: traMADol HCL 50 MG TABLET PO STA (23:58)
[2020-08-01 00:26] LABS: Basophils # (auto) 0.01 K/uL (0-0.2); Basophils % (auto) 0.1 %; Eosinophils # (auto) 0.07 K/uL (0-0.5); Eosinophils % (auto) 0.6 %; Hematocrit (blood only) 34.3 % (37-47); Hemoglobin 11.4 g/dL (12.0-16.0); Immature Granulocytes # (auto) 0.06 K/uL (0.00-0.02); Immature Granulocytes % (auto) 0.5 %; Lymphocytes # (auto) 1.55 K/uL (1.2-3.4); Lymphocytes % (auto) 13.3 %; Mean Corpuscular Hemoglobin 35.7 pg (25-34); Mean Corpuscular Hgb Conc 33.2 g/dL (32-36); Mean Corpuscular Volume 107.5 fL (80-100); Mean Platelet Volume 9.3 fL (7.4-10.4); Monocytes # (auto) 0.77 K/uL (0.11-0.59); Monocytes % (auto) 6.6 %; Neutrophils % (auto) 78.9 %; Platelet Count 218 K/uL (130-400); RDW Coefficient of Variation 14.2 % (11.5-14.5); RDW Standard Deviation 56.1 fL (36.4-46.3); Red Blood Count 3.19 M/uL (4.2-5.4); White Blood Count 11.66 K/uL (4.8-10.8)
[2020-08-01 00:45] LABS: BUN Creatinine Ratio 11.8 (10-20); Calcium 8.2 mg/dl (8.5-10.1); Creatinine Clr Calc Pharmacy 91.5 ml/min; Est GFR (African American) 114.6; Est GFR (Non-African American) 98.9; Potassium 3.4 mmol/L (3.5-5.1)
[2020-08-01 02:09] LABS: Magnesium 1.7 mg/dl (1.8-2.4)
[2020-08-01] MEDS: POTASSIUM CHLORIDE / WTR 10 MEQ/100 ML PLCT IV SCH ×6 (03:29→10:08)
[2020-08-01] MEDS: MAGNESIUM SULFATE / D5W 1 GM/100 ML BAG IV SCH ×2 (03:30→05:30)
[2020-08-01] MEDS: SPIRONOLACTONE 100 MG TAB PO SCH (08:40)
[2020-08-01] MEDS: ENOXAPARIN INJ 40 MG/0.4 ML SYR SQ SCH (08:41)
[2020-08-01] MEDS: FUROSEMIDE 40 MG TAB PO SCH (08:41)
[2020-08-01] MEDS ORDERED: POTASSIUM CHLORIDE CRTAB 20 MEQ TABCR PO STA (08:43)
[2020-08-01] MEDS ORDERED: MAGNESIUM SULFATE / D5W 1 GM/100 ML BAG IV SCH (08:43)
--- NOTE | 2020-08-01 08:53 | Surgery Progress Note ---
Date of Service August 01, 2020 Assessment & Plan (1) History of laparoscopic cholecystectomy: patient is s/p ERCP on 07/15/20, & lap pierre and liver biopsy on 07/18/20 WBC continues to downtrend, 11.6 today; afebrile pt denies any abdominal complaints and she is passing flatus & having BM's tolerating clear liquids. will continue to advance diet as tolerates doing well from surgical standpoint, will need follow up with Dr. Berrios within 2 weeks dispo planning per medicine Admission and Anticipated Discharge Date Admission Date: July 15, 2020 Subjective Patient states she did not have a good night last night and did not sleep well. She wants to go home. She denies any nausea/vomiting or abdominal pain. Says she is tolerating clears. Having + bm's and is passing flatus. Physical Exam Physical Exam: awake Respiratory: normal respiratory effort Gastrointestinal (Abdomen): Inspection/Auscultation: + abdomen distended (improving) and + abdominal surgical incision (c/d/i with dermabond overtop, no sign of infection) Percussion/Palpation: abdomen soft; abdomen nontender Results & Data ([facility]) Vital Signs (Past 12 Hours) Vital Signs Temp Pulse Resp BP Pulse Ox 08/01/20 07:15 36.9 C 104 H 16 92/60 L 92 07/31/20 23:41 36.6 C 106 H 20 124/77 99 PG Care Time/CCT Total # of Minutes Spent Total Time Spent with Patient: Total time spent is greater than 50% in coordination of care (as documented) at patient's floor/unit and/or counseling patient: Coding Level of Care Code None Diagnoses History of laparoscopic cholecystectomy Z90.49
[2020-08-01] MEDS ORDERED: ZOLPIDEM TARTRATE 5 MG TAB PO PRN (15:22)
--- NOTE | 2020-08-01 17:25 | Ultrasound Report ---
ULTRASOUND BILATERAL LOWER EXTREMITY VENOUS CLINICAL HISTORY: Calf pain. COMPARISON STUDY: Bilateral lower extremity venous ultrasound dated 07/27/2020. TECHNIQUE: Real-time, grayscale, and color Doppler sonography of the deep veins of the right and left lower extremity was performed from the inguinal crease to the calf. Compression and augmentation wer e utilized. FINDINGS: There is no sonographic evidence of deep venous thrombosis identified in the right or left lower extremity. The common femoral, superficial femoral, and popliteal veins are patent and normally compressible bilaterally. The greater saphenous vein and the profunda femoris vein at the junction w ith the common femoral vein are clear in both legs. The visualized calf veins are patent bilaterally. Soft tissue edema is present in both legs. IMPRESSION: There is no sonographic evidence of deep venous thrombosis identified in the right or lef t lower extremity. No change from study performed 5 days previously. ACT 112: Negative or not required by law. Electronically signed by: Quinn Lopes M.D. 08/01/2020 5:24 PM
--- NOTE | 2020-08-01 17:51 | Hospitalist Progress Note ---
Date of Service August 01, 2020 Assessment & Plan (1) Ileus: resolved, doing well with foods, diet advanced to solids. (2) Post-operative state: Lap sites closed and healing well. (3) Abdominal pain: s/p cholesdocholithiasis with biliary stent placement on 07/15. Sphincterotomy was performed with CBD stent and prophylactic pancreatic stent placed. She underwent a lap pierre on 07/18 with liver bx showing evidence of cirrhosis (new diagnosis). Ascites noted on imaging studies. She did well and bilirubin and LFTs have been slowly trending down. She She developed opioid- indiced constipation and subsequent ileus post-operatively requiring NG tube placement and bowel rest. Paracentesis also performed which was negative for infection and 2.5 L taken off 07/28. NG tube removed and diet advanced, now on solids an dtolerating. Low salt diet. Avoid ACEI in cirrhosis, which should be discontinued at this point. Tachycardic mildly but this is physiologic. Will not start propranolol at this time as this has risk to cause more harm than good. Avoid IV Lasix to treat ascites...preferably use oral diuretics, started today. BMP in am. (4) Decompensation of cirrhosis of liver: s/p paracentesis this admission with 2.5L ascites removed. Diuretics (Lasix 40 QAM, spironolactone 100 QAM) this am. (5) Elevated LFTs: related to recent surgery and decompensated cirrhosis. Patient denies alcohol use. Trending down. (6) Constipation due to opioid therapy: ileus resolved and avoid bowel medications at this point. (7) Choledocholithiasis: s/p ERCP with stent placement on 07/15. (8) Superficial phlebitis: warm compresses PRN (9) HTN (hypertension): chronic, at goal. ACEI not recommended moving forward. Start Lasix 40 daily, aldactone 100 daily to start in am. All other diuretics and antihypertensives should be discontinued at discharge moving forward. Cirrhosis is a cure for hypertension. Current diuretic therapy is being given to manage ascites. also ensure low salt diet. (10) DVT prophylaxis: Lovenox. Full Code Dispo-to home when medically stable, no earlier than 08/02 Marisela Waller DO [facility] Hospitalist Admission and Anticipated Discharge Date Admission Date: July 15, 2020 Subjective cc: ileus, cirrhosis iwth acsites -leg cramps overnight -lytes replaced -she feels sore in her calves bilaterally today. -her right forearm phlebitis is improving -BMs are becoming regular -she is tolerating solid foods. Review of Systems Review of Systems: All systems reviewed & are unremarkable except as noted in Subjective Physical Exam Physical Exam: CONSTITUTIONAL: WNWD, vitals as above, NAD EYES: normal conjunctivae, scleral icterus-resolved. ENT: external ear and nose normal, MMM RESPIRATORY: clear to auscultation bilaterally, no crackles, rales or wheezes, normal respiratory effort CARDIOVASCULAR: regular rate and rhythm, S1 and 2 heard without murmurs, gallops or rubs, no JVD, no peripheral edema GASTROINTESTINAL: soft, nondistended, nontender, laparoscopic sites are closed and appear to be healing well. + fluid wave MUSCULOSKELETAL: strength 5/5 throughout, head is normocephalic and atraumatic SKIN: warm and dry, abdominal incision sites as above. NEUROLOGIC: No facial palsy, no dysarthria. CN 2-12 grossly intact, decreased sensation on abdomen, normal cognition, normal speech, no tremor PSYCHIATRIC: alert cooperative and oriented to person, place and time. Results & Data Results & Data ([facility]) Vital Signs (Past 12 Hours) Vital Signs Temp Pulse Pulse Pulse Pulse Resp BP 08/01/20 16:00 36.5 C 99 H 22 103/69 08/01/20 08:59 98 H 102 H 100/68 08/01/20 08:57 101 H 08/01/20 07:15 36.9 C 104 H 16 92/60 L BP Pulse Ox 08/01/20 16:00 97 08/01/20 08:59 97/65 L 08/01/20 08:57 105/70 96 08/01/20 07:15 92 Laboratory Results Short CBC 08/01/20 Range/Units 00:15 WBC 11.66 H (4.8-10.8) K/uL Hgb 11.4 L (12.0-16.0) g/dL Hct 34.3 L (37-47) % Plt Count 218 (130-400) K/uL BMP 08/01/20 00:15 Sodium 132 L Potassium 3.4 L Chloride 97 L Carbon Dioxide 28 BUN 8 Creatinine 0.63 Glucose 108 H Calcium 8.2 L Medications Administered Current Inpatient Medications Enoxaparin Sodium (Enoxaparin Inj 40 Mg/0.4 Ml Syr) 40 mg SQ QAM [facility] Stop: 08/29/20 08:59 Last Admin: 08/01/20 08:41 Dose: 40 mg Documented by: Furosemide (Furosemide 40 Mg Tab) 40 mg PO QAM [facility] Stop: 08/31/20 08:59 Last Admin: 08/01/20 08:41 Dose: 40 mg Documented by: Melatonin (Melatonin 3 Mg Tab) 3 mg PO HS PRN PRN Reason: Sleep Stop: 08/30/20 21:16 Last Admin: 07/31/20 21:35 Dose: 3 mg Documented by: Ondansetron HCl (Ondansetron Inj 2 Mg/Ml 2 Ml Vial) 4 mg IV Q8H PRN PRN Reason: Nausea And Vomiting Stop: 08/27/20 10:31 Last Admin: 07/30/20 00:42 Dose: 4 mg Documented by: Spironolactone ([facility] 100 Mg Tab) [facility] Stop: 08/31/20 08:59 Last Admin: 08/01/20 08:40 Dose: 100 mg Documented by: Zolpidem Tartrate (Zolpidem Tartrate 5 Mg Tab) 5 mg PO HS PRN PRN Reason: Sleep Stop: 08/31/20 15:21
[2020-08-02] MEDS: ENOXAPARIN INJ 40 MG/0.4 ML SYR SQ SCH (07:30)
[2020-08-02] MEDS: SPIRONOLACTONE 100 MG TAB PO SCH (07:30)
[2020-08-02] MEDS: FUROSEMIDE 40 MG TAB PO SCH (07:30)
[2020-08-02 08:03] LABS: Hematocrit (blood only) 29.6 % (37-47); Hemoglobin 9.9 g/dL (12.0-16.0); Mean Corpuscular Hemoglobin 36.5 pg (25-34); Mean Corpuscular Hgb Conc 33.4 g/dL (32-36); Mean Corpuscular Volume 109.2 fL (80-100); Mean Platelet Volume 9.8 fL (7.4-10.4); Platelet Count 220 K/uL (130-400); RDW Coefficient of Variation 14.4 % (11.5-14.5); RDW Standard Deviation 57.7 fL (36.4-46.3); Red Blood Count 2.71 M/uL (4.2-5.4); White Blood Count 11.58 K/uL (4.8-10.8)
[2020-08-02 08:32] LABS: Calcium 7.8 mg/dl (8.5-10.1); Creatinine Clr Calc Pharmacy 125.3 ml/min; Est GFR (African American) 127.1; Est GFR (Non-African American) 109.7; Magnesium 1.9 mg/dl (1.8-2.4); Potassium 3.6 mmol/L (3.5-5.1)
--- NOTE | 2020-08-02 16:04 | Surgery Progress Note ---
Date of Service August 02, 2020 Assessment & Plan (1) History of laparoscopic cholecystectomy: Status post laparoscopic cholecystectomy with no evidence of complications from surgery. Liver biopsy confirmed cirrhosis. She is now 2 weeks postop and hopefully scheduled for discharge today or tomorrow. Follow-up as needed in the general surgery clinic Increase activity as tolerated, recommend no heavy lifting for 1 more week Follow-up with GI for stent removal and management of cirrhosis She may soak and scrub the wounds with no bathing restrictions General surgery will sign off, call with questions or concerns Admission and Anticipated Discharge Date Admission Date: July 15, 2020 Subjective 60-year-old female admitted with jaundice status post ERCP with stent placement, 2 weeks status post laparoscopic cholecystectomy and liver biopsy. She developed ascites and an ileus and had a paracentesis and NG tube placed. The NG tube was removed over the weekend if she had return of bowel function. She is tolerating regular diet and having bowel movements and passing gas. Her abdomen still still somewhat tight she still has some of the symptoms she presented with. Physical Exam Constitutional: WD/WN, vitals as above Gastrointestinal (Abdomen): normal bowel sounds, soft, nontender, no hepatosplenomegaly Inspection/Auscultation: + abdomen distended and + abdominal surgical incision (Healing well no evidence of infection) Results & Data ([facility]) Vital Signs (Past 12 Hours) Vital Signs Temp Pulse Resp BP Pulse Ox 08/02/20 07:19 37.1 C 96 H 18 97/60 L 98 Laboratory Results Laboratory Results - last 24 hr 08/02/20 08/02/20 07:22 07:22 WBC 11.58 H RBC 2.71 L Hgb 9.9 L Hct 29.6 L MCV 109.2 H MCH 36.5 H MCHC 33.4 RDW Std Deviation 57.7 H RDW Coeff of Merna 14.4 Plt Count 220 MPV 9.8 Sodium 131 L Potassium 3.6 Chloride 97 L Carbon Dioxide 26 Anion Gap 8.0 BUN 6 L Creatinine 0.46 L Est Cr Clr Drug Dosing 125.3 Est GFR ( Amer) 127.1 Est GFR (Non-Af Amer) 109.7 BUN/Creatinine Ratio 12.0 Glucose 94 Calcium 7.8 L Magnesium 1.9 PG Care Time/CCT Total # of Minutes Spent Total Time Spent with Patient: Total time spent is greater than 50% in coordination of care (as documented) at patient's floor/unit and/or counseling patient: Coding Level of Care Code None Diagnoses History of laparoscopic cholecystectomy Z90.49
--- NOTE | 2020-08-02 16:46 | Discharge Summary ---
Date of Service August 02, 2020 Admission HPI Per Admitting Provider History obtained from patient, family, and records. Medical history significant for hypertension, fatty liver as per records, prediabetes, OHS on CPAP, fibromyalgia as per records. Last confinement July 2014 for chest pain. ACS ruled out with negative exercise stress test. Patient had outpatient surveillance colonoscopy last week of May 2020. External and internal hemorrhoids found on examination. 5 mm polyp resected. Since procedure, patient noted bloating symptoms with episodic emesis. OTC medications taken for indigestion with minimal relief. Patient's eyes noted to be yellow last week by . 2 days ago patient noted achy upper abdominal discomfort going down with nausea and emesis. No diarrhea. Patient noted dysuria symptoms without fever, chills. 1 tablet of Tylenol taken made her very sick as per patient. No chest pain, no S OB. Poor appetite. Patient seen at PCPs office yesterday. 3-day Cipro course prescribed for cystitis. Outpatient LFTs noted to be abnormal. Albumin 3.5, AST 322, ALT 127, alk phos 194, total bilirubin 6.4, direct bilirubin 4.9. Acute hepatitis panel was negative. Patient sent to the ER for evaluation. Loose stools noted at the ER after oral contrast ingestion. Medical History as above Surgical History : Breast lesion excision, BTL, right shoulder surgery Family History : Breast cancer, heart disease Personal/Social history : Non-smoker, no EtOH intake, disabled Principal Diagnosis Postoperative ileus Postoperative state status post laparoscopic cholecystectomy cirrhosis secondary to nonalcoholic steatohepatitis status post liver biopsy Choledocholithiasis with biliary and pancreatic stent placement on 07/15 Opioid induced constipation with ileus Decompensation of cirrhosis of liver with ascites status post paracentesis with 2.5 L of ascites removed Transaminitis Superficial phlebitis Discharge Exam CONSTITUTIONAL: WNWD, vitals as above, NAD EYES: normal conjunctivae, +scleral icterus ENT: external ear and nose normal, MMM RESPIRATORY: clear to auscultation bilaterally, no crackles, rales or wheezes, normal respiratory effort CARDIOVASCULAR: regular rate and rhythm, S1 and 2 heard without murmurs, gallops or rubs, no JVD, no peripheral edema GASTROINTESTINAL: soft, nondistended, nontender, laparoscopic sites are closed and appear to be healing well. + fluid wave MUSCULOSKELETAL: strength 5/5 throughout, head is normocephalic and atraumatic SKIN: warm and dry, abdominal incision sites as above. NEUROLOGIC: No facial palsy, no dysarthria. CN 2-12 grossly intact, decreased sensation on abdomen, normal cognition, normal speech, no tremor PSYCHIATRIC: alert cooperative and oriented to person, place and time. Discharge Data Allergies Allergy/AdvReac Type Severity Reaction Status Date / Time bee venom protein (honey bee) Allergy Severe SHORTNESS Verified 07/15/20 01:43 OF BREATH, swelling lactose Allergy Intermediate Gastrointestinal Verified 07/25/20 15:53 Upset naproxen Allergy Intermediate HIVES Verified 07/15/20 01:43 Sulfa (Sulfonamide Allergy Intermediate HIVES Verified 07/15/20 01:43 Antibiotics) Consultations 07/15/20 04:38 ED Decision to Admit Stat 07/15/20 07:09 Consult Gastroenterology Routine 07/15/20 15:23 Consult General Surgery Routine Procedures Performed Operation Date: 07/15/20 08:20 Actual Procedures p Endoscopic Retrograde Cholangiopancreatogram(Not Applicable) - Jean-Pierre Jack DO s Upper Endoscopic Ultrasonography - Jean-Pierre Jack DO Operation Date: 07/18/20 07:00 Actual Procedures p Laparoscopic Cholecystectomy (Not Applicable) - Geronimo Berrios DO, FACS s with liver biopsy(Not Applicable) - Geronimo Berrios DO, FACS Ordered Studies 07/15/20 00:19 US liver Urgent 07/15/20 01:28 CT abd pelvis oral and IV con Urgent 07/15/20 12:49 US upper EUS PACS images Routine 07/15/20 13:00 FL ERCP biliary ductal Routine 07/16/20 21:28 CT abd pelvis IV con only Urgent 07/21/20 13:29 CT abd pelvis IV con only Routine 07/24/20 06:39 US venous doppler UE RT Routine 07/27/20 10:30 US venous doppler LE BI Urgent 07/27/20 11:53 US duplex portal hepatic veins Routine 07/28/20 02:34 CT abd pelvis IV con only Urgent 07/28/20 14:45 US paracentesis abd w/image Routine 08/01/20 15:22 US venous doppler LE BI Routine Hospital Course (1) Ileus: resolved, doing well with foods, diet advanced to solids. (2) Post-operative state: Lap sites closed and healing well. (3) Abdominal pain: s/p cholesdocholithiasis with biliary stent placement on 07/15. Sphincterotomy was performed with CBD stent and prophylactic pancreatic stent placed. She underwent a lap pierre on 07/18 with liver bx showing evidence of cirrhosis (new diagnosis). Ascites noted on imaging studies. She did well and bilirubin and LFTs slowly trended down. She developed opioid-induced constipation and subsequent ileus post-operatively requiring NG tube placement and bowel rest. Paracentesis also performed which was negative for infection and 2.5 L taken off 07/28. NG tube removed and diet advanced to solids which she was tolerating reliably at time of discharge. Low salt diet recommended. Avoid ACEI in cirrhosis, which was discontinued at this point. Oral LAsix and aldactone was started 24 hours prior to discharge and repeat BMP was WNL prior to discharge. Close PCP follow- up with BMP was recommended. (4) Decompensation of cirrhosis of liver: s/p paracentesis this admission with 2.5L ascites removed. Diuretics (Lasix 40 QAM, spironolactone 100 QAM) continued. (5) Elevated LFTs: related to recent surgery and decompensated cirrhosis. Patient denies alcohol use. Trending down. (6) Constipation due to opioid therapy: ileus resolved and avoid bowel medications at this point. (7) Choledocholithiasis: s/p ERCP with stent placement on 07/15. (8) Superficial phlebitis: warm compresses with improvement during her hospital stay (9) HTN (hypertension): chronic, at goal. ACEI not recommended moving forward. Start Lasix 40 daily, aldactone 100 daily to start in am. All other diuretics and antihypertensives should be discontinued at discharge moving forward. Cirrhosis is a cure for hypertension. Current diuretic therapy is being given to manage ascites. also ensure low salt diet. Total Time Total Time Spent Total Time Spent (In Minutes): 60 Total Time Includes: Examination of the Patient, Discharge Planning, Medication Reconciliation and Communication With Other Providers Discharge Plan Discharge Items Patient Disposition: Home - Self-Care Reason For Visit: ABD PAIN Discharge Diagnosis: Postoperative ileus Postoperative state status post laparoscopic cholecystectomy cirrhosis secondary to nonalcoholic steatohepatitis status post liver biopsy Choledocholithiasis with biliary and pancreatic stent placement on 07/15 Opioid induced constipation with ileus Decompensation of cirrhosis of liver with ascites status post paracentesis with 2.5 L of ascites removed Transaminitis Superficial phlebitis Condition on Discharge: Good Activity: Per Instructions section Lifting: No more than 10 pounds Bathing Comment: may shower; no soaking in tubs/pools Exercise/Sports: Wait until after follow-up appointment Driving/Machine Use: do not resume driving while taking narcotics for pain Non-emergency contact: Primary Care Provider Call non-emergency contact if: you have any medication questions, your symptoms worsen, your pain is not controlled, your pain is worsening, your pain is unusual for you, you have a fever, your temperature is above 101.5, your wound has increased redness, your wound has increased drainage and your wound pain has increased Follow-up/Referrals: Geronimo Berrios DO, FACS [Physician] - (Please call to schedule follow up in clinic within 1-2 weeks) Shon Page MD [Primary Care Provider] - (Date & Time 08/05/2020 12:00 PM Provider Bjorn Sam DO [facility] ) Diet: Low Sodium (2gm) Addtl Attending Provider Instructions: Please take all medications as instructed on discharge list below. You were given a prescription to set up outpatient PT and OT to continue to meet your physical goals. You were started on two new medications that require repeat blood work in 1-2 weeks. This will need to be ordered by your primary care physician prior to follow-up above. Please stick to a low salt diet to help you avoid ascites and fluid build up. You are able to have Tylenol for severe pain, however, please do not exceed more than 2000mg in 24 hours. You will need liver ultrasounds and aFP check every 6 months, which will be ordered through your primary care physician as a screening during cirrhosis. You will also need a referral to [facility] to undergo initial outpatient evaluation and education on this. It was a pleasure taking care of you! Please call if you have any questions or problems. You can reach a [facility] hospitalist on duty at [facility] 24 hours a day by calling [phone]. Take care of yourself. Marisela Waller DO [facility] Hospitalist Pending Studies at Discharge: Yes Stand-Alone Forms: My [facility] Medications and DC Order Prescriptions: New spironolactone 100 mg Tablet 100 mg PO QAM Qty: 30 RF: 0 furosemide 40 mg Tablet 40 mg PO QAM Qty: 30 RF: 0 Continued ergocalciferol (vitamin D2) 1,250 mcg (50,000 unit) capsule 1,250 mcg PO MONTHLY RF: 0 ipratropium bromide 0.03 % spray,non-aerosol 2 spray INTRANASAL Q12 RF: 0 Discontinued ciprofloxacin HCl 250 mg tablet 250 mg PO BID RF: 0 lisinopril-hydrochlorothiazide 10-12.5 mg tablet 1 tab PO DAILY RF: 0 tramadol 50 mg tablet 50 mg PO Q6 PRN (Reason: Pain) RF: 0 Discharge Orders: Discharge Order (Routine); Ordered 08/02/20 Ordered By: Marisela Waller Admission Data Admit Date/Time: 07/15/20 22:32 Attending Provider: Marisela Waller Admit Provider: Reji Santiago Primary Care Provider: Shon Page Other Providers: Reji Santiago ; Wiley Rock ; Karolina White ; Debra Hendrickson ; Tanner Morales ; Kaylan Menard ; Anibal Stanford ; Jean-Pierre Jack ; Kenyatta Mukherjee ; Deon Harmon ; Corey Huff ; Coleen Donis ; Maggi Francois ; Brittani Vasquez ; Shania Hewitt ; Gisselle Chamberlain ; Geronimo Berrios Other Interventions: Discharge Summary Assessment (RN) Last Done: 08/02/20 17:31
== END 2020-08-02 18:43 | disposition home or self-care (01) | DRG 418 ==
LOC: ED → 3W → SUATTDRO 22:32 → 2W 07-28 10:28 → 4W 07-31 18:54 → 2W 07-31 18:55 → 4W 07-31 19:17 → 2W 07-31 19:18